=== PATIENT | female | born 1950 | race Caucasian/White ===

== ENCOUNTER → 2016-12-28 | Day surgery (SDC) | payer OTHER, MEDICARE ==
[2016-12-19 15:34] VITALS: Ht 163.8 cm; Wt 77.3 kg
[~2016-12-28] VITALS: Ht 163.8 cm; Wt 77.3 kg
[~2016-12-28] MED LIST: 500ML BSS 0.3ML EPI 1:1000PF IRRIG ONE; ACETAMINOPHEN 325 MG TAB PO PRN; ALBU1.257 NEB; ALBU1AER9 PO; AMVISC PLUS 0.8ML SYRINGE INT OCU ONE; ATEN50TA8 PO; BRIM0.2S OPB; BSS FLUSH ONE; CHOL100010 PO; CLR10 PO; CRFL PO; ENDOCOAT 0.85ML SYRINGE INT OCU ONE; EpINEphrine INJ 1MG/ML AMP 1 MG/ML AMP ONE; FLUT1AER5 INH; IPRASOL4 INH; LACTATED RINGER'S 1000ML 500 ML IV SCH; LIDOCAINE 4% OP SOLN DROP CHARGE ONE; LIDOCAINE 4% OP SOLN DROP CHARGE OPL SCH; LIDOCAINE HCL 1% MPF 2 ML VIAL ONE; LOSA100T65 PO; MIDAZOLAM HCL 1 MG/ML 2ML VIAL ONE; MIX: 4ML BSS 1ML EPI 1:1000 PF TOP ONE; MONT1TAB3 PO; MONT1TAB5 PO; MOXIFLOXACIN OPH SOLN PER DROP CHARGE ONE; POVIDONE-IODINE OP SOLN 30 ML BTL ONE; PRED1SUS3 OPL; PRLSR20 PO; PROPARACAINE 0.5% OP SOLN PER DROP CHARGE OPL SCH; TOBRAMYCIN/DEXAMETHASONE OPH OINT PER APPLN CHARGE ONE
[2016-12-28] MEDS: PHENYLEPHRINE HCL 2.5% OP SOLN PER DROP CHARGE OPL SCH ×3 (12:14→12:24)
[2016-12-28] MEDS: TROPICAMIDE 1% OP SOLN PER DROP CHARGE OPL SCH ×3 (12:15→12:25)
[2016-12-28] MEDS: CYCLOPENTOLATE HCL 1% OP SOLN PER DROP CHARGE OPL SCH ×3 (12:16→12:26)
[2016-12-28] MEDS: MOXIFLOXACIN OPH SOLN PER DROP CHARGE OPL SCH ×3 (12:17→12:27)
--- NOTE | 2016-12-28 12:41 | History & Physical Bridge - [place] ---
H&P Re-Evaluation Bridge Note: I have examined the patient, reviewed the History & Physical and in the interval since the performance of the History & Physical I have noted the following changes of clinical significance: No changes noted. Left eye cataract surgery.
--- NOTE | 2016-12-28 13:54 | [facility] Post Operative Brief Note ---
Immediate Operative Summary Operative Date Dec 28, 2016. Pre-Operative Diagnosis Cataract Left Eye Post-Operative Diagnosis Same Procedure(s) Performed Left Cataract Phacoemulsification With Intraocular Lens Implant Surgeon Dr. Presley Health Program Analyst Surgeon(s) None Estimated Blood Loss 0 mL Findings left cataract Specimens None Complication(s) None Disposition
[2016-12-28 13:55] VITALS: TEMP 36.5
--- NOTE | 2016-12-28 13:56 | [facility] Operative Report ---
Operative Report Date of Service Dec 28, 2016. Operative Report Phaco with toric IOL DATE OF OPERATION: 12/28/16 PREOPERATIVE DIAGNOSIS: Senile nuclear cataract and astigmatism, left eye POSTOPERATIVE DIAGNOSIS: Senile nuclear cataract and astigmatism, left eye PROCEDURE PERFORMED: Phacoemulsification with toric intraocular lens implantation, left eye SURGEON: Dr. Otto Presley ANESTHESIA: Topical with 1% intracameral lidocaine and monitored anesthesia care COMPLICATIONS: None DESCRIPTION OF PROCEDURE: After positively identifying the patient both verbally and by wristband in the preoperative area, the left eye was marked as the operative eye. Using a sterile marker, the 3:00, 6:00, and 9:00 positions on the limbus were marked, and using a Robomarker the 50 degree axis was marked after placing a drop of proparacaine. The patient was then brought back to the operating room by the anesthesia and nursing staff where they were given a drop of tetracaine and betadine into the operative eye. They were then sterilely prepped and draped in the standard fashion typical for ophthalmic surgery. Steri-strips were placed along the upper eyelids to keep the lashes back, and a lid speculum was placed into the operative eye. At this point, a documented time out was performed with members of the ophthalmology, nursing, and anesthesia staffs all agreeing upon the correct patient, correct location for surgery, correct procedure, and correct type and power of intraocular lens to be implanted. The microscope was then swung into position. Then, a paracentesis wound was made using a sideport blade. Then, in sequence, 1% preservative-free lidocaine followed by Endocoat viscoelastic was injected into the anterior chamber. Next , the main incision was made with a keratome blade in triplanar fashion. A sharp cystotome was introduced into the eye and used to create a tear in the anterior capsule, which was directed into a continuous curvilinear capsulorrhexis using Utrata forceps. Hydrodissection was then performed with BSS on a flat-tip cannula. Next, the phacoemulsification handpiece was introduced into the eye and used to remove the nucleus in a [id number] fashion. This was done without complication and then the irrigation-aspiration handpiece was introduced into the eye and used to remove all remaining cortical and epinuclear material. Amvisc was then injected into the anterior chamber as well as into the capsular bag and using the lens injector system, a [id number], serial number [id number], and expiration date 10/2020 was injected into the capsular bag and rotated into the correct position to correctly line up with the toric marking. Next, the irrigation-aspiration handpiece was used to remove all remaining Amvisc. BSS was used to hydrate the main wound, and then BSS was injected into the paracentesis site to reach physiologic pressure and then the main wound was checked and found to be watertight. The patient was given drops of Vigamox and tobradex ointment into the operative eye, and then the surrounding area was cleaned and dried. A clear plastic shield was placed over the eye and the patient was then sat up and taken from the operating room by the anesthesia staff having tolerated the procedure well and suffering no complications. DISPOSITION: The patient was returned to the recovery room in stable condition. I attest to the content of the Intraoperative Record and any orders documented therein. Any exceptions are noted below.
--- NOTE | 2016-12-28 13:57 | Discharge Instructions-SurgCtr ---
Discharge Instructions Date of Service Dec 28, 2016. Visit Reason for Visit: Cataract Left Eye Discharge Discharge Diagnosis / Problem: left cataract Discharge Goals Goal(s): Decrease discomfort, Improve function Activity Recommendations Activity Limitations: as noted below Anesthesia . Post Anesthesia Instructions: If you have had General Anesthesia or IV Sedation: * Do not drive today. * Resume driving when surgeon permits. * Do not make important decisions or sign legal documents today. * Call surgeon for: 1. Temperature elevations greater than 101 degrees F. 2. Uncontrollable pain. 3. Excessive bleeding. 4. Persistent nausea and vomiting. 5. Medication intolerance (nausea, vomiting or rash). * For nausea and vomiting use only clear liquids such as: tea, soda, bouillon until nausea subsides, then gradually increase diet as tolerated. * If you have any concerns or questions, call your surgeon's office. If physician is unavailable and it is an emergency, call 911 or go to the nearest emergency room. . Instructions / Follow-Up Instructions / Follow-Up ACTIVITY RECOMMENDATIONS: * Light activities. * You may walk outside, read, watch television. * You may notice redness on the white part of the eye and some blurry vision - this is normal. MEDICATIONS: Resume previous medications unless instructed otherwise by your surgeon. Start all eye drops at 4pm today: * Eye drops (today): Prednisone - one drop in operative eye every 2 hours while awake Ofloxacin - one drop in operative eye every 2 hours while awake SPECIAL CARE INSTRUCTIONS: * Tape plastic shield over eye to sleep at night. Call your doctor at with any concerns or problems. FOLLOW UP VISIT: Follow-up with Dr Presley at [place] office as scheduled. Diet Recommendations Home Diet: no limitations Procedures Procedures Performed: Left Cataract Phacoemulsification With Intraocular Lens Implant Pending Studies Studies pending at discharge: no Medical Emergencies . Who to Call and When: Medical Emergencies: If at any time you feel your situation is an emergency, please call 911 immediately. . Non-Emergent Contact Non-Emergency issues call your: Surgeon . . "Provider Documentation" section prepared by Otto Presley. .
--- NOTE | 2016-12-28 14:12 | Anesthesia Progress Nt - [facility] ---
Anesthesia Post Op Note Date & Time Dec 28, 2016 at 14:11 Vital Signs Pain Intensity: 0 Vital Signs Past 12 Hours Date Time Temp Pulse Resp B/P Pulse Ox O2 Delivery O2 Flow Rate FiO2 12/28/16 13:55 36.5 66 18 143/65 100 Room Air 12/28/16 11:59 36.4 63 16 153/84 97 Room Air Notes Mental Status: alert / awake / arousable, participated in evaluation Pt Amnestic to Procedure: No (recall as expected) Nausea / Vomiting: adequately controlled Pain: adequately controlled Airway Patency, RR, SpO2: stable & adequate BP & HR: stable & adequate Hydration State: stable & adequate Anesthetic Complications: no major complications apparent Pt doing well.
[2016-12-28 14:16] VITALS: BP 154/79; PULSE 66; O2SAT 100
== END | disposition home or self-care (01) ==
LOC: X.SURG 11:38
PROVIDERS: ATTEND Ophthalmology
DX: H25.12 Age-related nuclear cataract, left eye (principal); I10 Essential (primary) hypertension; E78.00 Pure hypercholesterolemia, unspecified; K21.9 Gastro-esophageal reflux disease without esophagitis; J45.909 Unspecified asthma, uncomplicated; Z79.899 Other long term (current) drug therapy

== ENCOUNTER → 2017-01-11 | Day surgery (SDC) | payer OTHER, MEDICARE ==
[2017-01-03 15:11] VITALS: Ht 163.8 cm; Wt 77.3 kg
[~2017-01-11] VITALS: Ht 163.8 cm; Wt 77.3 kg
[~2017-01-11] MED LIST changes: +ATROPINE SULFATE 0.1 MG/ML 5ML SYR IV PRN; +EpHEDrine SULFATE INJ 50 MG/ML AMP IV PRN; -LIDOCAINE 4% OP SOLN DROP CHARGE OPL SCH; +LIDOCAINE 4% OP SOLN DROP CHARGE OPR SCH; -PROPARACAINE 0.5% OP SOLN PER DROP CHARGE OPL SCH; +PROPARACAINE 0.5% OP SOLN PER DROP CHARGE OPR SCH
--- NOTE | 2017-01-11 08:23 | History & Physical Bridge - [place] ---
H&P Re-Evaluation Bridge Note: I have examined the patient, reviewed the History & Physical and in the interval since the performance of the History & Physical I have noted the following changes of clinical significance: No changes noted. Right eye cataract surgery.
[2017-01-11] MEDS: PHENYLEPHRINE HCL 2.5% OP SOLN PER DROP CHARGE OPR SCH ×3 (08:28→08:38)
[2017-01-11] MEDS: TROPICAMIDE 1% OP SOLN PER DROP CHARGE OPR SCH ×3 (08:29→08:39)
[2017-01-11] MEDS: CYCLOPENTOLATE HCL 1% OP SOLN PER DROP CHARGE OPR SCH ×3 (08:30→08:40)
[2017-01-11] MEDS: MOXIFLOXACIN OPH SOLN PER DROP CHARGE OPR SCH ×3 (08:31→08:41)
--- NOTE | 2017-01-11 09:25 | [facility] Post Operative Brief Note ---
Immediate Operative Summary Operative Date January 11, 2017. Pre-Operative Diagnosis Cataract right eye Post-Operative Diagnosis same Procedure(s) Performed Right Cataract Phacoemulsification With Intraocular Lens Implant Surgeon Dr Presley Rock Singer Surgeon(s) 0 Estimated Blood Loss 0 Findings right cataract Specimens 0 Complication(s) None Disposition
--- NOTE | 2017-01-11 09:26 | [facility] Operative Report ---
Operative Report Date of Service January 11, 2017. Operative Report Phaco with monofocal IOL DATE OF OPERATION: 01/11/17 PREOPERATIVE DIAGNOSIS: Senile nuclear cataract, right eye POSTOPERATIVE DIAGNOSIS: Senile nuclear cataract, right eye PROCEDURE PERFORMED: Phacoemulsification with intraocular lens implantation, right eye SURGEON: Dr. Otto Presley ANESTHESIA: Topical with 1% intracameral lidocaine and monitored anesthesia care COMPLICATIONS: None DESCRIPTION OF PROCEDURE: After positively identifying the patient both verbally and by wristband in the preoperative area, the right eye was marked as the operative eye. The patient was then brought back to the operating room by the anesthesia and nursing staff where they were given a drop of Lidocaine and betadine into the operative eye. They were then sterilely prepped and draped in the standard fashion typical for ophthalmic surgery. Steri-strips were placed along the upper eyelids to keep the lashes back, and a lid speculum was placed into the operative eye. At this point, a documented time out was performed with members of the ophthalmology, nursing, and anesthesia staffs all agreeing upon the correct patient, correct location for surgery, correct procedure, and correct type and power of intraocular lens to be implanted. The microscope was then swung into position. First, a paracentesis wound was made using a sideport blade. Then, in sequence, 1% preservative-free lidocaine followed by Endocoat viscoelastic was injected into the anterior chamber. Next , the main incision was made with a keratome blade in triplanar fashion. A sharp cystotome was introduced into the eye and used to create a tear in the anterior capsule, which was directed into a continuous curvilinear capsulorrhexis using Utrata forceps. Hydrodissection was then performed with BSS on a flat-tip cannula. Next, the phacoemulsification handpiece was introduced into the eye and used to remove the nucleus in a [id number] fashion. This was done without complication and then the irrigation-aspiration handpiece was introduced into the eye and used to remove all remaining cortical and epinuclear material. Amvisc was then injected into the anterior chamber as well as into the capsular bag and using the lens injector system, an MX60 25.0 D lens, serial number [id number], and expiration date 03/2019 was injected into the capsular bag and rotated into the correct position. Next, the irrigation- aspiration handpiece was used to remove all remaining Amvisc. BSS was used to hydrate the main wound, and then BSS was injected into the paracentesis site to reach physiologic pressure and then the main wound was checked and found to be watertight. The patient was given drops of Vigamox and Tobradex ointment into the operative eye, and then the surrounding area was cleaned and dried. A clear plastic shield was placed over the eye and the patient was then sat up and taken from the operating room by the anesthesia staff having tolerated the procedure well and suffering no complications. DISPOSITION: The patient was returned to the recovery room in stable condition. I attest to the content of the Intraoperative Record and any orders documented therein. Any exceptions are noted below.
--- NOTE | 2017-01-11 09:27 | Discharge Instructions-SurgCtr ---
Discharge Instructions Date of Service January 11, 2017. Visit Reason for Visit: Cataract Right Eye Discharge Discharge Diagnosis / Problem: right cataract Discharge Goals Goal(s): Decrease discomfort, Improve function Activity Recommendations Activity Limitations: as noted below Anesthesia . Post Anesthesia Instructions: If you have had General Anesthesia or IV Sedation: * Do not drive today. * Resume driving when surgeon permits. * Do not make important decisions or sign legal documents today. * Call surgeon for: 1. Temperature elevations greater than 101 degrees F. 2. Uncontrollable pain. 3. Excessive bleeding. 4. Persistent nausea and vomiting. 5. Medication intolerance (nausea, vomiting or rash). * For nausea and vomiting use only clear liquids such as: tea, soda, bouillon until nausea subsides, then gradually increase diet as tolerated. * If you have any concerns or questions, call your surgeon's office. If physician is unavailable and it is an emergency, call 911 or go to the nearest emergency room. . Instructions / Follow-Up Instructions / Follow-Up ACTIVITY RECOMMENDATIONS: * Light activities. * You may walk outside, read, watch television. * You may notice redness on the white part of the eye and some blurry vision - this is normal. MEDICATIONS: Resume previous medications unless instructed otherwise by your surgeon. Start all eye drops at 11:30 am today: * Eye drops (today): Prednisone - one drop in operative eye every 2 hours while awake Ofloxacin - one drop in operative eye every 2 hours while awake SPECIAL CARE INSTRUCTIONS: * Tape plastic shield over eye to sleep at night. Call your doctor at with any concerns or problems. FOLLOW UP VISIT: Follow-up with Dr Presley at [place] office as scheduled. Diet Recommendations Home Diet: no limitations Procedures Procedures Performed: Right Cataract Phacoemulsification With Intraocular Lens Implant Pending Studies Studies pending at discharge: no Medical Emergencies . Who to Call and When: Medical Emergencies: If at any time you feel your situation is an emergency, please call 911 immediately. . Non-Emergent Contact Non-Emergency issues call your: Surgeon . . "Provider Documentation" section prepared by Otto Presley. .
[2017-01-11 09:29] VITALS: TEMP 36.5
[2017-01-11 09:49] VITALS: BP 150/78; PULSE 62; O2SAT 99
--- NOTE | 2017-01-11 10:00 | Anesthesia Progress Nt - [facility] ---
Anesthesia Post Op Note Date & Time January 11, 2017 at 10:01 Vital Signs Pain Intensity: 0 Vital Signs Past 12 Hours Date Time Temp Pulse Resp B/P Pulse Ox O2 Delivery O2 Flow Rate FiO2 01/11/17 09:49 62 150/78 99 Room Air 01/11/17 09:29 36.5 60 16 157/78 100 Room Air 01/11/17 08:20 36.8 54 20 153/79 99 Room Air Notes Mental Status: alert / awake / arousable, participated in evaluation Pt Amnestic to Procedure: Yes Nausea / Vomiting: adequately controlled Pain: adequately controlled Airway Patency, RR, SpO2: stable & adequate BP & HR: stable & adequate Hydration State: stable & adequate Anesthetic Complications: no major complications apparent
== END | disposition home or self-care (01) ==
LOC: X.SURG 07:34
PROVIDERS: ATTEND Ophthalmology
DX: H25.11 Age-related nuclear cataract, right eye (principal); I10 Essential (primary) hypertension; E78.00 Pure hypercholesterolemia, unspecified; J45.909 Unspecified asthma, uncomplicated; K21.9 Gastro-esophageal reflux disease without esophagitis

== ENCOUNTER 2017-02-27 16:21 | Emergency (ER) | payer OTHER, MEDICARE ==
[~2017-02-27] VITALS: Ht 162.6 cm; Wt 87.0 kg
[~2017-02-27 16:21] MED LIST changes: -500ML BSS 0.3ML EPI 1:1000PF IRRIG ONE; -ACETAMINOPHEN 325 MG TAB PO PRN; -ALBU1.257 NEB; -AMVISC PLUS 0.8ML SYRINGE INT OCU ONE; -ATROPINE SULFATE 0.1 MG/ML 5ML SYR IV PRN; -BSS FLUSH ONE; -CRFL PO; -ENDOCOAT 0.85ML SYRINGE INT OCU ONE; -EpHEDrine SULFATE INJ 50 MG/ML AMP IV PRN; -EpINEphrine INJ 1MG/ML AMP 1 MG/ML AMP ONE; -LACTATED RINGER'S 1000ML 500 ML IV SCH; -LIDOCAINE 4% OP SOLN DROP CHARGE ONE; -LIDOCAINE 4% OP SOLN DROP CHARGE OPR SCH; -LIDOCAINE HCL 1% MPF 2 ML VIAL ONE; -MIDAZOLAM HCL 1 MG/ML 2ML VIAL ONE; -MIX: 4ML BSS 1ML EPI 1:1000 PF TOP ONE; -MONT1TAB3 PO; -MOXIFLOXACIN OPH SOLN PER DROP CHARGE ONE; -POVIDONE-IODINE OP SOLN 30 ML BTL ONE; -PROPARACAINE 0.5% OP SOLN PER DROP CHARGE OPR SCH; -TOBRAMYCIN/DEXAMETHASONE OPH OINT PER APPLN CHARGE ONE
[2017-02-27 16:38] VITALS: TEMP 36.7; Ht 162.6 cm; Wt 87.0 kg
--- NOTE | 2017-02-27 16:39 | EMERGENCY ROOM VISIT NOTE ---
History Report prepared by Richard: Bebe Montanez Under the Supervision of: Dr. Chiqui Myles D.O. First contact with patient: 16:25 Stated Complaint: HTN, SOB, History of Present Illness The patient is a 66 year old female who presents to the Emergency Room with complaints of increasing fatigue over the past 24 hours. The patient states that over the last day she has noticed bilateral arm and leg heaviness and bilateral arm tingling. She additionally notes discomfort and bloating in her abdomen. The patient states that she has noticed the abdominal discomfort radiating up towards her chest. She states that she has a difficult time differentiating symptoms between asthma and acid reflux. Denies sob/wheezing. The patient reports finger tingling. She states that she feels generally "yucky." The patient states that all at once she was dealing with asthma, acid reflux, allergies, and cataract surgery. She states that she was on Prednisone and antibiotics. The patient states that over the last two weeks she has been cutting back on her Omeprazole, and since then has noticed looser bowel movements and more frequent bowel movements, but denies any melena or hematochezia. States bowel movements have returned to normal in recent days. The patient states that over the last several years she has noticed intermittent diaphoresis at night. She denies any headache, dizziness, chills, fever, chest pain, shortness of breath, heart palpitations, or swelling in her legs. The patient denies any history of abdominal surgeries. Source of History: patient Onset: past 24 hours Position: other (global) Quality: other (fatigue) Timing: other (increasing) Associated Symptoms: + diaphoresis, + abdominal pain (discomfort and bloating), No fevers, No chills, No headache, No chest pain, No SOB, No melena, No hematochezia Note: Associated Symptoms: looser bowel movements and more frequent bowel movements, feeling generally yucky, finger tingling, bilateral arm and leg heaviness, bilateral arm tingling. Review of Systems See HPI for pertinent positives & negatives. A total of 10 systems reviewed and were otherwise negative. Past Medical & Surgical Medical Problems: (1) Asthma (2) Bronchitis (3) GERD (gastroesophageal reflux disease) (4) Hypertension (5) Kidney stone (6) Pneumonia Surgical Problems: (1) S/P hernia repair Family History Cancer Gallbladder disease Hypertension Lung disease Social History Smoking Status: Never Smoker Alcohol Use: occasionally Drug Use: none Marital Status: Housing Status: lives with significant other Occupation Status: retired Current/Historical Medications Scheduled Atenolol (Tenormin), 50 MG PO DAILY Brimonidine Tartrate-Timolol M (Combigan), 1 DROP OPB BID Cholecalciferol (Vitamin D), 1 TAB PO QAM Fluticasone Propionate (Inhala (Flovent Diskus), 1 PUFFS INH BID Losartan Potassium (Cozaar), 100 MG PO QAM Montelukast Sodium (Singulair), 10 MG PO DAILY Sucralfate (Carafate), 10 ML PO ACHS Scheduled PRN Albuterol Sulfate (Albuterol Sulfate), 1 VIAL NEB Q4 PRN for Wheezing Ipratropium-Albuterol (Duoneb), 1 TREATMENT INH Q4H PRN for Shortness of Breath Allergies Coded Allergies: Erythromycin (Unverified Allergy, Intermediate, GI ISSUES, 01/11/17) Atorvastatin (Unverified Allergy, Unknown, EDEMA, 01/11/17) Conjugated Estrogens (Unverified Allergy, Unknown, SWELLING/SKIN FLAKES, ) Latanoprost (Unverified Allergy, Unknown, RASH, 01/11/17) Lisinopril (Unverified Allergy, Unknown, COUGH, 01/11/17) Medroxyprogesterone (Unverified Allergy, Unknown, SWELLING/SKIN FLAKES, 06/20) Rosuvastatin (Unverified Allergy, Unknown, EDEMA, 01/11/17) Sulfamethoxazole w/Trimethoprim (Unverified Allergy, Unknown, SPINNING/ VERTIGO/RASH, 01/11/17) Physical Exam Vital Signs Date Time Temp Pulse Resp B/P (MAP) Pulse Ox O2 Delivery O2 Flow Rate FiO2 02/27/17 21:20 84 20 146/70 98 02/27/17 19:42 64 20 152/65 97 02/27/17 18:52 78 20 182/71 97 Room Air 02/27/17 18:01 76 18 156/79 98 Room Air 02/27/17 16:44 62 02/27/17 16:38 36.7 70 20 137/96 99 Room Air Physical Exam GENERAL: alert, well appearing, well nourished, no distress, non-toxic, frontal alopecia EYE EXAM: normal conjunctiva, PERRL and EOM's grossly intact OROPHARYNX: no exudate, no erythema, lips, buccal mucosa, and tongue normal and mucous membranes are moist NECK: supple, no nuchal rigidity, no adenopathy, non-tender LUNGS: Clear to auscultation. Normal chest wall mechanics HEART: no murmurs, S1 normal and S2 normal ABDOMEN: abdomen soft, non-tender, normo-active bowel sounds, no masses, no rebound or guarding. BACK: Back is symmetrical on inspection and there is no deformity, no midline tenderness, no CVA tenderness. SKIN: no rashes and no bruising UPPER EXTREMITIES: upper extremities are grossly normal. LOWER EXTREMITIES: No pitting edema. NEURO EXAM: Normal sensorium, cranial nerves II-XII grossly intact, normal speech, no gross weakness of arms, no gross weakness of legs. Medical Decision & Procedures ER Provider Diagnostic Interpretation: Radiology results have been interpreted by the radiologist and reviewed by me. CHEST AND ABDOMEN 2 VIEWS HISTORY: Atypical chest pain. Upper abdominal pain. COMPARISON: Chest and abdominal series 01/22/2016. Abdomen and pelvis CT 08/30/2016. FINDINGS: Stable calcified granuloma within the left midlung zone. The lungs are otherwise clear. The heart is normal in size. No pneumoperitoneum. No pneumatosis. The bowel gas pattern is unremarkable. No evidence for bowel obstruction. No renal calculi. Stable oval-shaped 12 mm calcification within the left deep pelvis which is not located within the distal left ureter. IMPRESSION: No acute cardiopulmonary process. No evidence for bowel obstruction. Electronically signed by: Eugene Rodriguez M.D. 02/27/2017 5:48 PM Dictated Date/Time: 02/27/2017 5:45 PMCHEST AND ABDOMEN 2 VIEWS HISTORY: Atypical chest pain. Upper abdominal pain. COMPARISON: Chest and abdominal series 01/22/2016. Abdomen and pelvis CT 08/30/2016. FINDINGS: Stable calcified granuloma within the left midlung zone. The lungs are otherwise clear. The heart is normal in size. No pneumoperitoneum. No pneumatosis. The bowel gas pattern is unremarkable. No evidence for bowel obstruction. No renal calculi. Stable oval-shaped 12 mm calcification within the left deep pelvis which is not located within the distal left ureter. IMPRESSION: No acute cardiopulmonary process. No evidence for bowel obstruction. Electronically signed by: Eugene Rodriguez M.D. 02/27/2017 5:48 PM Dictated Date/Time: 02/27/2017 5:45 PM ABDOMINAL ULTRASOUND, RIGHT UPPER QUADRANT HISTORY: upper abd pain. COMPARISON: Abdomen and pelvis CT 08/30/2016. Abdominal ultrasound 01/22/2016. FINDINGS: Pancreas: The pancreatic tail is obscured by overlying bowel gas. The remaining portions of the pancreas are within normal limits. Liver: The liver is echogenic consistent with fatty change. Gallbladder: No gallbladder wall thickening. No gallstones. CBD: 3 mm. Right kidney: No hydronephrosis. IMPRESSION: 1. Normal gallbladder. No gallstones. 2. Hepatic steatosis. Electronically signed by: Eugene Rodriguez M.D. 02/27/2017 7:41 PM Dictated Date/Time: 02/27/2017 7:40 PM Laboratory Results 02/27/17 16:55 Red Blood Count 4.35, Mean Corpuscular Volume 95.2, Mean Corpuscular Hemoglobin 31.5, Mean Corpuscular Hemoglobin Concent 33.1, Mean Platelet Volume 9.8, Neutrophils (%) (Auto) 57.2, Lymphocytes (%) (Auto) 29.7, Monocytes (%) (Auto) 8.7, Eosinophils (%) (Auto) 3.8, Basophils (%) (Auto) 0.3, Neutrophils # (Auto) 5.35, Lymphocytes # (Auto) 2.78, Monocytes # (Auto) 0.81, Eosinophils # (Auto) 0.36, Basophils # (Auto) 0.03 02/27/17 16:55 Test 02/27/17 16:55 02/27/17 17:09 02/27/17 17:16 White Blood Count 9.36 K/uL (4.8-10.8) Red Blood Count 4.35 M/uL (4.2-5.4) Hemoglobin 13.7 g/dL (12.0-16.0) Hematocrit 41.4 % (37-47) Mean Corpuscular Volume 95.2 fL (80-100) Mean Corpuscular Hemoglobin 31.5 pg (25-34) Mean Corpuscular Hemoglobin Concent 33.1 g/dl (32-36) Platelet Count 271 K/uL (130-400) Mean Platelet Volume 9.8 fL (7.4-10.4) Neutrophils (%) (Auto) 57.2 % Lymphocytes (%) (Auto) 29.7 % Monocytes (%) (Auto) 8.7 % Eosinophils (%) (Auto) 3.8 % Basophils (%) (Auto) 0.3 % Neutrophils # (Auto) 5.35 K/uL (1.4-6.5) Lymphocytes # (Auto) 2.78 K/uL (1.2-3.4) Monocytes # (Auto) 0.81 K/uL (0.11-0.59) Eosinophils # (Auto) 0.36 K/uL (0-0.5) Basophils # (Auto) 0.03 K/uL (0-0.2) RDW Standard Deviation 44.2 fL (36.4-46.3) RDW Coefficient of Variation 12.8 % (11.5-14.5) Immature Granulocyte % (Auto) 0.3 % Immature Granulocyte # (Auto) 0.03 K/uL (0.00-0.02) Anion Gap 8.0 mmol/L (3-11) Est Creatinine Clear Calc Drug Dose 64.6 ml/min Estimated GFR () 77.2 Estimated GFR (Non- 66.6 BUN/Creatinine Ratio 19.4 (10-20) Calcium Level 8.9 mg/dl (8.5-10.1) Total Bilirubin 0.4 mg/dl (0.2-1) Aspartate Amino Transf (AST/SGOT) 25 U/L (15-37) Alanine Aminotransferase (ALT/SGPT) 34 U/L (12-78) Alkaline Phosphatase 86 U/L (45-117) Troponin I < 0.015 ng/ml (0-0.045) Total Protein 7.5 gm/dl (6.4-8.2) Albumin 3.3 gm/dl (3.4-5.0) Globulin 4.2 gm/dl (2.5-4.0) Albumin/Globulin Ratio 0.8 (0.9-2) Lipase 128 U/L (73-393) Thyroid Stimulating Hormone (TSH) 1.260 uIu/ml (0.300-4.500) Lactic Acid Level 1.3 mmol/L (0.4-2.0) Urine Color YELLOW Urine Appearance CLEAR (CLEAR) Urine pH 6.5 (4.5-7.5) Urine Specific [place] 1.010 (1.000-1.030) Urine Protein NEG (NEG) Urine Glucose (UA) NEG (NEG) Urine Ketones NEG (NEG) Urine Occult Blood TRACE (NEG) Urine Nitrite NEG (NEG) Urine Bilirubin NEG (NEG) Urine Urobilinogen NEG (NEG) Urine Leukocyte Esterase NEG (NEG) Urine WBC (Auto) 0 /hpf (0-5) Urine RBC (Auto) 0-4 /hpf (0-4) Urine Hyaline Casts (Auto) 0 /lpf (0-5) Urine Epithelial Cells (Auto) 5-10 /lpf (0-5) Urine Bacteria (Auto) NEG (NEG) Laboratory results per my review. Medications Administered Medications (Trade) Dose Ordered Sig/Sterling Route Start Time Stop Time Status Last Admin Dose Admin Al Hydroxide/Mg Hydroxide (Maalox Susp) 30 ml NOW STAT PO 02/27/17 17:53 02/27/17 17:55 DC 02/27/17 17:59 30 ML Pantoprazole Sodium 40 mg/ Syringe 10 ml @ 5 mls/min NOW ONCE IV 02/27/17 18:00 02/27/17 18:01 DC 02/27/17 18:23 5 MLS/MIN Sucralfate (Carafate Susp) 1 gm NOW STAT PO 02/27/17 20:37 02/27/17 20:38 DC 02/27/17 20:53 1 GM ECG Indication: abdominal pain, other (fatigue) Rate (beats per minute): 66 Rhythm: sinus rhythm Findings: no acute ischemic change, no ectopy, other (normal axis, normal intervals, low voltage throuhgout) ED Course 162: The patient was evaluated in room C3. A complete history and physical exam was performed. 175: Ordered Maalox Susp 30 ml PO 1800: Ordered Pantoprazole Sodium 40 mg/Syringe 10 ml @ 5 mls/min IV. 0: I reevaluated the patient and she is doing well. I updated her on all her results and there has been no change on her condition. 1999: I reevaluated the patient and she is feeling okay. I discussed all the exam findings with her and I discussed the treatment plan. She verbalized complete understanding and agreement. She is going to have an ambulation trial and then will be discharged. 2036: Ordered Carafate Susp 1 gm PO. Medical Decision Differential diagnoses includes but is not limited to gastritis, peptic ulcer disease, GERD, gallbladder disease, pancreatitis, small bowel obstruction, acute coronary syndrome, pericarditis, ischemic bowel, irritable bowel disease, irritable bowel syndrome, appendicitis, diverticulitis, malignancy, hernia, urinary tract infection, torsion, perforation, trauma, infectious. Medication Reconciliation: I attest that I have personally reviewed the patient' s current medication list. Blood pressure screening: Patient was found to have an elevated blood pressure and was referred to their primary doctor for recheck and further treatment. Patient well-appearing here despite complaints. No focal findings here today, patient with vague systemic complaints of fatigue and heaviness. Discussed with patient her upper abdominal discomfort especially given her history of GERD. Patient improved here following GI medications. Labs are reassuring, x- ray reassuring, ultrasound negative. Discussed with patient symptoms could be related to recent increased gastritis or GERD-like symptoms given use of prednisone as well as her attempts to taper off of omeprazole. Doubt cardiac etiology, vascular/aortic etiology, doubt PE. Patient states symptoms and and upper abdomen are consistent with prior episodes of GERD and ulcers. Patient encouraged to continue use of omeprazole and Carafate added as precaution. Discussed with patient close follow-up with family doctor in possible need for repeat GI evaluation given history. Discussed the patient may also need additional evaluation for fatigue including rheumatologic evaluation. No evidence of bacteremia/sepsis. No evidence of acute thyroid dysfunction. Doubt neurologic cause of systemic symptoms. Patient with normal and nonfocal neuro exam bedside, doubt CVA/TIA. Discussed with patient symptoms to watch and return for, she verbalized understanding was agreeable with plan. Impression Primary Impression: Fatigue Additional Impressions: Abdominal pain GERD (gastroesophageal reflux disease) Scribe Attestation The scribe's documentation has been prepared under my direction and personally reviewed by me in its entirety. I confirm that the note above accurately reflects all work, treatment, procedures, and medical decision making performed by me. Departure Information Dispostion Home / Self-Care Prescriptions Sucralfate (CARAFATE) 1 Gm/10 Ml Cordelia 10 ML PO ACHS, #1 BTL Prov: Chiqui Myles, DO 02/27/17 Referrals Eloisa Angel D.O. (PCP) Forms HOME CARE DOCUMENTATION FORM, IMPORTANT VISIT INFORMATION, WORK / SCHOOL INSTRUCTIONS Patient Instructions My [facility] Additional Instructions Please call and follow up with her family doctor and discuss your recent symptoms with them. Please do not try and wean yourself off of the omeprazole unless a GI specialist or your family doctor titrated do so. Please try and avoid items in your diet which could increase your stomach irritation including tomato-based products, citrus fruits, coffee, soda, or alcohol. Please continue your other regular medications as prescribed. If your symptoms persist , your family doctor may recommend additional testing or referral to a specialist. If you notice any increasing pain, develop chest pain, trouble breathing, numbness or tingling, dizziness, fevers, vomiting, noticed black or bloody stools, or you've any other new concerns, please return the emergency room. Problem Qualifiers Primary Impression: Fatigue Fatigue type: unspecified Qualified Codes: R53.83 - Other fatigue Additional Impressions: Abdominal pain Abdominal location: epigastric Qualified Codes: R10.13 - Epigastric pain GERD (gastroesophageal reflux disease) Esophagitis presence: esophagitis presence not specified Qualified Codes: K21.9 - Gastro-esophageal reflux disease without esophagitis
[2017-02-27 17:17] LABS: BASO % 0.3 %; BASO ABS # 0.03 K/uL (0-0.2); COMPLETE YES; EOS % 3.8 %; HEMATOCRIT 41.4 % (37-47); IG% 0.3 %; LYMPH % 29.7 %; LYMPH ABS # 2.78 K/uL (1.2-3.4); MEAN CELL VOLUME 95.2 fL (80-100); MEAN CORPUSCULAR HEMOGLOBIN 31.5 pg (25-34); MEAN CORPUSCULAR HGB CONC 33.1 g/dl (32-36); MEAN PLATELET VOLUME 9.8 fL (7.4-10.4); MONO % 8.7 %; NEUT % 57.2 %; PLATELET COUNT 271 K/uL (130-400); RED BLOOD COUNT 4.35 M/uL (4.2-5.4); WHITE BLOOD COUNT 9.36 K/uL (4.8-10.8)
[2017-02-27 17:34] LABS: ALT/SGPT 34 U/L (12-78); AST/SGOT 25 U/L (15-37); BLOOD UREA NITROGEN 17 mg/dl (7-18); BUN/CREATININE RATIO 19.4 (10-20); CALCIUM 8.9 mg/dl (8.5-10.1); CARBON DIOXIDE 25 mmol/L (21-32); CHLORIDE 106 mmol/L (98-107); CREATININE 0.89 mg/dl (0.60-1.20); GLUCOSE 102 mg/dl (70-99); POTASSIUM 3.9 mmol/L (3.5-5.1); SODIUM 139 mmol/L (136-145)
[2017-02-27 17:38] LABS: ALB/GLOB RATIO 0.8 (0.9-2); ALKALINE PHOSPHATASE 86 U/L (45-117)
[2017-02-27 17:40] LABS: URINE APPEARANCE CLEAR (CLEAR); URINE BILIRUBIN NEG (NEG); URINE COLOR YELLOW; URINE NITRITE NEG (NEG); URINE PH 6.5 (4.5-7.5); UROBILINOGEN NEG (NEG); ZZUR CULT IF INDIC CLEAN CATCH NO
[2017-02-27 17:41] LABS: MANUAL MICROSCOPIC REQUIRED? NO; REVIEW REQ? NO
--- NOTE | 2017-02-27 17:49 | DIAGNOSTIC IMAGING REPORT ---
CHEST AND ABDOMEN 2 VIEWS HISTORY: Atypical chest pain. Upper abdominal pain. COMPARISON: Chest and abdominal series 01/22/2016. Abdomen and pelvis CT 08/30/2016. FINDINGS: Stable calcified granuloma within the left midlung zone. The lungs are otherwise clear. The heart is normal in size. No pneumoperitoneum. No pneumatosis. The bowel gas pattern is unremarkable. No evidence for bowel obstruction. No renal calculi. Stable oval-shaped 12 mm calcification within the left deep pelvis which is not located within the distal left ureter. IMPRESSION: No acute cardiopulmonary process. No evidence for bowel obstruction. Electronically signed by: Eugene Rodriguez M.D. 02/27/2017 5:48 PM Dictated Date/Time: 02/27/2017 5:45 PM
[2017-02-27] MEDS ORDERED: ALUMINUM/MAGNESIUM SUSP 30 ML UDC PO STA (17:53)
[2017-02-27] MEDS ORDERED: PANTOprazole INJ 40 MG in SYRINGE 0 ML IV ONE (18:00)
[2017-02-27] MEDS ORDERED: MONT1TAB3 PO (18:18)
[2017-02-27] MEDS ORDERED: ATEN50TA8 PO (18:18)
[2017-02-27] MEDS ORDERED: ALBU1.257 NEB (18:23)
--- NOTE | 2017-02-27 19:42 | DIAGNOSTIC IMAGING REPORT ---
ABDOMINAL ULTRASOUND, RIGHT UPPER QUADRANT HISTORY: upper abd pain. COMPARISON: Abdomen and pelvis CT 08/30/2016. Abdominal ultrasound 01/22/2016. FINDINGS: Pancreas: The pancreatic tail is obscured by overlying bowel gas. The remaining portions of the pancreas are within normal limits. Liver: The liver is echogenic consistent with fatty change. Gallbladder: No gallbladder wall thickening. No gallstones. CBD: 3 mm. Right kidney: No hydronephrosis. IMPRESSION: 1. Normal gallbladder. No gallstones. 2. Hepatic steatosis. Electronically signed by: Eugene Rodriguez M.D. 02/27/2017 7:41 PM Dictated Date/Time: 02/27/2017 7:40 PM
[2017-02-27] MEDS ORDERED: SUCRALFATE 1 GM/10 ML UDC PO STA (20:37)
[2017-02-27] MEDS ORDERED: CRFL PO (21:04)
[2017-02-27 21:20] VITALS: BP 146/70; PULSE 84; O2SAT 98
== END 2017-02-27 21:21 | disposition home or self-care (01) ==
LOC: EDBD 16:21 → C.EDC 16:22
DX: R53.83 Other fatigue (principal); R10.10 Upper abdominal pain, unspecified; K21.9 Gastro-esophageal reflux disease without esophagitis; J45.909 Unspecified asthma, uncomplicated; I10 Essential (primary) hypertension; Z82.49 Family history of ischemic heart disease and other diseases of the circulatory system; Z87.442 Personal history of urinary calculi

== ENCOUNTER 2017-09-07 15:18 | Observation (INO) | payer OTHER, MEDICARE ==
[~2017-09-07] VITALS: Ht 163.8 cm; Wt 80.3 kg
[~2017-09-07 15:18] MED LIST changes: +ALBU1.257 NEB; -ALBU1AER9 PO; -CLR10 PO; +MONT1TAB3 PO; -MONT1TAB5 PO; -PRED1SUS3 OPL; -PRLSR20 PO
[2017-09-07] MEDS ORDERED: ASPIRIN 81 MG CHEW PO STA (15:35)
[2017-09-07 15:43] LABS: BASO % 0.3 %; BASO ABS # 0.03 K/uL (0-0.2); EOS % 3.7 %; EOS ABS # 0.36 K/uL (0-0.5); HEMATOCRIT 41.6 % (37-47); HEMOGLOBIN 14.2 g/dL (12.0-16.0); IG# 0.02 K/uL (0.00-0.02); LYMPH % 22.8 %; MEAN CELL VOLUME 94.8 fL (80-100); MEAN CORPUSCULAR HEMOGLOBIN 32.3 pg (25-34); MEAN CORPUSCULAR HGB CONC 34.1 g/dl (32-36); MONO % 6.2 %; NEUT % 66.8 %; NEUT ABS # 6.44 K/uL (1.4-6.5); PLATELET COUNT 276 K/uL (130-400); RED CELL DISTRIBUTION WIDTH CV 13.1 % (11.5-14.5); RED CELL DISTRIBUTION WIDTH SD 45.4 fL (36.4-46.3); WHITE BLOOD COUNT 9.65 K/uL (4.8-10.8)
--- NOTE | 2017-09-07 15:43 | DIAGNOSTIC IMAGING REPORT ---
CHEST ONE VIEW PORTABLE CLINICAL HISTORY: 66 years-old Female presenting with Chest pain, shortness of breath. TECHNIQUE: Portable upright AP view of the chest was obtained. COMPARISON: 02/27/2017. FINDINGS: Atherosclerosis of the aortic arch. Cardiac silhouette normal in size. Calcified granuloma may be present in the left lung. Lungs and pleural spaces otherwise clear. Degenerative changes of the thoracic spine. Upper abdomen normal. IMPRESSION: 1. No acute cardiopulmonary disease. Electronically signed by: Dav Carney M.D. 09/07/2017 3:41 PM Dictated Date/Time: 09/07/2017 3:40 PM
--- NOTE | 2017-09-07 15:56 | EMERGENCY ROOM VISIT NOTE ---
History First contact with patient: 15:23 Chief Complaint: CHEST PAIN Stated Complaint: CHEST DISCOMFORT/NAUSEA/TINGLING HANDS&LEGS Nursing Triage Summary: pt c/o chest pain in the epigastric area. states fatigue for 1 week. c/o tingling in her lips and fingers bilaterally. states her legs feel heavy. pt states sob and "not breathing right". History of Present Illness The patient is a 66 year old female who presents to the Emergency Room via private vehicle and would like with complaints of "chest discomfort, nausea, tingling hands and legs". The patient states that for the past week she has felt fatigued, and over the past few days she developed a cough. She now notes today around lunchtime she developed epigastric abdominal pain that she feels in the bottom of her lungs. She feels that she cannot move air as well. There are shortness of breath. The pain is constant. It is worse with exertion. She also is stinging in ears and legs. She tried her nebulizer without relief. She is concerned because she feels as though her symptoms are getting worse. She denies a history of DE or PE. Review of Systems A complete 10-point Review of Systems was discussed with the patient, with pertinent positives and negatives listed in the History of Present Illness. All remaining Review of Systems questions can be considered negative unless otherwise specified. Past Medical/Surgical History Medical Problems: (1) Asthma (2) Bronchitis (3) Chest pain (4) GERD (gastroesophageal reflux disease) (5) Hypertension (6) Kidney stone (7) Pneumonia Surgical Problems: (1) S/P hernia repair Family History Cancer Gallbladder disease Hypertension Lung disease Social History Smoking Status: Never Smoker Alcohol Use: occasionally Drug Use: none Marital Status: Housing Status: lives with significant other Occupation Status: retired Current/Historical Medications Scheduled Ascorbic Acid (Vitamin C), 500 MG PO QAM Atenolol (Tenormin), 50 MG PO DAILY Brimonidine Tartrate-Timolol M (Combigan), 1 DROP OPB BID Cholecalciferol (Vitamin D), 1 TAB PO QAM Fluticasone Propionate (Inhala (Flovent Diskus), 1 PUFFS INH BID Losartan Potassium (Cozaar), 100 MG PO QAM Montelukast Sodium (Singulair), 10 MG PO DAILY Pantoprazole (Protonix), 20 MG PO QAM Scheduled PRN Albuterol Sulfate (Albuterol Sulfate), 1 VIAL NEB Q4 PRN for Wheezing Ipratropium-Albuterol (Duoneb), 1 TREATMENT INH Q4H PRN for Shortness of Breath Physical Exam Vital Signs Date Time Temp Pulse Resp B/P (MAP) Pulse Ox O2 Delivery O2 Flow Rate FiO2 09/07/17 19:14 75 18 182/65 98 Room Air 09/07/17 16:48 36.6 95 18 165/81 96 Room Air 09/07/17 15:45 70 09/07/17 15:31 96 Room Air 09/07/17 15:31 36.6 69 18 150/73 96 Room Air 09/07/17 15:29 Room Air Physical Exam VITAL SIGNS - Vital signs and nursing notes were reviewed.Stable. GENERAL - 66-year-old female appearing her stated age who is in no acute distress. Communicates well with provider and answers questions appropriately. SKIN - Without rashes. HEAD - NC/AT. EYES - PERRL with EOMI bilaterally. Sclera anicteric. EARS - No deformities of external structures noted on gross examination bilaterally. NOSE - Midline and without cyanosis. No epistaxis or purulent drainage noted. Septum midline without deviation or septal hematoma noted. MOUTH/OROPHARYNX - Without perioral cyanosis. NECK - Neck with FROM. Supple to palpation. LUNGS - Chest wall symmetric without accessory muscle use, intercostals retractions, or central cyanosis. Normal vesicular breath sounds CTA B/L. No wheezes, rales, or rhonchi appreciated. CARDIAC - RRR with S1/S2. No murmur, rubs, or gallops appreciated. ABDOMEN - Abdominal contour normal without pulsations or visible masses. BS normoactive all four quadrants. No tenderness, palpable masses, hepatosplenomegaly, or ascites noted. EXTREMITIES - No clubbing or peripheral cyanosis. No pretibial edema present. No pitting edema. +5/5 strength noted in UE/LE bilaterally. NEUROLOGIC - Cranial nerves II through XII grossly intact. Sensory intact to light touch throughout. PSYCH - A&O, and cooperates fully with examiner. Pt is very pleasant and interacts well with examiner. Medical Decision & Procedures ER Provider Diagnostic Interpretation: CHEST ONE VIEW PORTABLE CLINICAL HISTORY: 66 years-old Female presenting with Chest pain, shortness of breath. TECHNIQUE: Portable upright AP view of the chest was obtained. COMPARISON: 02/27/2017. FINDINGS: Atherosclerosis of the aortic arch. Cardiac silhouette normal in size. Calcified granuloma may be present in the left lung. Lungs and pleural spaces otherwise clear. Degenerative changes of the thoracic spine. Upper abdomen normal. IMPRESSION: 1. No acute cardiopulmonary disease. Electronically signed by: Dav Carney M.D. 09/07/2017 3:41 PM Dictated Date/Time: 09/07/2017 3:40 PM Laboratory Results 09/07/17 15:30 Red Blood Count 4.39, Mean Corpuscular Volume 94.8, Mean Corpuscular Hemoglobin 32.3, Mean Corpuscular Hemoglobin Concent 34.1, Mean Platelet Volume 10.0, Neutrophils (%) (Auto) 66.8, Lymphocytes (%) (Auto) 22.8, Monocytes (%) (Auto) 6.2, Eosinophils (%) (Auto) 3.7, Basophils (%) (Auto) 0.3, Neutrophils # (Auto) 6.44, Lymphocytes # (Auto) 2.20, Monocytes # (Auto) 0.60, Eosinophils # (Auto) 0.36, Basophils # (Auto) 0.03 09/07/17 15:30 Test 09/07/17 15:30 09/07/17 16:53 09/07/17 18:05 White Blood Count 9.65 K/uL (4.8-10.8) Red Blood Count 4.39 M/uL (4.2-5.4) Hemoglobin 14.2 g/dL (12.0-16.0) Hematocrit 41.6 % (37-47) Mean Corpuscular Volume 94.8 fL (80-100) Mean Corpuscular Hemoglobin 32.3 pg (25-34) Mean Corpuscular Hemoglobin Concent 34.1 g/dl (32-36) Platelet Count 276 K/uL (130-400) Mean Platelet Volume 10.0 fL (7.4-10.4) Neutrophils (%) (Auto) 66.8 % Lymphocytes (%) (Auto) 22.8 % Monocytes (%) (Auto) 6.2 % Eosinophils (%) (Auto) 3.7 % Basophils (%) (Auto) 0.3 % Neutrophils # (Auto) 6.44 K/uL (1.4-6.5) Lymphocytes # (Auto) 2.20 K/uL (1.2-3.4) Monocytes # (Auto) 0.60 K/uL (0.11-0.59) Eosinophils # (Auto) 0.36 K/uL (0-0.5) Basophils # (Auto) 0.03 K/uL (0-0.2) RDW Standard Deviation 45.4 fL (36.4-46.3) RDW Coefficient of Variation 13.1 % (11.5-14.5) Immature Granulocyte % (Auto) 0.2 % Immature Granulocyte # (Auto) 0.02 K/uL (0.00-0.02) D-Dimer 370 ug/L FEU (0-500) Anion Gap 6.0 mmol/L (3-11) Est Creatinine Clear Calc Drug Dose 44.4 ml/min Estimated GFR () 50.7 Estimated GFR (Non- 43.7 BUN/Creatinine Ratio 19.2 (10-20) Calcium Level 9.3 mg/dl (8.5-10.1) Magnesium Level 1.6 mg/dl (1.8-2.4) Total Bilirubin 0.4 mg/dl (0.2-1) Aspartate Amino Transf (AST/SGOT) 30 U/L (15-37) Alanine Aminotransferase (ALT/SGPT) 34 U/L (12-78) Alkaline Phosphatase 99 U/L (45-117) Total Creatine Kinase 62 U/L (26-192) Creatine Kinase MB 1.8 ng/ml (0.5-3.6) Creatine Kinase MB Ratio 2.9 (0-3.0) Pro-B-Type Natriuretic Peptide 154 pg/ml (0-900) Total Protein 8.6 gm/dl (6.4-8.2) Albumin 3.5 gm/dl (3.4-5.0) Globulin 5.1 gm/dl (2.5-4.0) Albumin/Globulin Ratio 0.7 (0.9-2) Lipase 119 U/L (73-393) Thyroid Stimulating Hormone (TSH) 1.570 uIu/ml (0.300-4.500) Chemistry Specimen Hemolysis Urine Color YELLOW Urine Appearance CLEAR (CLEAR) Urine pH 6.0 (4.5-7.5) Urine Specific [place] 1.019 (1.000-1.030) Urine Protein NEG (NEG) Urine Glucose (UA) NEG (NEG) Urine Ketones NEG (NEG) Urine Occult Blood TRACE (NEG) Urine Nitrite NEG (NEG) Urine Bilirubin NEG (NEG) Urine Urobilinogen NEG (NEG) Urine Leukocyte Esterase NEG (NEG) Urine WBC (Auto) 1-5 /hpf (0-5) Urine RBC (Auto) 0-4 /hpf (0-4) Urine Hyaline Casts (Auto) 0 /lpf (0-5) Urine Epithelial Cells (Auto) 5-10 /lpf (0-5) Urine Bacteria (Auto) NEG (NEG) Troponin I < 0.015 ng/ml (0-0.045) Medications Administered Medications (Trade) Dose Ordered Sig/Sterling Route Start Time Stop Time Status Last Admin Dose Admin Aspirin (Aspirin Chew) 81 mg NOW STAT PO 09/07/17 15:35 09/07/17 15:37 DC 09/07/17 15:46 81 MG Famotidine (Pepcid 20mg Iv Push) 20 mg ONE STAT IV 09/07/17 15:59 09/07/17 16:00 DC 09/07/17 16:09 20 MG Al Hydroxide/Mg Hydroxide (Maalox Susp) 30 ml STK-MED ONCE .ROUTE 09/07/17 16:05 09/07/17 16:06 DC 09/07/17 16:09 30 ML Lidocaine HCl (Viscous Lidocaine 2% Soln) 20 ml STK-MED ONCE .ROUTE 09/07/17 16:05 09/07/17 16:06 DC 09/07/17 16:10 20 ML Pantoprazole Sodium (Protonix Tab) 40 mg NOW STAT PO 09/07/17 18:11 09/07/17 18:23 DC 09/07/17 19:27 40 MG Medical Decision Patient was seen and evaluated as above. She presents to us today with chest discomfort that is around the diaphragm area, nausea and tingling in the hands and legs. She has a history of hypertension, hyperlipidemia. Bedside EKG was obtained and reveals normal sinus rhythm. No ectopy or ischemic change. Troponin negative. She was given Pepcid as well as a GI cocktail without relief. This was in the event that this could be from reflux however this did not provide relief therefore concern was over potential cardiac causes. There was no reproducible abdominal pain. At this time and believe that she should stay in the hospital for further evaluation and management to rule out cardiac causes. CBC reveals no leukocytosis or anemia. Coag revealed negative d- dimer. Patient about panel reveals creatinine 1.26 and BUN high 24. Sodium 135. He needs them a 1.6. Troponin negative 2. TSH normal. Urine negative. Case was discussed with the attending physician, and subsequent leave the hospitalist. Please refer to further documentation regarding her stay. In evaluation treatment this patient following differential diagnoses were entertained: DE, PE, pericarditis, costochondritis, GERD, pancreatitis, among others. Impression Primary Impression: Chest pain Departure Information Referrals Eloisa Angel D.O. (PCP) Patient Instructions My [facility]
[2017-09-07] MEDS ORDERED: ASCA500 PO (15:58)
[2017-09-07] MEDS ORDERED: FAMOTIDINE 20MG/5ML IV PUSH IV STA (15:59)
[2017-09-07] MEDS ORDERED: GI COCKTAIL PO STA (15:59)
[2017-09-07] MEDS ORDERED: PRT/20 PO (16:00)
[2017-09-07] MEDS ORDERED: LIDOCAINE HCL 2% VISC SOLN 20 ML UDC ONE (16:05)
[2017-09-07] MEDS ORDERED: ALUMINUM/MAGNESIUM SUSP 30 ML UDC ONE (16:05)
[2017-09-07 16:07] LABS: ALBUMIN 3.5 gm/dl (3.4-5.0); ALT/SGPT 34 U/L (12-78); BLOOD UREA NITROGEN 24 mg/dl (7-18); CALCIUM 9.3 mg/dl (8.5-10.1); CARBON DIOXIDE 24 mmol/L (21-32); CREATININE 1.26 mg/dl (0.60-1.20); GLUCOSE 162 mg/dl (70-99); LIPASE 119 U/L (73-393); POTASSIUM 4.3 mmol/L (3.5-5.1); SODIUM 135 mmol/L (136-145)
[2017-09-07 16:09] LABS: ALKALINE PHOSPHATASE 99 U/L (45-117); TOTAL PROTEIN 8.6 gm/dl (6.4-8.2)
[2017-09-07 16:19] LABS: AST/SGOT 30 U/L (15-37); CKMB 1.8 ng/ml (0.5-3.6)
--- NOTE | 2017-09-07 17:15 | EMERGENCY ROOM VISIT NOTE ---
ED Visit Note First contact with patient: 15:23 Patient seen and evaluated bedside after discussion with physician computer assistant. Discussed with patient all results, and continued concern given symptoms despite attempts at treatment here. Patient verbalized understanding of all this was agreeable with plan. Patient with several risk factors for ACS, doubt dissection, PE. Feel patient's elevated blood pressure here today more likely situational then related to hypertensive urgency.
[2017-09-07] MEDS ORDERED: PANTOprazole SOD 40 MG TAB PO STA (18:11)
[2017-09-07] MEDS ORDERED: ONDANSETRON INJ 2 MG/ML 2 ML VIAL IV PRN (18:15)
[2017-09-07] MEDS ORDERED: ALBUT/IPRATROP 3MG/0.5MG NEB 3 ML VIAL INH PRN (20:30)
--- NOTE | 2017-09-07 20:34 | History and Physical ---
History & Physical Date & Time of Service: Sep 07, 2017 at 20:26 Chief Complaint: Chest Discomfort/Nausea/Tingling Hands&Legs Primary Care Physician: Eloisa Angel D.O. History of Present Illness Source: patient, clinic records This is a 66 year old female with a PMH of GERD, asthma, HTN, HLD - presents with epigastric band-like pain that began earlier today. She states that the pain started suddenly and she became worried when she became diaphoretic. She states that she was drinking egg nog with alcohol for the past few days which may have worsened her GERD. She states that she was also a little short of breath. She tried using a nebulizer, but this did not work. She also tells me that less than a year ago, her dose of Protonix changed from 40mg to 20mg; her PCP was trying to wean her off of this due to long-term use. She has a hx. of gastric ulcers, though no bleeding for the past two years noted. Currently, chest pain has resolved. No other issues at this time. Past Medical/Surgical History Medical Problems: (1) Asthma Status: Chronic (2) Bronchitis Status: Resolved (3) GERD (gastroesophageal reflux disease) Status: Chronic (4) Hypertension Status: Chronic (5) Kidney stone Status: Resolved (6) Pneumonia Status: Resolved Surgical Problems: (1) S/P hernia repair Status: Resolved Family History Cancer Gallbladder disease Hypertension Lung disease Social History Smoking Status: Never Smoker Drug Use: none Marital Status: Occupational Status: retired Allergies Coded Allergies: Erythromycin (Unverified Allergy, Intermediate, GI ISSUES, 09/07/17) Atorvastatin (Unverified Allergy, Unknown, EDEMA, 09/07/17) Conjugated Estrogens (Unverified Allergy, Unknown, SWELLING/SKIN FLAKES, ) Latanoprost (Unverified Allergy, Unknown, RASH, 09/07/17) Lisinopril (Unverified Allergy, Unknown, COUGH, 09/07/17) Medroxyprogesterone (Unverified Allergy, Unknown, SWELLING/SKIN FLAKES, 09/07/17) Rosuvastatin (Unverified Allergy, Unknown, EDEMA, 09/07/17) Sulfamethoxazole w/Trimethoprim (Unverified Allergy, Unknown, SPINNING/ VERTIGO/RASH, 09/07/17) Home Medications Scheduled Ascorbic Acid (Vitamin C), 500 MG PO QAM Atenolol (Tenormin), 50 MG PO DAILY Brimonidine Tartrate-Timolol M (Combigan), 1 DROP OPB BID Cholecalciferol (Vitamin D), 1 TAB PO QAM Fluticasone Propionate (Inhala (Flovent Diskus), 1 PUFFS INH BID Losartan Potassium (Cozaar), 100 MG PO QAM Montelukast Sodium (Singulair), 10 MG PO DAILY Pantoprazole (Protonix), 20 MG PO QAM Scheduled PRN Albuterol Sulfate (Albuterol Sulfate), 1 VIAL NEB Q4 PRN for Wheezing Ipratropium-Albuterol (Duoneb), 1 TREATMENT INH Q4H PRN for Shortness of Breath Review of Systems Constitutional: No fever, No chills Respiratory: + shortness of breath (resolved), No cough, No sputum, No wheezing , No dyspnea on exertion, No dyspnea at rest, No hemoptysis Cardiovascular: + chest pain (resolved), No orthopnea, No edema, No palpitations Abdomen: No pain, No nausea, No vomiting, No diarrhea, No constipation, No GI bleeding Musculoskeletal: No joint pain, No muscle pain, No swelling, No calf pain Genitourinary - Female: No dysuria, No urinary frequency, No urinary urgency, No urinary incontinence Neurologic: No weakness, No numbness/tingling, No vertigo, No balance problems Psychiatric: No depression symptoms, No anxiety, No insomnia Endocrine: No fatigue Hematologic / Lymphatic: No abnormal bleeding/bruising Integumentary: No rash Allergic / Immunologic: No environmental allergies, No seasonal allergies Physical Exam Vital Signs Date Time Temp Pulse Resp B/P (MAP) Pulse Ox O2 Delivery O2 Flow Rate FiO2 09/07/17 19:14 75 18 182/65 98 Room Air 09/07/17 16:48 36.6 95 18 165/81 96 Room Air 09/07/17 15:45 70 09/07/17 15:31 96 Room Air 09/07/17 15:31 36.6 69 18 150/73 96 Room Air 09/07/17 15:29 Room Air General Appearance: no apparent distress Head: normocephalic, atraumatic Eyes: normal inspection ENT: hearing grossly normal Neck: supple Respiratory/Chest: chest non-tender, lungs clear, normal breath sounds, no respiratory distress, no accessory muscle use Cardiovascular: regular rate, rhythm, no edema, no gallop, no JVD, no murmur, normal peripheral pulses Abdomen/GI: normal bowel sounds, non tender, soft Back: normal inspection, normal range of motion Extremities/Musculoskelatal: normal inspection, no calf tenderness, normal capillary refill, no pedal edema, normal range of motion 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, no motor/sensory deficits, alert, normal mood/affect, oriented x 3 Skin: normal color Lymphatic: no adenopathy Diagnostics Laboratory Results Results Past 24 Hours Test 09/07/17 15:30 09/07/17 16:53 09/07/17 18:05 Range/Units White Blood Count 9.65 4.8-10.8 K/uL Red Blood Count 4.39 4.2-5.4 M/uL Hemoglobin 14.2 12.0-16.0 g/dL Hematocrit 41.6 37-47 % Mean Corpuscular Volume 94.8 80-100 fL Mean Corpuscular Hemoglobin 32.3 25-34 pg Mean Corpuscular Hemoglobin Concent 34.1 32-36 g/dl Platelet Count 276 130-400 K/uL Mean Platelet Volume 10.0 7.4-10.4 fL Neutrophils (%) (Auto) 66.8 % Lymphocytes (%) (Auto) 22.8 % Monocytes (%) (Auto) 6.2 % Eosinophils (%) (Auto) 3.7 % Basophils (%) (Auto) 0.3 % Neutrophils # (Auto) 6.44 1.4-6.5 K/uL Lymphocytes # (Auto) 2.20 1.2-3.4 K/uL Monocytes # (Auto) 0.60 0.11-0.59 K/uL Eosinophils # (Auto) 0.36 0-0.5 K/uL Basophils # (Auto) 0.03 0-0.2 K/uL RDW Standard Deviation 45.4 36.4-46.3 fL RDW Coefficient of Variation 13.1 11.5-14.5 % Immature Granulocyte % (Auto) 0.2 % Immature Granulocyte # (Auto) 0.02 0.00-0.02 K/uL D-Dimer 370 0-500 ug/L FEU Sodium Level 135 136-145 mmol/L Potassium Level 4.3 3.5-5.1 mmol/L Chloride Level 105 98-107 mmol/L Carbon Dioxide Level 24 21-32 mmol/L Anion Gap 6.0 3-11 mmol/L Blood Urea Nitrogen 24 7-18 mg/dl Creatinine 1.26 0.60-1.20 mg/dl Est Creatinine Clear Calc Drug Dose 44.4 ml/min Estimated GFR () 50.7 Estimated GFR (Non- 43.7 BUN/Creatinine Ratio 19.2 10-20 Random Glucose 162 70-99 mg/dl Calcium Level 9.3 8.5-10.1 mg/dl Magnesium Level 1.6 1.8-2.4 mg/dl Total Bilirubin 0.4 0.2-1 mg/dl Aspartate Amino Transf (AST/SGOT) 30 15-37 U/L Alanine Aminotransferase (ALT/SGPT) 34 12-78 U/L Alkaline Phosphatase 99 45-117 U/L Total Creatine Kinase 62 26-192 U/L Creatine Kinase MB 1.8 0.5-3.6 ng/ml Creatine Kinase MB Ratio 2.9 0-3.0 Troponin I < 0.015 < 0.015 0-0.045 ng/ml Pro-B-Type Natriuretic Peptide 154 0-900 pg/ml Total Protein 8.6 6.4-8.2 gm/dl Albumin 3.5 3.4-5.0 gm/dl Globulin 5.1 2.5-4.0 gm/dl Albumin/Globulin Ratio 0.7 0.9-2 Lipase 119 73-393 U/L Thyroid Stimulating Hormone (TSH) 1.570 0.300-4.500 uIu/ml Chemistry Specimen Hemolysis Urine Color YELLOW Urine Appearance CLEAR CLEAR Urine pH 6.0 4.5-7.5 Urine Specific [place] 1.019 1.000-1.030 Urine Protein NEG NEG Urine Glucose (UA) NEG NEG Urine Ketones NEG NEG Urine Occult Blood TRACE NEG Urine Nitrite NEG NEG Urine Bilirubin NEG NEG Urine Urobilinogen NEG NEG Urine Leukocyte Esterase NEG NEG Urine WBC (Auto) 1-5 0-5 /hpf Urine RBC (Auto) 0-4 0-4 /hpf Urine Hyaline Casts (Auto) 0 0-5 /lpf Urine Epithelial Cells (Auto) 5-10 0-5 /lpf Urine Bacteria (Auto) NEG NEG Diagnostic Radiology CHEST ONE VIEW PORTABLE CLINICAL HISTORY: 66 years-old Female presenting with Chest pain, shortness of breath. TECHNIQUE: Portable upright AP view of the chest was obtained. COMPARISON: 02/27/2017. FINDINGS: Atherosclerosis of the aortic arch. Cardiac silhouette normal in size. Calcified granuloma may be present in the left lung. Lungs and pleural spaces otherwise clear. Degenerative changes of the thoracic spine. Upper abdomen normal. IMPRESSION: 1. No acute cardiopulmonary disease. EKG Normal sinus rhythm Low voltage QRS Borderline ECG Impression Assessment and Plan This is a 66 year old female with a PMH of GERD, asthma, HTN, HLD - presents with epigastric band-like pain Chest Pain r/o ACS seems less likely going by history EKG with no ST-T wave changes initial cardiac enzymes negative will nevertheless trend cardiac enzymes, monitor in tele, check an echo repeat EKG in AM check a lipid panel in AM aspirin and atenolol given (statin intolerance) she would like to defer stress testing if possible; will decide in AM if enzymes , EKG, and echo show no abnormalities GERD her pain is most likely reflux-related will add Protonix 40mg daily (she takes 20mg at home) may need an increased dose in the short term prior to tapering back down Asthma continue current medications HTN uncontrolled with last reading >170/80 will give atenolol dose in the PM, she states she may have missed Cozaar dose monitor BPs throughout the night and in the AM and adjust meds accordingly DVT ppx Lovenox FULL CODE VTE Prophylaxis VTE Risk Assessment Done? Y/N: Yes Risk Level: Moderate
[2017-09-07] MEDS ORDERED: ALBUTEROL 0.083% NEBU SOLN 3 ML VIAL INH PRN (21:00)
[2017-09-07] MEDS ORDERED: MONTELUKAST SOD 10 MG TAB PO SCH (21:00)
[2017-09-07 21:50] LABS: INR 0.9 (0.9-1.1); PTT PATIENT 27.1 SECONDS (21.0-31.0)
[2017-09-07] MEDS: SODIUM CHLORIDE 0.9% 1000ML 1,000 ML IV SCH (22:07)
[2017-09-07] MEDS ORDERED: IV FLUIDS COMPLETED PRN (22:15)
[2017-09-07 22:30] VITALS: BP 174/84; PULSE 75; TEMP 36.6; O2SAT 96; Ht 163.8 cm; Wt 80.3 kg
[2017-09-07] MEDS ORDERED: ENOXAPARIN 40 MG/0.4 ML SYR SC SCH (23:00)
[2017-09-07 23:30] VITALS: BP 172/79; PULSE 69; TEMP 36.5; O2SAT 97
[2017-09-07] MEDS: BRIMONIDINE TARTRATE-TIMOLOL M 1 DROP BTL OPB SCH (23:59)
[2017-09-07] MEDS: FLUTICASONE INH SCH (23:59)
[2017-09-08] VITALS: O2SAT 98
[2017-09-08] MEDS ORDERED: COMBIGAN~ORDER AWAITING ACTION SCH
[2017-09-08 01:02] LABS: CKMB 1.5 ng/ml (0.5-3.6)
[2017-09-08 04:13] VITALS: BP 156/78; PULSE 57; TEMP 36.6; O2SAT 98
[2017-09-08] MEDS ORDERED: PANTOprazole SOD 40 MG TAB PO ONE (06:37)
[2017-09-08 06:44] LABS: HEMATOCRIT 42.6 % (37-47); HEMOGLOBIN 14.5 g/dL (12.0-16.0); MEAN CELL VOLUME 94.7 fL (80-100); MEAN CORPUSCULAR HEMOGLOBIN 32.2 pg (25-34); PLATELET COUNT 260 K/uL (130-400); WHITE BLOOD COUNT 8.83 K/uL (4.8-10.8)
[2017-09-08 07:19] LABS: BLOOD UREA NITROGEN 16 mg/dl (7-18); CALCIUM 9.3 mg/dl (8.5-10.1); CARBON DIOXIDE 28 mmol/L (21-32); CHOLESTEROL 208 mg/dl (0-200); CREATININE 0.93 mg/dl (0.60-1.20); GLUCOSE 119 mg/dl (70-99); LIPASE 96 U/L (73-393); POTASSIUM 4.4 mmol/L (3.5-5.1); SODIUM 139 mmol/L (136-145)
[2017-09-08 07:29] LABS: CKMB 1.8 ng/ml (0.5-3.6); LDL CHOLESTEROL CALCULATED 142 mg/dl
[2017-09-08] MEDS ORDERED: PERFLUTREN LIPID MICROSPHERE (DEFINITY) IV ONE (07:46)
[2017-09-08 07:47] VITALS: BP 158/66; PULSE 65; TEMP 36.6; O2SAT 96
[2017-09-08] MEDS: FLUTICASONE INH SCH (08:11)
[2017-09-08] MEDS: BRIMONIDINE TARTRATE-TIMOLOL M 1 DROP BTL OPB SCH (08:12)
[2017-09-08] MEDS: SODIUM CHLORIDE 0.9% 1000ML 1,000 ML IV SCH (08:14)
[2017-09-08] MEDS ORDERED: ASPIRIN 81 MG ECTAB PO SCH (09:00)
[2017-09-08] MEDS ORDERED: PANTOprazole SOD 40 MG TAB PO SCH (09:00)
[2017-09-08] MEDS ORDERED: LOSARTAN POTASSIUM 50 MG TAB PO SCH (09:00)
--- NOTE | 2017-09-08 09:55 | ECHOCARDIOGRAM REPORT ---
*NOTICE TO RECEIVING [facility] This information is strictly Confidential and protected under [place] law. [place] law prohibits you from making any further disclosure of this information unless further disclosure is expressly permitted by the written consent of the person to whom it pertains or is authorized by law. A general authorization for the release of medical or other information is not sufficient for this purpose. Hospital accepts no responsibility if the information is made available to any other person, INCLUDING THE PATIENT. Interpretation Summary * Name: CASTILLO DIAZ Study Date: 09/08/2017 07:13 AM BP: 156/78 mmHg * Patient Location: [facility]\S\N276\S\1 HR: 65 * : 1950 (M/d/yyyy) Gender: Female Height: 64 in * Age: 66 yrs Ethnicity: [place] Weight: 181 lb * Ordering Physician: Juliann Galvez * Referring Physician: Self, Referred * Performed By: Maria C Rizvi RCS * * Reason For Study: CHEST PAIN * BSA: 1.9 m2 * -- Conclusions -- * There is mild concentric left ventricular hypertrophy. * No regional wall motion abnormalities noted. * The LV Ejection Fraction = 60-65%. * There is mild mitral regurgitation. * Grade I diastolic dysfunction, (abnormal relaxation pattern). Procedure Details * A complete two-dimensional transthoracic echocardiogram was performed (2D, M-mode, Doppler and color flow Doppler). * A contrast injection of Definity was performed to improve assessment of LV function. * Contrast was injected into an intravenous site in the right arm. * One vial of Definity ultrasound contrast was diluted in normal saline to a total volume of 10 ml. A total of '2' ml of solution was administered during imaging. * Lot # [id number] of Definity utilized for procedure. * Expiration date OCT 23. * The attending nurse who injected the contrast agent was SHERINE ANNE, RN. Left Ventricle * The left ventricle is normal in size. * There is mild concentric left ventricular hypertrophy. * Left ventricular systolic function is normal. * Ejection Fraction = 60-65%. * The left ventricular wall motion is normal. * No regional wall motion abnormalities noted. Right Ventricle * The right ventricle is normal size. * The right ventricular systolic function is normal as assessed by tricuspid annular plane systolic excursion (TAPSE) (normal >1.5 cm). Atria * The left atrial size is normal. * Right atrial size is normal. * There is no evidence of atrial septal defect, but resolution does not allow assessment for a patent foramen ovale. Mitral Valve * The mitral valve is normal. * There is no mitral valve stenosis. * There is mild mitral regurgitation. Tricuspid Valve * The tricuspid valve is normal. * There is no tricuspid stenosis. * Significant tricuspid regurgitation is absent. * Doppler findings do not suggest pulmonary hypertension. Aortic Valve * The aortic valve is trileaflet. * Aortic stenosis is absent. * There is no significant aortic regurgitation. Pulmonic Valve * The pulmonary valve is not well seen, but the Doppler examination is normal without significant regurgitation or stenosis. Great Vessels * The aortic root and proximal ascending aorta are normal sized. Pericardium/Pleural * There is no pericardial effusion. Great Vessels * Normal inferior vena cava diameter and respiratory variation suggests normal central venous pressure. Left Ventricular Diastolic Function * Grade I diastolic dysfunction, (abnormal relaxation pattern). MMode 2D Measurements and Calculations IVSd 1.5 cm IVSs 1.3 cm LVIDd 3.8 cm LVIDs 3.0 cm LVPWd 1.0 cm LVPWs 0.93 cm IVS/LVPW 1.4 FS 21.7 % EDV(Teich) 62.0 ml ESV(Teich) 34.3 ml EF(Teich) 44.7 % EDV(cubed) 54.9 ml ESV(cubed) 26.3 ml EF(cubed) 52.1 % % IVS thick -11.69 % % LVPW thick -9.86 % LV mass(C)d 162.7 grams LV mass(C)dI 86.8 grams/m\S\2 LV mass(C)s 95.6 grams LV mass(C)sI 51.0 grams/m\S\2 SV(Teich) 27.7 ml SI(Teich) 14.8 ml/m\S\2 SV(cubed) 28.6 ml SI(cubed) 15.2 ml/m\S\2 Ao root diam 2.4 cm Ao root area 4.5 cm\S\2 ACS 1.7 cm LA dimension 3.9 cm LA/Ao 1.6 LVOT diam 1.7 cm LVOT area 2.3 cm\S\2 LVAd ap4 27.8 cm\S\2 LVLd ap4 7.3 cm EDV(MOD-sp4) 84.4 ml EDV(sp4-el) 90.3 ml LVAs ap4 17.4 cm\S\2 LVLs ap4 6.5 cm ESV(MOD-sp4) 38.3 ml ESV(sp4-el) 39.2 ml EF(MOD-sp4) 54.6 % EF(sp4-el) 56.6 % LVAd ap2 22.4 cm\S\2 LVLd ap2 6.8 cm EDV(MOD-sp2) 58.8 ml EDV(sp2-el) 62.6 ml LVAs ap2 15.2 cm\S\2 LVLs ap2 6.6 cm ESV(MOD-sp2) 30.8 ml ESV(sp2-el) 29.8 ml EF(MOD-sp2) 47.6 % EF(sp2-el) 52.3 % LVLd %diff -6.56 % EDV(MOD-bp) 73.8 ml LVLs %diff 0.45 % ESV(MOD-bp) 34.1 ml EF(MOD-bp) 53.8 % SV(MOD-sp4) 46.1 ml SI(MOD-sp4) 24.6 ml/m\S\2 SV(MOD-sp2) 28.0 ml SI(MOD-sp2) 14.9 ml/m\S\2 SV(MOD-bp) 39.7 ml SI(MOD-bp) 21.2 ml/m\S\2 SV(sp4-el) 51.2 ml SI(sp4-el) 27.3 ml/m\S\2 SV(sp2-el) 32.8 ml SI(sp2-el) 17.5 ml/m\S\2 Doppler Measurements and Calculations MV E max jayden 84.1 cm/sec MV A max jayden 90.6 cm/sec MV E/A 0.93 MV P1/2t max jayden 103.5 cm/sec MV P1/2t 80.0 msec MVA(P1/2t) 2.7 cm\S\2 MV dec slope 379.0 cm/sec\S\2 MV dec time 0.27 sec Ao V2 max 125.0 cm/sec Ao max PG 6.2 mmHg Ao max PG (full) 2.4 mmHg JUVE(V,A) 1.8 cm\S\2 JUVE(V,D) 1.8 cm\S\2 LV V1 max PG 3.8 mmHg LV V1 max 98.1 cm/sec MR max jayden 553.9 cm/sec MR max PG 122.7 mmHg PA V2 max 72.5 cm/sec PA max PG 2.1 mmHg PI max jayden 183.8 cm/sec PI max PG 13.5 mmHg PI dec slope 250.3 cm/sec\S\2 PI P1/2t 215.0 msec TR max jayden 298.6 cm/sec
--- NOTE | 2017-09-08 11:10 | Progress Note ---
Subjective Date of Service: Sep 08, 2017. Subjective Pt evaluation today including: conversation w/ patient, physical exam, lab review, review of studies, review of inpatient medication list Saw/examined the patient in room 276 No problems/issues to note today Denies any chest pain, denies palpitations or shortness of breath Has some acid reflux Problem List Medical Problems: (1) Abdominal pain Status: Acute (2) Fatigue Status: Acute (3) Renal colic Status: Acute (4) Upper abdominal pain Status: Acute Review of Systems Respiratory: No cough, No sputum, No shortness of breath Cardiac: No chest pain, No edema, No palpitations Abdomen: + pain (improving), No nausea, No vomiting, No diarrhea, No constipation, No GI bleeding Medications Current Inpatient Medications Medications (Trade) Dose Ordered Sig/Sterling Route Start Time Stop Time Status Last Admin Dose Admin Enoxaparin Sodium (Lovenox Inj) 40 mg HS SC 09/07/17 23:00 10/07/17 22:59 09/07/17 23:23 40 MG Sodium Chloride 1,000 ml @ 80 mls/hr [id number] IV 09/07/17 21:00 10/07/17 20:59 09/08/17 08:14 80 MLS/HR Ondansetron HCl (Zofran Inj) 4 mg Q6H PRN IV 09/07/17 18:15 10/07/17 18:14 Aspirin (Ecotrin Tab) 81 mg QAM PO 09/08/17 09:00 10/08/17 08:59 Losartan Potassium (coZAAR TAB) 100 mg QAM PO 09/08/17 09:00 10/08/17 08:59 09/08/17 08:13 100 MG Montelukast Sodium (Singulair Tab) 10 mg PM PO 09/07/17 21:00 10/07/17 20:59 09/07/17 21:54 10 MG Albuterol/ Ipratropium (Duoneb) 3 ml Q4H PRN INH 09/07/17 20:30 10/07/17 20:29 Albuterol Sulfate (Ventolin 0.083% 2.5MG/3ML Neb) 2.5 mg Q4H PRN INH 09/07/17 21:00 10/07/17 20:59 Miscellaneous (Iv Fluids Completed) 1 ea PRN PRN N/A 09/07/17 22:15 09/07/18 22:14 Brimonidine/ Timolol (Combigan 0.2%/ 0.5%) 1 drop BID OPB 09/08/17 09:00 10/08/17 08:59 09/08/17 08:12 1 DROP Pantoprazole Sodium (Protonix Tab) 40 mg QAM PO 09/09/17 09:00 10/08/17 08:59 Atenolol (Tenormin Tab) 100 mg HS PO 09/08/17 21:00 10/08/17 08:59 UNV Objective Vital Signs Date Time Temp Pulse Resp B/P (MAP) Pulse Ox O2 Delivery O2 Flow Rate FiO2 09/08/17 07:47 36.6 65 16 158/66 (96) 96 09/08/17 04:13 36.6 57 16 156/78 (104) 98 Room Air 09/08/17 04:00 Room Air 09/08/17 00:00 98 Room Air 09/08/17 00:00 Room Air 09/07/17 23:30 36.5 69 18 172/79 (110) 97 Room Air 09/07/17 22:30 36.6 75 18 174/84 96 Room Air 09/07/17 19:14 75 18 182/65 98 Room Air 09/07/17 16:48 36.6 95 18 165/81 96 Room Air 09/07/17 15:45 70 09/07/17 15:31 96 Room Air 09/07/17 15:31 36.6 69 18 150/73 96 Room Air 09/07/17 15:29 Room Air Physical Exam General Appearance: no apparent distress Respiratory/Chest: chest non-tender, lungs clear, normal breath sounds, no respiratory distress, no accessory muscle use Cardiovascular: regular rate, rhythm, no edema, no gallop, no JVD, no murmur Extremities: normal range of motion, non-tender, normal inspection, no pedal edema, no calf tenderness Laboratory Results Last 24 Hours Test 09/07/17 15:30 09/07/17 16:53 09/07/17 18:05 09/08/17 00:07 White Blood Count 9.65 K/uL Red Blood Count 4.39 M/uL Hemoglobin 14.2 g/dL Hematocrit 41.6 % Mean Corpuscular Volume 94.8 fL Mean Corpuscular Hemoglobin 32.3 pg Mean Corpuscular Hemoglobin Concent 34.1 g/dl Platelet Count 276 K/uL Mean Platelet Volume 10.0 fL Neutrophils (%) (Auto) 66.8 % Lymphocytes (%) (Auto) 22.8 % Monocytes (%) (Auto) 6.2 % Eosinophils (%) (Auto) 3.7 % Basophils (%) (Auto) 0.3 % Neutrophils # (Auto) 6.44 K/uL Lymphocytes # (Auto) 2.20 K/uL Monocytes # (Auto) 0.60 K/uL Eosinophils # (Auto) 0.36 K/uL Basophils # (Auto) 0.03 K/uL RDW Standard Deviation 45.4 fL RDW Coefficient of Variation 13.1 % Immature Granulocyte % (Auto) 0.2 % Immature Granulocyte # (Auto) 0.02 K/uL Prothrombin Time 9.6 SECONDS Prothromb Time International Ratio 0.9 Activated Partial Thromboplast Time 27.1 SECONDS Partial Thromboplastin Ratio 1.0 D-Dimer 370 ug/L FEU Sodium Level 135 mmol/L Potassium Level 4.3 mmol/L Chloride Level 105 mmol/L Carbon Dioxide Level 24 mmol/L Anion Gap 6.0 mmol/L Blood Urea Nitrogen 24 mg/dl Creatinine 1.26 mg/dl Est Creatinine Clear Calc Drug Dose 44.4 ml/min Estimated GFR () 50.7 Estimated GFR (Non- 43.7 BUN/Creatinine Ratio 19.2 Random Glucose 162 mg/dl Calcium Level 9.3 mg/dl Magnesium Level 1.6 mg/dl Total Bilirubin 0.4 mg/dl Aspartate Amino Transf (AST/SGOT) 30 U/L Alanine Aminotransferase (ALT/SGPT) 34 U/L Alkaline Phosphatase 99 U/L Total Creatine Kinase 62 U/L 39 U/L Creatine Kinase MB 1.8 ng/ml 1.5 ng/ml Creatine Kinase MB Ratio 2.9 3.8 Troponin I < 0.015 ng/ml < 0.015 ng/ml < 0.015 ng/ml Pro-B-Type Natriuretic Peptide 154 pg/ml Total Protein 8.6 gm/dl Albumin 3.5 gm/dl Globulin 5.1 gm/dl Albumin/Globulin Ratio 0.7 Lipase 119 U/L Thyroid Stimulating Hormone (TSH) 1.570 uIu/ml Chemistry Specimen Hemolysis Urine Color YELLOW Urine Appearance CLEAR Urine pH 6.0 Urine Specific [place] 1.019 Urine Protein NEG Urine Glucose (UA) NEG Urine Ketones NEG Urine Occult Blood TRACE Urine Nitrite NEG Urine Bilirubin NEG Urine Urobilinogen NEG Urine Leukocyte Esterase NEG Urine WBC (Auto) 1-5 /hpf Urine RBC (Auto) 0-4 /hpf Urine Hyaline Casts (Auto) 0 /lpf Urine Epithelial Cells (Auto) 5-10 /lpf Urine Bacteria (Auto) NEG Test 09/08/17 06:03 White Blood Count 8.83 K/uL Red Blood Count 4.50 M/uL Hemoglobin 14.5 g/dL Hematocrit 42.6 % Mean Corpuscular Volume 94.7 fL Mean Corpuscular Hemoglobin 32.2 pg Mean Corpuscular Hemoglobin Concent 34.0 g/dl RDW Standard Deviation 45.0 fL RDW Coefficient of Variation 13.0 % Platelet Count 260 K/uL Mean Platelet Volume 10.0 fL Sodium Level 139 mmol/L Potassium Level 4.4 mmol/L Chloride Level 105 mmol/L Carbon Dioxide Level 28 mmol/L Anion Gap 6.0 mmol/L Blood Urea Nitrogen 16 mg/dl Creatinine 0.93 mg/dl Est Creatinine Clear Calc Drug Dose 60.0 ml/min Estimated GFR () 73.2 Estimated GFR (Non- 63.1 BUN/Creatinine Ratio 16.7 Random Glucose 119 mg/dl Calcium Level 9.3 mg/dl Magnesium Level 1.8 mg/dl Total Creatine Kinase 40 U/L Creatine Kinase MB 1.8 ng/ml Creatine Kinase MB Ratio 4.5 Troponin I < 0.015 ng/ml Triglycerides Level 120 mg/dl Cholesterol Level 208 mg/dl HDL Cholesterol 42 mg/dl LDL Cholesterol, Calculated 142 mg/dl VLDL Cholesterol, Calculated 24 mg/dl Cholesterol/HDL Ratio 5.0 Lipase 96 U/L Assessment and Plan This is a 66 year old female with a PMH of GERD, asthma, HTN, HLD - presents with epigastric band-like pain Chest Pain r/o ACS 09/08 cardiac enzymes negative x3 EKG = NSR, no ST-T wave changes echo - normal LVEF, mild LV hypertrophy 09/07 seems less likely going by history EKG with no ST-T wave changes initial cardiac enzymes negative will nevertheless trend cardiac enzymes, monitor in tele, check an echo repeat EKG in AM check a lipid panel in AM aspirin and atenolol given (statin intolerance) she would like to defer stress testing if possible; will decide in AM if enzymes , EKG, and echo show no abnormalities GERD her pain is most likely reflux-related will add Protonix 40mg daily (she takes 20mg at home) may need an increased dose in the short term prior to tapering back down Asthma continue current medications HTN 09/08 will increase atenolol to 100mg HS continue Cozaar / uncontrolled with last reading >170/80 will give atenolol dose in the PM, she states she may have missed Cozaar dose monitor BPs throughout the night and in the AM and adjust meds accordingly DVT ppx Lovenox FULL CODE
[2017-09-08] MEDS ORDERED: ATEN100T PO (11:13)
[2017-09-08] MEDS ORDERED: EZET10TA47 PO (11:13)
[2017-09-08] MEDS ORDERED: ASPEC81 PO (11:13)
[2017-09-08] MEDS ORDERED: PRT40 PO (11:13)
[2017-09-08 11:17] VITALS: BP 158/66; PULSE 65; TEMP 36.6; O2SAT 96
--- NOTE | 2017-09-08 11:21 | Discharge Instructions ---
Discharge Instructions Date of Service Sep 08, 2017. Admission Reason for Admission: Chest Pain, Gerd Discharge Discharge Diagnosis / Problem: Chest Pain, GERD (acid reflux) Discharge Goals Goal(s): Decrease discomfort, Improve function, Diagnostic testing, Therapeutic intervention Activity Recommendations Activity Limitations: resume your previous activity . Instructions / Follow-Up Instructions / Follow-Up Please follow-up with Dr. Rendon (covering for Dr. Angel) on September 11 at 10:45AM * Your dose of Protonix will increase from 20mg to 40mg * Your dose of Atenolol will be increased from 50mg to 100mg * You will be started on Zetia for cholesterol lowering * Please take an aspirin 81mg daily - follow-up with gastroenterology regarding previous ulcers Current Hospital Diet Patient's current hospital diet: AHA Diet (Heart Healthy) Discharge Diet Recommended Diet: AHA Diet (Heart Healthy) Pending Studies Studies pending at discharge: no Laboratory Results Lipid Panel Test 09/08/17 06:03 Range/Units Triglycerides Level 120 0-150 mg/dl Cholesterol Level 208 H 0-200 mg/dl HDL Cholesterol 42 mg/dl Cholesterol/HDL Ratio 5.0 LDL Cholesterol, Calculated 142 mg/dl Medical Emergencies . Who to Call and When: Medical Emergencies: If at any time you feel your situation is an emergency, please call 911 immediately. . Non-Emergent Contact Non-Emergency issues call your: Primary Care Provider . . "Provider Documentation" section prepared by Juliann Galvez. . VTE Core Measure Inpt VTE Proph given/why not?: Enoxaparin (Lovenox)SQ
--- NOTE | 2017-09-08 11:25 | Discharge Summary ---
Discharge Summary Date of Service Sep 08, 2017. Discharge Summary Admission Date: Sep 07, 2017 at 18:10 Discharge Date: Sep 08, 2017 Discharge Disposition: Home Principal Diagnosis: Chest Pain - likely GERD Asthma HTN Medication Reconciliation New Medications: Ezetimibe (Zetia) 10 Mg Tab 1 TAB PO DAILY for 30 Days, #30 TAB 5 Refills Aspirin (Aspirin EC Low Dose) 81 Mg Ectab 81 MG PO QAM for 30 Days, #30 TABS Pantoprazole (Pantoprazole Sodium) 40 Mg Tab 40 MG PO QAM for 30 Days, #30 TAB Changed Medications: Atenolol (Tenormin) 100 Mg Tab 1 TAB PO DAILY for 30 Days, #30 TAB 5 Refills (Changed from: Atenolol (Tenormin ) 50 Mg Tab 50 Mg PO DAILY) Continued Medications: Albuterol Sulfate (Albuterol Sulfate) 1.25 Mg/3 Ml Neb 1 VIAL NEB Q4 PRN for Wheezing Ascorbic Acid (Vitamin C) 500 Mg Tab 500 MG PO QAM Brimonidine Tartrate-Timolol M (Combigan) 1 Aditi Aditi 1 DROP OPB BID Cholecalciferol (Vitamin D) 1,000 Unit Tab 1 TAB PO QAM Fluticasone Propionate (Inhala (Flovent Diskus) 100 Mcg/Blist Aer 1 PUFFS INH BID Ipratropium-Albuterol (Duoneb) 3 Ml Nebu 1 TREATMENT INH Q4H PRN for Shortness of Breath, INHA Losartan Potassium (Cozaar) 100 Mg Tab 100 MG PO QAM, TAB Montelukast Sodium (Singulair) 10 Mg Tab 10 MG PO DAILY, TAB Discontinued Medications: Pantoprazole (Protonix) 20 Mg Tab 20 MG PO QAM, #30 TAB Admission Information HPI (per Admitting provider): This is a 66 year old female with a PMH of GERD, asthma, HTN, HLD - presents with epigastric band-like pain that began earlier today. She states that the pain started suddenly and she became worried when she became diaphoretic. She states that she was drinking egg nog with alcohol for the past few days which may have worsened her GERD. She states that she was also a little short of breath. She tried using a nebulizer, but this did not work. She also tells me that less than a year ago, her dose of Protonix changed from 40mg to 20mg; her PCP was trying to wean her off of this due to long-term use. She has a hx. of gastric ulcers, though no bleeding for the past two years noted. Currently, chest pain has resolved. No other issues at this time. Physical Exam (per Admitting): General Appearance: no apparent distress Head: normocephalic, atraumatic Eyes: normal inspection ENT: hearing grossly normal Neck: supple Respiratory/Chest: chest non-tender, lungs clear, normal breath sounds, no respiratory distress, no accessory muscle use Cardiovascular: regular rate, rhythm, no edema, no gallop, no JVD, no murmur , normal peripheral pulses Abdomen/GI: normal bowel sounds, non tender, soft Back: normal inspection, normal range of motion Extremities/Musculoskelatal: normal inspection, no calf tenderness, normal capillary refill, no pedal edema, normal range of motion Neurologic/Psych: medical doctor md II-XII nml as tested, no motor/sensory deficits, alert , normal mood/affect, oriented x 3 Skin: normal color Lymphatic: no adenopathy Hospital Course This is a 66 year old female with a PMH of GERD, asthma, HTN, HLD - presents with epigastric band-like pain Chest Pain r/o ACS 09/08 cardiac enzymes negative x3 EKG = NSR, no ST-T wave changes echo - normal LVEF, mild LV hypertrophy / seems less likely going by history EKG with no ST-T wave changes initial cardiac enzymes negative will nevertheless trend cardiac enzymes, monitor in tele, check an echo repeat EKG in AM check a lipid panel in AM aspirin and atenolol given (statin intolerance) she would like to defer stress testing if possible; will decide in AM if enzymes , EKG, and echo show no abnormalities GERD her pain is most likely reflux-related will add Protonix 40mg daily (she takes 20mg at home) may need an increased dose in the short term prior to tapering back down Asthma continue current medications HTN 09/08 will increase atenolol to 100mg HS continue Cozaar 1/ uncontrolled with last reading >170/80 will give atenolol dose in the PM, she states she may have missed Cozaar dose monitor BPs throughout the night and in the AM and adjust meds accordingly DVT ppx Lovenox FULL CODE Total time spent on discharge = 25 minutes This includes examination of the patient, discharge planning, medication reconciliation, and communication with other providers. Discharge Instructions Please follow-up with Dr. Rendon (covering for Dr. Angel) on September 11 at 10:45AM * Your dose of Protonix will increase from 20mg to 40mg * Your dose of Atenolol will be increased from 50mg to 100mg * You will be started on Zetia for cholesterol lowering * Please take an aspirin 81mg daily - follow-up with gastroenterology regarding previous ulcers
[2017-09-09] MEDS ORDERED: PANTOprazole SOD 40 MG TAB PO SCH (09:00)
== END 2017-09-08 11:45 | disposition home or self-care (01) ==
LOC: EDBD 15:18 → C.EDB 15:20 → C.MED 18:10 → ENRESERV 19:19
PROVIDERS: ADMIT Family Medicine; ATTEND Family Medicine
DX: R07.9 Chest pain, unspecified (principal); J45.909 Unspecified asthma, uncomplicated; I10 Essential (primary) hypertension; Z79.82 Long term (current) use of aspirin; Z79.899 Other long term (current) drug therapy; Z98.890 Other specified postprocedural states; Z80.9 Family history of malignant neoplasm, unspecified; Z82.49 Family history of ischemic heart disease and other diseases of the circulatory system

== ENCOUNTER 2018-12-06 09:04 | Observation (INO) ==
[2018-12-06] MEDS ORDERED: GI COCKTAIL ED USE PO ONE (09:44)
[2018-12-06] MEDS ORDERED: FAMOTIDINE 20 MG TAB PO ONE (09:44)
[2018-12-06] MEDS ORDERED: SODIUM CHLORIDE 0.9% 500 ML IV SCH (09:45)
[2018-12-06 09:52] LABS: Basophils # (auto) 0.02 K/uL (0-0.2); Basophils % (auto) 0.2 %; Eosinophils # (auto) 0.49 K/uL (0-0.5); Eosinophils % (auto) 5.7 %; Hematocrit (blood only) 43.4 % (37-47); Immature Granulocytes # (auto) 0.03 K/uL (0.00-0.02); Immature Granulocytes % (auto) 0.3 %; Lymphocytes # (auto) 2.62 K/uL (1.2-3.4); Lymphocytes % (auto) 30.5 %; Mean Corpuscular Hgb Conc 34.6 g/dL (32-36); Mean Corpuscular Volume 93.1 fL (80-100); Mean Platelet Volume 10.2 fL (7.4-10.4); Monocytes # (auto) 0.68 K/uL (0.11-0.59); Monocytes % (auto) 7.9 %; Neutrophils # (auto) 4.76 K/uL (1.4-6.5); Neutrophils % (auto) 55.4 %; Platelet Count 240 K/uL (130-400); RDW Standard Deviation 44.2 fL (36.4-46.3); Red Blood Count 4.66 M/uL (4.2-5.4)
--- NOTE | 2018-12-06 10:06 | XRay Report ---
XR chest 1V portable CLINICAL HISTORY: 67 years-old Female presenting with Chest Pain. TECHNIQUE: Portable upright AP view of the chest was obtained. COMPARISON: 05/08/2018. FINDINGS: Atherosclerosis of the aortic arch. Cardiac silhouette enlarged. Calcified granulomata suggested in t he periphery of the left mid to lower lung. No new focal opacity. No large effusion or pneumothorax. Degenerative changes of the thoracic spine. Upper abdomen normal. IMPRESSION: 1. Cardiomegaly. No other convincing evidence of acute cardiopulmonary disease. Electronically signed by: Dav Carney M.D. 12/06/2018 10:05 AM
[2018-12-06 10:14] LABS: Alanine Aminotransferase 27 U/L (12-78); Albumin Globulin Ratio 0.7 (0.9-2); Albumin Level 3.4 gm/dl (3.4-5.0); Alkaline Phosphatase 93 U/L (45-117); Aspartate Aminotransferase 19 U/L (15-37); BUN Creatinine Ratio 26.1 (10-20); Bilirubin,Total 0.4 mg/dl (0.2-1); Blood Urea Nitrogen 27 mg/dl (7-18); Calcium 9.3 mg/dl (8.5-10.1); Carbon Dioxide 26 mmol/L (21-32); Chloride 107 mmol/L (98-107); Creatinine Clr Calc Pharmacy 52.6 ml/min; Est GFR (African American) 63.5; Est GFR (Non-African American) 54.8; Glucose 126 mg/dl (70-99); Potassium 4.2 mmol/L (3.5-5.1); Sodium 139 mmol/L (136-145); Total Protein 8.4 gm/dl (6.4-8.2); Troponin I < 0.015 ng/ml (0-0.045)
[2018-12-06 10:42] LABS: Partial Thromboplastin Time 26.2 Seconds (21.0-31.0)
[2018-12-06] MEDS ORDERED: ASPIRIN CHEW 324 MG PO STA (11:33)
[2018-12-06] MEDS ORDERED: ASPIRIN 81 MG CHEW ONE (11:38)
[2018-12-06] MEDS: NITROGLYCERIN SL 0.4 MG/TAB TAB SL PRN ×3 (11:41→11:59)
--- NOTE | 2018-12-06 13:44 | History & Physical Report ---
Date of Service December 06, 2018 Assessment & Plan (1) Chest pain: Pt presented with c/o bandlike chest tightness to lower chest with associated jaw tightness, mild shortness of breath, nausea, tingling of bilateral hands, and diaphoresis after doing light dancing for 5 minutes. Sat down and chest tightness and jaw tightness persisted during ER course. In pt afebrile, P: 61, R: 20, BP: 160/73 down to 127/61, 98% on RA. WBC: 8. Initial troponin negative. EKG sinus heriberto without acute changes. CXR: cardiomegaly without acute changes. In ER initially given pepcid and GI cocktail without relief. Was given ASA and 3 sublingual nitro with reported relief of chest tightness, jaw tightness starting to resolve. CHEST PAIN R/O ACS. Risk factors: HTN, hyperlipidemia, DM. DDX: GI etiology -Monitor Vitals -Repeat EKG in am -Will trend troponin -lipid panel in am, reports statins cause edema -continue ASA, beta francois -Nitro prn CP and repeat EKG for CP -Echo -Cardiology consult, appreciate recommendations (2) GERD (gastroesophageal reflux disease): Pt reports has felt her GERD had been under control and has been using protonix only and not needed ranitidine or carafate -continue protonix, will resume H2 francois, continue carafate prn (3) Hypertension: BP initially 160/73 down to 127/61 -monitor BP -continue losartan, atenolol (4) HLD (hyperlipidemia): Lipid panel in am. Reports intolerance statin with edema (5) Diabetes mellitus, type II: Diet controlled. A1c: 5.9 on 08/20/18 (6) Asthma: No acute exacerbation or wheezing. Reported hx bronchitis one month ago treated with prednisone and doxycycline with some lingering dry cough. -continue flovent, singulair -duonebs prn DVT Prophylaxis -Lovenox SQ Follows with Dr Eloisa Angel for routine care Pt was seen with Dr Paul. See addendum History of Present Illness Chief Complaint: CP Primary Care Provider: Eloisa Angel Pt is 67 y/o F with PMH HTN, HLD, GERD, diet-controlled DM II, asthma, glaucoma presented to ER with complaint of chest pain. States this morning she tried doing a exercise video which involved light dancing when she developed bandlike tightness around her lower chest with jaw tightness, mild shortness of breath, nausea, tingling of bilateral hands, and diaphoresis. Patient states that she rested and CP and jaw symptoms persisted and came to ER. Patient reports history of reflux however has felt like it has been pretty well controlled. She is not had to be taking ranitidine or Carafate. She reports intermittent chronic shortness of breath with climbing 1 flight of stairs. Patient states that she exercises in the pool 3 times a week has not been having chest pain or shortness of breath with this. Patient reports history of bronchitis 1 month ago which was treated with prednisone and doxycycline. Initially had wheezing which she reports is resolved and has not needed her albuterol for several weeks. States has lingering dry cough. Denies fever/chills, V/D/C, VALLADARES, dizziness, syncope, vision changes, neck pain, CP, SOB, orthopnea, palpitations, sore throat, choking, otalgia, rhinorrhea, other abdominal pain, weakness, extremity edema, rashes, urinary symptoms. Pt with hx hospitalization 05/08/18- 05/09/18 for CP. Had negative troponins. Echo: EF: 65-70%, no wall motion abnormalities, mild aortic sclerosis, mild tricuspid regurgitation. In ER patient was given GI cocktail and Pepcid without relief. Was given aspirin and 3 nitro with reported resolving chest tightness, still some jaw tightness. States now with some epigastric pressure. Denies current hand parasthesias, diaphoresis or nausea. Allergies Allergy/AdvReac Type Severity Reaction Status Date / Time erythromycin base Allergy Intermediate GI ISSUES Unverified 12/06/18 09:44 atorvastatin Allergy Unknown EDEMA Unverified 12/06/18 09:44 Bactrim Allergy Unknown SPINNING/VE Unverified 09/07/17 15:56 RTIGO/RASH estrogens, conjugated Allergy Unknown SWELLING/SKIN Unverified 12/06/18 09:44 FLAKES latanoprost Allergy Unknown RASH Unverified 12/06/18 09:44 lisinopril Allergy Unknown COUGH Unverified 12/06/18 09:44 medroxyprogesterone Allergy Unknown SWELLING/SKIN Unverified 12/06/18 09:44 FLAKES rosuvastatin Allergy Unknown EDEMA Unverified 12/06/18 09:44 sulfamethoxazole Allergy Unknown SPINNING/VE Unverified 12/06/18 09:44 RTIGO/RASH trimethoprim Allergy Unknown SPINNING/VE Unverified 12/06/18 09:44 RTIGO/RASH Home Medications Home Medications Medication Instructions Recorded Confirmed Type Lactobac comb [id number] 1 cap PO DAILY 12/06/18 12/06/18 History [Probiotic and Acidophilus] albuterol sulfate 2 puff INHALATION Q6H PRN 12/06/18 12/06/18 History albuterol sulfate 3 ml INHALATION Q4 PRN 12/06/18 12/06/18 History aspirin 81 mg PO DAILY 12/06/18 12/06/18 History atenolol 50 mg PO DAILY 12/06/18 12/06/18 History brimonidine-timolol [Combigan] 1 drp OPHTHALMIC (EYE) BID 12/06/18 12/06/18 History cholecalciferol (vitamin D3) 1,000 unit PO DAILY 12/06/18 12/06/18 History [Vitamin D3] fluticasone propionate [Flovent 1 inh INHALATION DAILY 12/06/18 12/06/18 History Diskus] ipratropium-albuterol 3 ml INHALATION Q6 PRN 12/06/18 12/06/18 History losartan 100 mg PO DAILY 12/06/18 12/06/18 History montelukast [Singulair] 10 mg PO DAILY 12/06/18 12/06/18 History pantoprazole [Protonix] 20 mg PO DAILY 12/06/18 12/06/18 History ranitidine HCl 150 mg PO BID PRN 12/06/18 12/06/18 History sucralfate 1 g PO HS PRN 12/06/18 12/06/18 History sucralfate 1 g PO QID PRN 12/06/18 12/06/18 History Past Med/Surg History Medical History Diabetes mellitus, type II (Chronic) Seasonal allergic rhinitis (Chronic) Herpes zoster (Resolved) Glaucoma (Chronic) Obesity (BMI 30.0-34.9) (Chronic) HLD (hyperlipidemia) (Chronic) GERD (gastroesophageal reflux disease) (Chronic) Hypertension (Chronic) Asthma (Chronic) Chest pain Hand paresthesia Numbness Lips/Mouth Surgical History H/O hernia repair (Chronic) Social History Communication Ability: Effective Beliefs That Will Affect Care: None Current Living Situation: Spouse Other Information That Helps Us Care for You: No Feels Safe at Home: Yes Smoking Status: Never smoker Hx Alcohol Use: Yes Hx Substance Use: No Review of Systems All systems reviewed & are unremarkable except as noted in HPI & below Physical Exam Vital Signs (Past 24 Hours): Last Vital Signs Temp 36.7 C 12/06/18 09:09 Pulse 68 12/06/18 12:07 Resp 14 12/06/18 12:07 BP 127/61 12/06/18 12:07 Pulse Ox 98 12/06/18 10:30 Physical Exam: General: no distress, WDWN Head: normocephalic, atraumatic Eyes: conjunctiva non-injected, anicteric ENT: normal inspection external ears, nose, mucous membranes moist Neck: supple, trachea midline Lungs: clear, no respiratory distress, no wheezing/rhonchi/rales CV: RRR, no murmur, chest wall non-tender to palpation, no rashes noted, no pretibial edema Abd: normal BS, soft, non-tender to palpation Ext: no cyanosis, no calf tenderness Neuro: A&O x 3, no focal deficits noted, normal affect Skin: warm, dry Results & Data Laboratory Results Short CBC 12/06/18 Range/Units 09:25 WBC 8.60 (4.8-10.8) K/uL Hgb 15.0 (12.0-16.0) g/dL Hct 43.4 (37-47) % Plt Count 240 (130-400) K/uL BMP 12/06/18 09:25 Sodium 139 Potassium 4.2 Chloride 107 Carbon Dioxide 26 BUN 27 H Creatinine 1.04 Glucose 126 H Calcium 9.3 Cardiac Enzymes 12/06/18 Range/Units 09:25 Troponin I < 0.015 (0-0.045) ng/ml Liver Function 12/06/18 Range/Units 09:25 Total Bilirubin 0.4 (0.2-1) mg/dl AST 19 (15-37) U/L ALT 27 (12-78) U/L Alkaline Phosphatase 93 (45-117) U/L Albumin 3.4 (3.4-5.0) gm/dl Diagnostic Findings CXR: IMPRESSION: 1. Cardiomegaly. No other convincing evidence of acute cardiopulmonary disease. ECG Rate (beats per minute): 59 Rhythm: sinus bradycardia Change: no significant change Supervising Physician Co-Signing Physician Notes Patient is a 67-year-old female with multiple comorbidities presents with history of sudden onset of bandlike chest tightness associated with jaw tightness, shortness of breath, nausea, tingling of hands and diaphoresis which started after a light exercise. Patient received GI cocktail, aspirin and nitroglycerin while in ED which helped with chest tightness. Please review HPI for complete details of presentation. Chest x-ray showed no acute findings. ECG sinus bradycardia with no acute signs of ischemia. On exam patient is moderately built and nourished, no apparent distress, normocephalic atraumatic, lungs are clear to auscultation, S1-S2, no murmur, abdomen is nontender, trace pedal edema, neurologically no gross deficits. Patient has significant history of GERD and abnormal gastric emptying study previously. She states her GERD is currently well controlled on current medications. She feels the symptoms are different from her GERD symptoms. Patient is admitted overnight to rule out ACS. Continue aspirin, beta francois. Check echo, lipid panel, cardiac enzymes, keep her n.p.o. overnight for possible stress test in a.m. Cardiology is consulted for input. I personally reviewed the record. Patient is interviewed and examined at bedside. Patient's care is coordinated with Alicia Haro PA-C. Please refer to the documentation above for details of patient's presentation and for discussion of other issues.
[2018-12-06] MEDS ORDERED: NITROGLYCERIN SL 0.4 MG/TAB TAB SL PRN (14:51)
[2018-12-06] MEDS ORDERED: SUCRALFATE 1 GM TAB PO PRN (14:51)
[2018-12-06] MEDS ORDERED: ALBUTEROL 0.083% NEBU SOLN 3 ML VIAL NEB PRN (14:51)
[2018-12-06] MEDS ORDERED: ACETAMINOPHEN 325 MG TAB PO PRN (14:51)
--- NOTE | 2018-12-06 15:37 | Emergency Department Note ---
Entered by Jil Cano acting as a scribe for Chadwick Quintanilla MD History of Present Illness General Chief complaint: Cardiac Assessment Stated complaint: TINGLING IN FINGERS, SWEATING, CHEST PRESSURE Time Seen by Provider: 12/06/18 09:32 Source: patient Mode of arrival: ambulatory History of Present Illness Provider complaint: chest pain Onset (ago): week(s) 1 Location: chest Radiation: other (upwards) Pain Consistency: + intermittent and + other (worsening) Maximum Pain Intensity: 3 Quality: + other (pressure) Associated symptoms: + other (shortness of breath, nausea, sweatiness. Denies: vomiting, fevers, chills, leg pain, leg swelling, urinary symptoms, bowel m ovement symptoms) Treatments prior to arrival: none The patient is a 67 year old white female w/ PMHx of GERD, diabetes, HTN, asthma, and glaucoma, who presents to the ED w/ CC of intermittent, worsening chest pain beginning 1 week ago. She describes the pain as a pressure that is in the center of her chest, radiating upwards. The patient states she has been enrike rt of breath on exertion, especially when climbing stairs. She reports nausea and sweatiness. The patient denies vomiting, fevers, chills, leg pain, leg swelling, urinary symptoms, or bowel movement symptoms. She denies history of blood clots or recent extended travel. The patient did not take any medication for her symptoms. Home Medications Home Medications Medication Instructions Recorded Confirmed Type Lactobac comb [id number] 1 cap PO DAILY 12/06/18 12/06/18 History [Probiotic and Acidophilus] albuterol sulfate 2 puff INHALATION Q6H PRN 12/06/18 12/06/18 History albuterol sulfate 3 ml INHALATION Q4 PRN 12/06/18 12/06/18 History aspirin 81 mg PO DAILY 12/06/18 12/06/18 History atenolol 50 mg PO DAILY 12/06/18 12/06/18 History brimonidine-timolol [Combigan] 1 drp OPHTHALMIC (EYE) BID 12/06/18 12/06/18 History cholecalciferol (vitamin D3) 1,000 unit PO DAILY 12/06/18 12/06/18 History [Vitamin D3] fluticasone propionate [Flovent 1 inh INHALATION DAILY 12/06/18 12/06/18 History Diskus] ipratropium-albuterol 3 ml INHALATION Q6 PRN 12/06/18 12/06/18 History losartan 100 mg PO DAILY 12/06/18 12/06/18 History montelukast [Singulair] 10 mg PO DAILY 12/06/18 12/06/18 History pantoprazole [Protonix] 20 mg PO DAILY 12/06/18 12/06/18 History ranitidine HCl 150 mg PO BID PRN 12/06/18 12/06/18 History sucralfate 1 g PO HS PRN 12/06/18 12/06/18 History sucralfate 1 g PO QID PRN 12/06/18 12/06/18 History Allergies Allergy/AdvReac Type Severity Reaction Status Date / Time erythromycin base Allergy Intermediate GI ISSUES Unverified 12/06/18 09:44 atorvastatin Allergy Unknown EDEMA Unverified 12/06/18 09:44 Bactrim Allergy Unknown SPINNING/VE Unverified 09/07/17 15:56 RTIGO/RASH estrogens, conjugated Allergy Unknown SWELLING/SKIN Unverified 12/06/18 09:44 FLAKES latanoprost Allergy Unknown RASH Unverified 12/06/18 09:44 lisinopril Allergy Unknown COUGH Unverified 12/06/18 09:44 medroxyprogesterone Allergy Unknown SWELLING/SKIN Unverified 12/06/18 09:44 FLAKES rosuvastatin Allergy Unknown EDEMA Unverified 12/06/18 09:44 sulfamethoxazole Allergy Unknown SPINNING/VE Unverified 12/06/18 09:44 RTIGO/RASH trimethoprim Allergy Unknown SPINNING/VE Unverified 12/06/18 09:44 RTIGO/RASH Past Med/Surg History Medical History Diabetes mellitus, type II (Chronic) Seasonal allergic rhinitis (Chronic) Herpes zoster (Resolved) Glaucoma (Chronic) Obesity (BMI 30.0-34.9) (Chronic) HLD (hyperlipidemia) (Chronic) GERD (gastroesophageal reflux disease) (Chronic) Hypertension (Chronic) Asthma (Chronic) Chest pain Hand paresthesia Numbness Lips/Mouth Surgical History H/O hernia repair (Chronic) Social History Communication Ability: Effective Beliefs That Will Affect Care: None Current Living Situation: Spouse Other Information That Helps Us Care for You: No Feels Safe at Home: Yes Smoking Status: Never smoker Hx Alcohol Use: Yes Hx Substance Use: No Review of Systems See HPI for pertinent positives & negatives. and A total of 10 systems reviewed and were otherwise negative Physical Exam Vital Signs Vital Signs - 24 hr 12/06/18 09:09 12/06/18 09:30 12/06/18 09:45 Temperature 36.7 C Temperature Source Oral Sepsis Recent Fever Within 48 Hours No Sepsis Action Taken by Nursing No Action Required Pulse Rate 61 55 L Pulse Rate [Brachial] Pulse Rate [Finger] Pulse Rate from SpO2 Sensor 54 L Pulse Rhythm Regular Pulse Strength Normal Respiratory Rate 20 18 Respiratory Effort / Characteristics Non-Labored Spontaneous Respiratory Depth Normal Respiratory Pattern Regular Blood Pressure 160/73 H Blood Pressure [Left Arm] Blood Pressure [Right Arm] Blood Pressure Mean 102 Blood Pressure Mean [Left Arm] Blood Pressure Mean [Right Arm] Blood Pressure Position Sitting Blood Pressure Position [Left Arm] Blood Pressure Position [Right Arm] Pulse Oximetry 98 98 98 Oxygen Delivery Method Room Air Room Air 12/06/18 10:00 12/06/18 10:30 12/06/18 11:42 Temperature Temperature Source Sepsis Recent Fever Within 48 Hours Sepsis Action Taken by Nursing Pulse Rate 59 L 60 Pulse Rate [Brachial] Pulse Rate [Finger] Pulse Rate from SpO2 Sensor 59 L 60 Pulse Rhythm Pulse Strength Respiratory Rate 16 18 Respiratory Effort / Characteristics Respiratory Depth Respiratory Pattern Blood Pressure 156/61 H Blood Pressure [Left Arm] Blood Pressure [Right Arm] Blood Pressure Mean 92 Blood Pressure Mean [Left Arm] Blood Pressure Mean [Right Arm] Blood Pressure Position Blood Pressure Position [Left Arm] Blood Pressure Position [Right Arm] Pulse Oximetry 98 98 Oxygen Delivery Method 12/06/18 11:43 12/06/18 11:51 12/06/18 11:59 Temperature Temperature Source Sepsis Recent Fever Within 48 Hours Sepsis Action Taken by Nursing Pulse Rate 69 65 64 Pulse Rate [Brachial] Pulse Rate [Finger] Pulse Rate from SpO2 Sensor Pulse Rhythm Pulse Strength Respiratory Rate 17 15 15 Respiratory Effort / Characteristics Respiratory Depth Respiratory Pattern Blood Pressure 125/65 136/68 Blood Pressure [Left Arm] Blood Pressure [Right Arm] Blood Pressure Mean 85 90 Blood Pressure Mean [Left Arm] Blood Pressure Mean [Right Arm] Blood Pressure Position Blood Pressure Position [Left Arm] Blood Pressure Position [Right Arm] Pulse Oximetry Oxygen Delivery Method 12/06/18 12:00 12/06/18 12:07 12/06/18 13:55 Temperature Temperature Source Sepsis Recent Fever Within 48 Hours Sepsis Action Taken by Nursing Pulse Rate 65 68 Pulse Rate [Brachial] Pulse Rate [Finger] Pulse Rate from SpO2 Sensor Pulse Rhythm Pulse Strength Respiratory Rate 10 L 14 64 H Respiratory Effort / Characteristics Respiratory Depth Respiratory Pattern Blood Pressure 127/61 152/69 H Blood Pressure [Left Arm] Blood Pressure [Right Arm] Blood Pressure Mean 83 Blood Pressure Mean [Left Arm] Blood Pressure Mean [Right Arm] Blood Pressure Position Blood Pressure Position [Left Arm] Blood Pressure Position [Right Arm] Pulse Oximetry 98 Oxygen Delivery Method 12/06/18 15:20 12/06/18 15:24 12/06/18 19:39 Temperature 36.5 C 36.6 C Temperature Source Oral Oral Sepsis Recent Fever Within 48 Hours Sepsis Action Taken by Nursing Pulse Rate 59 L Pulse Rate [Brachial] 65 66 Pulse Rate [Finger] Pulse Rate from SpO2 Sensor Pulse Rhythm Pulse Strength Respiratory Rate 18 19 Respiratory Effort / Characteristics Respiratory Depth Respiratory Pattern Blood Pressure Blood Pressure [Left Arm] 149/80 H 117/75 Blood Pressure [Right Arm] Blood Pressure Mean Blood Pressure Mean [Left Arm] 103 89 Blood Pressure Mean [Right Arm] Blood Pressure Position Blood Pressure Position [Left Arm] Lying Blood Pressure Position [Right Arm] Pulse Oximetry 96 96 Oxygen Delivery Method Room Air 12/06/18 23:00 12/07/18 03:00 12/07/18 07:21 Temperature 36.5 C 36.6 C 36.3 C L Temperature Source Oral Oral Oral Sepsis Recent Fever Within 48 Hours Sepsis Action Taken by Nursing Pulse Rate Pulse Rate [Brachial] 59 L Pulse Rate [Finger] 63 70 Pulse Rate from SpO2 Sensor Pulse Rhythm Pulse Strength Respiratory Rate 18 17 16 Respiratory Effort / Characteristics Respiratory Depth Respiratory Pattern Blood Pressure Blood Pressure [Left Arm] 146/77 H 151/63 H Blood Pressure [Right Arm] 169/82 H Blood Pressure Mean Blood Pressure Mean [Left Arm] 100 92 Blood Pressure Mean [Right Arm] 111 Blood Pressure Position Blood Pressure Position [Left Arm] Blood Pressure Position [Right Arm] Lying Pulse Oximetry 97 94 98 Oxygen Delivery Method Room Air Room Air GENERAL: Well appearing, well nourished, NAD, non-toxic. Wearing glasses. EYE EXAM: Normal conjunctiva. PERRL, no anisocoria and EOM's grossly intact w/o pain. OROPHARYNX: Moist MM. NECK: Supple, no nuchal rigidity, no adenopathy, non-tender. No signs of meningismus. LUNGS: Clear to auscultation. Normal chest wall mechanics. HEART: NSR, no MRG. CHEST WALL: No reproducible chest wall pain ABDOMEN: Abdomen soft, non-tender, normo-active bowel sounds, no masses, no rebound or guarding. BACK: No CVA TTP. SKIN: No rashes and no bruising. UPPER EXTREMITIES: Upper extremities are grossly normal. LOWER EXTREMITIES: No pitting edema. No calf pain. Negative Homans. NEURO EXAM: A and O x3. GCS 15. Moves all 4 extremities on command w/o issue. Course 0939: Past medical records reviewed. The patient was evaluated in room A10, and a complete history and physical examination were performed. 1129: Upon reevaluation, the patient has had no improvement of her pain. I discussed test results. They verbalized agreement with the treatment plan. 1146: I reviewed the patient's case [facility] She will evaluate the patient for further management. Consultations Consultation #1: [facility] Time: 11:46 Administered Medications Brimonidine/Timolol (Combigan) 1 drops OP BID DEVON Stop: 01/05/19 20:59 Last Admin: 12/06/18 21:14 Dose: 1 drops Documented by: [id number] Miscellaneous (Order Awaiting Action) 1 ea N/A QS DEVON Stop: 01/05/19 15:59 Last Admin: 12/07/18 06:49 Dose: Not Given Documented by: [id number] Admin: 12/07/18 00:51 Dose: Not Given Documented by: [id number] Admin: 12/06/18 16:00 Dose: Not Given Documented by: [id number] Montelukast Sodium (Singulair) 10 mg PO HS DEVON Stop: 01/05/19 20:59 Last Admin: 12/06/18 21:14 Dose: 10 mg Documented by: [id number] Ranitidine HCl (Zantac) 150 mg PO BID DEVON Stop: 01/05/19 20:59 Last Admin: 12/06/18 21:13 Dose: 150 mg Documented by: [id number] Discontinued Medications Al Hydrox/Mg Hydrox/Simethicone () 1 dose PO ONE ONE Stop: 04/04/19 09:45 Last Admin: 12/06/18 09:50 Dose: 1 dose Documented by: [id number] Aspirin (Aspirin) 324 mg PO NOW STA Stop: 12/06/18 11:34 Last Admin: 12/06/18 11:49 Dose: Not Given Documented by: [id number] Aspirin (Aspirin Chew) Confirm Administered Dose 324 mg .ROUTE .STK-MED ONE Stop: 12/06/18 11:39 Last Admin: 12/06/18 11:41 Dose: 243 mg Documented by: [id number] Famotidine (Pepcid) 20 mg PO NOW ONE Stop: 12/06/18 09:45 Last Admin: 12/06/18 09:50 Dose: 20 mg Documented by: [id number] Sodium Chloride (Nss) 500 mls @ 999 mls/hr IV .Q31M [facility] Stop: 12/06/18 10:15 Last Infusion: 12/06/18 10:33 Dose: 0 mls/hr Documented by: [id number] Admin: 12/06/18 09:50 Dose: 999 mls/hr Documented by: [id number] Miscellaneous (Order Awaiting Action) 1 ea N/A QS [facility] Stop: 01/05/19 15:59 Last Admin: 12/06/18 16:00 Dose: Not Given Documented by: [id number] Nitroglycerin (Nitrostat) 0.4 mg SL UD PRN PRN Reason: Chest Pain Stop: 01/05/19 11:32 Last Admin: 12/06/18 11:59 Dose: 0.4 mg Documented by: [id number] Admin: 12/06/18 11:51 Dose: 0.4 mg Documented by: [id number] Admin: 12/06/18 11:41 Dose: 0.4 mg Documented by: [id number] Medical Decision Making Medical Records Attestation: I reviewed the patient's medical records. Home Medications Current Medication List: was personally reviewed by me Laboratory Data Attestation: I reviewed the patient's lab results. Result diagrams: 12/07/18 06:46 12/06/18 09:25 Lab Results 12/06/18 12/06/18 12/06/18 Range/Units 09:25 09:25 09:25 WBC 8.60 (4.8-10.8) K/uL RBC 4.66 (4.2-5.4) M/uL Hgb 15.0 (12.0-16.0) g/dL Hct 43.4 (37-47) % MCV 93.1 (80-100) fL MCH 32.2 (25-34) pg MCHC 34.6 (32-36) g/dL RDW Std Deviation 44.2 (36.4-46.3) fL RDW Coeff of Tobin 13.0 (11.5-14.5) % Plt Count 240 (130-400) K/uL MPV 10.2 (7.4-10.4) fL Immature Gran % (Auto) 0.3 % Neut % (Auto) 55.4 % Lymph % (Auto) 30.5 % [place] % (Auto) 7.9 % Eos % (Auto) 5.7 % Baso % (Auto) 0.2 % Immature Gran # (Auto) 0.03 H (0.00-0.02) K/uL Neut # (Auto) 4.76 (1.4-6.5) K/uL Lymph # (Auto) 2.62 (1.2-3.4) K/uL [place] # (Auto) 0.68 H (0.11-0.59) K/uL Eos # (Auto) 0.49 (0-0.5) K/uL Baso # (Auto) 0.02 (0-0.2) K/uL PT Cancelled INR Cancelled APTT Cancelled PTT Ratio Cancelled Sodium 139 (136-145) mmol/L Potassium 4.2 (3.5-5.1) mmol/L Chloride 107 (98-107) mmol/L Carbon Dioxide 26 (21-32) mmol/L Anion Gap 6.0 (3-11) BUN 27 H (7-18) mg/dl Creatinine 1.04 (0.6-1.2) mg/dl Est Cr Clr Drug Dosing 52.6 ml/min Est GFR ( Amer) 63.5 Est GFR (Non-Af Amer) 54.8 BUN/Creatinine Ratio 26.1 H (10-20) Glucose 126 H (70-99) mg/dl Calcium 9.3 (8.5-10.1) mg/dl Magnesium (1.8-2.4) mg/dl Total Bilirubin 0.4 (0.2-1) mg/dl AST 19 (15-37) U/L ALT 27 (12-78) U/L Alkaline Phosphatase 93 (45-117) U/L Troponin I < 0.015 (0-0.045) ng/ml Total Protein 8.4 H (6.4-8.2) gm/dl Albumin 3.4 (3.4-5.0) gm/dl Globulin 5.0 H (2.5-4.0) gm/dl Albumin/Globulin Ratio 0.7 L (0.9-2) Lipase 103 (73-393) U/L 12/06/18 12/06/18 12/06/18 Range/Units 10:14 15:07 21:16 WBC (4.8-10.8) K/uL RBC (4.2-5.4) M/uL Hgb (12.0-16.0) g/dL Hct (37-47) % MCV (80-100) fL MCH (25-34) pg MCHC (32-36) g/dL RDW Std Deviation (36.4-46.3) fL RDW Coeff of Tobin (11.5-14.5) % Plt Count (130-400) K/uL MPV (7.4-10.4) fL Immature Gran % (Auto) % Neut % (Auto) % Lymph % (Auto) % [place] % (Auto) % Eos % (Auto) % Baso % (Auto) % Immature Gran # (Auto) (0.00-0.02) K/uL Neut # (Auto) (1.4-6.5) K/uL Lymph # (Auto) (1.2-3.4) K/uL [place] # (Auto) (0.11-0.59) K/uL Eos # (Auto) (0-0.5) K/uL Baso # (Auto) (0-0.2) K/uL PT 10.0 INR 1.0 APTT 26.2 PTT Ratio 1.0 Sodium (136-145) mmol/L Potassium (3.5-5.1) mmol/L Chloride (98-107) mmol/L Carbon Dioxide (21-32) mmol/L Anion Gap (3-11) BUN (7-18) mg/dl Creatinine (0.6-1.2) mg/dl Est Cr Clr Drug Dosing ml/min Est GFR ( Amer) Est GFR (Non-Af Amer) BUN/Creatinine Ratio (10-20) Glucose (70-99) mg/dl Calcium (8.5-10.1) mg/dl Magnesium 1.9 (1.8-2.4) mg/dl Total Bilirubin (0.2-1) mg/dl AST (15-37) U/L ALT (12-78) U/L Alkaline Phosphatase (45-117) U/L Troponin I < 0.015 < 0.015 (0-0.045) ng/ml Total Protein (6.4-8.2) gm/dl Albumin (3.4-5.0) gm/dl Globulin (2.5-4.0) gm/dl Albumin/Globulin Ratio (0.9-2) Lipase (73-393) U/L 12/07/18 Range/Units 06:46 WBC 7.92 (4.8-10.8) K/uL RBC 4.66 (4.2-5.4) M/uL Hgb 14.7 (12.0-16.0) g/dL Hct 43.4 (37-47) % MCV 93.1 (80-100) fL MCH 31.5 (25-34) pg MCHC 33.9 (32-36) g/dL RDW Std Deviation 43.8 (36.4-46.3) fL RDW Coeff of Tobin 13.1 (11.5-14.5) % Plt Count 202 (130-400) K/uL MPV 10.1 (7.4-10.4) fL Immature Gran % (Auto) % Neut % (Auto) % Lymph % (Auto) % [place] % (Auto) % Eos % (Auto) % Baso % (Auto) % Immature Gran # (Auto) (0.00-0.02) K/uL Neut # (Auto) (1.4-6.5) K/uL Lymph # (Auto) (1.2-3.4) K/uL [place] # (Auto) (0.11-0.59) K/uL Eos # (Auto) (0-0.5) K/uL Baso # (Auto) (0-0.2) K/uL PT INR APTT PTT Ratio Sodium (136-145) mmol/L Potassium (3.5-5.1) mmol/L Chloride (98-107) mmol/L Carbon Dioxide (21-32) mmol/L Anion Gap (3-11) BUN (7-18) mg/dl Creatinine (0.6-1.2) mg/dl Est Cr Clr Drug Dosing ml/min Est GFR ( Amer) Est GFR (Non-Af Amer) BUN/Creatinine Ratio (10-20) Glucose (70-99) mg/dl Calcium (8.5-10.1) mg/dl Magnesium (1.8-2.4) mg/dl Total Bilirubin (0.2-1) mg/dl AST (15-37) U/L ALT (12-78) U/L Alkaline Phosphatase (45-117) U/L Troponin I (0-0.045) ng/ml Total Protein (6.4-8.2) gm/dl Albumin (3.4-5.0) gm/dl Globulin (2.5-4.0) gm/dl Albumin/Globulin Ratio (0.9-2) Lipase (73-393) U/L Imaging Data Radiologist's Impression: Radiology results as stated below per my review and the radiologist's interpretation: XR chest 1V portable CLINICAL HISTORY: 67 years-old Female presenting with Chest Pain. TECHNIQUE: Portable upright AP view of the chest was obtained. COMPARISON: 05/08/2018. FINDINGS: Atherosclerosis of the aortic arch. Cardiac silhouette enlarged. Calcified g ranulomata suggested in the periphery of the left mid to lower lung. No new focal opacity. No large effusion or pneumothorax. Degenerative changes of the thoracic spine. Upper abdomen normal. IMPRESSION: 1. Cardiomegaly. No other convincing evidence of acute cardiopulmonary disease. Electronically signed by: Dav Carney M.D. 12/06/2018 10:05 AM ECG Data Attestation: I personally reviewed and interpreted this ECG as follows: Indication: chest pain Rate (beats per minute): 59 Rhythm: sinus bradycardia Findings: + other (normal intervals. normal axis); no ST depression, no T-wave inversion and no ST elevation Comparison ECG Date: from (05/09/18) Change: no significant change Blood Pressure Blood Pressure Findings: Normal blood pressure Blood Pressure Disposition: did not require urgent referral MDM Narrative The patient is a 67 year old white female w/ PMHx of GERD, diabetes, HTN, asthma, and glaucoma, who presents to the ED w/ CC of intermittent, worsening chest pain beginning 1 week ago. Etiologies such as shingles, musculoskeletal pain, pericarditis, myocarditis, cardiac ischemia, pericardial tamponade, pneumonia, pneumothorax, pleural effusion, hemothorax, pleurisy, aortic pathology, pulmonary embolism, intra- abdominal process, as well as others were considered. Patient was seen and evaluated the bedside. The patient does relate worsening epigastric or centralized chest pains. She feels that the pain moves upward. Patient denies any exertional symptoms although she does complain of some occasional shortness of breath with climbing stairs. Patient denies any infectious symptoms. No prior history of DVT or PE. No lower extremity swelling. Patient did have blood work completed along with EKG troponin chest x-ray and the patient was given medications for symptom improvement. Patient's blood work was fairly unremarkable. EKG does not show any acute acute ischemic change. The patient was treated for possible reflux given her vague description of the discomfort. The patient did not have any symptom medic improvement. The patient was given nitro and aspirin. The patient states that her chest pain vastly improved and was only 1 out of 10. Given the patient's risk factors the fact that she is an older female she could have some atypical chest pain features especially as her symptoms improved with nitro and aspirin. I did speak the on-call hospitalist who agreed to further evaluate treat the patient. Impression & Plan Atypical chest pain Discharge Plan Visit Data *Final* Discharge Date/Time: 12/06/18 13:55 Chief Complaint: Cardiac Assessment Stated Complaint: TINGLING IN FINGERS, SWEATING, CHEST PRESSURE ED Provider: Chadwick Quintanilla Discharge Problem: Atypical chest pain Patient Disposition: Admitted As Inpatient Discharge Instructions Interventions: ED Discharge Assessment Last Done: 12/06/18 13:55 The scribe's documentation has been prepared under my direction and personally reviewed by me in its entirety. I confirm that the note above accurately reflects all work, treatment, procedures, and medical decision making performed by me.
[2018-12-06 15:40] LABS: Magnesium 1.9 mg/dl (1.8-2.4); Troponin I < 0.015 ng/ml (0-0.045)
[2018-12-06] MEDS ORDERED: Nursing to Pharmacy Communication ONE (18:29)
[2018-12-06] MEDS ORDERED: MONTELUKAST SODIUM 10 MG TABLET PO SCH (21:00)
[2018-12-06] MEDS: EYE OP SCH (21:14)
[2018-12-06] MEDS: TIMOLOL OP SCH (21:14)
[2018-12-06] MEDS: BRIMONIDINE TARTRATE OP SCH (21:14)
[2018-12-07] MEDS ORDERED: PANTOprazole 40 MG TAB PO SCH ×3 (07:00→09:00)
[2018-12-07 07:10] LABS: Hematocrit (blood only) 43.4 % (37-47); Hemoglobin 14.7 g/dL (12.0-16.0); Mean Corpuscular Hgb Conc 33.9 g/dL (32-36); Mean Corpuscular Volume 93.1 fL (80-100); Mean Platelet Volume 10.1 fL (7.4-10.4); Platelet Count 202 K/uL (130-400); RDW Coefficient of Variation 13.1 % (11.5-14.5); RDW Standard Deviation 43.8 fL (36.4-46.3); Red Blood Count 4.66 M/uL (4.2-5.4); White Blood Count 7.92 K/uL (4.8-10.8)
[2018-12-07 07:38] LABS: BUN Creatinine Ratio 27.8 (10-20); Calcium 9.2 mg/dl (8.5-10.1); Creatinine Clr Calc Pharmacy 56.6 ml/min; Est GFR (African American) 69.9; Est GFR (Non-African American) 60.3; Potassium 4.1 mmol/L (3.5-5.1)
[2018-12-07] MEDS: BRIMONIDINE TARTRATE OP SCH (08:16)
[2018-12-07] MEDS: EYE OP SCH (08:16)
[2018-12-07] MEDS: TIMOLOL OP SCH (08:16)
[2018-12-07] MEDS ORDERED: ASPIRIN 81 MG ECTAB PO SCH (09:00)
[2018-12-07] MEDS ORDERED: LOSARTAN POTASSIUM 50 MG TAB PO SCH (09:00)
[2018-12-07] MEDS ORDERED: CHOLECALCIFEROL 1,000 UNITS TAB PO SCH (09:00)
[2018-12-07] MEDS ORDERED: ATENOLOL 50 MG TABLET PO SCH ×2 (09:00→15:00)
[2018-12-07] MEDS ORDERED: ATROPINE SULFATE 0.1 MG/ML 10ML SYR IV ONE (13:44)
[2018-12-07] MEDS ORDERED: DOBUTamine HCL 12.5 MG/ML 20 ML VIAL IV ONE (13:44)
[2018-12-07] MEDS ORDERED: METOPROLOL TARTRATE 1 MG/ML VIAL IV ONE (13:44)
--- NOTE | 2018-12-07 13:53 | Cardiology Consultation ---
Date of Consultation December 07, 2018 Assessment & Plan (1) Chest pain: Cardiac enzymes negative. She has history of hypertension, but this is been relatively well controlled. I initially plan to proceed with an exercise stress echocardiogram. The patient however was unable to keep up with the piece of the treadmill due to difficulties with coordination of her gait. She had never attempted to walk on a treadmill before. Efforts are in progress therefore to convert her to a dobutamine stress echocardiogram. Further conditions will be forthcoming after the test is completed. History of Present Illness Attending Physician: Carola Figueroa MD History of Present Illness Jakub Knapp is a 67 year old female seen in cardiology consultation per the request of Alicia Haro PA-C of the [facility] for the evaluation of chest discomfort. The patient's primary care provider is Dr. Eloisa Angel. I had previously seen the patient in inpatient cardiology consultation in May 2018, but she does not follow with cardiology as an outpatient. She has a past history of diet-controlled type 2 diabetes mellitus, dyslipidemia for which she is not on statin therapy due to medication intolerances, hypertension and asthma. The patient stated that on the day of admission she had been doing some dancing on an exercise video and developed a bandlike tightness around the lower chest at the margin of her ribs with associated, with associated jaw tightness and shortness of breath. She presented to the emergency room. Serial EKG tracings and cardiac enzymes have been negative thus far. She had an echocardiogram performed yesterday afternoon that revealed normal resting wall motion. She notes a possible family history of heart disease in her father, who also had advanced cancer. Does not recall the details of this. Allergies Allergy/AdvReac Type Severity Reaction Status Date / Time erythromycin base Allergy Intermediate GI ISSUES Unverified 12/06/18 09:44 atorvastatin Allergy Unknown EDEMA Unverified 12/06/18 09:44 Bactrim Allergy Unknown SPINNING/VE Unverified 09/07/17 15:56 RTIGO/RASH estrogens, conjugated Allergy Unknown SWELLING/SKIN Unverified 12/06/18 09:44 FLAKES latanoprost Allergy Unknown RASH Unverified 12/06/18 09:44 lisinopril Allergy Unknown COUGH Unverified 12/06/18 09:44 medroxyprogesterone Allergy Unknown SWELLING/SKIN Unverified 12/06/18 09:44 FLAKES rosuvastatin Allergy Unknown EDEMA Unverified 12/06/18 09:44 sulfamethoxazole Allergy Unknown SPINNING/VE Unverified 12/06/18 09:44 RTIGO/RASH trimethoprim Allergy Unknown SPINNING/VE Unverified 12/06/18 09:44 RTIGO/RASH Home Medications Home Medications Medication Instructions Recorded Confirmed Type Lactobac comb [id number] 1 cap PO DAILY 12/06/18 12/06/18 History [Probiotic and Acidophilus] albuterol sulfate 2 puff INHALATION Q6H PRN 12/06/18 12/06/18 History albuterol sulfate 3 ml INHALATION Q4 PRN 12/06/18 12/06/18 History aspirin 81 mg PO DAILY 12/06/18 12/06/18 History atenolol 50 mg PO DAILY 12/06/18 12/06/18 History brimonidine-timolol [Combigan] 1 drp OPHTHALMIC (EYE) BID 12/06/18 12/06/18 History cholecalciferol (vitamin D3) 1,000 unit PO DAILY 12/06/18 12/06/18 History [Vitamin D3] fluticasone propionate [Flovent 1 inh INHALATION DAILY 12/06/18 12/06/18 History Diskus] ipratropium-albuterol 3 ml INHALATION Q6 PRN 12/06/18 12/06/18 History losartan 100 mg PO DAILY 12/06/18 12/06/18 History montelukast [Singulair] 10 mg PO DAILY 12/06/18 12/06/18 History pantoprazole [Protonix] 20 mg PO DAILY 12/06/18 12/06/18 History ranitidine HCl 150 mg PO BID PRN 12/06/18 12/06/18 History sucralfate 1 g PO HS PRN 12/06/18 12/06/18 History sucralfate 1 g PO QID PRN 12/06/18 12/06/18 History Patient History Medical History Diabetes mellitus, type II (Chronic) Seasonal allergic rhinitis (Chronic) Herpes zoster (Resolved) Glaucoma (Chronic) Obesity (BMI 30.0-34.9) (Chronic) HLD (hyperlipidemia) (Chronic) GERD (gastroesophageal reflux disease) (Chronic) Hypertension (Chronic) Asthma (Chronic) Chest pain Hand paresthesia Numbness Lips/Mouth Surgical History H/O hernia repair (Chronic) Social History Communication Ability: Effective Beliefs That Will Affect Care: None Current Living Situation: Spouse Other Information That Helps Us Care for You: No Feels Safe at Home: Yes Smoking Status: Never smoker Hx Alcohol Use: Yes Hx Substance Use: No Review of Systems 10 point review of systems was reviewed and is negative with the exception of that above Physical Exam Vital Signs (Past 24 Hours): Last Vital Signs Temp 36.5 C 12/07/18 11:59 Pulse 69 12/07/18 11:59 Resp 15 12/07/18 11:59 BP 130/58 L 12/07/18 11:59 Pulse Ox 91 12/07/18 11:59 Physical Exam: General: no acute distress and stated age Eyes: conjunctiva are pink and non-injected, sclera clear Neck: normal jugular venous pulse, no hepatojugular reflux Chest: normal shape and normal respiratory effort Lungs: clear to auscultation and percussion Cardiac Exam: - regular heart sounds, no murmurs, rubs, or gallops, no jugular venous distention Abdomen: abdomen soft, non-tender, no abnormal masses and no hepatosplenomegaly Musculoskeletal: no gait disturbance, no weakness Extremities: no edema and no cyanosis Neuro:awake, coversant, follows commands, no focal motor deficits Psych: appropriate affect and insight. Results & Data Laboratory Results Cardiac Enzymes 12/06/18 12/06/18 Range/Units 15:07 21:16 Troponin I < 0.015 < 0.015 (0-0.045) ng/ml Lipids 12/07/18 Range/Units 06:46 Triglycerides 87 (0-150) mg/dl Cholesterol 200 (0-200) mg/dl HDL Cholesterol 44 mg/dl Cholesterol/HDL Ratio 5 CBC 12/07/18 Range/Units 06:46 WBC 7.92 (4.8-10.8) K/uL RBC 4.66 (4.2-5.4) M/uL Hgb 14.7 (12.0-16.0) g/dL Hct 43.4 (37-47) % Plt Count 202 (130-400) K/uL Comprehensive Metabolic Panel 12/07/18 Range/Units 06:46 Sodium 139 (136-145) mmol/L Potassium 4.1 (3.5-5.1) mmol/L Chloride 108 H (98-107) mmol/L Carbon Dioxide 26 (21-32) mmol/L BUN 27 H (7-18) mg/dl Creatinine 0.96 (0.6-1.2) mg/dl Glucose 113 H (70-99) mg/dl Calcium 9.2 (8.5-10.1) mg/dl Intake and Output 12/06/18 12/07/18 12/07/18 22:59 06:59 14:59 Intake Total 120 / 620 Balance 120 / 620 Intake: Oral 120 / 120 Other: Weight 79.9 kg Diagnostic Findings EKG performed 12/07/18 at 6:42 AM revealed sinus rhythm with occasional PACs, normal ST segments are noted. EKG performed 12/06/18 at 9:16 AM revealed sinus bradycardia 59 bpm, and age- indeterminate septal infarction pattern cannot be excluded based on poor R wave progression in lead V2. ST segments were normal.
--- NOTE | 2018-12-07 14:27 | Cardiology Progress Note ---
Date of Service December 07, 2018 Normal dobutamine stress test. OK from cardiac perspective to discharge on prior medications. Physical Exam Vital Signs (Past 24 Hours): Last Vital Signs Temp 36.5 C 12/07/18 11:59 Pulse 69 12/07/18 11:59 Resp 15 12/07/18 11:59 BP 130/58 L 12/07/18 11:59 Pulse Ox 91 12/07/18 11:59
--- NOTE | 2018-12-07 16:04 | Discharge Summary ---
Date of Service December 07, 2018 Admission HPI Per Admitting Provider Pt is 67 y/o F with PMH HTN, HLD, GERD, diet-controlled DM II, asthma, glaucoma presented to ER with complaint of chest pain. States this morning she tried doing a exercise video which involved light dancing when she developed bandlike tightness around her lower chest with jaw tightness, mild shortness of breath, nausea, tingling of bilateral hands, and diaphoresis. Patient states that she rested and CP and jaw symptoms persisted and came to ER. Patient reports history of reflux however has felt like it has been pretty well controlled. She is not had to be taking ranitidine or Carafate. She reports intermittent chronic shortness of breath with climbing 1 flight of stairs. Patient states that she exercises in the pool 3 times a week has not been having chest pain or shortness of breath with this. Patient reports history of bronchitis 1 month ago which was treated with prednisone and doxycycline. Initially had wheezing which she reports is resolved and has not needed her albuterol for several weeks. States has lingering dry cough. Denies fever/chills, V/D/C, VALLADARES, dizziness, syncope, vision changes, neck pain, CP, SOB, orthopnea, palpitations, sore throat, choking, otalgia, rhinorrhea, other abdominal pain, weakness, extremity edema, rashes, urinary symptoms. Pt with hx hospitalization 05/08/18- 05/09/18 for CP. Had negative troponins. Echo: EF: 65-70%, no wall motion abnormalities, mild aortic sclerosis, mild tricuspid regurgitation. In ER patient was given GI cocktail and Pepcid without relief. Was given aspirin and 3 nitro with reported resolving chest tightness, still some jaw tightness. States now with some epigastric pressure. Denies current hand parasthesias, diaphoresis or nausea. Principal Diagnosis Chest pain/states chest tightness, noncardiac, negative cardiac stress test Discharge Exam GENERAL: No sign of distress, HEENT: Sclera nonicteric, pink-purple bilateral equal reactive to light extraocular muscle intact Normal oral mucosa, neck: No JVD, no thyromegaly, trachea midline Lungs: Clear to auscultate, no wheeze or rales Cardiovascular: Regular S1 and S2, no murmur or gallop, no JVD, no lower extremity edema Abdomen: Soft, nontender, bowel sounds active, no hepatosplenomegaly Extremities: No rash or deformity, normal joint, Neuro: No focal neurological deficit, no dysarthria, no facial droop Psych: Alert awake oriented x3: Euthymic Skin: No rash LYMPH NODES: No cervical lymphadenopathy Discharge Data Allergies Allergy/AdvReac Type Severity Reaction Status Date / Time erythromycin base Allergy Intermediate GI ISSUES Unverified 12/06/18 09:44 atorvastatin Allergy Unknown EDEMA Unverified 12/06/18 09:44 Bactrim Allergy Unknown SPINNING/VE Unverified 09/07/17 15:56 RTIGO/RASH estrogens, conjugated Allergy Unknown SWELLING/SKIN Unverified 12/06/18 09:44 FLAKES latanoprost Allergy Unknown RASH Unverified 12/06/18 09:44 lisinopril Allergy Unknown COUGH Unverified 12/06/18 09:44 medroxyprogesterone Allergy Unknown SWELLING/SKIN Unverified 12/06/18 09:44 FLAKES rosuvastatin Allergy Unknown EDEMA Unverified 12/06/18 09:44 sulfamethoxazole Allergy Unknown SPINNING/VE Unverified 12/06/18 09:44 RTIGO/RASH trimethoprim Allergy Unknown SPINNING/VE Unverified 12/06/18 09:44 RTIGO/RASH Consultations 12/06/18 13:24 ED Decision to Admit Stat 12/06/18 14:51 Consult Cardiology Routine Hospital Course (1) Chest pain: Pt presented with c/o bandlike chest tightness to lower chest with asso ciated jaw tightness, mild shortness of breath, nausea, tingling of bilateral hands, and diaphoresis after doing light dancing for 5 minutes. Sat down and chest tightness and jaw tightness persisted during ER course. In pt afebrile, P: 61, R: 20, BP: 160/73 down to 127/61, 98% on RA. WBC: 8. Initial troponin negative. EKG sinus heriberto without acute changes. CXR: cardiomegaly without acute changes. In ER initially given pepcid and GI cocktail without relief. Was given ASA and 3 sublingual nitro with reported relief of chest tightness, jaw tightness starting to resolve. No further episode of chest heaviness after admission, Patient input from cardiology, resting echocardiogram shows no wall motion abnormality, normal ejection fraction Cardiac stress test negative for stress-induced ischemia Stable to be discharged home today (2) GERD (gastroesophageal reflux disease): Possible reason for presenting symptoms with chest heaviness Patient is continued with outpatient antireflux medications -continue protonix, H2 francois, continue carafate prn (3) Hypertension: Blood pressure stable -continue losartan, atenolol (4) HLD (hyperlipidemia): Lipid panel in am. Reports intolerance statin with edema (5) Diabetes mellitus, type II: Diet controlled. A1c: 5.9 on 08/20/18 (6) Asthma: No acute exacerbation or wheezing. Reported hx bronchitis one month ago treated with prednisone and doxycycline with some lingering dry cough. -continue flovent, singulair -duonebs prn DVT Prophylaxis -Lovenox SQ Stable to be discharged home today Total Time Total Time Spent Total Time Spent (In Minutes): Proximately 35 minutes Total Time Includes: Examination of the Patient, Discharge Planning, Medication Reconciliation and Communication With Other Providers Discharge Plan Discharge Items Patient Disposition: Home - Self-Care Reason For Visit: CP Discharge Diagnosis: chest tightness /non cardiac /negative stress test /possible acid reflux Discharge Goals: Decrease discomfort and Therapeutic intervention Activity: Resume your previous activity Non-emergency contact: Primary Care Provider Call non-emergency contact if: you have any medication questions Follow-up/Referrals: Eloisa Angel DO [Primary Care Provider] - 12/12/18 10:55 am Diet: Regular Addtl Provider Instructions: FOLLOW UP WITH DR PUGA Prescriptions: Continued ipratropium-albuterol 0.5 mg-3 mg(2.5 mg base)/3 mL Solution For Nebulization 3 ml INHALATION Q6 PRN (Reason: Wheezing) RF: 0 albuterol sulfate 1.25 mg/3 mL Solution For Nebulization 3 ml INHALATION Q4 PRN (Reason: Wheezing) RF: 0 sucralfate 1 gram Tablet 1 g PO QID PRN (Reason: Heartburn) RF: 0 sucralfate 1 gram Tablet 1 g PO HS PRN (Reason: Heartburn) RF: 0 aspirin 81 mg Tablet,Delayed Release (Dr/Ec) 81 mg PO DAILY RF: 0 pantoprazole [Protonix] 20 mg Tablet,Delayed Release (Dr/Ec) 20 mg PO DAILY RF: 0 Flovent Diskus 100 mcg/actuation Blister With Device 1 inh INHALATION DAILY RF: 0 ranitidine HCl 150 mg Tablet 150 mg PO BID PRN (Reason: Heartburn) RF: 0 montelukast [Singulair] 10 mg Tablet 10 mg PO DAILY RF: 0 albuterol sulfate 90 mcg/actuation Hfa Aerosol Inhaler 2 puff INHALATION Q6H PRN (Reason: asthma) RF: 0 losartan 100 mg Tablet 100 mg PO DAILY RF: 0 atenolol 50 mg Tablet 50 mg PO DAILY RF: 0 cholecalciferol (vitamin D3) [Vitamin D3] 1,000 unit Capsule 1,000 unit PO DAILY RF: 0 Combigan 0.2-0.5 % Drops 1 drp OPHTHALMIC (EYE) BID RF: 0 Probiotic and Acidophilus 300-250 million cell-mg Capsule 1 cap PO DAILY RF: 0 Stand-Alone Forms: [facility] Discharge Orders: Discharge Order (Routine); Ordered 12/07/18 Ordered By: Carola Figueroa Admission Data Admit Date/Time: 12/06/18 13:41 Attending Provider: Carola Figueroa Admit Provider: Son Paul Primary Care Provider: Eloisa Angel Other Providers: David Bar ; Son Paul Service: Telemetry Other Interventions: Discharge Summary Assessment (RN) Last Done: 12/07/18 16:41 DC Date/Time DO NOT enter until pt leaves facility: 12/07/18 17:05
== END 2018-12-07 17:05 | disposition home or self-care (01) ==
LOC: ED 09:04 → 2W 09:04

== ENCOUNTER 2021-09-28 06:46 | Observation (INO) ==
--- NOTE | 2021-09-28 07:11 | Emergency Department Note ---
Impression & Plan Brain TIA, Hypertension ED Provider Note NAME: CASTILLO DIAZ AGE: 70 SEX: F : 1950 ARRIVES VIA: Walk-In INFORMANT: Patient ED PROVIDER(S): Taj Nolasco DO CHIEF COMPLAINT: Left-sided paresthesias/numbness HPI: Patient is a 70-year-old female with a past medical history of diabetes, obesity, hyperlipidemia, hypertension, asthma and reflux who presents the ER following not feeling well yesterday. She notes that she was feeling tired and rundown. She did have some mild loose stools. She woke up this morning after going to bed last night normal around 930. She noticed at 530 when she woke up her left arm was completely numb as well as part of her left leg and some of her left face. She denies any headache or change in vision. No chest pain or shortness of breath. No vomiting. Denies any dysuria, urgency, or frequency. No focal weakness but she notes she has trouble handling things due to the numbness. ROS: See above HPI for pertinent positives & negatives. A total of 10 systems reviewed and were otherwise negative. PAST MEDICAL HISTORY:See Below PAST SURGICAL HISTORY:See Below FAMILY HISTORY:See Below SOCIAL HISTORY:See Below HOME MEDICATIONS:See Below ALLERGIES:See Below VITALS:See Below PHYSICAL EXAMINATION: GENERAL: Sitting up in bed, alert, well appearing, well nourished, no distress, non-toxic EYE EXAM: normal conjunctiva. PERRL and EOM's intact. OROPHARYNX: no exudate, no erythema, lips, buccal mucosa, and tongue normal and mucous membranes are moist NECK: supple, no nuchal rigidity, no adenopathy, non-tender LUNGS: Clear to auscultation. Normal chest wall mechanics HEART: no murmurs, S1 normal and S2 normal ABDOMEN: abdomen soft, non-tender, normo-active bowel sounds, no masses, no rebound or guarding. BACK: Back is symmetrical on inspection and there is no deformity, no midline tenderness, no CVA tenderness. SKIN: no rashes and no bruising UPPER EXTREMITIES: upper extremities are grossly normal. LOWER EXTREMITIES: No pitting edema. NEURO EXAM: Normal sensorium, cranial nerves II-XII intact, normal speech, no weakness of arms, no weakness of legs. No drift. Finger to nose intact. Gross sensation intact. Subjective paresthesias circumferentially of the left upper extremity left ear to cheek and left lateral calf to ankle/foot MEDICAL DECISION MAKING: Patient is a 70-year-old female with a past medical history of obesity, hypertension, hyperlipidemia and diabetes that presents the ER for left-sided paresthesias. She is completely neurologically intact otherwise. She was fairly hypertensive initially which trended down to the 150s. IV was established blood work was obtained. Her symptoms were improving throughout her stay in the ER. Labs show no significant leukocytosis or anemia. INR unremarkable. BMP along with LFTs bilirubin was unremarkable. Troponin was negative. Covid was negative. CT as well as angios of the head and neck showed no acute process. She was updated bedside. 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 Did discuss with Dr. Flowers from [facility] and he agrees with admission. Discussed with Jaz mills for further evaluation. Triage Nursing notes reviewed. Limited review of prior medical records performed Vital Signs: reviewed and remarkable for HTN Differential diagnosis: Differential Diagnosis includes but is not limited to ischemic Stroke, hemorrhagic stroke, bells palsy, mass, neoplasm, migraine headache, seizure, subarachnoid hemorrhage, TIA, and transient global amnesia. ER treatment provided: See below Diagnostics interpreted by me: ECG: Sinus rhythm rate of 60 Normal axis QTC 396 T wave inversion in lead III Cardiac Monitoring: An order was placed for continuous cardiac monitoring. The monitor shows a rate of 62 with sinus rhythm. Laboratory studies: As stated above and show below. Imaging studies: CT angios the head and neck were negative Consultation(s): As discussed above with Jaz mills and Dr. Flowers from neurology Procedures: none Critical Care: None Past Med/Surg History Medical History (Updated 09/28/21 @ 10:10 by Taj Nolasco DO) Asthma Chest pain Diabetes mellitus, type II GERD (gastroesophageal reflux disease) Glaucoma Hand paresthesia Herpes zoster HLD (hyperlipidemia) Hypertension Numbness Lips/Mouth Obesity (BMI 30.0-34.9) Seasonal allergic rhinitis Surgical History (System 03/02/20 @ 12:28 by Nohemy Villafuerte) H/O hernia repair Family History (System 03/02/20 @ 12:28 by Nohemy Villafuerte) Other Alzheimer disease Lung cancer Social History (System 03/02/20 @ 12:28 by Nohemy Villafuerte) Smoking Status: Never smoker Second Hand Exposure: No; Hx Alcohol Use: Yes Alcohol type: wine Hx Substance Use: No Preferred Language: Qatari Communication Ability: Effective Insole Taper Required: No Beliefs That Will Affect Care: None Current Living Situation: Spouse Feels Safe at Home: Yes Assistive Devices: None Allergies Allergies Allergy/AdvReac Type Severity Reaction Status Date / Time erythromycin base Allergy Intermediate GI ISSUES Unverified 09/28/21 08:59 atorvastatin Allergy Unknown EDEMA Unverified 09/28/21 08:59 Bactrim Allergy Unknown SPINNING/VE Unverified 03/02/20 12:28 RTIGO/RASH estrogens, conjugated Allergy Unknown SWELLING/SKIN Unverified 09/28/21 08:59 FLAKES latanoprost Allergy Unknown RASH Unverified 09/28/21 08:59 lisinopril Allergy Unknown COUGH Unverified 09/28/21 08:59 medroxyprogesterone Allergy Unknown SWELLING/SKIN Unverified 09/28/21 08:59 FLAKES rosuvastatin Allergy Unknown EDEMA Unverified 09/28/21 08:59 sulfamethoxazole Allergy Unknown SPINNING/VE Unverified 09/28/21 08:59 RTIGO/RASH trimethoprim Allergy Unknown SPINNING/VE Unverified 09/28/21 08:59 RTIGO/RASH Home Meds Home Medications Medication Instructions Recorded Confirmed Lactobacillus comb 1 cap PO HS 12/06/18 09/28/21 [id number] 300 million cell-250 mg capsule (Probiotic and Acidophilus) albuterol sulfate 1.25 mg/3 mL 3 ml INHALATION Q4 PRN 12/06/18 09/28/21 solution for nebulization albuterol sulfate 90 mcg/actuation 2 puff INHALATION Q6H PRN 12/06/18 09/28/21 aerosol inhaler (ProAir HFA) aspirin 81 mg tablet,delayed 81 mg PO QAM 12/06/18 09/28/21 release atenolol 50 mg tablet 50 mg PO HS 12/06/18 09/28/21 cholecalciferol (vitamin D3) 25 1,000 unit PO QAM 12/06/18 09/28/21 mcg (1,000 unit) capsule (Vitamin D3) fluticasone propionate 100 1 inh INHALATION BID 12/06/18 09/28/21 mcg/actuation blister powder for inhalation (Flovent Diskus) ipratropium 0.5 mg-albuterol 3 mg 3 ml INHALATION Q6 PRN 12/06/18 09/28/21 (2.5 mg base)/3 mL nebulization soln losartan 100 mg tablet 100 mg PO QAM 12/06/18 09/28/21 montelukast 10 mg tablet 10 mg PO HS 12/06/18 09/28/21 (Singulair) pantoprazole 20 mg tablet,delayed 20 mg PO BID 12/06/18 09/28/21 release (Protonix) sucralfate 1 gram tablet 1 g PO QID 12/06/18 09/28/21 cyanocobalamin (vitamin B-12) 500 mcg PO QAM 09/28/21 09/28/21 1,000 mcg tablet (Vitamin B-12) Results & Data (ED) Vital Signs Vital Signs - 24 hr 09/28/21 06:51 09/28/21 07:34 09/28/21 08:00 Temperature 36.3 C L Temperature Source Temporal Artery Scan Pulse Rate 62 Pulse Rate [Apical] 59 L 53 L Respiratory Rate 18 16 14 Respiratory Depth Normal Blood Pressure 163/76 H Blood Pressure [Right Arm] 175/77 H 167/59 H Blood Pressure Mean 105 Blood Pressure Mean [Right Arm] 109 95 Blood Pressure Position [Right Arm] Sitting Sitting Pulse Oximetry 98 98 99 Oxygen Delivery Method Room Air Room Air Room Air Sepsis Recent Fever Within 48 Hours No Sepsis New/Unexplained Change in Mental Status N/A Sepsis Action Taken by Nursing No Action Required 09/28/21 09:03 Temperature Temperature Source Pulse Rate Pulse Rate [Apical] 61 Respiratory Rate 14 Respiratory Depth Blood Pressure Blood Pressure [Right Arm] 157/79 H Blood Pressure Mean Blood Pressure Mean [Right Arm] 105 Blood Pressure Position [Right Arm] Sitting Pulse Oximetry 99 Oxygen Delivery Method Room Air Sepsis Recent Fever Within 48 Hours Sepsis New/Unexplained Change in Mental Status Sepsis Action Taken by Nursing Laboratory Data Result diagrams: 09/28/21 07:25 09/28/21 07:25 Lab Results 09/28/21 09/28/21 09/28/21 Range/Units 07:20 07:25 07:25 WBC 8.43 (4.8-10.8) K/uL RBC 4.43 (4.2-5.4) M/uL Hgb 14.5 (12.0-16.0) g/dL Hct 43.4 (37-47) % MCV 98.0 (80-100) fL MCH 32.7 (25-34) pg MCHC 33.4 (32-36) g/dL RDW Std Deviation 46.9 H (36.4-46.3) fL RDW Coeff of Tobin 13.1 (11.5-14.5) % Plt Count 257 (130-400) K/uL MPV 10.0 (7.4-10.4) fL Immature Gran % (Auto) 0.2 % Neut % (Auto) 59.5 % Lymph % (Auto) 27.6 % [place] % (Auto) 8.1 % Eos % (Auto) 4.2 % Baso % (Auto) 0.4 % Neut # (Auto) 5.02 (1.4-6.5) K/uL Lymph # (Auto) 2.33 (1.2-3.4) K/uL [place] # (Auto) 0.68 H (0.11-0.59) K/uL Eos # (Auto) 0.35 (0-0.5) K/uL Baso # (Auto) 0.03 (0-0.2) K/uL Immature Gran # (Auto) 0.02 (0.00-0.02) K/uL PT 9.3 (9.0-12.0) Seconds INR 0.9 (0.9-1.1) APTT 27.3 (21.0-31.0) Seconds PTT Ratio 1.0 Sodium (136-145) mmol/L Potassium (3.5-5.1) mmol/L Chloride (98-107) mmol/L Carbon Dioxide (21-32) mmol/L Anion Gap (3-11) BUN (6-23) mg/dl Creatinine (0.6-1.2) mg/dl Est Cr Clr Drug Dosing ml/min Est GFR ( Amer) ml/min Est GFR (Non-Af Amer) ml/min BUN/Creatinine Ratio (10-20) Glucose (70-99(Fasting)) mg/dl Calcium (8.5-10.1) mg/dl Magnesium (1.7-2.4) mg/dl Total Bilirubin (0.2-1.0) mg/dl AST (13-39) U/L ALT (7-52) U/L Alkaline Phosphatase (34-104) U/L Troponin I (0-0.04) ng/ml Total Protein (6.0-8.3) gm/dl Albumin (3.4-5.0) gm/dl Globulin (2.5-4.0) gm/dl Albumin/Globulin Ratio (0.9-2) SARS-CoV-2, RNA, NAAT NEGATIVE (NEGATIVE) 09/28/21 Range/Units 07:25 WBC (4.8-10.8) K/uL RBC (4.2-5.4) M/uL Hgb (12.0-16.0) g/dL Hct (37-47) % MCV (80-100) fL MCH (25-34) pg MCHC (32-36) g/dL RDW Std Deviation (36.4-46.3) fL RDW Coeff of Tobin (11.5-14.5) % Plt Count (130-400) K/uL MPV (7.4-10.4) fL Immature Gran % (Auto) % Neut % (Auto) % Lymph % (Auto) % [place] % (Auto) % Eos % (Auto) % Baso % (Auto) % Neut # (Auto) (1.4-6.5) K/uL Lymph # (Auto) (1.2-3.4) K/uL [place] # (Auto) (0.11-0.59) K/uL Eos # (Auto) (0-0.5) K/uL Baso # (Auto) (0-0.2) K/uL Immature Gran # (Auto) (0.00-0.02) K/uL PT (9.0-12.0) Seconds INR (0.9-1.1) APTT (21.0-31.0) Seconds PTT Ratio Sodium 136 (136-145) mmol/L Potassium 4.5 (3.5-5.1) mmol/L Chloride 103 (98-107) mmol/L Carbon Dioxide 26 (21-32) mmol/L Anion Gap 7 (3-11) BUN 20 (6-23) mg/dl Creatinine 0.81 (0.6-1.2) mg/dl Est Cr Clr Drug Dosing 62.9 ml/min Est GFR ( Amer) 84.1 ml/min Est GFR (Non-Af Amer) 72.6 ml/min BUN/Creatinine Ratio 24.7 H (10-20) Glucose 140 H (70-99(Fasting)) mg/dl Calcium 9.0 (8.5-10.1) mg/dl Magnesium 1.7 (1.7-2.4) mg/dl Total Bilirubin 0.6 (0.2-1.0) mg/dl AST 16 (13-39) U/L ALT 15 (7-52) U/L Alkaline Phosphatase 84 (34-104) U/L Troponin I < 0.03 (0-0.04) ng/ml Total Protein 7.9 (6.0-8.3) gm/dl Albumin 3.9 (3.4-5.0) gm/dl Globulin 4.0 (2.5-4.0) gm/dl Albumin/Globulin Ratio 1.0 (0.9-2) SARS-CoV-2, RNA, NAAT (NEGATIVE) Administered Medications Discontinued Medications Ioversol (Optiray 320 125ml) 120 ml IV ONCE ONE Stop: 09/28/21 08:27 Last Admin: 09/28/21 08:26 Dose: 120 ml Documented by: [id number] Imaging Data Radiologist's Impression: Chest X-Ray 09/28/21 07:07 XR chest 1V portable CLINICAL HISTORY: Stroke Like Symptoms COMPARISON STUDY: Chest radiograph December 06, 2018. FINDINGS: Lung volumes are normal. Lungs are clear. Calcified left lung nodules are benign. These are unchanged. There is no pneumothorax or pleural effusion. Cardiac size is stable. Mediastinal contours are normal. There is no evidence f or pulmonary edema. IMPRESSION: No acute cardiopulmonary findings. ACT 112: Negative or not required by law. Electronically signed by: Ryland Burleson M.D. 09/28/2021 7:[address] 09/28/21 07:[address] OF THE BRAIN; CT ANGIOGRAM OF THE BRAIN; CT ANGIOGRAM OF THE NECK CLINICAL HISTORY: Strokelike symptoms. COMPARISON STUDY: No priors. TECHNIQUE: Unenhanced axial CT scan of the brain is performed. Subsequently, following the IV administration of 120 of Optiray 320, CT angiogram of the head and neck was performed from the aortic arch to the vertex. Images are reviewed in the axial, sagittal, and coronal planes. 3-D MIPS images are created and assessed. IV contrast was administered without complication. All measurements were calculated based on NASCET criteria. A dose lowering technique was utilized adhering to the principles of ALARA. CT DOSE: 993.59 mGy.cm FINDINGS: Brain parenchyma: There is age-related involutional change noting minimal microangiopathic disease. There is no hemorrhage, mass effect, or evidence of acute territorial ischemia by CT criteria. There is no evidence of enhancing mass lesion on the angiogram phase images. The ventricles, sulci, and cisterns are prominent secondary to involutional change. Palomo-white matter differentiation is preserved. No extra-axial fluid collection is seen. Thoracic aorta: Visualized portions of the thoracic aorta are normal in caliber. The aortic arch demonstrates standard 3-vessel anatomy. Right carotid arterial system: The right common carotid artery is widely patent, as are the right internal and external carotid arteries. Calcified plaque is noted in the carotid bulb. Left carotid arterial system: The left common carotid artery is widely patent, as are the left internal and external carotid arteries. Calcified plaque is noted in the carotid bulb. Vertebral arteries: The vertebral arteries are widely patent bilaterally and codominant. Subclavian arteries: Widely patent bilaterally. Intracranial vasculature: There is atherosclerotic calcification of the cavernous carotid arteries. The [place] is developmentally complete. The internal carotid arteries are patent at the skull base, as are the anterior and middle cerebral arteries bilaterally. The left anterior cerebral artery is dominant. The right anterior cerebral artery is diminutive. The vertebrobasilar system and posterior cerebral arteries are widely patent. The vertebral arteries are codominant. There is no aneurysm, high-grade stenosis, or focal vessel cut off seen throughout the intracranial circulation. Jugular veins: Patent bilaterally. Dural sinuses: Patent. Lung apices: Partially visualized upper lobe lung parenchyma appears clear. Soft tissues: The visualized pharyngeal soft tissues are normal in appearance noting angiographic phase technique. The oropharyngeal airway appears widely patent. Pituitary gland is heterogeneous. The salivary glands are normal in appearance. No cervical lymphadenopathy is seen. Skeletal structures: The skeletal structures are osteopenic. The calvarium appears intact. The cervical spine is maintained noting multilevel spondylosis. No lytic or blastic lesion is seen. Orbits: The bony orbits are intact. Orbital contents are normal as visualized noting bilateral ocular lens implants. Sinuses and mastoids: The paranasal sinuses are clear. There is a right mastoid effusion. The left mastoid air cells are well pneumatized. IMPRESSION: 1. There is no hemorrhage, mass effect, or evidence of acute territorial ischemia by CT criteria. 2. Unremarkable CT angiogram of the brain. 3. Unremarkable CT angiogram of the neck. ACT 112: Negative or not required by law. Electronically signed by: Benigno Hu M.D. 09/28/2021 8:37 AM Head CTA 09/28/21 07:[address] OF THE BRAIN; CT ANGIOGRAM OF THE BRAIN; CT ANGIOGRAM OF THE NECK CLINICAL HISTORY: Strokelike symptoms. COMPARISON STUDY: No priors. TECHNIQUE: Unenhanced axial CT scan of the brain is performed. Subsequently, following the IV administration of 120 of Optiray 320, CT angiogram of the head and neck was performed from the aortic arch to the vertex. Images are reviewed in the axial, sagittal, and coronal planes. 3-D MIPS images are created and assessed. IV contrast was administered without complication. All measurements were calculated based on NASCET criteria. A dose lowering technique was utilized adhering to the principles of ALARA. CT DOSE: 993.59 mGy.cm FINDINGS: Brain parenchyma: There is age-related involutional change noting minimal microangiopathic disease. There is no hemorrhage, mass effect, or evidence of acute territorial ischemia by CT criteria. There is no evidence of enhancing mass lesion on the angiogram phase images. The ventricles, sulci, and cisterns are prominent secondary to involutional change. Palomo-white matter differentiation is preserved. No extra-axial fluid collection is seen. Thoracic aorta: Visualized portions of the thoracic aorta are normal in caliber. The aortic arch demonstrates standard 3-vessel anatomy. Right carotid arterial system: The right common carotid artery is widely patent, as are the right internal and external carotid arteries. Calcified plaque is noted in the carotid bulb. Left carotid arterial system: The left common carotid artery is widely patent, as are the left internal and external carotid arteries. Calcified plaque is noted in the carotid bulb. Vertebral arteries: The vertebral arteries are widely patent bilaterally and codominant. Subclavian arteries: Widely patent bilaterally. Intracranial vasculature: There is atherosclerotic calcification of the cave rnous carotid arteries. The [place] is developmentally complete. The internal carotid arteries are patent at the skull base, as are the anterior and middle cerebral arteries bilaterally. The left anterior cerebral artery is dominant. The right anterior cerebral artery is diminutive. The vertebrobasilar system and posterior cerebral arteries are widely patent. The vertebral arteries are codominant. There is no aneurysm, high-grade stenosis, or focal vessel cut off seen throughout the intracranial circulation. Jugular veins: Patent bilaterally. Dural sinuses: Patent. Lung apices: Partially visualized upper lobe lung parenchyma appears clear. Soft tissues: The visualized pharyngeal soft tissues are normal in appearance noting angiographic phase technique. The oropharyngeal airway appears widely patent. Pituitary gland is heterogeneous. The salivary glands are normal in appearance. No cervical lymphadenopathy is seen. Skeletal structures: The skeletal structures are osteopenic. The calvarium appears intact. The cervical spine is maintained noting multilevel spondylosis. No lytic or blastic lesion is seen. Orbits: The bony orbits are intact. Orbital contents are normal as visualized noting bilateral ocular lens implants. Sinuses and mastoids: The paranasal sinuses are clear. There is a right mastoid effusion. The left mastoid air cells are well pneumatized. IMPRESSION: 1. There is no hemorrhage, mass effect, or evidence of acute territorial ischemia by CT criteria. 2. Unremarkable CT angiogram of the brain. 3. Unremarkable CT angiogram of the neck. ACT 112: Negative or not required by law. Electronically signed by: Benigno Hu M.D. 09/28/2021 8:37 AM Neck CTA 09/28/21 07:[address] OF THE BRAIN; CT ANGIOGRAM OF THE BRAIN; CT ANGIOGRAM OF THE NECK CLINICAL HISTORY: Strokelike symptoms. COMPARISON STUDY: No priors. TECHNIQUE: Unenhanced axial CT scan of the brain is performed. Subsequently, following the IV administration of 120 of Optiray 320, CT angiogram of the head and neck was performed from the aortic arch to the vertex. Images are reviewed in the axial, sagittal, and coronal planes. 3-D MIPS images are created and assessed. IV contrast was administered without complication. All measurements w ere calculated based on NASCET criteria. A dose lowering technique was utilized adhering to the principles of ALARA. CT DOSE: 993.59 mGy.cm FINDINGS: Brain parenchyma: There is age-related involutional change noting minimal microangiopathic disease. There is no hemorrhage, mass effect, or evidence of acute territorial ischemia by CT criteria. There is no evidence of enhancing mass lesion on the angiogram phase images. The ventricles, sulci, and cisterns are prominent secondary to involutional change. Palomo-white matter differentiation is preserved. No extra-axial fluid collection is seen. Thoracic aorta: Visualized portions of the thoracic aorta are normal in caliber. The aortic arch demonstrates standard 3-vessel anatomy. Right carotid arterial system: The right common carotid artery is widely patent, as are the right internal and external carotid arteries. Calcified plaque is noted in the carotid bulb. Left carotid arterial system: The left common carotid artery is widely patent, as are the left internal and external carotid arteries. Calcified plaque is noted in the carotid bulb. Vertebral arteries: The vertebral arteries are widely patent bilaterally and codominant. Subclavian arteries: Widely patent bilaterally. Intracranial vasculature: There is atherosclerotic calcification of the cavernous carotid arteries. The [place] is developmentally complete. The internal carotid arteries are patent at the skull base, as are the anterior and middle cerebral arteries bilaterally. The left anterior cerebral artery is dominant. The right anterior cerebral artery is diminutive. The vertebrobasilar system and posterior cerebral arteries are widely patent. The vertebral arteries are codominant. There is no aneurysm, high-grade stenosis, or focal vessel cut off seen throughout the intracranial circulation. Jugular veins: Patent bilaterally. Dural sinuses: Patent. Lung apices: Partially visualized upper lobe lung parenchyma appears clear. Soft tissues: The visualized pharyngeal soft tissues are normal in appearance noting angiographic phase technique. The oropharyngeal airway appears widely patent. Pituitary gland is heterogeneous. The salivary glands are normal in appearance. No cervical lymphadenopathy is seen. Skeletal structures: The skeletal structures are osteopenic. The calvarium appears intact. The cervical spine is maintained noting multilevel spondylosis. No lytic or blastic lesion is seen. Orbits: The bony orbits are intact. Orbital contents are normal as visualized noting bilateral ocular lens implants. Sinuses and mastoids: The paranasal sinuses are clear. There is a right mastoid effusion. The left mastoid air cells are well pneumatized. IMPRESSION: 1. There is no hemorrhage, mass effect, or evidence of acute territorial ischemia by CT criteria. 2. Unremarkable CT angiogram of the brain. 3. Unremarkable CT angiogram of the neck. ACT 112: Negative or not required by law. Electronically signed by: Benigno Hu M.D. 09/28/2021 8:37 AM Discharge Plan Visit Data Chief Complaint: Neuro Symptoms/Deficit Stated Complaint: NUMB ON WHOLE LEFT SIDE ED Provider: Taj Nolasco Discharge Problem: Brain TIA, Hypertension Forms Stand Alone Forms: My [facility] Prescriptions Prescriptions: No Action ipratropium-albuterol 0.5 mg-3 mg(2.5 mg base)/3 mL Solution For Nebulization 3 ml INHALATION Q6 PRN (Reason: Wheezing) RF: 0 albuterol sulfate 1.25 mg/3 mL Solution For Nebulization 3 ml INHALATION Q4 PRN (Reason: Wheezing) RF: 0 sucralfate 1 gram Tablet 1 g PO QID RF: 0 aspirin 81 mg Tablet,Delayed Release (Dr/Ec) 81 mg PO QAM RF: 0 pantoprazole [Protonix] 20 mg Tablet,Delayed Release (Dr/Ec) 20 mg PO BID RF: 0 Flovent Diskus 100 mcg/actuation Blister With Device 1 inh INHALATION BID RF: 0 montelukast [Singulair] 10 mg Tablet 10 mg PO HS RF: 0 albuterol sulfate [ProAir HFA] 90 mcg/actuation Hfa Aerosol Inhaler 2 puff INHALATION Q6H PRN (Reason: asthma) RF: 0 losartan 100 mg Tablet 100 mg PO QAM RF: 0 atenolol 50 mg Tablet 50 mg PO HS RF: 0 cholecalciferol (vitamin D3) [Vitamin D3] 1,000 unit Capsule 1,000 unit PO QAM RF: 0 Probiotic and Acidophilus 300-250 million cell-mg Capsule 1 cap PO HS RF: 0 cyanocobalamin (vitamin B-12) [Vitamin B-12] 1,000 mcg Tablet 500 mcg PO QAM RF: 0 Referrals Referrals: Eloisa Angel DO [Primary Care Provider] - Discharge Problem: Hypertension Qualifiers: Hypertension type: unspecified Qualified Code(s): I10 - Essential (primary) hypertension
[2021-09-28 07:36] LABS: Hematocrit (blood only) 43.4 % (37-47); Hemoglobin 14.5 g/dL (12.0-16.0); Mean Corpuscular Hemoglobin 32.7 pg (25-34); Mean Corpuscular Hgb Conc 33.4 g/dL (32-36); Platelet Count 257 K/uL (130-400); RDW Coefficient of Variation 13.1 % (11.5-14.5); RDW Standard Deviation 46.9 fL (36.4-46.3); Red Blood Count 4.43 M/uL (4.2-5.4); White Blood Count 8.43 K/uL (4.8-10.8)
[2021-09-28 07:37] LABS: Basophils # (auto) 0.03 K/uL (0-0.2); Basophils % (auto) 0.4 %; Eosinophils # (auto) 0.35 K/uL (0-0.5); Eosinophils % (auto) 4.2 %; Immature Granulocytes # (auto) 0.02 K/uL (0.00-0.02); Immature Granulocytes % (auto) 0.2 %; Lymphocytes # (auto) 2.33 K/uL (1.2-3.4); Lymphocytes % (auto) 27.6 %; Monocytes # (auto) 0.68 K/uL (0.11-0.59); Monocytes % (auto) 8.1 %; Neutrophils # (auto) 5.02 K/uL (1.4-6.5); Neutrophils % (auto) 59.5 %
[2021-09-28 07:47] LABS: INR 0.9 (0.9-1.1); Partial Thromboplastin Time 27.3 Seconds (21.0-31.0); Prothrombin Time 9.3 Seconds (9.0-12.0)
--- NOTE | 2021-09-28 07:48 | XRay Report ---
XR chest 1V portable CLINICAL HISTORY: Stroke Like Symptoms COMPARISON STUDY: Chest radiograph December 06, 2018. FINDINGS: Lung volumes are normal. Lungs are clear. Calcified left lung nodules are benign. These are unchanged. There is no pneumothorax or pleural effusion. Cardiac size is stable. Mediastinal contour s are normal. There is no evidence for pulmonary edema. IMPRESSION: No acute cardiopulmonary findings. ACT 112: Negative or not required by law. Electronically signed by: Ryland Burleson M.D. 09/28/2021 7:46 AM
[2021-09-28 07:57] LABS: Troponin I < 0.03 ng/ml (0-0.04)
[2021-09-28 08:00] LABS: Anion Gap 7 (3-11); BUN Creatinine Ratio 24.7 (10-20); Blood Urea Nitrogen 20 mg/dl (6-23); Carbon Dioxide 26 mmol/L (21-32); Chloride 103 mmol/L (98-107); Creatinine Clr Calc Pharmacy 62.9 ml/min; Est GFR (African American) 84.1 ml/min; Est GFR (Non-African American) 72.6 ml/min; Glucose 140 mg/dl (70-99(Fasting)); Potassium 4.5 mmol/L (3.5-5.1); Sodium 136 mmol/L (136-145)
[2021-09-28 08:19] LABS: Alanine Aminotransferase 15 U/L (7-52); Albumin Level 3.9 gm/dl (3.4-5.0); Aspartate Aminotransferase 16 U/L (13-39); Bilirubin,Total 0.6 mg/dl (0.2-1.0); Magnesium 1.7 mg/dl (1.7-2.4); Total Protein 7.9 gm/dl (6.0-8.3)
[2021-09-28] MEDS ORDERED: OPTIRAY 320 125ml IV ONE (08:26)
--- NOTE | 2021-09-28 08:38 | CT Scan Report ---
UNENHANCED CT OF THE BRAIN; CT ANGIOGRAM OF THE BRAIN; CT ANGIOGRAM OF THE NECK CLINICAL HISTORY: Strokelike symptoms. COMPARISON STUDY: No priors. TECHNIQUE: Unenhanced axial CT scan of the brain is performed. Subsequently, following the IV adminis tration of 120 of [address] 320, CT angiogram of the head and neck was performed from the aortic arch t o the vertex. Images are reviewed in the axial, sagittal, and coronal planes. 3-D MIPS images are cre ated and assessed. IV contrast was administered without complication. All measurements were calculate d based on NASCET criteria. A dose lowering technique was utilized adhering to the principles of ALA RA. CT DOSE: 993.59 mGy.cm FINDINGS: Brain parenchyma: There is age-related involutional change noting minimal microangiopathic disease. T here is no hemorrhage, mass effect, or evidence of acute territorial ischemia by CT criteria. There i s no evidence of enhancing mass lesion on the angiogram phase images. The ventricles, sulci, and cist erns are prominent secondary to involutional change. Palomo-white matter differentiation is preserved. No extra-axial fluid collection is seen. Thoracic aorta: Visualized portions of the thoracic aorta are normal in caliber. The aortic arch demo nstrates standard 3-vessel anatomy. Right carotid arterial system: The right common carotid artery is widely patent, as are the right int ernal and external carotid arteries. Calcified plaque is noted in the carotid bulb. Left carotid arterial system: The left common carotid artery is widely patent, as are the left internet security specialist al and external carotid arteries. Calcified plaque is noted in the carotid bulb. Vertebral arteries: The vertebral arteries are widely patent bilaterally and codominant. Subclavian arteries: Widely patent bilaterally. Intracranial vasculature: There is atherosclerotic calcification of the cavernous carotid arteries. T he [place] is developmentally complete. The internal carotid arteries are patent at the skul l base, as are the anterior and middle cerebral arteries bilaterally. The left anterior cerebral hakan ry is dominant. The right anterior cerebral artery is diminutive. The vertebrobasilar system and post erior cerebral arteries are widely patent. The vertebral arteries are codominant. There is no aneurys m, high-grade stenosis, or focal vessel cut off seen throughout the intracranial circulation. Jugular veins: Patent bilaterally. Dural sinuses: Patent. Lung apices: Partially visualized upper lobe lung parenchyma appears clear. Soft tissues: The visualized pharyngeal soft tissues are normal in appearance noting angiographic pha se technique. The oropharyngeal airway appears widely patent. Pituitary gland is heterogeneous. The s alivary glands are normal in appearance. No cervical lymphadenopathy is seen. Skeletal structures: The skeletal structures are osteopenic. The calvarium appears intact. The cervic al spine is maintained noting multilevel spondylosis. No lytic or blastic lesion is seen. Orbits: The bony orbits are intact. Orbital contents are normal as visualized noting bilateral ocular lens implants. Sinuses and mastoids: The paranasal sinuses are clear. There is a right mastoid effusion. The left ma stoid air cells are well pneumatized. IMPRESSION: 1. There is no hemorrhage, mass effect, or evidence of acute territorial ischemia by CT criteria. 2. Unremarkable CT angiogram of the brain. 3. Unremarkable CT angiogram of the neck. ACT 112: Negative or not required by law. Electronically signed by: Benigno Hu M.D. 09/28/2021 8:37 AM
[2021-09-28 08:52] LABS: Alkaline Phosphatase 84 U/L (34-104)
[2021-09-28] MEDS ORDERED: ASPIRIN CHEW 324 MG PO STA (10:10)
[2021-09-28 10:26] LABS: Appearance Urine Clear (Clear); Bacteria Urine Automated Negative (Negative); Bilirubin Urine Negative (Negative); Blood Urine 2+ (Negative); Color Urine Yellow; Epithelial Cell Urine Auto >30 /lpf (0-5); Glucose Urine UA Negative (Negative); Ketones Urine Negative (Negative); Leukocyte Esterase Urine 1+ (Negative); Nitrite Urine Negative (Negative); Protein Urine Negative (Negative); Specific Gravity Urine 1.019 (1.000-1.030); Urobilinogen Urine Negative (Negative)
--- NOTE | 2021-09-28 10:52 | XRay Report ---
XR thoracic spine 2V CLINICAL HISTORY: left leg numbness TECHNIQUE: 2 views of the thoracic spine were obtained. Comparison: None available at the time of this dictation. FINDINGS: No fractures or subluxations are identified. Vertebral body heights and disc spaces are well maintain ed. Alignment appears unremarkable. Focal eventration of the right hemidiaphragm is seen. IMPRESSION: No acute fracture or subluxation. ACT 112: Negative or not required by law. Electronically signed by: Ed Sullivan M.D. 09/28/2021 10:51 AM
--- NOTE | 2021-09-28 11:06 | History & Physical Report ---
Date of Service September 28, 2021 Assessment & Plan (1) Paresthesia: Plan: -Admit to [facility] with telemetry -Patient presenting from home with reports of left facial, left arm, left leg paresthesias. -In the ED, head CT, head and neck CTAs are all unremarkable -Doubt TIA or CVA however will check brain MRI. If positive for ischemia, will complete work-up with neurology consult and echocardiogram -May have some musculoskeletal component, check cervical, thoracic, lumbar spine x-rays -Check vitamin B12, folate, TSH -Continue home ASA and statin (2) Hypertension: Plan: -BP mildly elevated, likely situational -Continue home doses of atenolol and losartan (3) Asthma: Plan: -Appears stable, no signs of acute exacerbation -Patient educated regarding proper use of inhalers and that she is to be using Flovent routinely not on a as needed basis (4) Diabetes mellitus, type II: Plan: -Diet controlled, Hgb A1c 6.5 08/2021 -Monitor glucose (5) DVT prophylaxis: Plan: -SQ Lovenox History of Present Illness Chief Complaint: Left-sided numbness Primary Care Provider: Eloisa Angel DO 70-year-old female with PMH diet-controlled DM type II, CKD stage III, dyslipidemia, mild intermittent asthma, HTN, GERD, and other problems to below w ho presents the ED for evaluation of left-sided numbness. Patient reports she has been having some numbness along the outside of her left arm and associated left hand weakness for the past few weeks. Over the past few days, she noted left calf cramping and left ankle weakness. Yesterday, the numbness increased and started to involve the left side of her face, her entire left arm, and the left lateral leg. Symptoms were still present this morning so patient presented to the ED for further evaluation. Patient denies associated headache, worsening blurred vision, difficulty speaking or understanding. No lightheadedness, dizziness, diaphoresis, syncopal events. Denies any other recent illnesses, fevers, chills. No abdominal pain, nausea, vomiting, diarrhea. Denies urinary symptoms. In the ED, head CT, head and neck CTAs, labs are unremarkable. Patient is hemodynamically stable. Patient was given a full dose aspirin. Allergies Allergy/AdvReac Type Severity Reaction Status Date / Time erythromycin base Allergy Intermediate GI ISSUES Unverified 09/28/21 08:59 atorvastatin Allergy Unknown EDEMA Unverified 09/28/21 08:59 Bactrim Allergy Unknown SPINNING/VE Unverified 03/02/20 12:28 RTIGO/RASH estrogens, conjugated Allergy Unknown SWELLING/SKIN Unverified 09/28/21 08:59 FLAKES latanoprost Allergy Unknown RASH Unverified 09/28/21 08:59 lisinopril Allergy Unknown COUGH Unverified 09/28/21 08:59 medroxyprogesterone Allergy Unknown SWELLING/SKIN Unverified 09/28/21 08:59 FLAKES rosuvastatin Allergy Unknown EDEMA Unverified 09/28/21 08:59 sulfamethoxazole Allergy Unknown SPINNING/VE Unverified 09/28/21 08:59 RTIGO/RASH trimethoprim Allergy Unknown SPINNING/VE Unverified 09/28/21 08:59 RTIGO/RASH Home Medications Medication Instructions Recorded Confirmed Type Lactobacillus comb 1 cap PO HS 12/06/18 09/28/21 History no.5-RQS-[id number] 300 million cell-250 mg capsule (Probiotic and Acidophilus) albuterol sulfate 1.25 mg/3 mL 3 ml INHALATION Q4 PRN 12/06/18 09/28/21 History solution for nebulization albuterol sulfate 90 mcg/actuation 2 puff INHALATION Q6H PRN 12/06/18 09/28/21 History aerosol inhaler (ProAir HFA) aspirin 81 mg tablet,delayed 81 mg PO QAM 12/06/18 09/28/21 History release atenolol 50 mg tablet 50 mg PO HS 12/06/18 09/28/21 History cholecalciferol (vitamin D3) 25 1,000 unit PO QAM 12/06/18 09/28/21 History mcg (1,000 unit) capsule (Vitamin D3) fluticasone propionate 100 1 inh INHALATION BID PRN 12/06/18 09/28/21 History mcg/actuation blister powder for inhalation (Flovent Diskus) ipratropium 0.5 mg-albuterol 3 mg 3 ml INHALATION Q6 PRN 12/06/18 09/28/21 History (2.5 mg base)/3 mL nebulization soln losartan 100 mg tablet 100 mg PO QAM 12/06/18 09/28/21 History montelukast 10 mg tablet 10 mg PO HS 12/06/18 09/28/21 History (Singulair) pantoprazole 20 mg tablet,delayed 20 mg PO BID 12/06/18 09/28/21 History release (Protonix) sucralfate 1 gram tablet 1 g PO QID 12/06/18 09/28/21 History cyanocobalamin (vitamin B-12) 500 mcg PO QAM 09/28/21 09/28/21 History 1,000 mcg tablet (Vitamin B-12) magnesium 200 mg tablet 100 mg PO DAILY 09/28/21 09/28/21 History melatonin 3 mg tablet 3 mg PO HS PRN 09/28/21 09/28/21 History Past Med/Surg History Medical History (Updated 09/28/21 @ 11:04 by MICHAEL Romero) Asthma Diabetes mellitus, type II GERD (gastroesophageal reflux disease) Glaucoma Herpes zoster HLD (hyperlipidemia) Hypertension Obesity (BMI 30.0-34.9) Seasonal allergic rhinitis Surgical History H/O hernia repair History of eye surgery Family History Other Alzheimer disease Lung cancer Social History Smoking Status: Never smoker Second Hand Exposure: No; Hx Alcohol Use: Yes Alcohol type: wine Hx Substance Use: No Preferred Language: Czech Communication Ability: Effective Bar Staff Required: No Beliefs That Will Affect Care: None Current Living Situation: Spouse Feels Safe at Home: Yes Assistive Devices: None Review of Systems Review of Systems: ROS per HPI, all other systems reviewed and negative Physical Exam Physical Exam: please refer to Dr. Orr's addendum for physical exam Results & Data Results & Data ([place]) Vital Signs (Past 12 Hours) Vital Signs Temp Pulse Pulse Resp BP BP Pulse Ox 09/28/21 09:03 61 14 157/79 H 99 09/28/21 08:00 53 L 14 167/59 H 99 09/28/21 07:34 59 L 16 175/77 H 98 09/28/21 06:51 36.3 C L 62 18 163/76 H 98 Laboratory Results Short CBC 01/25/22 Range/Units 07:25 WBC 8.43 (4.8-10.8) K/uL Hgb 14.5 (12.0-16.0) g/dL Hct 43.4 (37-47) % Plt Count 257 (130-400) K/uL BMP 09/28/21 07:25 Sodium 136 Potassium 4.5 Chloride 103 Carbon Dioxide 26 BUN 20 Creatinine 0.81 Glucose 140 H Calcium 9.0 Cardiac Enzymes 09/28/21 Range/Units 07:25 Troponin I < 0.03 (0-0.04) ng/ml Liver Function 09/28/21 Range/Units 07:25 Total Bilirubin 0.6 (0.2-1.0) mg/dl AST 16 (13-39) U/L ALT 15 (7-52) U/L Alkaline Phosphatase 84 (34-104) U/L Albumin 3.9 (3.4-5.0) gm/dl Urine 09/28/21 Range/Units 07:20 Urine Color Yellow Urine Appearance Clear (Clear) Urine pH 6.0 (4.5-7.5) Ur Specific [place] 1.019 (1.000-1.030) Urine Protein Negative (Negative) Urine Glucose (UA) Negative (Negative) Diagnostic Findings Chest X-Ray 09/28/21 07:07 XR chest 1V portable CLINICAL HISTORY: Stroke Like Symptoms COMPARISON STUDY: Chest radiograph December 06, 2018. FINDINGS: Lung volumes are normal. Lungs are clear. Calcified left lung nodules are benign. These are unchanged. There is no pneumothorax or pleural effusion. Cardiac size is stable. Mediastinal contours are normal. There is no evidence for pulmonary edema. IMPRESSION: No acute cardiopulmonary findings. ACT 112: Negative or not required by law. Electronically signed by: Ryland Burleson M.D. 09/28/2021 7:[address] 09/28/21 07:[address] OF THE BRAIN; CT ANGIOGRAM OF THE BRAIN; CT ANGIOGRAM OF THE NECK CLINICAL HISTORY: Strokelike symptoms. COMPARISON STUDY: No priors. TECHNIQUE: Unenhanced axial CT scan of the brain is performed. Subsequently, following the IV administration of 120 of Optiray 320, CT angiogram of the head and neck was performed from the aortic arch to the vertex. Images are reviewed in the axial, sagittal, and coronal planes. 3-D MIPS images are created and assessed. IV contrast was administered without complication. All measurements were calculated based on NASCET criteria. A dose lowering technique was utilized adhering to the principles of ALARA. CT DOSE: 993.59 mGy.cm FINDINGS: Brain parenchyma: There is age-related involutional change noting minimal microangiopathic disease. There is no hemorrhage, mass effect, or evidence of acute territorial ischemia by CT criteria. There is no evidence of enhancing mass lesion on the angiogram phase images. The ventricles, sulci, and cisterns are prominent secondary to involutional change. Palomo-white matter differentiation is preserved. No extra-axial fluid collection is seen. Thoracic aorta: Visualized portions of the thoracic aorta are normal in caliber. The aortic arch demonstrates standard 3-vessel anatomy. Right carotid arterial system: The right common carotid artery is widely patent, as are the right internal and external carotid arteries. Calcified plaque is noted in the carotid bulb. Left carotid arterial system: The left common carotid artery is widely patent, as are the left internal and external carotid arteries. Calcified plaque is noted in the carotid bulb. Vertebral arteries: The vertebral arteries are widely patent bilaterally and codominant. Subclavian arteries: Widely patent bilaterally. Intracranial vasculature: There is atherosclerotic calcification of the cavernous carotid arteries. The tetlin of Sal[place] is developmentally complete. The internal carotid arteries are patent at the skull base, as are the anterior and middle cerebral arteries bilaterally. The left anterior cerebral artery is dominant. The right anterior cerebral artery is diminutive. The vertebrobasilar system and posterior cerebral arteries are widely patent. The vertebral arteries are codominant. There is no aneurysm, high-grade stenosis, or focal vessel cut off seen throughout the intracranial circulation. Jugular veins: Patent bilaterally. Dural sinuses: Patent. Lung apices: Partially visualized upper lobe lung parenchyma appears clear. Soft tissues: The visualized pharyngeal soft tissues are normal in appearance noting angiographic phase technique. The oropharyngeal airway appears widely patent. Pituitary gland is heterogeneous. The salivary glands are normal in appearance. No cervical lymphadenopathy is seen. Skeletal structures: The skeletal structures are osteopenic. The calvarium appears intact. The cervical spine is maintained noting multilevel spondylosis. No lytic or blastic lesion is seen. Orbits: The bony orbits are intact. Orbital contents are normal as visualized noting bilateral ocular lens implants. Sinuses and mastoids: The paranasal sinuses are clear. There is a right mastoid effusion. The left mastoid air cells are well pneumatized. IMPRESSION: 1. There is no hemorrhage, mass effect, or evidence of acute territorial ischemia by CT criteria. 2. Unremarkable CT angiogram of the brain. 3. Unremarkable CT angiogram of the neck. ACT 112: Negative or not required by law. Electronically signed by: Benigno Hu M.D. 09/28/2021 8:37 AM Head CTA 09/28/21 07:[address] OF THE BRAIN; CT ANGIOGRAM OF THE BRAIN; CT ANGIOGRAM OF THE NECK CLINICAL HISTORY: Strokelike symptoms. COMPARISON STUDY: No priors. TECHNIQUE: Unenhanced axial CT scan of the brain is performed. Subsequently, following the IV administration of 120 of Optiray 320, CT angiogram of the head and neck was performed from the aortic arch to the vertex. Images are reviewed in the axial, sagittal, and coronal planes. 3-D MIPS images are created and assessed. IV contrast was administered without complication. All measurements were calculated based on NASCET criteria. A dose lowering technique was ut ilized adhering to the principles of ALARA. CT DOSE: 993.59 mGy.cm FINDINGS: Brain parenchyma: There is age-related involutional change noting minimal microangiopathic disease. There is no hemorrhage, mass effect, or evidence of acute territorial ischemia by CT criteria. There is no evidence of enhancing mass lesion on the angiogram phase images. The ventricles, sulci, and cisterns are prominent secondary to involutional change. Palomo-white matter differentiation is preserved. No extra-axial fluid collection is seen. Thoracic aorta: Visualized portions of the thoracic aorta are normal in caliber. The aortic arch demonstrates standard 3-vessel anatomy. Right carotid arterial system: The right common carotid artery is widely patent, as are the right internal and external carotid arteries. Calcified plaque is noted in the carotid bulb. Left carotid arterial system: The left common carotid artery is widely patent, as are the left internal and external carotid arteries. Calcified plaque is noted in the carotid bulb. Vertebral arteries: The vertebral arteries are widely patent bilaterally and codominant. Subclavian arteries: Widely patent bilaterally. Intracranial vasculature: There is atherosclerotic calcification of the cavernous carotid arteries. The tetlin of Salas is developmentally complete. The internal carotid arteries are patent at the skull base, as are the anterior and middle cerebral arteries bilaterally. The left anterior cerebral artery is dominant. The right anterior cerebral artery is diminutive. The vertebrobasilar system and posterior cerebral arteries are widely patent. The vertebral arteries are codominant. There is no aneurysm, high-grade stenosis, or focal vessel cut off seen throughout the intracranial circulation. Jugular veins: Patent bilaterally. Dural sinuses: Patent. Lung apices: Partially visualized upper lobe lung parenchyma appears clear. Soft tissues: The visualized pharyngeal soft tissues are normal in appearance noting angiographic phase technique. The oropharyngeal airway appears widely patent. Pituitary gland is heterogeneous. The salivary glands are normal in appearance. No cervical lymphadenopathy is seen. Skeletal structures: The skeletal structures are osteopenic. The calvarium appears intact. The cervical spine is maintained noting multilevel spondylosis. No lytic or blastic lesion is seen. Orbits: The bony orbits are intact. Orbital contents are normal as visualized noting bilateral ocular lens implants. Sinuses and mastoids: The paranasal sinuses are clear. There is a right mastoid effusion. The left mastoid air cells are well pneumatized. IMPRESSION: 1. There is no hemorrhage, mass effect, or evidence of acute territorial ischemia by CT criteria. 2. Unremarkable CT angiogram of the brain. 3. Unremarkable CT angiogram of the neck. ACT 112: Negative or not required by law. Electronically signed by: Benigno Hu M.D. 09/28/2021 8:37 AM Neck CTA 09/28/21 07:[address] OF THE BRAIN; CT ANGIOGRAM OF THE BRAIN; CT ANGIOGRAM OF THE NECK CLINICAL HISTORY: Strokelike symptoms. COMPARISON STUDY: No priors. TECHNIQUE: Unenhanced axial CT scan of the brain is performed. Subsequently, following the IV administration of 120 of Optiray 320, CT angiogram of the head and neck was performed from the aortic arch to the vertex. Images are reviewed in the axial, sagittal, and coronal planes. 3-D MIPS images are created and assessed. IV contrast was administered without complication. All measurements were calculated based on NASCET criteria. A dose lowering technique was utilized adhering to the principles of ALARA. CT DOSE: 993.59 mGy.cm FINDINGS: Brain parenchyma: There is age-related involutional change noting minimal microangiopathic disease. There is no hemorrhage, mass effect, or evidence of acute territorial ischemia by CT criteria. There is no evidence of enhancing mass lesion on the angiogram phase images. The ventricles, sulci, and cisterns are prominent secondary to involutional change. Palomo-white matter differentiation is preserved. No extra-axial fluid collection is seen. Thoracic aorta: Visualized portions of the thoracic aorta are normal in caliber. The aortic arch demonstrates standard 3-vessel anatomy. Right carotid arterial system: The right common carotid artery is widely patent, as are the right internal and external carotid arteries. Calcified plaque is noted in the carotid bulb. Left carotid arterial system: The left common carotid artery is widely patent, as are the left internal and external carotid arteries. Calcified plaque is noted in the carotid bulb. Vertebral arteries: The vertebral arteries are widely patent bilaterally and codominant. Subclavian arteries: Widely patent bilaterally. Intracranial vasculature: There is atherosclerotic calcification of the cavernous carotid arteries. The tetlin of Salas is developmentally complete. The internal carotid arteries are patent at the skull base, as are the anterior and middle cerebral arteries bilaterally. The left anterior cerebral artery is dominant. The right anterior cerebral artery is diminutive. The vertebrobasilar system and posterior cerebral arteries are widely patent. The vertebral arteries are codominant. There is no aneurysm, high-grade stenosis, or focal vessel cut off seen throughout the intracranial circulation. Jugular veins: Patent bilaterally. Dural sinuses: Patent. Lung apices: Partially visualized upper lobe lung parenchyma appears clear. Soft tissues: The visualized pharyngeal soft tissues are normal in appearance noting angiographic phase technique. The oropharyngeal airway appears widely patent. Pituitary gland is heterogeneous. The salivary glands are normal in appearance. No cervical lymphadenopathy is seen. Skeletal structures: The skeletal structures are osteopenic. The calvarium appears intact. The cervical spine is maintained noting multilevel spondylosis. No lytic or blastic lesion is seen. Orbits: The bony orbits are intact. Orbital contents are normal as visualized noting bilateral ocular lens implants. Sinuses and mastoids: The paranasal sinuses are clear. There is a right mastoid effusion. The left mastoid air cells are well pneumatized. IMPRESSION: 1. There is no hemorrhage, mass effect, or evidence of acute territorial ischemia by CT criteria. 2. Unremarkable CT angiogram of the brain. 3. Unremarkable CT angiogram of the neck. ACT 112: Negative or not required by law. Electronically signed by: Benigno Hu M.D. 09/28/2021 8:37 AM Thoracic Spine X-Ray 09/28/21 09:51 XR thoracic spine 2V CLINICAL HISTORY: left leg numbness TECHNIQUE: 2 views of the thoracic spine were obtained. Comparison: None available at the time of this dictation. FINDINGS: No fractures or subluxations are identified. Vertebral body heights and disc spaces are well maintained. Alignment appears unremarkable. Focal eventration of the right hemidiaphragm is seen. IMPRESSION: No acute fracture or subluxation. ACT 112: Negative or not required by law. Electronically signed by: Ed Sullivan M.D. 09/28/2021 10:51 AM Code Status & VTE Plan Code Status Patient is a full code as per Dr. Orr's discussion with her. VTE Prophylaxis Plan VTE Prophylaxis will be ordered: Yes Supervising Physician Co-Signing Physician Notes Pt is a 70 y/o F with hx of DMII (not on medication), HTN, Asthma, GERD, CKD III, HLD, Glaucoma admitted for progressive numbness on the L arm, leg and L sided face for 1 week. -Pt denied any slur speech, facial droop, new supplement, joint pain/swelling or syncope. -pt does swimming class 3x/week for OA. PE: -NAD, well developed -Cardiac: Normal S1/S2, No murmur -Lungs: CTA, no wheezing or crackles -Neuro: CN II-XII intact, EOMI, PERRLA, normal motor strength and sensation -Psych: AAOx3, normal Affect A/P Progressively worsening L sided numbness: -2/2 MSk vs spine etiology vs CVA (very unlikely) -per pt her symptoms are getting better -CTA head, neck: no acute stenosis & CT head no acute finding -Normal neuro exam -will get MRI brain, b12 (on chronic PPI) and folate level -possible discharge tomorrow if MRI brain is normal ---- hold off neuro consult until the MRI brain result Agree with A/P by MICHAEL Romero (1) Hypertension Hypertension type: unspecified Qualified Code(s): I10 - Essential (primary) hypertension
[2021-09-28 11:22] LABS: Folate (Folic Acid) > 22.30 ng/ml (>5.38)
[2021-09-28 11:23] LABS: Vitamin B12 798 pg/ml (211-911)
--- NOTE | 2021-09-28 11:52 | XRay Report ---
XR lumbar spine 2-3V CLINICAL HISTORY: left leg numbness COMPARISON STUDY: CT of the abdomen and pelvis August 30, 2016. FINDINGS: Incidental note is made of contrast within the collecting systems, ureters and bladder from recent contrast-enhanced CT. There is mild dextroscoliosis of the lumbar spine. Vertebral body heigh ts are maintained. No acute lumbar spine fracture is noted. There is marked disc space narrowing at L 5-S1. Otherwise, there is moderate multilevel disc space narrowing. Severe multilevel facet arthrosis is present. IMPRESSION: 1. No acute lumbar spine fracture or subluxation. 2. Moderate to severe multilevel degenerative changes within the lumbar spine. 3. Mild dextroscoliosis of the lumbar spine. ACT 112: Negative or not required by law. Electronically signed by: Ryland Burleson M.D. 09/28/2021 11:51 AM
--- NOTE | 2021-09-28 12:18 | Electrocardiogram Report ---
Test Reason : Blood Pressure : / mmHG Vent. Rate : 060 BPM Atrial Rate : 060 BPM P-R Int : 132 ms QRS Dur : 058 ms QT Int : 396 ms P-R-T Axes : 033 002 017 degrees QTc Int : 396 ms Poor data quality, interpretation may be adversely affected Normal sinus rhythm When compared with ECG of 07-DEC-2018 06:42, Premature atrial complexes are no longer Present Confirmed by Zaki Gomez ([id number]) on 09/28/2021 12:17:28 PM Referred By: REFERRED SELF Confirmed By:Wilberto Gomez
--- NOTE | 2021-09-28 12:59 | XRay Report ---
CERVICAL SPINE 3 VIEWS CLINICAL HISTORY: Left arm numbness. FINDINGS: AP, lateral, and odontoid views of the cervical spine are correlated with CT angiogram of t he neck performed the same day 09/28/2021. The skeletal structures are osteopenic. There is no radiogr aphic evidence of fracture or subluxation. The atlantodental articulation is maintained noting produc tive degenerative change. The odontoid process and lateral masses are grossly intact but not well vis ualized on the open-mouth view. Vertebral body height is maintained throughout the cervical spine. Th ere is minimal anterolisthesis at C4-C5. Alignment is otherwise preserved. There is straightening of the cervical lordosis. Anterior osteophytes are seen throughout. The spinolaminar line is preserved. The spinous processes appear intact. Moderate disc space narrowing is seen at all cervical levels bet ween C4-C5 and C6-C7. Posterior disc osteophyte complexes at these levels may contribute to mild acqu ired compromise of the central canal. Multilevel facet arthropathy is noted on the frontal view. Ther e is atherosclerotic calcification of the carotid bulbs. The prevertebral soft tissues are normal as imaged. Apical lung parenchyma is clear as visualized. IMPRESSION: 1. No acute bony abnormality is seen involving the cervical spine. 2. Osteopenia and spondylotic change as above. Dictated: 09/28/2021 11:53 AM Transcribed: 09/28/2021 12:23 PM Carmelina [id number] [email or web address] Electronically signed by: Benigno Hu M.D. 09/28/2021 12:58 PM
[2021-09-28] MEDS ORDERED: PHARMACIST DISCHARGE MED REC CONSULT PRN (14:14)
[2021-09-28] MEDS ORDERED: ACETAMINOPHEN 325 MG TAB PO PRN (14:14)
--- NOTE | 2021-09-28 15:32 | Magnetic Resonance Report ---
MRI OF THE BRAIN WITHOUT CONTRAST CLINICAL HISTORY: Left-sided numbness. COMPARISON STUDY: Head CT and CTA of the head September 28, 2021. TECHNIQUE: Utilizing a 1.5 Dasha magnet and dedicated coil, multiplanar, multiecho imaging of the bra in was performed without IV contrast. FINDINGS: There are no foci of restricted diffusion to suggest acute infarct. No acute intracranial h emorrhage, midline shift or mass effect is present. Ventricular system is unremarkable. Basal cistern s are patent. There are no extra-axial collections. Flow-voids for the major intracranial vessels are present. Multiple small white matter T2 hyperintense foci suggest mild small vessel disease. Calvari al signal is normal. Right mastoid effusion is present. There is no evidence for sinusitis. No orbita l abnormality is identified on unenhanced exam. IMPRESSION: 1. No acute intracranial findings. 2. Right mastoid effusion. ACT 112: Negative or not required by law. Electronically signed by: Ryland Burleson M.D. 09/28/2021 3:30 PM
[2021-09-28] MEDS: SUCRALFATE 1 GM TAB PO SCH ×3 (15:34→21:07)
[2021-09-28] MEDS: ENOXAPARIN INJ 40 MG/0.4 ML SYR SQ SCH (15:34)
--- NOTE | 2021-09-28 16:12 | Communication Note ---
Date of Service: September 28, 2021 Jakub Knapp is 70 years old right-handed suffers from moderate over nourishment prediabetes hypertension, lumbar disc disease with sciatica dyslipidemia and asthma and for the past several weeks has had intermittent cramping of her left calf perhaps some paresthesias of her left foot. She also describes occasional paresthesias of the left arm and hand at this morning she suddenly developed paresthesias involving the left leg left arm and left lower face with out any motor weakness or clumsiness without any vertigo tinnitus hearing loss visual di sturbance syncope altered consciousness or mentation and without any articulatory disturbances and presented to the emergency room where she was seen and had a series of studies done including CT of the brain CT angiography of the neck and intracranial vessels and subsequently radiographic studies of her thoracic cervical and lumbar spines has been admitted to the hospital with perhaps slight improvement in the sensory complaints in her leg arm and face no progression of the symptomatology but it has not cleared An MRI scan shows some scattered small vessel disease but no acute changes Laboratory studies have been largely unremarkable and radiographic studies of the spine have shown degenerative changes and more importantly CT angiography studies of the neck of been normal She is being monitored in the unit and is an echocardiographic study has been scheduled All medications include albuterol 81 mg of aspirin, atenolol cholecalciferol, Flovent albuterol losartan magnesium melatonin Singulair Protonix probiotics and Carafate She lists allergies to erythromycin atorvastatin Bactrim estrogens lisinopril medroxyprogesterone, rosuvastatin sulfa trimethoprim Family history social history are all as per the admission note Review of systems reveals no recent fever sweats chills weight loss weight gain headaches visual disturbances palpitations shortness of breath abdominal compl aints but does reveal the sciatica and perhaps some paresthesias in the left arm Exam reveals blood pressure 144/76 pulse 70 respiration rate 18 temperature is 36 8 oxygen saturation 90% on room air She is awake alert oriented 3 spheres with no extraocular movements issues no field cuts no facial asymmetry subjective paresthesias of the left lower face no drift or pronation sign tremor tics or choreiform activity symmetrical intact reflexes, downgoing toes no Christian signs, no muscle weakness but some subjective alteration in the appreciation of light touch over the entirety of her left hand medial forearm and the lower face History certainly sounds like a potential perithalamic ischemic event involving the right thalamus but imaging studies have been unremarkable and the symptoms are very limited and the exam is normal with the exception of the subjective alteration in sensory appreciation of the hand forearm and lower face She has enough risk factors that when coupled with the history I would call this at least a transient ischemic attack perhaps a reversible ischemic neurologic deficit in the old terminology and despite the negative MRI I would recommend she be placed on Plavix in addition to the aspirin she has been taken for a total of 21 days Depending on how she does we may end up repeating an MRI in the morning. If this is indeed a small vessel event there can be fluctuations in the severity and distribution of sensory symptoms before the event finally goes on to a completed infarction We will be seeing her tomorrow in follow-up Hermelindo Flowers MD Current note was generated utilizing voice recognition technology and may have punctuation errors in spelling errors pronoun usage errors and syntax errors
[2021-09-28] MEDS: CLOPIDOGREL BISULFATE 75 MG TAB PO SCH (17:52)
[2021-09-28] MEDS: MONTELUKAST SODIUM 10 MG TABLET PO SCH (21:07)
[2021-09-28] MEDS: ATENOLOL 50 MG TABLET PO SCH (21:07)
[2021-09-28] MEDS: PANTOprazole 40 MG TAB PO SCH (21:07)
[2021-09-29 07:17] LABS: Basophils # (auto) 0.02 K/uL (0-0.2); Basophils % (auto) 0.3 %; Eosinophils # (auto) 0.22 K/uL (0-0.5); Eosinophils % (auto) 3.3 %; Hematocrit (blood only) 44.9 % (37-47); Hemoglobin 14.6 g/dL (12.0-16.0); Lymphocytes # (auto) 1.83 K/uL (1.2-3.4); Lymphocytes % (auto) 27.5 %; Mean Corpuscular Hemoglobin 31.9 pg (25-34); Mean Corpuscular Hgb Conc 32.5 g/dL (32-36); Mean Corpuscular Volume 98.2 fL (80-100); Mean Platelet Volume 10.1 fL (7.4-10.4); Monocytes # (auto) 0.58 K/uL (0.11-0.59); Monocytes % (auto) 8.7 %; Neutrophils # (auto) 4.01 K/uL (1.4-6.5); Neutrophils % (auto) 60.2 %; Platelet Count 271 K/uL (130-400); RDW Coefficient of Variation 13.1 % (11.5-14.5); Red Blood Count 4.57 M/uL (4.2-5.4); White Blood Count 6.66 K/uL (4.8-10.8)
[2021-09-29 07:44] LABS: BUN Creatinine Ratio 21.3 (10-20); Chol HDL Ratio 4.5 (0-5); Est GFR (African American) 70.2 ml/min; Est GFR (Non-African American) 60.6 ml/min; Potassium 4.3 mmol/L (3.5-5.1)
[2021-09-29] MEDS: MAGNESIUM OXIDE 400 MG TAB PO SCH (08:31)
[2021-09-29] MEDS: SUCRALFATE 1 GM TAB PO SCH ×4 (08:31→21:29)
[2021-09-29] MEDS: CYANOCOBALAMIN 500 MCG TABLET (VITAMIN B-12) PO SCH (08:31)
[2021-09-29] MEDS: PANTOprazole 40 MG TAB PO SCH ×2 (08:31→21:28)
[2021-09-29] MEDS: CHOLECALCIFEROL 1,000 UNITS 25 MCG TAB PO SCH (08:31)
[2021-09-29] MEDS: LOSARTAN POTASSIUM 50 MG TAB PO SCH (08:31)
[2021-09-29] MEDS: CLOPIDOGREL BISULFATE 75 MG TAB PO SCH (08:32)
[2021-09-29] MEDS ORDERED: ASPIRIN 81 MG ECTAB PO SCH (09:00)
[2021-09-29 09:15] LABS: Estimated Average Glucose 143 mg/dl; Hemoglobin A1C 6.6 % (4.5-5.6)
--- NOTE | 2021-09-29 12:30 | Neurology Progress Note ---
Date of Service September 29, 2021 Assessment & Plan (1) Paresthesia: Plan: 1. as outpatient may need EMG and/or MRI c spine (2) TIA (transient ischemic attack): Plan: 1. MRI - no stroke 2. optimize HTN, HLD, DM LDL <70 3. aspirin 81 mg should be doubled to 162 mg daily x 21 days and then back to 81 mg daily for life 4. PT/OT for discharge needs 5. add plavix to patients allergy list will see in our clnic in 4-6 weeks Taina Mendez PAC Admission and Anticipated Discharge Date Admission Date: September 28, 2021 Supervising Physician Co-Signing Physician Notes I have seen and discussed above patient with Dr Hermelindo Flowers, neurology I have interviewed and examined Jakub today and find her to be completely asymptomatic in terms of the sensory disturbance involving her left arm and leg and face The Plavix unfortunately was associated with a swelling and burning sensation in her tongue and what is probably an allergic response so at this point the easiest thing to do would be to double up on her aspirin to 2 of the 81 mg tablets per day and we will follow her up in about 3 weeks assess her progress and at that point probably return to her old aspirin dose I see no reason to do another MRI at this point unless symptoms would begin to r ecur and fluctuate I continue to feel this was a transient ischemic attack in light of her age and underlying vascular risk factors but the atypical history She will be discharged today and we will arrange follow-up Hermelindo Flowers MD Subjective Jakub is a 70 year old female with PMH- diet-controlled DM type II, CKD stage III, HLD, mild intermittent asthma, HTN, GERD. She presented to [facility] ED 09/28/2020 for evaluation of left-sided numbness. She has been having some numbness along the outside of her left arm and associated left hand weakness for the past few weeks. Over the past few days, she noted left calf cramping and left ankle weakness.The day prior numbness increased and started to involve the left side of her face, her entire left arm, and the left lateral leg. She is back to her baseline today. Plavix was started but she had a reaction to it with lip numbness and tingling and some reflex type symptoms. numbness and tingling in face arm and leg have resolved. denies CP, SOB, abdominal pain, N, V. Review of Systems Review of Systems: All systems reviewed & are unremarkable except as noted in HPI & below Physical Exam Physical Exam: Physical Exam: Constitutional: appearance over nourished, healthy and normal Ears, Nose, Mouth and Throat: mucous membranes moist, no injection and skin normal, eyes normal Cardiovascular: normal S-1 and S-2 and regular rate and rhythm Respiratory: clear to auscultation (CTA) and no rales, ronchi or wheeze Musculoskeletal: no peripheral edema and good distal pulses Skin: no stigmata of neurocutaneous disease noted and normal and intact Eyes: extraocular muscles intact (EOMI) and pupils equal, round and reactive to light (PERRL) NEUROLOGIC EXAMINATION: Mental status: Alert and interactive Oriented to person Speech fluent with no evidence of aphasia Cranial Nerves facial symmetry Sensory: no sensory deficits, cool and light touch Gait/Stance: Posture sitting up in bed repositions without help Motor: Negative for pronator drift of out stretched arms with eyes closed. Strength: appears normal Results & Data ([facility]) Vital Signs (Past 12 Hours) Vital Signs Temp Pulse Pulse Resp BP Pulse Ox 09/29/21 11:12 36.7 C 72 20 155/68 H 98 09/29/21 09:20 61 09/29/21 07:00 36.6 C 74 18 159/69 H 96 09/29/21 04:15 36.7 C 60 18 153/69 H 98 Laboratory Results Abnormal lab results 09/28/21 09/29/21 09/29/21 Range/Units 16:12 06:51 06:51 RDW Std Deviation 47.0 H (36.4-46.3) fL BUN/Creatinine Ratio 21.3 H (10-20) Glucose 117 H (70-99(Fasting)) mg/dl POC Glucose 111 H (70-99) mg/dl Hemoglobin A1c (4.5-5.6) % 09/29/21 Range/Units 06:51 RDW Std Deviation (36.4-46.3) fL BUN/Creatinine Ratio (10-20) Glucose (70-99(Fasting)) mg/dl POC Glucose (70-99) mg/dl Hemoglobin A1c 6.6 H (4.5-5.6) % Diagnostic Findings MRI brain-. No acute intracranial findings. Right mastoid effusion.
[2021-09-29] MEDS ORDERED: ASPIRIN 81 MG ECTAB PO ONE (15:20)
[2021-09-29] MEDS: ENOXAPARIN INJ 40 MG/0.4 ML SYR SQ SCH (16:04)
--- NOTE | 2021-09-29 19:16 | Hospitalist Progress Note ---
Date of Service September 29, 2021 Assessment & Plan (1) Paresthesia: (2) TIA (transient ischemic attack): Plan: (1) Paresthesia: (1) TIA: Plan: -Admitted to [facility] with telemetry -Patient presenting from home with reports of left facial, left arm, left leg paresthesias at admission -In the ED, head CT, head and neck CTAs are all unremarkable -Brain MRI negative. Patient reports improvement in her left-sided paresthesi as. -Patient allergic to Plavix, to be used aspirin 160 mg daily for 21 days [started 09/29] and then back to 81 mg daily afterwards for life. -A1c elevated at 6.6 and LDL elevated at 132, will need strict dietary modification and outpatient follow-up to maintain LDL goal of less than 70. She has been allergic to statin in the past. (2) Hypertension: Plan: -BP fairly under control -Continue home doses of atenolol and losartan (3) Asthma: Plan: -Appears stable, no signs of acute exacerbation -Patient educated regarding proper use of inhalers and that she is to be using Flovent routinely not on a as needed basis (4) Diabetes mellitus, type II: Plan: -Diet controlled, Hgb A1c 6.5 08/2021, repeat A1c 6.6 -Monitor glucose (5) DVT prophylaxis: Plan: -SQ Lovenox Disposition: Patient complained of numbness in her lips and palate and tightening of her chest/diaphragm after getting Plavix, will observe her overnight and likely DC tomorrow. Admission and Anticipated Discharge Date Admission Date: September 28, 2021 Subjective Patient seen and examined for paresthesia and TIA at baseline. Patient lying in bed, on room air, NAD, no new acute events overnight. Patient reports improvement in her left-sided paresthesia. Patient reports new symptoms of numbing sensation in the lips and palate and also reports tightening of her diaphragm/chest tightness. Patient does not have any trouble swallowing. Patient states that she likely might have reaction to Plavix or one of his constituents/preservatives. Patient has had similar symptoms to various other medications in the past. Patient denies any wheezing/swelling of the lips/difficulty breathing/chest pain/palpitations/belly pain/other review of symptoms. Physical Exam Physical Exam: GENERAL: Alert and oriented x3. NAD, on RA. HEENT: No pallor, no icterus. Pupils equal, round and reactive to light. Oral mucosa moist. No swelling of tongue or intraoral swelling noted. NECK: No JVD, no neck masses. HEART: S1 and S2 heard. Regular rate and rhythm. No murmur, no gallop. RESPIRATORY SYSTEM: Normal AP diameter. No accessory muscle use. No wheezing, no crackles. ABDOMEN: Soft, bowel sounds present, nontender, no distention. No belly pain noted. CENTRAL NERVOUS SYSTEM: No facial droop. Speech is clear. Obeys simple commands. Moves extremities. EXTREMITIES: No edema, no erythema seen. Results & Data Results & Data ([facility]) Vital Signs (Past 12 Hours) Vital Signs Temp Pulse Pulse Resp BP Pulse Ox 09/29/21 16:51 36.8 C 76 18 124/76 98 09/29/21 11:12 36.7 C 72 20 155/68 H 98 09/29/21 09:20 61
[2021-09-29] MEDS: MONTELUKAST SODIUM 10 MG TABLET PO SCH (21:28)
[2021-09-29] MEDS: ATENOLOL 50 MG TABLET PO SCH (21:29)
[2021-09-30 07:49] LABS: Basophils # (auto) 0.02 K/uL (0-0.2); Basophils % (auto) 0.3 %; Eosinophils # (auto) 0.26 K/uL (0-0.5); Eosinophils % (auto) 3.3 %; Hematocrit (blood only) 45.5 % (37-47); Hemoglobin 14.9 g/dL (12.0-16.0); Immature Granulocytes # (auto) 0.02 K/uL (0.00-0.02); Immature Granulocytes % (auto) 0.3 %; Lymphocytes # (auto) 2.68 K/uL (1.2-3.4); Lymphocytes % (auto) 33.7 %; Mean Corpuscular Hgb Conc 32.7 g/dL (32-36); Mean Corpuscular Volume 97.8 fL (80-100); Mean Platelet Volume 10.1 fL (7.4-10.4); Monocytes # (auto) 0.64 K/uL (0.11-0.59); Neutrophils # (auto) 4.34 K/uL (1.4-6.5); Neutrophils % (auto) 54.4 %; Platelet Count 268 K/uL (130-400); RDW Coefficient of Variation 13.1 % (11.5-14.5); RDW Standard Deviation 46.8 fL (36.4-46.3); Red Blood Count 4.65 M/uL (4.2-5.4); White Blood Count 7.96 K/uL (4.8-10.8)
[2021-09-30] MEDS: SUCRALFATE 1 GM TAB PO SCH ×3 (08:07→17:09)
[2021-09-30] MEDS: PANTOprazole 40 MG TAB PO SCH (08:07)
[2021-09-30] MEDS: MAGNESIUM OXIDE 400 MG TAB PO SCH (08:08)
[2021-09-30] MEDS: CHOLECALCIFEROL 1,000 UNITS 25 MCG TAB PO SCH (08:08)
[2021-09-30] MEDS: LOSARTAN POTASSIUM 50 MG TAB PO SCH (08:08)
[2021-09-30] MEDS: CYANOCOBALAMIN 500 MCG TABLET (VITAMIN B-12) PO SCH (08:09)
[2021-09-30 08:10] LABS: BUN Creatinine Ratio 23.5 (10-20); Calcium 9.3 mg/dl (8.5-10.1); Creatinine Clr Calc Pharmacy 50.2 ml/min; Est GFR (African American) 63.6 ml/min; Est GFR (Non-African American) 54.9 ml/min; Potassium 4.7 mmol/L (3.5-5.1)
[2021-09-30] MEDS ORDERED: DOCUSATE SODIUM 100 MG CAP PO ONE (08:52)
[2021-09-30] MEDS ORDERED: ASPIRIN 81 MG ECTAB PO SCH (09:00)
[2021-09-30] MEDS ORDERED: POLYETHYLENE (MIRALAX) 17 GM PACK PO PRN (09:13)
--- NOTE | 2021-09-30 12:03 | Neurology Progress Note ---
Date of Service September 30, 2021 Assessment & Plan (1) Paresthesia: Plan: 1. as outpatient may need EMG (2) TIA (transient ischemic attack): Plan: 1. MRI - no stroke 2. optimize HTN, HLD, DM LDL <70 3. aspirin 81 mg should be doubled to 162 mg daily x 21 days and then back to 81 mg daily for life 4. PT/OT for discharge needs 5. add plavix to patients allergy list 6. MRI brain repeated and MRI c spine no acute finding 7. may do a EMG as outpatient if tingling continues will see in our clnic in 4-6 weeks Taina Mendez PAC Admission and Anticipated Discharge Date Admission Date: September 28, 2021 Supervising Physician Co-Signing Physician Notes I have seen and discussed above patient with Dr Hermelindo Flowers, neurology I agree with the above outlined plans for follow up and further diagnostic evlauation with emg to check for an emerging possible diabetes realted polyneuropathy as a cause for the paresthesias that remain unexplained bu imaging studies and are a bit atypical for a tia Hermelindo Flowesr MD Bessie Call is a 70 year old female with PMH- diet-controlled DM type II, CKD stage III, HLD, mild intermittent asthma, HTN, GERD. She presented to [facility] ED 09/28/2020 for evaluation of left-sided numbness. She has been having some numbness along the outside of her left arm and associated left hand weakness for the past few weeks. Over the past few days, she noted left calf cramping and left ankle weakness.The day prior numbness increased and started to involve the left side of her face, her entire left arm, and the left lateral leg. Plavix was started but she had a reaction to it with lip numbness and tingling and some reflex type symptoms. numbness and tingling in face arm and leg have resolved. today she had another episode of numbness and tingling and MRI brain and c spine was repeated. denies CP, SOB, abdominal pain, N, V. Physical Exam Physical Exam: Results & Data ([facility]) Vital Signs (Past 12 Hours) Vital Signs Temp Pulse Pulse Resp BP BP Pulse Ox 09/30/21 10:52 36.4 C L 58 L 19 160/67 H 95 09/30/21 06:57 36.5 C 55 L 19 154/81 H 100 09/30/21 03:00 36.7 C 65 18 121/68 96 09/30/21 01:31 57 L Laboratory Results Abnormal lab results 09/30/21 09/30/21 Range/Units 07:01 07:01 RDW Std Deviation 46.8 H (36.4-46.3) fL [place] # (Auto) 0.64 H (0.11-0.59) K/uL BUN 24 H (6-23) mg/dl BUN/Creatinine Ratio 23.5 H (10-20) Glucose 105 H (70-99(Fasting)) mg/dl Diagnostic Findings MRI brain-Normal cervical cord signal and caliber. No acute process within the cervical spine by MRI. Moderate multilevel degenerative disc disease and facet arthrosis with the cervical spine. No severe central canal stenosis. Multilevel neural foraminal stenosis, as above. Mild levoscoliosis of the cervical spine. MRI c spine-Normal cervical cord signal and caliber. . No acute process within the cervical spine by MRI. . Moderate multilevel degenerative disc disease and facet arthrosis with the cervical spine. No severe central canal stenosis. Multilevel neural foraminal stenosis, as above. Mild levoscoliosis of the cervical spine.
[2021-09-30] MEDS ORDERED: GADOBUTROL 65ML VIAL IV ONE (13:42)
--- NOTE | 2021-09-30 14:06 | Magnetic Resonance Report ---
MRI OF THE BRAIN COMBO CLINICAL HISTORY: Left facial tingling and numbness. COMPARISON STUDY: CT and MRI of the brain dated 09/28/2021. TECHNIQUE: MRI of the brain was performed utilizing various T1 and T2-weighted sequences in the axial , sagittal, and coronal planes. Contrast-enhanced sequences were acquired following the administratio n of 7.5 cc of Gadavist. FINDINGS: Brain parenchyma: There is age-related involutional change noting mild subcortical and periventricula r microangiopathic disease. There is no hemorrhage or mass effect. There is no restricted diffusion t o suggest acute ischemia. No enhancing mass lesion is identified on the postcontrast images. Palomo-whi te matter differentiation is preserved. No extra-axial fluid collection is seen. The cerebellar tonsi ls are normal in configuration. Ventricles, sulci, and cisterns: Prominent secondary to involutional change. Pituitary and sella: Partially empty sella is incidentally noted. Intracranial vasculature: Normal flow voids are maintained at the skull base. Orbits: The bony orbits are grossly intact. Orbital contents are normal in appearance noting bilatera l ocular lens implants. Sinuses and mastoids: There is a large right mastoid effusion. The left mastoid air cells are clear, as are the paranasal sinuses. Calvarium: Unremarkable. Cervical cord: Partially visualized cervical spinal cord is normal in morphology and signal intensity . IMPRESSION: No acute intracranial abnormality. ACT 112: Negative or not required by law. Electronically signed by: Benigno Hu M.D. 09/30/2021 2:05 PM
--- NOTE | 2021-09-30 14:07 | Magnetic Resonance Report ---
MRI OF THE CERVICAL SPINE WITH AND WITHOUT CONTRAST CLINICAL HISTORY: tingling B/l foot, lips, b/l fingers COMPARISON: Cervical spine radiographs and CTA of the neck September 28, 2021. TECHNIQUE: Utilizing a 1.5 Dasha magnet and dedicated coil, multiplanar, multiecho imaging of the ce rvical spine was performed before and after intravenous administration of 7.5 of Gadavist. FINDINGS: There is mild levoscoliosis of the cervical spine. Slight anterolisthesis of C4 on C5 is noted. There is slight retrolisthesis of C5 on C6. Cervical cord signal and caliber are normal. There is no intra canalicular mass, fluid collection or abnormal enhancement. No cervical spine fracture is present. A T1 and T2 hypointense focus along the superior endplate of T1 is degenerative. Paravertebral soft tis sues are unremarkable. C2-C3: The central canal and neural foramina patent C3-C4: There is mild disc space narrowing. Facet arthrosis is noted, greater on the right. Central c anal is patent. Left neural foramen is patent. There is moderate right neural foraminal stenosis due to facet arthrosis and uncovertebral hypertrophy. C4-C5: Moderate disc space narrowing is noted. Ventral thecal sac is slightly effaced. There is no s ignificant central canal stenosis. Moderate right and mild left neural foraminal stenosis is present. C5-C6: Disc space narrowing is noted with posterior disc osteophyte complex, eccentric to the left. This effaces the ventral thecal sac. There is no significant central canal stenosis. Moderate to geeta re left and mild right neural foraminal stenosis due to facet arthrosis and uncovertebral protrusion is present. C6-C7: Disc space narrowing is noted. Central canal is patent. Moderate bilateral neural foraminal s tenosis is present C7-T1: Disc space narrowing is noted. There is facet arthrosis. Central canal is patent. Moderate le ft and mild right neural foraminal stenosis is present. IMPRESSION: 1. Normal cervical cord signal and caliber. 2. No acute process within the cervical spine by MRI. 3. Moderate multilevel degenerative disc disease and facet arthrosis with the cervical spine. No geeta re central canal stenosis. Multilevel neural foraminal stenosis, as above. 4. Mild levoscoliosis of the cervical spine. ACT 112: Negative or not required by law. Electronically signed by: Ryland Burleson M.D. 09/30/2021 2:06 PM
--- NOTE | 2021-09-30 16:09 | Communication Note ---
Date of Service: September 30, 2021 Jakub developed paresthesias of her toes and hands and some of her face earlier today and these have occurred intermittently. She had no other symptoms no motor weakness and we elected to go ahead with another MRI of the brain and this time of the cervical spine with and without contrast and with exception of some mid level cervical degenerative disc disease studies are normal in the sense that the MRI shows only a few very tiny white matter lesions that were present on the prior study, nothing in the basal ganglia or brainstem that might explain the symptoms and the MRI of the cervical cord is quite normal and there is no real significant canal stenosis Exam reveals perhaps a little hyperreflexia at the ankles and some distal subjective sensory loss to vibration and qualitatively to temperature in the feet but is normal in the hands At this point there is no real reason to keep her in the hospital as I do not think we need to do further studies. She is already taking oral B12 replacement is not on Metformin so I do not think we need to do a B12 level and her CBC shows no macrocytosis. She needs an outpatient EMG just to be sure were not developing some early polyneuropathy related to her diabetes or prediabetes Arrangements are being made to have this scheduled and I think she can be discharged today on a 2 aspirin per day with follow-up as previously arranged in our neurology department at [facility] Hermelindo Flowers MD The above note was generated utilizing voice recognition technology and may have spelling errors punctuation errors pronoun usage errors and syntax errors
--- NOTE | 2021-09-30 17:03 | Discharge Summary ---
Date of Service September 30, 2021 Admission HPI Per Admitting Provider 70-year-old female with PMH diet-controlled DM type II, CKD stage III, dyslipidemia, mild intermittent asthma, HTN, GERD, and other problems to below who presents the ED for evaluation of left-sided numbness. Patient reports she has been having some numbness along the outside of her left arm and associated left hand weakness for the past few weeks. Over the past few days, she noted left calf cramping and left ankle weakness. Yesterday, the numbness increased and started to involve the left side of her face, her entire left arm, and the left lateral leg. Symptoms were still present this morning so patient presented to the ED for further evaluation. Patient denies associated headache, worsening blurred vision, difficulty speaking or understanding. No lightheadedness, dizziness, diaphoresis, syncopal events. Denies any other recent illnesses, fevers, chills. No abdominal pain, nausea, vomiting, diarrhea. Denies urinary symptoms. In the ED, head CT, head and neck CTAs, labs are unremarkable. Pat ient is hemodynamically stable. Patient was given a full dose aspirin. Admission Exam Per Admitting Provider -NAD, well developed -Cardiac: Normal S1/S2, No murmur -Lungs: CTA, no wheezing or crackles -Neuro: CN II-XII intact, EOMI, PERRLA, normal motor strength and sensation -Psych: AAOx3, normal Affect Principal Diagnosis TIA Paresthesias Discharge Exam GENERAL: Alert and oriented x3. NAD, on RA. HEENT: No pallor, no icterus. Pupils equal, round and reactive to light. Oral mucosa moist. No swelling of tongue or intraoral swelling noted. NECK: No JVD, no neck masses. HEART: S1 and S2 heard. Regular rate and rhythm. No murmur, no gallop. RESPIRATORY SYSTEM: Normal AP diameter. No accessory muscle use. No wheezing, no crackles. ABDOMEN: Soft, bowel sounds present, nontender, no distention. No belly pain noted. CENTRAL NERVOUS SYSTEM: No facial droop. Speech is clear. Obeys simple commands. Moves extremities. EXTREMITIES: No edema, no erythema seen. Discharge Data Allergies Allergy/AdvReac Type Severity Reaction Status Date / Time erythromycin base Allergy Intermediate GI ISSUES Unverified 09/28/21 08:59 atorvastatin Allergy Unknown EDEMA Unverified 09/28/21 08:59 Bactrim Allergy Unknown SPINNING/VE Unverified 03/02/20 12:28 RTIGO/RASH estrogens, conjugated Allergy Unknown SWELLING/SKIN Unverified 09/28/21 08:59 FLAKES latanoprost Allergy Unknown RASH Unverified 09/28/21 08:59 lisinopril Allergy Unknown COUGH Unverified 09/28/21 08:59 medroxyprogesterone Allergy Unknown SWELLING/SKIN Unverified 09/28/21 08:59 FLAKES rosuvastatin Allergy Unknown EDEMA Unverified 09/28/21 08:59 sulfamethoxazole Allergy Unknown SPINNING/VE Unverified 09/28/21 08:59 RTIGO/RASH trimethoprim Allergy Unknown SPINNING/VE Unverified 09/28/21 08:59 RTIGO/RASH Consultations 09/28/21 09:26 ED Decision to Admit Stat Ordered Studies 09/28/21 07:07 CT angio head w con Stat CT angio neck with con Stat CT head/brain wo con Stat 09/28/21 10:19 MR brain wo con Routine 09/30/21 09:59 MR brain wo/w con Urgent MR cervical spine wo/w con Urgent Hospital Course (1) Paresthesia: (2) TIA (transient ischemic attack): 70-year-old female with PMH of diet-controlled DM type II, CKD stage III, dyslipidemia, mild intermittent asthma, HTN, GERD presented to our hospital 09/28 with complaint of left-sided numbness. She was managed for the following while in hospital: (1) Paresthesia: (1) TIA: Plan: -Admitted to [facility] with telemetry -Patient presenting from home with reports of left facial, left arm, left leg paresthesias at admission -In the ED, head CT, head and neck CTAs are all unremarkable -Brain MRI negative. Patient reports improvement in her left-sided paresthesias. Repeat [done for reappearance of tingling sensation in bilateral fingers and bilateral feet] brain MRI and cervical MRI negative for any acute findings. -Patient allergic to Plavix, to be used aspirin 160 mg daily for 21 days [started 09/29] and then back to 81 mg daily afterwards for life. -A1c elevated at 6.6 and LDL elevated at 132, will need strict dietary modification and outpatient follow-up to maintain LDL goal of less than 70. She has been allergic to statin in the past. Patient wanted to follow-up with her lipids with her PCP and discuss management about it with her PCP. Counseled the importance of lipid control. Patient to follow-up with PCP and neurology as an outpatient. Neurology setting her up for outpatient EMG. (2) Hypertension: Plan: -BP fairly under control -Continue home doses of atenolol and losartan (3) Asthma: Plan: -Appears stable, no signs of acute exacerbation -Patient educated regarding proper use of inhalers and that she is to be using Flovent routinely not on a as needed basis (4) Diabetes mellitus, type II: Plan: -Diet controlled, Hgb A1c 6.5 08/2021, repeat A1c 6.6 -Monitor glucose (5) DVT prophylaxis: Plan: -SQ Lovenox Patient is being discharged to home with following instruction at the point of discharge: Follow-up with your primary care physician within a week time. Follow-up with neurology as an outpatient. You are being set up for outpatient EMG per neurology, follow-up with the test. Take 162 mg aspirin daily for 19 more days [from 10/01/2021] and then 81 mg daily thereafter. Strict heart healthy diet, follow-up with your PCP for robust cholesterol control. Take medications as prescribed. Total Time Total Time Spent Total Time Spent (In Minutes): 35 Discharge Plan Discharge Items Patient Disposition: Home - Self-Care Reason For Visit: LEFT SIDED NUMBNESS Discharge Diagnosis: TIA Paresthesias Activity: Resume your previous activity Non-emergency contact: Primary Care Provider Call non-emergency contact if: you have any medication questions, your symptoms worsen and your temperature is above 101 Follow-up/Referrals: Eloisa Angel DO [Primary Care Provider] - (Date & Time 10/04/2021 11:10 AM Provider Eloisa Angel DO Department [facility] ) Taina Mendez PA-C [Physician Client Experience Manager] - (Date & Time 10/27/2021 11:20 AM Provider Taina Mendez PA-C Department Neurology [facility] ) Diet: Heart Healthy Addtl Attending Provider Instructions: Follow-up with your primary care physician within a week time. Follow-up with neurology as an outpatient. You are being set up for outpatient EMG per neurology, follow-up with the test. Take 162 mg aspirin daily for 19 more days [from 10/01/2021] and then 81 mg daily thereafter. Strict heart healthy diet, follow-up with your PCP for robust cholesterol control. Take medications as prescribed. Pending Studies at Discharge: No Stand-Alone Forms: My [facility], Smoking Cessation Medications and DC Order Prescriptions: Continued ipratropium-albuterol 0.5 mg-3 mg(2.5 mg base)/3 mL Solution For Nebulization 3 ml INHALATION Q6 PRN (Reason: Wheezing) RF: 0 albuterol sulfate 1.25 mg/3 mL Solution For Nebulization 3 ml INHALATION Q4 PRN (Reason: Wheezing) RF: 0 sucralfate 1 gram Tablet 1 g PO QID RF: 0 pantoprazole [Protonix] 20 mg Tablet,Delayed Release (Dr/Ec) 20 mg PO BID RF: 0 Flovent Diskus 100 mcg/actuation Blister With Device 1 inh INHALATION BID PRN (Reason: Shortness Of Breath) RF: 0 montelukast [Singulair] 10 mg Tablet 10 mg PO HS RF: 0 albuterol sulfate [ProAir HFA] 90 mcg/actuation Hfa Aerosol Inhaler 2 puff INHALATION Q6H PRN (Reason: asthma) RF: 0 losartan 100 mg Tablet 100 mg PO QAM RF: 0 atenolol 50 mg Tablet 50 mg PO HS RF: 0 cholecalciferol (vitamin D3) [Vitamin D3] 1,000 unit Capsule 1,000 unit PO QAM RF: 0 Probiotic and Acidophilus 300-250 million cell-mg Capsule 1 cap PO HS RF: 0 cyanocobalamin (vitamin B-12) [Vitamin B-12] 1,000 mcg Tablet 500 mcg PO QAM RF: 0 melatonin 3 mg Tablet 3 mg PO HS PRN (Reason: Insomnia) RF: 0 magnesium 200 mg Tablet 100 mg PO DAILY RF: 0 aspirin 81 mg Tablet,Delayed Release (Dr/Ec) 81 mg PO QAM Qty: 60 RF: 0 Discharge Orders: Discharge Order (Routine); Ordered 09/30/21 Ordered By: Jessy Bang/Other Patient Handouts: Managing Type 2 Diabetes Admission Data Admit Date/Time: 09/28/21 09:43 Attending Provider: Jessy Calabrese Admit Provider: Gideon Orr Primary Care Provider: Eloisa Angel Other Providers: Gideon Orr
[2021-09-30] MEDS: ENOXAPARIN INJ 40 MG/0.4 ML SYR SQ SCH (17:09)
== END 2021-09-30 17:30 | disposition home or self-care (01) ==
LOC: EDINP 06:46 → ED 06:46 → SUATTDRO 09:43 → EDINP 12:27 → 2S 12:54

== ENCOUNTER 2023-06-13 06:42 | Observation (INO) ==
--- NOTE | 2023-06-13 07:12 | Emergency Department Note ---
Impression & Plan Chest pain, Left sided numbness ED Provider Note NAME: CASTILLO DIAZ AGE: 72 SEX: F : 1950 ARRIVES VIA: Ambulance INFORMANT: Patient, EMS. ED PROVIDER(S): Kwabena Sue DO CHIEF COMPLAINT: Chest pain HPI: The patient is a 72-year-old male who presented to the emergency department for an evaluation of chest pain. The patient describes anterior chest pain with radiation to the jaw. She states this began over the last 24 hours. She was doing some exertional activity including gardening as well as water volleyball. Initially she thought she may have just pulled a muscle. She continued to have symptoms throughout the night. She was given aspirin prior to arrival. She called 911 and arrived via ambulance. She states that this time she has no discomfort. She denies having any leg swelling or leg pain. She denies having any difficulty breathing. The patient is a history of similar episodes in the past. She did have a stress test through her family doctor. She did not require a cardiac catheterization after this. ROS: See above HPI for pertinent positives & negatives. A total of 10 systems reviewed and were otherwise negative. PAST MEDICAL HISTORY: See Below PAST SURGICAL HISTORY: See Below FAMILY HISTORY: See Below SOCIAL HISTORY: See Below HOME MEDICATIONS: See Below ALLERGIES: See Below VITALS: See Below PHYSICAL EXAMINATION: GENERAL: Patient is awake alert in no acute distress patient is resting comfortably and showing no signs of anxiety EYES: The conjunctivae are clear. The pupils are round and reactive. EARS, NOSE, MOUTH AND THROAT: The nose is without any evidence of any deformity. . NECK: The neck is nontender and supple. RESPIRATORY: Normal respiratory effort is noted there is no evidence of wheezing rhonchi or rales CARDIOVASCULAR: Regular rate and rhythm noted there no murmurs rubs or gallops normal S1 normal S2. GASTROINTESTINAL: The abdomen is soft. Abdomen is nontender. MUSCULOSKELETAL/EXTREMITIES: There is no evidence of gross deformity full range of motion is noted in the hips and shoulders. SKIN: There is no obvious evidence of any rash. There are no petechiae, pallor or cyanosis noted. NEUROLOGIC: Patient is awake alert and oriented x3 strength is symmetric patellar reflexes are 2+ bilaterally MEDICAL DECISION MAKING: The patient is a 72-year-old female who presented to the emergency department for an evaluation of left-sided chest pain. The patient also complained of some numbness over the left upper extremity and left face. She did not have any neurologic deficits and her NIH score was 0. I discussed the patient's laboratory and radiographic studies with her. I also discussed the limitations of the emergency part work-up chest pain with her. Serial troponin measurements were obtained and were negative but the patient's heart score is putting her into a high risk category. For this reason I [facility] have agreed to evaluate the patient in the emergency department for further management and disposition. Triage Nursing notes reviewed. Prior medical records reviewed Vital Signs: reviewed and remarkable for elevated blood pressure. Differential diagnosis: Cardiac ischemia, aortic dissection, pulmonary embolism, pneumothorax, pneumonia, pericarditis, myocarditis, esophageal rupture, GERD, cholecystitis, pancreatitis, musculoskeletal, as well as other pathologies. ER treatment provided: See below Diagnostics interpreted by me: ECG: EKG was obtained in the emergency department. My interpretation is normal sinus rhythm at 62 bpm. There is no ectopy. There is no acute ST segment abnormalities noted. This was compared to a tracing from December 18, 2022. No changes were noted. A prehospital EKG was obtained in the emergency department. My interpretation is normal sinus rhythm at [address] abnormalities were noted. This compares similar to the EKG obtained in the emergency department. A second EKG was obtained in the emergency department. My interpretation is normal sinus rhythm at 60 bpm. There is no ectopy. There is no acute ST segment abnormalities noted. This compares similar to the earlier tracing. 30 EKG was obtained in the emergency department. The patient's EKG reveals sinus bradycardia 54 bpm. There is no ectopy. There is no acute ST segment abnormalities noted. This compares similar to the previous tracings. Cardiac Monitoring: An order was placed for continuous cardiac monitoring. The monitor shows a rate of 64 bpm with sinus rhythm. Laboratory studies: As stated above and show below. Imaging studies: See below. Radiographic imaging was reviewed by myself Consultation(s): I discussed this case with Gwen who was [facility]. ED COURSE:Heart Score: 4-5 The patient was placed in observation status at 0658. The patient was placed in observation for chest pain work-up. During the time in observation, the patient was frequently reassessed and received serial troponin measurements and serial EKGs. On Final reassessment the patient was found to have no dynamic EKG changes and normal troponin x2 and the patient will be evaluated by the hospitalist for inpatient management at this time. A total observation time of 2 hours. Past Med/Surg History Medical History Asthma Diabetes mellitus, type II GERD (gastroesophageal reflux disease) Glaucoma Herpes zoster HLD (hyperlipidemia) Hypertension Obesity (BMI 30.0-34.9) Seasonal allergic rhinitis Surgical History H/O hernia repair History of eye surgery Family History Other Alzheimer disease Lung cancer Social History Smoking Status: Never smoker Second Hand Exposure: No; Do You Dip or Chew Tobacco: No; Hx Alcohol Use: Yes Alcohol type: wine Hx Substance Use: No Preferred Language: Cook Islander Communication Ability: Effective Sustain Engineer Required: No Beliefs That Will Affect Care: None marital status: Current Living Situation: Spouse How many Children do You have: 2 Feels Safe at Home: Yes Assistive Devices: None Allergies Allergies Allergy/AdvReac Type Severity Reaction Status Date / Time erythromycin base Allergy Intermediate GI ISSUES Unverified 10/01/21 13:59 atorvastatin Allergy Unknown EDEMA Unverified 10/01/21 13:59 Bactrim Allergy Unknown SPINNING/VE Unverified 03/02/20 12:28 RTIGO/RASH estrogens, conjugated Allergy Unknown SWELLING/SKIN Unverified 10/01/21 13:59 FLAKES latanoprost Allergy Unknown RASH Unverified 10/01/21 13:59 lisinopril Allergy Unknown COUGH Unverified 10/01/21 13:59 medroxyprogesterone Allergy Unknown SWELLING/SKIN Unverified 10/01/21 13:59 FLAKES rosuvastatin Allergy Unknown EDEMA Unverified 10/01/21 13:59 sulfamethoxazole Allergy Unknown SPINNING/VE Unverified 10/01/21 13:59 RTIGO/RASH trimethoprim Allergy Unknown SPINNING/VE Unverified 10/01/21 13:59 RTIGO/RASH clopidogrel [From Plavix] Allergy Difficulty Unverified 10/01/21 13:59 Breathing Home Meds Home Medications Medication Instructions Recorded Confirmed Lactobacillus comb 1 cap PO HS 12/06/18 06/13/23 [id number] 300 million cell-250 mg capsule (Probiotic and Acidophilus) albuterol sulfate 1.25 mg/3 mL 3 ml inhalation Q4 PRN Wheezing 12/06/18 06/13/23 solution for nebulization albuterol sulfate 90 mcg/actuation 2 puff inhalation Q6H PRN asthma 12/06/18 06/13/23 aerosol inhaler (ProAir HFA) atenolol 50 mg tablet 50 mg PO HS 12/06/18 06/13/23 cholecalciferol (vitamin D3) 25 1,000 unit PO QAM 12/06/18 06/13/23 mcg (1,000 unit) capsule (Vitamin D3) fluticasone propionate 100 1 inh inhalation BID PRN Shortness 12/06/18 06/13/23 mcg/actuation blister powder for Of Breath inhalation (Flovent Diskus) ipratropium 0.5 mg-albuterol 3 mg 3 ml inhalation Q6 PRN Wheezing 12/06/18 06/13/23 (2.5 mg base)/3 mL nebulization soln losartan 100 mg tablet 100 mg PO QAM 12/06/18 06/13/23 montelukast 10 mg tablet 10 mg PO HS 12/06/18 06/13/23 (Singulair) pantoprazole 20 mg tablet,delayed 20 mg PO BID 12/06/18 06/13/23 release (Protonix) sucralfate 1 gram tablet 1 g PO QID 12/06/18 06/13/23 cyanocobalamin (vitamin B-12) 500 mcg PO QAM 09/28/21 06/13/23 1,000 mcg tablet (Vitamin B-12) magnesium 200 mg tablet 100 mg PO DAILY 09/28/21 06/13/23 melatonin 3 mg tablet 3 mg PO HS PRN Insomnia 09/28/21 06/13/23 aspirin 81 mg tablet,delayed 81 mg PO BID 10/01/21 06/13/23 release Previous Rx's Medication Instructions Recorded ondansetron 4 mg disintegrating 4 mg PO Q8H PRN nausea and 12/18/22 tablet vomiting #10 tabs Results & Data (ED) Vital Signs Vital Signs - 24 hr 06/13/23 07:00 06/13/23 07:12 06/13/23 07:09 Temperature 36.4 C L Temperature Source Oral Pulse Rate 58 L 59 L 61 Pulse Rate from SpO2 Sensor 60 Respiratory Rate 18 9 L Respiratory Effort / Characteristics Non-Labored Spontaneous Respiratory Depth Normal Blood Pressure 150/66 H Blood Pressure Mean 94 Pulse Oximetry 99 99 Oxygen Delivery Method Room Air Sepsis Recent Fever Within 48 Hours No Sepsis New/Unexplained Change in Mental Status No Sepsis Action Taken by Nursing No Action Required 06/13/23 07:30 06/13/23 07:30 06/13/23 08:00 Temperature Temperature Source Pulse Rate 51 L 57 L Pulse Rate from SpO2 Sensor 52 L Respiratory Rate 14 14 Respiratory Effort / Characteristics Respiratory Depth Blood Pressure 160/61 H Blood Pressure Mean 101 Pulse Oximetry 98 Oxygen Delivery Method Sepsis Recent Fever Within 48 Hours Sepsis New/Unexplained Change in Mental Status Sepsis Action Taken by Nursing 06/13/23 08:01 06/13/23 08:01 06/13/23 08:30 Temperature Temperature Source Pulse Rate 53 L 55 L Pulse Rate from SpO2 Sensor 54 L Respiratory Rate 15 12 Respiratory Effort / Characteristics Respiratory Depth Blood Pressure 144/52 H Blood Pressure Mean 76 Pulse Oximetry 97 Oxygen Delivery Method Sepsis Recent Fever Within 48 Hours Sepsis New/Unexplained Change in Mental Status Sepsis Action Taken by Nursing 06/13/23 09:00 06/13/23 09:00 Temperature Temperature Source Pulse Rate 52 L Pulse Rate from SpO2 Sensor 51 L Respiratory Rate 17 Respiratory Effort / Characteristics Respiratory Depth Blood Pressure 140/57 L Blood Pressure Mean 104 Pulse Oximetry 98 Oxygen Delivery Method Sepsis Recent Fever Within 48 Hours Sepsis New/Unexplained Change in Mental Status Sepsis Action Taken by Custodial Medications Current Medication List: was personally reviewed by me Laboratory Data Attestation: I reviewed the patient's lab results. 06/13/23 06:58 06/13/23 06:58 Lab Results 06/13/23 06/13/23 06/13/23 Range/Units 06:58 06:58 06:58 WBC 9.02 (4.8-10.8) K/ul RBC 4.87 (4.20-5.40) M/uL Hgb 15.5 (12.0-16.0) g/dl Hct 45.6 (37.0-47.0) % MCV 93.6 (80.0-100.0) fL MCH 31.8 (25.0-34.0) pg MCHC 34.0 (32.0-36.0) g/dL RDW Std Deviation 43.9 (36.4-46.3) fL RDW Coeff of Tobin 12.8 (11.5-14.5) % Plt Count 237 (130-400) K/uL MPV 10.5 (9.4-12.4) fL Immature Gran % (Auto) 0.3 % Neut % (Auto) 58.7 % Lymph % (Auto) 27.6 % Glenn % (Auto) 8.1 % Eos % (Auto) 4.9 % Baso % (Auto) 0.4 % Neut # (Auto) 5.29 (1.40-6.50) K/uL Lymph # (Auto) 2.49 (1.20-3.40) K/uL Glenn # (Auto) 0.73 H (0.11-0.59) K/uL Eos # (Auto) 0.44 (0.00-0.50) K/uL Baso # (Auto) 0.04 (0.00-0.20) K/uL Immature Gran # (Auto) 0.03 (0.01-0.20) K/uL PT Cancelled INR Cancelled APTT Cancelled PTT Ratio Cancelled Sodium TNP Potassium TNP Chloride 105 (98-107) mmol/L Carbon Dioxide 25 (21-32) mmol/L Anion Gap TNP BUN 19 (6-23) mg/dl Creatinine 0.87 (0.6-1.2) mg/dl Est Cr Clr Drug Dosing 55.5 ml/min Est GFR ( Amer) 76.1 ml/min Est GFR (Non-Af Amer) 65.6 ml/min BUN/Creatinine Ratio 21.8 H (10-20) Glucose 138 H (70-99(Fasting)) mg/dl Calcium 9.0 (8.6-10.3) mg/dl Total Bilirubin 0.8 (0.2-1.0) mg/dl AST TNP ALT 16 (7-52) U/L Alkaline Phosphatase 88 (34-104) U/L Troponin I High Sens 4.3 (0-14) pg/ml Total Protein 7.9 (6.0-8.3) gm/dl Albumin 3.8 (3.4-5.0) gm/dl Globulin 4.1 H (2.5-4.0) gm/dl Albumin/Globulin Ratio 0.9 (0.9-2) Lipase 12 (11-82) U/L Anaplasma Smear Lyme Disease IgG Ab (Negative) Lyme Disease IgM Ab (Negative) 06/13/23 06/13/23 06/13/23 Range/Units 06:58 08:04 08:05 WBC (4.8-10.8) K/ul RBC (4.20-5.40) M/uL Hgb (12.0-16.0) g/dl Hct (37.0-47.0) % MCV (80.0-100.0) fL MCH (25.0-34.0) pg MCHC (32.0-36.0) g/dL RDW Std Deviation (36.4-46.3) fL RDW Coeff of Tobin (11.5-14.5) % Plt Count (130-400) K/uL MPV (9.4-12.4) fL Immature Gran % (Auto) % Neut % (Auto) % Lymph % (Auto) % Glenn % (Auto) % Eos % (Auto) % Baso % (Auto) % Neut # (Auto) (1.40-6.50) K/uL Lymph # (Auto) (1.20-3.40) K/uL Glenn # (Auto) (0.11-0.59) K/uL Eos # (Auto) (0.00-0.50) K/uL Baso # (Auto) (0.00-0.20) K/uL Immature Gran # (Auto) (0.01-0.20) K/uL PT INR APTT PTT Ratio Sodium 138 Potassium 4.6 Chloride (98-107) mmol/L Carbon Dioxide (21-32) mmol/L Anion Gap BUN (6-23) mg/dl Creatinine (0.6-1.2) mg/dl Est Cr Clr Drug Dosing ml/min Est GFR ( Amer) ml/min Est GFR (Non-Af Amer) ml/min BUN/Creatinine Ratio (10-20) Glucose (70-99(Fasting)) mg/dl Calcium (8.6-10.3) mg/dl Total Bilirubin (0.2-1.0) mg/dl AST 17 ALT (7-52) U/L Alkaline Phosphatase (34-104) U/L Troponin I High Sens (0-14) pg/ml Total Protein (6.0-8.3) gm/dl Albumin (3.4-5.0) gm/dl Globulin (2.5-4.0) gm/dl Albumin/Globulin Ratio (0.9-2) Lipase (11-82) U/L Anaplasma Smear See Comment Lyme Disease IgG Ab Negative (Negative) Lyme Disease IgM Ab Negative (Negative) 06/13/23 06/13/23 Range/Units 08:05 09:06 WBC (4.8-10.8) K/ul RBC (4.20-5.40) M/uL Hgb (12.0-16.0) g/dl Hct (37.0-47.0) % MCV (80.0-100.0) fL MCH (25.0-34.0) pg MCHC (32.0-36.0) g/dL RDW Std Deviation (36.4-46.3) fL RDW Coeff of Tobin (11.5-14.5) % Plt Count (130-400) K/uL MPV (9.4-12.4) fL Immature Gran % (Auto) % Neut % (Auto) % Lymph % (Auto) % Glenn % (Auto) % Eos % (Auto) % Baso % (Auto) % Neut # (Auto) (1.40-6.50) K/uL Lymph # (Auto) (1.20-3.40) K/uL Glenn # (Auto) (0.11-0.59) K/uL Eos # (Auto) (0.00-0.50) K/uL Baso # (Auto) (0.00-0.20) K/uL Immature Gran # (Auto) (0.01-0.20) K/uL PT 10.0 INR 0.9 APTT 27.8 PTT Ratio 1.0 Sodium Potassium Chloride (98-107) mmol/L Carbon Dioxide (21-32) mmol/L Anion Gap BUN (6-23) mg/dl Creatinine (0.6-1.2) mg/dl Est Cr Clr Drug Dosing ml/min Est GFR ( Amer) ml/min Est GFR (Non-Af Amer) ml/min BUN/Creatinine Ratio (10-20) Glucose (70-99(Fasting)) mg/dl Calcium (8.6-10.3) mg/dl Total Bilirubin (0.2-1.0) mg/dl AST ALT (7-52) U/L Alkaline Phosphatase (34-104) U/L Troponin I High Sens 7.4 (0-14) pg/ml Total Protein (6.0-8.3) gm/dl Albumin (3.4-5.0) gm/dl Globulin (2.5-4.0) gm/dl Albumin/Globulin Ratio (0.9-2) Lipase (11-82) U/L Anaplasma Smear Lyme Disease IgG Ab (Negative) Lyme Disease IgM Ab (Negative) Imaging Data Attestation: I personally reviewed and interpreted this imaging study as follows: My Impression: 1 view chest x-ray was obtained in the emergency department. My interpretation is no free air or definite infiltrate, final report below. CT the brain was obtained in the emergency department. My interpretation is no intracranial hemorrhage or mass effect, final report below. Radiologist's Impression: Chest X-Ray 06/13/23 06:53 XR chest 1V portable HISTORY: 72 years-old Female Chest pain, nonspecific COMPARISON: 08/02/2022 TECHNIQUE: AP view of the chest FINDINGS: Cardiac silhouette is upper limits of normal in size. Atherosclerosis of the aorta. No pneumothorax, pleural effusion or lobar airspace consolidation. Unchanged mild right hemidiaphragmatic elevation. The bones appear grossly intact. IMPRESSION: No acute process. ACT 112: Negative or not required by law. The above report was generated using voice recognition software. It may contain grammatical, syntax or spelling errors. Electronically signed by: Rodney Kirk M.D. 06/13/2023 7:[address] 06/13/23 08:[address] DOSE: HISTORY: left facial and LUE numbness TECHNIQUE: Multiaxial CT images of the head were performed without the use of intravenous contrast. Automated exposure control was utilized for this study. A dose lowering technique was utilized adhering to the principles of ALARA. Comparison: Head CT 08/02/2022. Findings: The paranasal sinuses and mastoid air cells are clear. The calvarium and skull base are intact. There is no mass, hematoma, midline shift, acute infarct. White matter hypodensity is nonspecific but suggestive of microvascular ischemic change. The ventricles and sulci demonstrate mild age-related involutional changes. Impression: No acute intracranial abnormality. ACT 112: Negative or not required by law. Electronically signed by: Eugene Rodriguez M.D. 06/13/2023 9:56 AM Discharge Plan Visit Data Chief Complaint: Chest Pain Stated Complaint: CHEST PAIN INTO lt ARM AND JAW ED Provider: Kwabena Sue Discharge Problem: Chest pain, Left sided numbness Patient Disposition: Being Evaluated by Hospitalist Discharge Instructions Interventions: ED Discharge Assessment Last Done: 06/13/23 14:12
--- NOTE | 2023-06-13 07:14 | XRay Report ---
XR chest 1V portable HISTORY: 72 years-old Female Chest pain, nonspecific COMPARISON: 08/02/2022 TECHNIQUE: AP view of the chest FINDINGS: Cardiac silhouette is upper limits of normal in size. Atherosclerosis of the aorta. No pneumothorax, pleural effusion or lobar airspace consolidation. Unchanged mild right hemidiaphragmatic elevation. T he bones appear grossly intact. IMPRESSION: No acute process. ACT 112: Negative or not required by law. The above report was generated using voice recognition software. It may contain grammatical, syntax o r spelling errors. Electronically signed by: Rodney Kirk M.D. 06/13/2023 7:13 AM
[2023-06-13 07:19] LABS: Basophils # (auto) 0.04 K/uL (0.00-0.20); Basophils % (auto) 0.4 %; Eosinophils # (auto) 0.44 K/uL (0.00-0.50); Eosinophils % (auto) 4.9 %; Hematocrit (blood only) 45.6 % (37.0-47.0); Hemoglobin 15.5 g/dl (12.0-16.0); Immature Granulocytes # (auto) 0.03 K/uL (0.01-0.20); Immature Granulocytes % (auto) 0.3 %; Lymphocytes # (auto) 2.49 K/uL (1.20-3.40); Lymphocytes % (auto) 27.6 %; Mean Corpuscular Hemoglobin 31.8 pg (25.0-34.0); Mean Corpuscular Volume 93.6 fL (80.0-100.0); Mean Platelet Volume 10.5 fL (9.4-12.4); Monocytes # (auto) 0.73 K/uL (0.11-0.59); Monocytes % (auto) 8.1 %; Neutrophils # (auto) 5.29 K/uL (1.40-6.50); Neutrophils % (auto) 58.7 %; Platelet Count 237 K/uL (130-400); RDW Coefficient of Variation 12.8 % (11.5-14.5); RDW Standard Deviation 43.9 fL (36.4-46.3); Red Blood Count 4.87 M/uL (4.20-5.40); White Blood Count 9.02 K/ul (4.8-10.8)
[2023-06-13 07:43] LABS: Alanine Aminotransferase 16 U/L (7-52); Albumin Globulin Ratio 0.9 (0.9-2); Albumin Level 3.8 gm/dl (3.4-5.0); Alkaline Phosphatase 88 U/L (34-104); BUN Creatinine Ratio 21.8 (10-20); Bilirubin,Total 0.8 mg/dl (0.2-1.0); Blood Urea Nitrogen 19 mg/dl (6-23); Carbon Dioxide 25 mmol/L (21-32); Chloride 105 mmol/L (98-107); Creatinine Clr Calc Pharmacy 55.5 ml/min; Est GFR (African American) 76.1 ml/min; Est GFR (Non-African American) 65.6 ml/min; Globulin 4.1 gm/dl (2.5-4.0); Glucose 138 mg/dl (70-99(Fasting)); Lipase 12 U/L (11-82); Total Protein 7.9 gm/dl (6.0-8.3); Troponin I High Sensitivity 4.3 pg/ml (0-14)
[2023-06-13 08:37] LABS: Potassium 4.6 mmol/L (3.5-5.1)
[2023-06-13 08:52] LABS: INR 0.9 (0.9-1.1); Partial Thromboplastin Time 27.8 Seconds (21.0-31.0)
--- NOTE | 2023-06-13 09:59 | CT Scan Report ---
HEAD CT NONCONTRAST CT DOSE: HISTORY: left facial and LUE numbness TECHNIQUE: Multiaxial CT images of the head were performed without the use of intravenous contrast. A utomated exposure control was utilized for this study. A dose lowering technique was utilized adheri ng to the principles of ALARA. Comparison: Head CT 08/02/2022. Findings: The paranasal sinuses and mastoid air cells are clear. The calvarium and skull base are int act. There is no mass, hematoma, midline shift, acute infarct. White matter hypodensity is nonspecifi c but suggestive of microvascular ischemic change. The ventricles and sulci demonstrate mild age-rela malorie involutional changes. Impression: No acute intracranial abnormality. ACT 112: Negative or not required by law. Electronically signed by: Eugene Rodriguez M.D. 06/13/2023 9:56 AM
[2023-06-13] MEDS ORDERED: POLYETHYLENE (MIRALAX) 17 GM PACK PO PRN (11:39)
[2023-06-13] MEDS ORDERED: ALUMINUM/MAGNESIUM SUSP 30 ML UDC PO PRN (11:39)
[2023-06-13] MEDS ORDERED: ONDANSETRON INJ 2 MG/ML 2 ML VIAL IV PRN (11:39)
[2023-06-13] MEDS ORDERED: MAGNESIUM HYDROXIDE SUSP 30 ML UDC PO PRN (11:39)
[2023-06-13] MEDS ORDERED: ACETAMINOPHEN 325 MG TAB PO PRN (11:39)
--- NOTE | 2023-06-13 11:55 | History & Physical Report ---
Date of Service June 13, 2023 Assessment & Plan (1) Chest pain: (2) Diabetes mellitus, type II: (3) Hypertension: (4) HLD (hyperlipidemia): (5) Asthma: (6) GERD (gastroesophageal reflux disease): Plan 72-year-old presents with intermittent left chest pain radiating into her left jaw. During ER visit reported left facial numbness. NIH 0. No neurologic symptoms noted. ECG nonspecific changes when compared to ECG 2018. Past medical history includes diabetes mellitus type 2, HTN, HLD, CKD, GERD, and asthma. Patient noted to have thyroid nodules and thyroid ultrasound performed 05/24/2023 with FNA recommendation. Dobutamine stress echo performed 12/2018 with LV wall normal; LV normal size with normal thickness and EF 65 to 70% no cardiac catheterization has been performed in her history. Pt indicated that she had been bitten by 'noseeum' bugs on Monday and reported a harsh reaction with severe itching and burning. This has resolved but she does have a few remaining bites. Initial troponin 4.3 then 7.4; will trend. No leukocytosis or other lab abnormalities. Chest x-ray negative for acute cardiopulmonary disease. Head CT negative. Last LDL 06/12/2023 124. Side effects previously with statins but would be willing to trial Crestor weekly or willing to see cardiology for injectable medication for hypercholesterolemia. Patient's heart score is 4 and is a moderate risk for having a cardiac event. Do not suspect ACS at this time. Does report snoring. May benefit from a sleep study as an outpatient. Will continue to trend troponin no need for echo currently and will hold on cardiology consultation at this point. We will check TSH, Lyme and anaplasmosis. Recommend starting Crestor as an outpatient or Zetia. Chest pain: Acute uncontrolled ECG nonspecific Heart score 4 Chest x-ray negative Initial troponin 4.3; 7.4; will trend for one more; do not suspect ACS. Dobutamine stress echo performed 12/2018 with LV wall normal; LV normal size with normal thickness and EF 65 to 70% no cardiac catheterization has been performed in her history. Hold on any further ECHO, if patient worsens consider cardiology consultation. HTN: Chronic stable Takes atenolol and losartan; continue HLD: Acute uncontrolled Last lipid panel 06/12/2023 TG 110, HDL 48, LDL 124 Consider Crestor or injectable as an outpatient Diabetes mellitus type 2: Chronic stable Most recent A1c 06/12/2023; 6.7 Takes Jardiance; continue Thyroid Nodules: thyroid ultrasound performed 05/24/2023 with FNA recommendation will check TSH here Asthma: Chronic stable Takes Singulair; continue Uses albuterol and Flovent as needed; continue GERD: Chronic stable Takes Protonix; continue Has had EGD 2020 Disposition: PCP: Dr. Angel CODE STATUS: Full code VTE prophylaxis: Lovenox subcu I spent a total of 87 minutes coordinating, documenting, and providing care for this patient excluding time spent in the performance of separately billed services. All of the aforementioned completed while collaborating with the assigned attending physician for a full treatment plan. Please see their addendum for further details. History of Present Illness Chief Complaint: chest pain Primary Care Provider: Eloisa Angel, 72-year-old female presents with intermittent left chest pain radiating into her left jaw. During ER visit reported left facial numbness. NIH 0. No neurologic symptoms noted. ECG nonspecific changes when compared to ECG 2018. Past medical history includes diabetes mellitus type 2, HTN, HLD, CKD, GERD, and asthma. Patient noted to have thyroid nodules and thyroid ultrasound performed 05/24/2023 with FNA recommendation. Dobutamine stress echo performed 12/2018 with LV wall normal; LV normal size with normal thickness and EF 65 to 70% no cardiac catheterization has been performed in her history. Pt indicated that she had been bitten by 'noseeum' bugs on Monday and reported a harsh reaction with severe itching and burning. This has resolved but she does have a few remaining bites. Initial troponin 4.3 then 7.4; will trend. No leukocytosis or other lab abnormalities. Chest x-ray negative for acute cardiopulmonary disease. Head CT negative. Last LDL 06/12/2023 124. Side effects previously with statins but would be willing to trial Crestor weekly or willing to see cardiology for injectable medication for hypercholesterolemia. Patient denies headache, dizziness, current chest pain, shortness of breath, abdominal pain or tenderness, visual or auditory changes, changes with urine or bowel, recent falls or trauma. Patient denies tobacco, alcohol, or recreational drug use. Pt sitting upright in her hospital bed in no apparent distress and is able to answer all questions appropriately. NIH 0. Patient's heart score is 4 and is a moderate risk for having a cardiac event. Do not suspect ACS at this time. Does report snoring. May benefit from a sleep study as an outpatient. Will continue to trend troponin no need for echo currently and will hold on cardiology consultation at this point. We will check TSH, Lyme and anaplasmosis. Recommend starting Crestor as an outpatient or Zetia. Patient will be admitted for further evaluation and management. Please see A/P for further details Allergies Allergy/AdvReac Type Severity Reaction Status Date / Time erythromycin base Allergy Intermediate GI ISSUES Unverified 10/01/21 13:59 atorvastatin Allergy Unknown EDEMA Unverified 10/01/21 13:59 Bactrim Allergy Unknown SPINNING/VE Unverified 03/02/20 12:28 RTIGO/RASH estrogens, conjugated Allergy Unknown SWELLING/SKIN Unverified 10/01/21 13:59 FLAKES latanoprost Allergy Unknown RASH Unverified 10/01/21 13:59 lisinopril Allergy Unknown COUGH Unverified 10/01/21 13:59 medroxyprogesterone Allergy Unknown SWELLING/SKIN Unverified 10/01/21 13:59 FLAKES rosuvastatin Allergy Unknown EDEMA Unverified 10/01/21 13:59 sulfamethoxazole Allergy Unknown SPINNING/VE Unverified 10/01/21 13:59 RTIGO/RASH trimethoprim Allergy Unknown SPINNING/VE Unverified 10/01/21 13:59 RTIGO/RASH clopidogrel [From Plavix] Allergy Difficulty Unverified 10/01/21 13:59 Breathing Home Medications Medication Instructions Recorded Confirmed Type Lactobacillus comb 1 cap PO HS 12/06/18 06/13/23 History no.[id number] 300 million cell-250 mg capsule (Probiotic and Acidophilus) albuterol sulfate 1.25 mg/3 mL 3 ml inhalation Q4 PRN Wheezing 12/06/18 06/13/23 History solution for nebulization albuterol sulfate 90 mcg/actuation 2 puff inhalation Q6H PRN asthma 12/06/18 06/13/23 History aerosol inhaler (ProAir HFA) atenolol 50 mg tablet 50 mg PO HS 12/06/18 06/13/23 History cholecalciferol (vitamin D3) 25 1,000 unit PO QAM 12/06/18 06/13/23 History mcg (1,000 unit) capsule (Vitamin D3) fluticasone propionate 100 1 inh inhalation BID PRN Shortness 12/06/18 06/13/23 History mcg/actuation blister powder for Of Breath inhalation (Flovent Diskus) ipratropium 0.5 mg-albuterol 3 mg 3 ml inhalation Q6 PRN Wheezing 12/06/18 06/13/23 History (2.5 mg base)/3 mL nebulization soln losartan 100 mg tablet 100 mg PO QAM 12/06/18 06/13/23 History montelukast 10 mg tablet 10 mg PO HS 12/06/18 06/13/23 History (Singulair) pantoprazole 20 mg tablet,delayed 20 mg PO BID 12/06/18 06/13/23 History release (Protonix) sucralfate 1 gram tablet 1 g PO QID 12/06/18 06/13/23 History cyanocobalamin (vitamin B-12) 500 mcg PO QAM 09/28/21 06/13/23 History 1,000 mcg tablet (Vitamin B-12) magnesium 200 mg tablet 100 mg PO DAILY 09/28/21 06/13/23 History melatonin 3 mg tablet 3 mg PO HS PRN Insomnia 09/28/21 06/13/23 History aspirin 81 mg tablet,delayed 81 mg PO BID 10/01/21 06/13/23 History release ondansetron 4 mg disintegrating 4 mg PO Q8H PRN nausea and 12/18/22 06/13/23 Rx tablet vomiting #10 tabs Past Med/Surg History Medical History Asthma Diabetes mellitus, type II GERD (gastroesophageal reflux disease) Glaucoma Herpes zoster HLD (hyperlipidemia) Hypertension Obesity (BMI 30.0-34.9) Seasonal allergic rhinitis Surgical History H/O hernia repair History of eye surgery Family History Other Alzheimer disease Lung cancer Social History Smoking Status: Never smoker Second Hand Exposure: No; Do You Dip or Chew Tobacco: No; Hx Alcohol Use: Yes Alcohol type: wine Hx Substance Use: No Preferred Language: Cook Islander Communication Ability: Effective [employer] French Teacher Required: No Beliefs That Will Affect Care: None marital status: Current Living Situation: Spouse How many Children do You have: 2 Feels Safe at Home: Yes Assistive Devices: None Review of Systems Review of Systems: Neuro: (-) Falls, trauma, slurred speech HEENT: (-) VALLADARES, dizziness, dysphagia, visual or auditory changes CV: (-) CP, palpitations, swelling Resp: (-) SOB GI: (-) appetite changes, N/V/D, bowel changes : (-) urinary changes Skin: (+) rashes, noseum bites Psych: (-) anxiety, depression Physical Exam Physical Exam: Neuro: AAOx4, PERRLA, no aphagia, memory changes, CNII-XII grossly intact HEENT: head normocephalic, moist mucus membranes CV: S1/S2, (-) M/G/R, (-) edema, cap refill < 3 seconds Resp: Lungs CTA in all trinh. On RA GI: Abdomen S/NT/ND, Ax4 bowel sounds, (-) CVA tenderness Musculoskeletal: 5/5 B/L UE strength, 5/5 B/L LE strength. No gait disturbance Skin: (+) rashes, a few noseum bites interior bilateral arms , (-) erythema. Psych: euthymic mood Results & Data Results & Data Vital Signs (Past 12 Hours) Vital Signs Temp Pulse Resp BP Pulse Ox O2 Del Method 06/13/23 09:00 52 L 17 98 06/13/23 09:00 140/57 L 06/13/23 08:30 55 L 12 97 06/13/23 08:01 53 L 15 06/13/23 08:01 144/52 H 06/13/23 08:00 57 L 14 06/13/23 07:30 51 L 14 98 06/13/23 07:30 160/61 H 06/13/23 07:09 61 9 L 99 06/13/23 07:12 59 L 06/13/23 07:00 36.4 C L 58 L 18 150/66 H 99 Room Air Laboratory Results Short CBC 06/13/23 Range/Units 06:58 WBC 9.02 (4.8-10.8) K/ul Hgb 15.5 (12.0-16.0) g/dl Hct 45.6 (37.0-47.0) % Plt Count 237 (130-400) K/uL BMP 06/13/23 06/13/23 06:58 08:05 Sodium TNP 138 Potassium TNP 4.6 Chloride 105 Carbon Dioxide 25 BUN 19 Creatinine 0.87 Glucose 138 H Calcium 9.0 Liver Function 06/13/23 06/13/23 Range/Units 06:58 08:05 Total Bilirubin 0.8 (0.2-1.0) mg/dl AST TNP 17 ALT 16 (7-52) U/L Alkaline Phosphatase 88 (34-104) U/L Albumin 3.8 (3.4-5.0) gm/dl Diagnostic Findings Chest X-Ray 06/13/23 06:53 XR chest 1V portable HISTORY: 72 years-old Female Chest pain, nonspecific COMPARISON: 08/02/2022 TECHNIQUE: AP view of the chest FINDINGS: Cardiac silhouette is upper limits of normal in size. Atherosclerosis of the aorta. No pneumothorax, pleural effusion or lobar airspace consolidation. Unchanged mild right hemidiaphragmatic elevation. The bones appear grossly intact. IMPRESSION: No acute process. ACT 112: Negative or not required by law. The above report was generated using voice recognition software. It may contain grammatical, syntax or spelling errors. Electronically signed by: Rodney Kirk M.D. 06/13/2023 7:[address] 06/13/23 08:[address] DOSE: HISTORY: left facial and LUE numbness TECHNIQUE: Multiaxial CT images of the head were performed without the use of intravenous contrast. Automated exposure control was utilized for this study. A dose lowering technique was utilized adhering to the principles of ALARA. Comparison: Head CT 08/02/2022. Findings: The paranasal sinuses and mastoid air cells are clear. The calvarium and skull base are intact. There is no mass, hematoma, midline shift, acute infarct. White matter hypodensity is nonspecific but suggestive of microvascular ischemic change. The ventricles and sulci demonstrate mild age-related involutional changes. Impression: No acute intracranial abnormality. ACT 112: Negative or not required by law. Electronically signed by: Eugene Rodriguez M.D. 06/13/2023 9:56 AM Code Status & VTE Plan Code Status Full code in the event of cardiac or respiratory arrest VTE Prophylaxis Plan VTE Prophylaxis will be ordered: Yes Supervising Physician Co-Signing Physician Notes Attending addendum: The patient was seen and examined in emergency room She has been generally weak for the last few weeks and coming in today with chest pressure in the upper chest area and also right jaw pain that lasted for a few minutes Hersey nausea but no other associated symptoms of sweating, palpitation, shortness of breath, dizziness or any blurred vision She did not have any of the symptoms before On examination Lying in bed comfortably Hemodynamically stable with blood pressure on the upper side at 154/72 Chestclear to auscultate bilaterally HeartS1-S2, regular with a 2/6 ESM over precordium Abdomenbenign Extremitiesno edema CNSalert, awake and oriented x3 no focal sensory or motor deficit appreciated Her admission labs, EKG and imaging studies reviewed Atypical chest pain to rule out ACS-we will get serial cardiac enzymes and echo. EKG seems to be unremarkable Doubt any neurological symptoms but she will need to observe in the hospital Insect bites-we will check Lyme titer and Anaplasma Agree with assessment and plan as outlined above by Janine Gifford , (1) Chest pain Chest pain type: unspecified Qualified Code(s): R07.9 - Chest pain, uns pecified (3) Hypertension Hypertension type: unspecified Qualified Code(s): I10 - Essential (primary) hypertension
[2023-06-13 13:06] LABS: Magnesium 1.9 mg/dl (1.7-2.4)
[2023-06-13 13:10] LABS: Lyme Ab IgG w/WB Rflx Negative (Negative); Lyme Ab IgM w/WB Rflx Negative (Negative)
[2023-06-13 13:13] LABS: Troponin I High Sensitivity 5.2 pg/ml (0-14)
[2023-06-13] MEDS ORDERED: FLUTICASONE FUROATE 100MCG 14 PUFFS/INHALER INH PRN (14:17)
--- NOTE | 2023-06-13 15:51 | Electrocardiogram Report ---
Test Reason : Blood Pressure : / mmHG Vent. Rate : 062 BPM Atrial Rate : 062 BPM P-R Int : 130 ms QRS Dur : 060 ms QT Int : 406 ms P-R-T Axes : 033 011 027 degrees QTc Int : 412 ms Normal sinus rhythm Low voltage QRS Poor R wave progression, consider anterior OR vs. lead placement vs. LVH Abnormal ECG When compared with ECG of 18-DEC-2022 11:52, Nonspecific T wave abnormality no longer evident in Lateral leads Confirmed by Kwabena Esteban ([id number]) on 06/13/2023 3:50:57 PM Referred By: REFERRED SELF Confirmed By:Kwabena Esteban
--- NOTE | 2023-06-13 15:52 | Electrocardiogram Report ---
Test Reason : Blood Pressure : / mmHG Vent. Rate : 054 BPM Atrial Rate : 054 BPM P-R Int : 126 ms QRS Dur : 064 ms QT Int : 430 ms P-R-T Axes : 045 -03 011 degrees QTc Int : 407 ms Sinus bradycardia Low voltage QRS Cannot rule out Inferior infarct , age undetermined Poor R wave progression, consider anterior NV vs. lead placement vs. LVH Abnormal ECG When compared with ECG of 13-JUN-2023 06:52, (unconfirmed) Questionable change in initial forces of Anterior leads Confirmed by Kwabena Esteban ([id number]) on 06/13/2023 3:51:55 PM Referred By: REFERRED SELF Confirmed By:Kwabena Esteban
[2023-06-13 17:15] LABS: Appearance Urine Clear (Clear); Bacteria Urine Automated Negative (Negative); Bilirubin Urine Negative (Negative); Blood Urine Trace (Negative); Color Urine Yellow; Epithelial Cell Urine Auto 20-30 /lpf (0-5); Glucose Urine UA 3+ (Negative); Ketones Urine Negative (Negative); Leukocyte Esterase Urine Negative (Negative); Nitrite Urine Negative (Negative); Protein Urine Negative (Negative); RBC Urine Automated 0-4 /hpf (0-4); Specific Gravity Urine 1.022 (1.000-1.030); Urobilinogen Urine Negative (Negative); pH Urine 5.5 (4.5-7.5)
[2023-06-13] MEDS: SUCRALFATE 1 GM TAB PO SCH ×2 (18:29→21:03)
[2023-06-13] MEDS ORDERED: MONTELUKAST SODIUM 10 MG TABLET PO SCH (21:00)
[2023-06-13] MEDS ORDERED: ATENOLOL 50 MG TABLET PO SCH (21:00)
[2023-06-13] MEDS: PANTOprazole 40 MG TAB PO SCH (21:03)
[2023-06-13] MEDS: ASPIRIN 81 MG ECTAB PO SCH (21:04)
[2023-06-14 06:40] LABS: Hematocrit (blood only) 44.9 % (37.0-47.0); Hemoglobin 15.3 g/dl (12.0-16.0); Mean Corpuscular Hemoglobin 31.4 pg (25.0-34.0); Mean Corpuscular Hgb Conc 34.1 g/dL (32.0-36.0); Platelet Count 228 K/uL (130-400); RDW Coefficient of Variation 12.7 % (11.5-14.5); RDW Standard Deviation 43.2 fL (36.4-46.3); Red Blood Count 4.88 M/uL (4.20-5.40); White Blood Count 8.01 K/ul (4.8-10.8)
[2023-06-14 06:59] LABS: Albumin Level 3.6 gm/dl (3.4-5.0); BUN Creatinine Ratio 24.4 (10-20); Bilirubin,Total 0.6 mg/dl (0.2-1.0); Calcium 8.9 mg/dl (8.6-10.3); Creatinine Clr Calc Pharmacy 58.4 ml/min; Est GFR (African American) 81.7 ml/min; Est GFR (Non-African American) 70.5 ml/min; Globulin 3.7 gm/dl (2.5-4.0); Potassium 4.1 mmol/L (3.5-5.1); Total Protein 7.3 gm/dl (6.0-8.3)
[2023-06-14] MEDS: SUCRALFATE 1 GM TAB PO SCH ×2 (08:41→12:27)
[2023-06-14] MEDS: ASPIRIN 81 MG ECTAB PO SCH (08:42)
[2023-06-14] MEDS: PANTOprazole 40 MG TAB PO SCH (08:43)
[2023-06-14] MEDS ORDERED: NON-FORMULARY MEDICATION (Magnesium 200 mg Tablet) PO SCH (09:00)
[2023-06-14] MEDS ORDERED: LOSARTAN POTASSIUM 50 MG TAB PO SCH (09:00)
[2023-06-14] MEDS ORDERED: ENOXAPARIN INJ 40 MG/0.4 ML SYR SQ SCH (09:00)
[2023-06-14] MEDS ORDERED: CHOLECALCIFEROL 1,000 UNITS 25 MCG TAB PO SCH (09:00)
[2023-06-14] MEDS ORDERED: CYANOCOBALAMIN (B-12) 500 MCG TABLET PO SCH (09:00)
--- NOTE | 2023-06-14 10:59 | Cardiology Consultation ---
Date of Consultation June 14, 2023 Assessment & Plan (1) Chest pain: (2) Left sided numbness: (3) HLD (hyperlipidemia): Plan 72-year-old female with cardiovascular risk factors of age, hypertension, hyperlipidemia, diabetes mellitus who developed symptoms of exertional left sh oulder and left jaw discomfort on 2 separate occasions in the last 2 days. No rest symptoms. No syncope or near syncope no tachyarrhythmias. EKG and echocardiogram essentially normal, no elevation in troponin Given multiple risk factors and concerning description of symptoms will refer for dobutamine stress echocardiogram further delineate cardiovascular risk. Patient agreeable History of Present Illness Reason for Consultation: Exertional left shoulder and arm tightness Requesting Physician: Dr. Olivares Attending Physician: Dereje Olivares MD History of Present Illness Patient is a 72-year-old female without prior history of cardiac disease but with underlying medical history issues which include 1. Hypertension 2. Hyperlipidemia with poor statin tolerance 3. Type 2 diabetes mellitus Patient presents now noting 2 days ago developing symptoms while playing water aerobics volleyball of left arm and left shoulder tightness. Symptoms resolved with rest Symptoms return date of admission with symptoms of tightness in the left neck and jaw. Patient sought ER evaluation initial EKG enzymes and echocardiogram without evidence of acute injury. Currently asymptomatic. No fevers chills or unexplained infections. No bleeding difficulties Appetite and weight are stable. Notes prior attempts on exercise treadmill testing poorly tolerated, negative dobutamine stress test 2018 Allergies Allergy/AdvReac Type Severity Reaction Status Date / Time erythromycin base Allergy Intermediate GI ISSUES Unverified 10/01/21 13:59 atorvastatin Allergy Unknown EDEMA Unverified 10/01/21 13:59 Bactrim Allergy Unknown SPINNING/VE Unverified 03/02/20 12:28 RTIGO/RASH estrogens, conjugated Allergy Unknown SWELLING/SKIN Unverified 10/01/21 13:59 FLAKES latanoprost Allergy Unknown RASH Unverified 10/01/21 13:59 lisinopril Allergy Unknown COUGH Unverified 10/01/21 13:59 medroxyprogesterone Allergy Unknown SWELLING/SKIN Unverified 10/01/21 13:59 FLAKES rosuvastatin Allergy Unknown EDEMA Unverified 10/01/21 13:59 sulfamethoxazole Allergy Unknown SPINNING/VE Unverified 10/01/21 13:59 RTIGO/RASH trimethoprim Allergy Unknown SPINNING/VE Unverified 10/01/21 13:59 RTIGO/RASH clopidogrel [From Plavix] Allergy Difficulty Unverified 10/01/21 13:59 Breathing Home Medications Medication Instructions Recorded Confirmed Type Lactobacillus comb 1 cap PO HS 12/06/18 06/13/23 History no.1-[id number] 300 million cell-250 mg capsule (Probiotic and Acidophilus) albuterol sulfate 1.25 mg/3 mL 3 ml inhalation Q4 PRN Wheezing 12/06/18 06/13/23 History solution for nebulization albuterol sulfate 90 mcg/actuation 2 puff inhalation Q6H PRN asthma 12/06/18 06/13/23 History aerosol inhaler (ProAir HFA) atenolol 50 mg tablet 50 mg PO HS 12/06/18 06/13/23 History cholecalciferol (vitamin D3) 25 1,000 unit PO QAM 12/06/18 06/13/23 History mcg (1,000 unit) capsule (Vitamin D3) fluticasone propionate 100 1 inh inhalation BID PRN Shortness 12/06/18 06/13/23 History mcg/actuation blister powder for Of Breath inhalation (Flovent Diskus) ipratropium 0.5 mg-albuterol 3 mg 3 ml inhalation Q6 PRN Wheezing 12/06/18 06/13/23 History (2.5 mg base)/3 mL nebulization soln losartan 100 mg tablet 100 mg PO QAM 12/06/18 06/13/23 History montelukast 10 mg tablet 10 mg PO HS 12/06/18 06/13/23 History (Singulair) pantoprazole 20 mg tablet,delayed 20 mg PO BID 12/06/18 06/13/23 History release (Protonix) sucralfate 1 gram tablet 1 g PO QID 12/06/18 06/13/23 History cyanocobalamin (vitamin B-12) 500 mcg PO QAM 09/28/21 06/13/23 History 1,000 mcg tablet (Vitamin B-12) magnesium 200 mg tablet 100 mg PO DAILY 09/28/21 06/13/23 History melatonin 3 mg tablet 3 mg PO HS PRN Insomnia 09/28/21 06/13/23 History aspirin 81 mg tablet,delayed 81 mg PO BID 10/01/21 06/13/23 History release ondansetron 4 mg disintegrating 4 mg PO Q8H PRN nausea and 12/18/22 06/13/23 Rx tablet vomiting #10 tabs Patient History Medical History Asthma Diabetes mellitus, type II GERD (gastroesophageal reflux disease) Glaucoma Herpes zoster HLD (hyperlipidemia) Hypertension Obesity (BMI 30.0-34.9) Seasonal allergic rhinitis Surgical History H/O hernia repair History of eye surgery Family History Other Alzheimer disease Lung cancer Social History Smoking Status: Never smoker Second Hand Exposure: No; Do You Dip or Chew Tobacco: No; Hx Alcohol Use: Yes Alcohol type: wine Hx Substance Use: No Preferred Language: Bulgarian Communication Ability: Effective Master [employer] Required: No Beliefs That Will Affect Care: None marital status: Current Living Situation: Spouse How many Children do You have: 2 Feels Safe at Home: Yes Safety Concerns: Feels Safe At This Time Assistive Devices: Glasses Results & Data Vital Signs (Past 12 Hours) Vital Signs Temp Pulse Pulse Resp BP Pulse Ox O2 Del Method 06/14/23 05:58 58 L 06/14/23 06:28 36.5 C 56 L 18 149/69 H 100 Room Air 06/14/23 03:59 36.6 C 58 L 18 153/70 H 95 Room Air 06/14/23 00:00 60 Laboratory Results Laboratory Results - last 24 hr 06/13/23 06/13/23 06/13/23 06:58 08:04 10:10 WBC RBC Hgb Hct MCV MCH MCHC RDW Std Deviation RDW Coeff of Tobin Plt Count MPV Sodium Potassium Chloride Carbon Dioxide Anion Gap BUN Creatinine Est Cr Clr Drug Dosing Est GFR ( Amer) Est GFR (Non-Af Amer) BUN/Creatinine Ratio Glucose Calcium Magnesium Total Bilirubin AST ALT Alkaline Phosphatase Troponin I High Sens Total Protein Albumin Globulin Albumin/Globulin Ratio Urine Color Yellow Urine Appearance Clear Urine pH 5.5 Ur Specific [place] 1.022 Urine Protein Negative Urine Glucose (UA) 3+ H Urine Ketones Negative Urine Blood Trace H Urine Nitrite Negative Urine Bilirubin Negative Urine Urobilinogen Negative Ur Leukocyte Esterase Negative Urine WBC (Auto) 1-5 Urine RBC (Auto) 0-4 U Hyaline Cast (Auto) 1-5 U Epithel Cells (Auto) 20-30 H Urine Bacteria (Auto) Negative Anaplasma Smear See Comment Lyme Disease IgG Ab Negative Lyme Disease IgM Ab Negative 06/13/23 06/14/23 06/14/23 12:32 05:55 05:55 WBC 8.01 RBC 4.88 Hgb 15.3 Hct 44.9 MCV 92.0 MCH 31.4 MCHC 34.1 RDW Std Deviation 43.2 RDW Coeff of Tobin 12.7 Plt Count 228 MPV 10.0 Sodium 136 Potassium 4.1 Chloride 105 Carbon Dioxide 24 Anion Gap 7 BUN 20 Creatinine 0.82 Est Cr Clr Drug Dosing 58.4 Est GFR ( Amer) 81.7 Est GFR (Non-Af Amer) 70.5 BUN/Creatinine Ratio 24.4 H Glucose 110 H Calcium 8.9 Magnesium 1.9 Total Bilirubin 0.6 AST 15 ALT 11 Alkaline Phosphatase 83 Troponin I High Sens 5.2 Total Protein 7.3 Albumin 3.6 Globulin 3.7 Albumin/Globulin Ratio 1.0 Urine Color Urine Appearance Urine pH Ur Specific [place] Urine Protein Urine Glucose (UA) Urine Ketones Urine Blood Urine Nitrite Urine Bilirubin Urine Urobilinogen Ur Leukocyte Esterase Urine WBC (Auto) Urine RBC (Auto) U Hyaline Cast (Auto) U Epithel Cells (Auto) Urine Bacteria (Auto) Anaplasma Smear Lyme Disease IgG Ab Lyme Disease IgM Ab (1) Chest pain Chest pain type: unspecified Qualified Code(s): R07.9 - Chest pain, unspecified
[2023-06-14] MEDS ORDERED: ATROPINE SULFATE 0.1 MG/ML 10ML SYR IV ONE (11:19)
[2023-06-14] MEDS ORDERED: NITROGLYCERIN SL 0.4 MG/TAB TAB ONE (11:19)
[2023-06-14] MEDS ORDERED: DOBUTamine HCL 12.5 MG/ML 20 ML VIAL IV ONE (11:19)
[2023-06-14] MEDS ORDERED: METOPROLOL TARTRATE 1 MG/ML VIAL IV ONE (11:19)
--- NOTE | 2023-06-14 11:59 | Communication Note ---
Date of Service: June 14, 2023 Patient was referred and underwent dobutamine stress echocardiogram Patient tolerated procedure well achieving greater than 90% age-predicted maximal heart rate. There is no evidence of ischemia by EKG or echocardiogram with hyperdynamic LV function and stress and no wall motion abnormalities. Recommendations: Continue current medical regimen. Outpatient follow-up with cardiology 4 to 6 weeks to assess additional treatment of lipids
--- NOTE | 2023-06-14 14:06 | Discharge Summary ---
Date of Service June 14, 2023 Admission HPI Per Admitting Provider 72-year-old female presents with intermittent left chest pain radiating into her left jaw. During ER visit reported left facial numbness. NIH 0. No neurologic symptoms noted. ECG nonspecific changes when compared to ECG 2018. Past medical history includes diabetes mellitus type 2, HTN, HLD, CKD, GERD, and asthma. Patient noted to have thyroid nodules and thyroid ultrasound performed 05/24/2023 with FNA recommendation. Dobutamine stress echo performed 12/2018 with LV wall normal; LV normal size with normal thickness and EF 65 to 70% no cardiac catheterization has been performed in her history. Pt indicated that she had been bitten by 'noseeum' bugs on Monday and reported a harsh reaction with severe itching and burning. This has resolved but she does have a few remaining bites. Initial troponin 4.3 then 7.4; will trend. No leukocytosis or other lab abnormalities. Chest x-ray negative for acute cardiopulmonary disease. Head CT negative. Last LDL 06/12/2023 124. Side effects previously with statins but would be willing to trial Crestor weekly or willing to see cardiology for injectable medication for hypercholesterolemia. Patient denies headache, dizziness, current chest pain, shortness of breath, abdominal pain or tenderness, visual or auditory changes, changes with urine or bowel, recent falls or trauma. Patient denies tobacco, alcohol, or recreational drug use. Pt sitting upright in her hospital bed in no apparent distress and is able to answer all questions appropriately. NIH 0. Patient's heart score is 4 and is a moderate risk for having a cardiac event. Do not suspect ACS at this time. Does report snoring. May benefit from a sleep study as an outpatient. Will continue to trend troponin no need for echo currently and will hold on cardiology consultation at this point. We will check TSH, Lyme and anaplasmosis. Recommend starting Crestor as an outpatient or Zetia. Patient will be admitted for further evaluation and management. Please see A/P for further details Admission Exam Per Admitting Provider Neuro: AAOx4, PERRLA, no aphagia, memory changes, CNII-XII grossly intact HEENT: head normocephalic, moist mucus membranes CV: S1/S2, (-) M/G/R, (-) edema, cap refill < 3 seconds Resp: Lungs CTA in all trinh. On RA GI: Abdomen S/NT/ND, Ax4 bowel sounds, (-) CVA tenderness Musculoskeletal: 5/5 B/L UE strength, 5/5 B/L LE strength. No gait disturbance Skin: (+) rashes, a few noseum bites interior bilateral arms , (-) erythema. Psych: euthymic mood Principal Diagnosis Atypical chest pain, ACS rule out. Discharge Exam Constitutional: WD/WN, vitals as above, NAD, sitting up in bed, pleasant, conversing easily Respiratory: normal respiratory effort, lungs clear to auscultation, no wheeze, rales, rhonchi. Normal insp/exp effort, no accessory muscle use Cardiovascular: RRR, no murmur, no edema Vessels: no JVD or carotid bruit Chest: normal inspection of chest Abdomen: normal bowel sounds, soft, nontender, no hepatosplenomegaly Musculoskeletal: no cyanosis or clubbing, extremities motor strength 5/5 Skin: no rashes, warm and dry normal turgor Neurologic: PERRL, EOMI, accommodation nl, no face palsy, no dysarthria CN's II- XI intact bilaterally and moves all extremities Psychiatric: A+Ox3, euthymic affect Discharge Data Allergies Allergy/AdvReac Type Severity Reaction Status Date / Time erythromycin base Allergy Intermediate GI ISSUES Unverified 10/01/21 13:59 atorvastatin Allergy Unknown EDEMA Unverified 10/01/21 13:59 Bactrim Allergy Unknown SPINNING/VE Unverified 03/02/20 12:28 RTIGO/RASH estrogens, conjugated Allergy Unknown SWELLING/SKIN Unverified 10/01/21 13:59 FLAKES latanoprost Allergy Unknown RASH Unverified 10/01/21 13:59 lisinopril Allergy Unknown COUGH Unverified 10/01/21 13:59 medroxyprogesterone Allergy Unknown SWELLING/SKIN Unverified 10/01/21 13:59 FLAKES rosuvastatin Allergy Unknown EDEMA Unverified 10/01/21 13:59 sulfamethoxazole Allergy Unknown SPINNING/VE Unverified 10/01/21 13:59 RTIGO/RASH trimethoprim Allergy Unknown SPINNING/VE Unverified 10/01/21 13:59 RTIGO/RASH clopidogrel [From Plavix] Allergy Difficulty Unverified 10/01/21 13:59 Breathing Consultations 06/13/23 11:07 ED Decision to Admit Stat 06/14/23 09:15 Consult Cardiology Routine Ordered Studies 06/13/23 08:14 CT head/brain wo con Stat Hospital Course (1) Chest pain: (2) Diabetes mellitus, type II: (3) Hypertension: (4) HLD (hyperlipidemia): (5) Asthma: (6) GERD (gastroesophageal reflux disease): Plan 72-year-old presents with intermittent left chest pain radiating into her left jaw. During ER visit reported left facial numbness. NIH 0. No neurologic symptoms noted. ECG nonspecific changes when compared to ECG 2019. Past medical history includes diabetes mellitus type 2, HTN, HLD, CKD, GERD, and asthma. Chest x-ray was done which did not show any acute finding. High sensitive troponin was negative X2. Cardiology was consulted for dobutamine stress echo. No cardiac symptoms initiated. The stress EKG response was normal. Patient chest pain had resolved and did not occur during the hospitalization. Amlodipine 2.5 mg at this was added for better blood pressure control. Patient was discharged home with instruction to follow-up with PCP and cardiology. Discussion was done with the patient regarding addition of statin in the future. Please note the above document was generated using voice recognition software. It may contain grammatical, syntax or spelling errors. Any formal questions or concerns about the content, text or information contained within the body of this dictation should be directly addressed to the provider for clarification Total Time Total Time Spent Total Time Spent (In Minutes): 45 Total Time Includes: Examination of the Patient, Discharge Planning, Medication Reconciliation, Communication With Other Providers and Other Discharge Plan Discharge Items Patient Disposition: Home - Self-Care Reason For Visit: CHEST PAIN Discharge Diagnosis: Atypical chest pain, ACS ruled out Activity: Resume your previous activity Non-emergency contact: Primary Care Provider Call non-emergency contact if: you have any medication questions and your symptoms worsen Follow-up/Referrals: Abdullahi Sinha MD [Physician] - (The Cardiology office will contact you with a follow up appointment.) Eloisa Angel DO [Primary Care Provider] - (Date & Time 06/16/2023 9:00 AM Provider Scotty Stevens MD [facility] ) Diet: Regular Addtl Attending Provider Instructions: You were admitted to the hospital due to chest pain. You are evaluated by cardiology and underwent stress test. The stress test was normal. Cardiology recommended addition of amlodipine 2.5 mg to be taken at night for blood pressure control. Please take your other medication as before. An appointment will be set up with your primary care doctor for sometime next week. Pending Studies at Discharge: No Stand-Alone Forms: My [facility], Smoking Cessation Medications and DC Order Prescriptions: New amlodipine [Norvasc] 5 mg Tablet 2.5 mg PO HS Qty: 30 0RF Continued ipratropium-albuterol 0.5 mg-3 mg(2.5 mg base)/3 mL Solution For Nebulization 3 ml INHALATION Q6 PRN (Reason: Wheezing) albuterol sulfate 1.25 mg/3 mL Solution For Nebulization 3 ml INHALATION Q4 PRN (Reason: Wheezing) sucralfate 1 gram Tablet 1 g PO QID Rx Instructions: before meals pantoprazole [Protonix] 20 mg Tablet,Delayed Release (Dr/Ec) 20 mg PO BID Flovent Diskus 100 mcg/actuation Blister With Device 1 inh INHALATION BID PRN (Reason: Shortness Of Breath) montelukast [Singulair] 10 mg Tablet 10 mg PO HS albuterol sulfate [ProAir HFA] 90 mcg/actuation Hfa Aerosol Inhaler 2 puff INHALATION Q6H PRN (Reason: asthma) losartan 100 mg Tablet 100 mg PO QAM atenolol 50 mg Tablet 50 mg PO HS cholecalciferol (vitamin D3) [Vitamin D3] 1,000 unit Capsule 1,000 unit PO QAM Probiotic and Acidophilus 300-250 million cell-mg Capsule 1 cap PO HS cyanocobalamin (vitamin B-12) [Vitamin B-12] 1,000 mcg Tablet 500 mcg PO QAM melatonin 3 mg Tablet 3 mg PO HS PRN (Reason: Insomnia) magnesium 200 mg Tablet 100 mg PO DAILY aspirin 81 mg tablet,delayed release (DR/EC) 81 mg PO BID Rx Instructions: Take 162 mg aspirin daily for 19 more days [from 10/01/2021] and then 81 mg aspirin daily. ondansetron 4 mg tablet,disintegrating 4 mg PO Q8H PRN (Reason: nausea and vomiting) Qty: 10 0RF Discharge Orders: Discharge Order (Routine); Ordered 06/14/23 Ordered By: Dereje Devkota Admission Data Admit Date/Time: 06/13/23 11:39 Attending Provider: Dereje Olivares Admit Provider: Haider Gifford Primary Care Provider: Eloisa Angel Other Providers: Haider Gifford ; Sue Shah ; David Bar ; Abdullahi Sinha ; Christopher Angel ; Marquise Peraza ; Jean Paul Chavez ; Liv Nielson ; Taina Parikh ; Sue Ewing ; Lázaro Bradshaw ; Jett Cristina ; Lor Delong ; Marissa Hill ; Aaron Crandall Other Interventions: Discharge Summary Assessment (RN) Last Done: 06/14/23 13:26
--- NOTE | 2023-06-14 14:13 | Communication Note ---
Date of Service: June 14, 2023 By CMS guidelines, a determination that the admission or continued stay is not medically necessary has been made by a member of the UR committee and michael clements for this hospital stay, therefore a Code 44 will be completed and the Inpatient admission will be changed to outpatient.
--- NOTE | 2023-06-14 16:14 | Electrocardiogram Report ---
Test Reason : Blood Pressure : / mmHG Vent. Rate : 067 BPM Atrial Rate : 067 BPM P-R Int : 138 ms QRS Dur : 066 ms QT Int : 390 ms P-R-T Axes : 041 -03 026 degrees QTc Int : 412 ms Normal sinus rhythm Septal infarct (cited on or before 13-JUN-2023) Abnormal ECG When compared with ECG of 13-JUN-2023 07:37, Questionable change in initial forces of Anteroseptal leads Confirmed by Kwabena Esteban ([id number]) on 06/14/2023 4:14:24 PM Referred By: REFERRED SELF Confirmed By:Kwabena Esteban
--- NOTE | 2023-06-14 16:24 | Electrocardiogram Report ---
Test Reason : Blood Pressure : / mmHG Vent. Rate : 061 BPM Atrial Rate : 061 BPM P-R Int : 134 ms QRS Dur : 076 ms QT Int : 430 ms P-R-T Axes : 053 016 015 degrees QTc Int : 432 ms Normal sinus rhythm Low voltage QRS Borderline ECG When compared with ECG of 14-JUN-2023 05:01, (unconfirmed) No significant change was found Confirmed by Kwabena Esteban ([id number]) on 06/14/2023 4:24:18 PM Referred By: REFERRED SELF Confirmed By:Kwabena Esteban
[2023-06-14] MEDS ORDERED: amLODIPine BESYLATE 5 MG TAB PO SCH (21:00)
== END 2023-06-14 14:13 | disposition home or self-care (01) ==
LOC: ED 06:42 → SUATTDRO 11:39 → INTOOBSV 11:39 → EDINP 11:39 → 2E 14:12

== ENCOUNTER 2024-09-25 15:49 | Inpatient (IN) ==
[2024-09-25 15:54] VITALS: TEMP 98.2
[2024-09-25 16:17] LABS: Basophils # (auto) 0.05 K/uL (0.00-0.20); Basophils % (auto) 0.5 %; Eosinophils # (auto) 0.38 K/uL (0.00-0.50); Eosinophils % (auto) 4.1 %; Hematocrit (blood only) 48.3 % (37.0-47.0); Hemoglobin 16.2 g/dl (12.0-16.0); Immature Granulocytes # (auto) 0.03 K/uL (0.01-0.20); Immature Granulocytes % (auto) 0.3 %; Lymphocytes # (auto) 3.39 K/uL (1.20-3.40); Lymphocytes % (auto) 36.3 %; Mean Corpuscular Hemoglobin 32.2 pg (25.0-34.0); Mean Corpuscular Hgb Conc 33.5 g/dL (32.0-36.0); Mean Platelet Volume 9.9 fL (9.4-12.4); Monocytes # (auto) 0.77 K/uL (0.11-0.59); Monocytes % (auto) 8.3 %; Neutrophils # (auto) 4.71 K/uL (1.40-6.50); Neutrophils % (auto) 50.5 %; Platelet Count 242 K/uL (130-400); RDW Coefficient of Variation 12.4 % (11.5-14.5); RDW Standard Deviation 43.8 fL (36.4-46.3); Red Blood Count 5.03 M/uL (4.20-5.40); White Blood Count 9.33 K/ul (4.8-10.8)
--- NOTE | 2024-09-25 16:25 | XRay Report ---
Clinical History: Chest pain Technique: A frontal view of the chest was obtained Comparison is made to the prior examinations dated 12/09/2023 and 10/01/2021 Findings: There are no confluent pulmonary infiltrates. The heart size is within normal limits. No pleural effusion or pneumothorax is seen. There is an unchanged left lower lobe nodule No fracture is noted. There is thoracic and lumbar scoliosis and degenerative disc disease Impression: 1. Unchanged left lower lobe nodule, benign given the stability for 3 years 2. No definite acute process Electronically signed by Isaiah Martin 09-25-2024 4:25 PM
[2024-09-25 16:27] LABS: Albumin Globulin Ratio 1.2 (0.9-2); Albumin Level 4.3 gm/dl (3.4-5.0); BUN Creatinine Ratio 25.7 (10-20); Bilirubin,Total 0.5 mg/dl (0.2-1.0); Calcium 9.6 mg/dl (8.6-10.3); Creatinine Clr Calc Pharmacy 45.5 ml/min; Globulin 3.7 gm/dl (2.5-4.0); Potassium 3.8 mmol/L (3.5-5.1)
[2024-09-25 16:32] LABS: Troponin I High Sensitivity 5.6 pg/ml (0-14)
[2024-09-25 16:37] LABS: INR 0.9 (0.9-1.1); Partial Thromboplastin Time 27 Seconds (21-31)
--- NOTE | 2024-09-25 18:46 | Emergency Department Note ---
Impression & Plan Chest pain, Hyperglycemia ED Provider Note NAME: CASTILLO DIAZ AGE: 73 SEX: F : 1950 ARRIVES VIA: Walk-In INFORMANT: Patient ED PROVIDER(S): Taj Nolasco DO CHIEF COMPLAINT: Chest pain HPI: Patient is a 73-year-old female with a past medical history of a TIA, diabetes, hypertension, hyperlipidemia and asthma who presents to the ER for left-sided chest pain which she describes as a pressure. She notes she gets bilateral arm pain with it and shortness of breath. It has been coming going for a week and a half. Has been getting worse. She denies any belly pain, nausea, vomiting, or diarrhea. No dysuria, urgency, or frequency. No other exacerbating or remitting factors. She notes it started today around 2 and did go away and now started back up again. She does not think it is related to exertion but she notes it so variable. ADDITIONAL HISTORY OBTAINED: Per HPI Chronic Medical/Social Conditions Affecting Care: Per HPI PAST MEDICAL HISTORY:See Below PAST SURGICAL HISTORY:See Below FAMILY HISTORY:See Below SOCIAL HISTORY:See Below HOME MEDICATIONS:See Below ALLERGIES:See Below VITALS:See Below PHYSICAL EXAMINATION: GENERAL: Sitting up in bed, alert, well appearing, well nourished, no distress, non-toxic EYE EXAM: normal conjunctiva. OROPHARYNX: mucous membranes are moist NECK: supple, no nuchal rigidity, no adenopathy, non-tender LUNGS: Clear to auscultation. Normal chest wall mechanics HEART: no murmurs, S1 normal and S2 normal ABDOMEN: abdomen soft, non-tender, normo-active bowel sounds, no masses, no rebound or guarding. UPPER EXTREMITIES: upper extremities are grossly normal. LOWER EXTREMITIES: No pitting edema. Calves are equal bilateral NEURO EXAM: Normal sensorium, cranial nerves II-XII grossly intact, normal speech, no gross weakness of arms, no gross weakness of legs. MEDICAL DECISION MAKING: Patient is a 73-year-old female with past medical history as described above who presents to the ER for chest pain. IV was established blood work was obtained. Labs showed no significant leukocytosis or anemia. INR unremarkable. BMP with slightly elevated glucose. LFTs and bilirubin were unremarkable. Troponin was negative. Chest x-ray clean. EKG nondiagnostic. She was given aspirin nitro. Updated bedside discussed case with the hospitalist as she was moderate risk from heart score. Consults/Care Managements Discussions: Per MDM Triage Nursing notes reviewed. Limited review of prior medical records performed Vital Signs: reviewed and remarkable for HTN Differential diagnosis: Cardiac ischemia, aortic dissection, pulmonary embolism, pneumothorax, pneumonia, pericarditis, myocarditis, esophageal rupture, GERD, cholecystitis, pancreatitis, musculoskeletal, as well as other pathologies. ER treatment provided: See below Diagnostics interpreted by me include EKG and cardiac monitoring as listed below: -Cardiac Monitoring: An order was placed for continuous cardiac monitoring. The monitor shows a rate of 70 with sinus rhythm. -ECG: Sinus rhythm rate of 61 Normal axis No PVCs QTc 418 -Laboratory studies:Interpreted by me as stated above in MDM and shown below. Imaging studies: Xrays: As interpreted by me: Portable AP upright 1 view of the chest shows no focal Lutrate CTs show: none Procedures:none Critical Care: None Past Med/Surg History Problem List (Updated 09/25/24 @ 23:35 by Taj Nolasco DO) Hyperglycemia (Acute) Chest pain (Acute) Chest discomfort Left sided numbness (Acute) TIA (transient ischemic attack) DVT prophylaxis Paresthesia Diabetes mellitus, type II (Chronic) H/O hernia repair (Chronic) Seasonal allergic rhinitis (Chronic) Glaucoma (Chronic) Obesity (BMI 30.0-34.9) (Chronic) HLD (hyperlipidemia) (Chronic) GERD (gastroesophageal reflux disease) (Chronic) Hypertension (Chronic) Asthma (Chronic) Medical History Chest pain Diabetes mellitus, type II Seasonal allergic rhinitis Herpes zoster Glaucoma Obesity (BMI 30.0-34.9) HLD (hyperlipidemia) Asthma Hypertension GERD (gastroesophageal reflux disease) Surgical History H/O hernia repair History of eye surgery Family History Other Alzheimer disease Lung cancer Social History Smoking Status: Never smoker Second Hand Exposure: No; Do You Dip or Chew Tobacco: No; Hx Alcohol Use: Yes Alcohol type: wine Hx Substance Use: No Preferred Language: Turkmen Communication Ability: Effective Electronic Equipment Repairer Required: No Beliefs That Will Affect Care: None marital status: Current Living Situation: Spouse How many Children do You have: 2 Feels Safe at Home: Yes Assistive Devices: Glasses Allergies Allergies Allergy/AdvReac Type Severity Reaction Status Date / Time atorvastatin Allergy Severe EDEMA Verified 12/09/23 15:51 FACE/LIPS/TONGUE brimonidine [From Combigan] Allergy Severe EDEMA Verified 12/09/23 15:51 FACE/LIPS/TONGUE clopidogrel [From Plavix] Allergy Severe Difficulty Verified 12/09/23 15:51 Breathing estrogens, conjugated Allergy Severe EDEMA Verified 12/09/23 15:51 FACE/LIPS/TONGUE medroxyprogesterone Allergy Severe EDEMA Verified 12/09/23 15:51 FACE/LIPS/TONGUE rosuvastatin Allergy Severe EDEMA Verified 12/09/23 15:51 FACE/LIPS/TONGUE timolol [From Combigan] Allergy Severe EDEMA Verified 12/09/23 15:51 FACE/LIPS/TONGUE erythromycin base Allergy Intermediate GI ISSUES Unverified 10/01/21 13:59 house dust Allergy Intermediate SNEEZING, Verified 12/09/23 15:51 CONGESTION latanoprost Allergy Intermediate RASH Verified 12/09/23 15:51 dorzolamide Allergy Unknown ON GMG MED Verified 12/09/23 15:51 LIST travoprost [From Travatan Z] Allergy Unknown ON [facility]G MED Verified 12/09/23 15:51 LIST amlodipine AdvReac Severe EDEMA OF Verified 12/09/23 16:29 BILATERAL LEGS/FEET & GUMS lisinopril AdvReac Intermediate COUGH Verified 12/09/23 15:51 metformin AdvReac Intermediate DECREASED Verified 12/09/23 15:51 B12 LEVELS sulfamethoxazole AdvReac Unknown SPINNING/VE Verified 12/09/23 15:51 RTIGO/RASH/ FLUSHING trimethoprim AdvReac Unknown SPINNING/VE Verified 12/09/23 15:51 RTIGO/RASH/ FLUSHING Home Meds Home Medications Medication Instructions Recorded Confirmed Lactobacillus comb 1 cap PO HS 12/06/18 09/25/24 no.[id number] 300 million cell-250 mg capsule (Probiotic and Acidophilus) albuterol sulfate 1.25 mg/3 mL 3 ml inhalation Q4H PRN Wheezing 12/06/18 09/25/24 solution for nebulization albuterol sulfate 90 mcg/actuation 2 puff inhalation Q6H PRN asthma 12/06/18 09/25/24 aerosol inhaler (ProAir HFA) atenolol 50 mg tablet 50 mg PO QAM 12/06/18 09/25/24 cholecalciferol (vitamin D3) 25 1,000 unit PO QAM 12/06/18 09/25/24 mcg (1,000 unit) capsule (Vitamin D3) losartan 100 mg tablet 100 mg PO QAM 12/06/18 09/25/24 montelukast 10 mg tablet 10 mg PO QAM 12/06/18 09/25/24 (Singulair) pantoprazole 20 mg tablet,delayed 20 mg PO BID 12/06/18 09/25/24 release (Protonix) sucralfate 1 gram tablet 1 g PO ACHS 12/06/18 09/25/24 aspirin 81 mg tablet,delayed 81 mg PO QAM 10/01/21 09/25/24 release ascorbic acid (vitamin C) 250 mg 250 mg DAILY 12/09/23 09/25/24 tablet (Vitamin C) cyanocobalamin (vitamin B-12) 250 500 mcg PO DAILY 12/09/23 09/25/24 mcg tablet (Vitamin B-12) empagliflozin 25 mg tablet 25 mg PO QAM 12/09/23 09/25/24 (Jardiance) magnesium citrate 100 mg tablet 100 mg PO HS 12/09/23 09/25/24 multivitamin 1 tab PO DAILY 12/09/23 09/25/24 spironolactone 25 mg tablet 25 mg PO DAILY 09/25/24 09/25/24 Results & Data (ED) Vital Signs Vital Signs - 24 hr 09/25/24 15:51 09/25/24 18:48 09/25/24 18:50 Temperature 36.8 C Temperature Source Temporal Artery Scan Pulse Rate 73 71 Pulse Rate [Left Apical] 54 L Pulse Rhythm Regular Pulse Strength Normal Respiratory Rate 18 16 Respiratory Effort / Characteristics Non-Labored Spontaneous Non-Labored Spontaneous Respiratory Depth Normal Normal Respiratory Pattern Regular Blood Pressure 174/72 H Blood Pressure [Left Arm] 161/55 H Blood Pressure Mean 106 Blood Pressure Mean [Left Arm] 90 Blood Pressure Position Sitting Pulse Oximetry 96 100 Oxygen Delivery Method Room Air Room Air Sepsis Recent Fever Within 48 Hours No Sepsis New/Unexplained Change in Mental Status N/A Sepsis Action Taken by Nursing No Action Required 09/25/24 19:00 09/25/24 19:09 09/25/24 19:12 Temperature Temperature Source Pulse Rate 56 L 57 L Pulse Rate [Left Apical] Pulse Rhythm Pulse Strength Respiratory Rate 13 14 Respiratory Effort / Characteristics Respiratory Depth Respiratory Pattern Blood Pressure 148/69 H Blood Pressure [Left Arm] Blood Pressure Mean 76 Blood Pressure Mean [Left Arm] Blood Pressure Position Pulse Oximetry Oxygen Delivery Method Sepsis Recent Fever Within 48 Hours Sepsis New/Unexplained Change in Mental Status Sepsis Action Taken by Nursing 09/25/24 19:21 09/25/24 19:39 Temperature Temperature Source Pulse Rate 57 L 65 Pulse Rate [Left Apical] Pulse Rhythm Pulse Strength Respiratory Rate 17 20 Respiratory Effort / Characteristics Respiratory Depth Respiratory Pattern Blood Pressure Blood Pressure [Left Arm] Blood Pressure Mean Blood Pressure Mean [Left Arm] Blood Pressure Position Pulse Oximetry Oxygen Delivery Method Sepsis Recent Fever Within 48 Hours Sepsis New/Unexplained Change in Mental Status Sepsis Action Taken by Nursing Laboratory Data 09/25/24 15:55 09/25/24 15:55 Lab Results 09/25/24 Range/Units 15:55 WBC 9.33 (4.8-10.8) K/ul RBC 5.03 (4.20-5.40) M/uL Hgb 16.2 H (12.0-16.0) g/dl Hct 48.3 H (37.0-47.0) % MCV 96.0 (80.0-100.0) fL MCH 32.2 (25.0-34.0) pg MCHC 33.5 (32.0-36.0) g/dL RDW Std Deviation 43.8 (36.4-46.3) fL RDW Coeff of Tobin 12.4 (11.5-14.5) % Plt Count 242 (130-400) K/uL MPV 9.9 (9.4-12.4) fL Immature Gran % (Auto) 0.3 % Neut % (Auto) 50.5 % Lymph % (Auto) 36.3 % [place] % (Auto) 8.3 % Eos % (Auto) 4.1 % Baso % (Auto) 0.5 % Neut # (Auto) 4.71 (1.40-6.50) K/uL Lymph # (Auto) 3.39 (1.20-3.40) K/uL [place] # (Auto) 0.77 H (0.11-0.59) K/uL Eos # (Auto) 0.38 (0.00-0.50) K/uL Baso # (Auto) 0.05 (0.00-0.20) K/uL Immature Gran # (Auto) 0.03 (0.01-0.20) K/uL PT 10.0 (9.0-12.0) Seconds INR 0.9 (0.9-1.1) APTT 27 (21-31) Seconds PTT Ratio 1.0 Sodium 137 (136-145) mmol/L Potassium 3.8 (3.5-5.1) mmol/L Chloride 101 (98-107) mmol/L Carbon Dioxide 28 (21-32) mmol/L Anion Gap 8 (3-11) BUN 26 H (6-23) mg/dl Creatinine 1.01 (0.6-1.2) mg/dl Est Cr Clr Drug Dosing 45.5 ml/min eGFR 58.05 BUN/Creatinine Ratio 25.7 H (10-20) Glucose 166 H (70-99(Fasting)) mg/dl Calcium 9.6 (8.6-10.3) mg/dl Total Bilirubin 0.5 (0.2-1.0) mg/dl AST 21 (13-39) U/L ALT 17 (7-52) U/L Alkaline Phosphatase 90 (34-104) U/L Troponin I High Sens 5.6 (0-14) pg/ml Total Protein 8.0 (6.0-8.3) gm/dl Albumin 4.3 (3.4-5.0) gm/dl Globulin 3.7 (2.5-4.0) gm/dl Albumin/Globulin Ratio 1.2 (0.9-2) Administered Medications Heparin Sodium (Porcine) (Heparin Sod 5,000 Unit/0.5 Ml Vial) 5,000 units SQ Q8 DEVON Stop: 10/25/24 21:59 Last Admin: 09/25/24 23:20 Dose: 5,000 units Documented By: FRANK Insulin Aspart (Insulin Aspart Per Unit Charge) 0 units SC ACHS DEVON Stop: 10/25/24 20:59 Last Admin: 09/25/24 22:09 Dose: 3 units Documented By: CHERRY Co-signed By: [facility] Lactobacillus Acidophilus (Advanced Probiotic 625 Mg Capsule) 1,250 mg PO DAILY DEVON Stop: 10/25/24 19:59 Last Admin: 09/25/24 21:16 Dose: 1,250 mg Documented By: SONIYA Magnesium Chloride (Magnesium Chloride W/Calcium 64mg Delayed Rel Tab) 64 mg PO HS DEVON Stop: 10/25/24 23:14 Last Admin: 09/25/24 23:20 Dose: 64 mg Documented By: SONIYA Sucralfate (Sucralfate 1 Gm Tab) 1 gm PO ACHS DEVON Stop: 10/25/24 21:38 Last Admin: 09/25/24 23:19 Dose: Not Given Documented By: FRANK Discontinued Medications Aspirin (Aspirin Chew 324 Mg) 324 mg PO NOW STA Stop: 09/25/24 18:44 Last Admin: 09/25/24 18:54 Dose: 324 mg Documented By: FRANK Magnesium Oxide (Magnesium Oxide 400 Mg Tab) 400 mg PO QAM DEVON Stop: 10/25/24 19:59 Last Admin: 09/25/24 21:17 Dose: 400 mg Documented By: SONIYA Nitroglycerin (Nitroglycerin Sl 0.4 Mg/Tab Tab) 0.4 mg SL NOW STA Stop: 09/25/24 18:44 Last Admin: 09/25/24 18:55 Dose: 0.4 mg Documented By: FRANK Pantoprazole Sodium (Pantoprazole 40 Mg Tab) 40 mg PO NOW STA Stop: 09/25/24 19:56 Last Admin: 09/25/24 21:16 Dose: 40 mg Documented By: FRANK Imaging Data Radiologist's Impression: Chest X-Ray 09/25/24 15:54 Clinical History: Chest pain Technique: A frontal view of the chest was obtained Comparison is made to the prior examinations dated 12/09/2023 and 10/01/2021 Findings: There are no confluent pulmonary infiltrates. The heart size is within normal limits. No pleural effusion or pneumothorax is seen. There is an unchanged left lower lobe nodule No fracture is noted. There is thoracic and lumbar scoliosis and degenerative disc disease Impression: 1. Unchanged left lower lobe nodule, benign given the stability for 3 years 2. No definite acute process Electronically signed by Isaiah Martin 09-25-2024 4:25 PM Discharge Plan Visit Data Chief Complaint: Chest Pain Stated Complaint: CHEST PAIN ED Provider: Taj Nolasco Discharge Problem: Chest pain, Hyperglycemia Discharge Instructions Interventions: ED Discharge Assessment Last Done: 09/25/24 21:40 Discharge Problem: Chest pain Qualifiers: Chest pain type: unspecified Qualified Code(s): R07.9 - Chest pain, unspecified
[2024-09-25] MEDS: ASPIRIN CHEW 324 MG PO STA (18:54)
[2024-09-25] MEDS: NITROGLYCERIN SL 0.4 MG/TAB TAB SL STA (18:55)
[2024-09-25] MEDS ORDERED: GLUCOSE 10 TAB/TUBE PO PRN (19:50)
[2024-09-25] MEDS ORDERED: CARBOHYDRATES FOR HYPOGLYCEMIA PO PRN (19:50)
[2024-09-25] MEDS ORDERED: GLUCOSE 40% GEL 15 GM TUBE PO PRN (19:50)
[2024-09-25] MEDS ORDERED: MAGNESIUM HYDROXIDE SUSP 30 ML UDC PO PRN (19:50)
[2024-09-25] MEDS ORDERED: ACETAMINOPHEN 325 MG TAB PO PRN (19:50)
[2024-09-25] MEDS ORDERED: POLYETHYLENE (MIRALAX) 17 GM PACK PO PRN (19:50)
[2024-09-25] MEDS ORDERED: GLUCAGON FOR INJ 1 MG VIAL SQ PRN (19:50)
[2024-09-25] MEDS ORDERED: NITROGLYCERIN SL 0.4 MG/TAB TAB SL PRN (19:50)
[2024-09-25] MEDS ORDERED: DEXTROSE 50% 50 ML SYRINGE IV PRN (19:50)
--- NOTE | 2024-09-25 20:04 | History & Physical Report ---
Date of Service September 25, 2024 Assessment & Plan (1) Chest discomfort: Plan: Past medical history of type 2 diabetes mellitus, dyslipidemia, mild intermittent asthma, hypertension, GERD, CKD stage IIIa, glaucoma presents to the hospital with chest discomfort. Atypical Chest pain Patient presents with epigastric/lower chest discomfort with associated discomfort on her left jaw and arm. Nonexertional Last dobutamine stress echo was in June 2023; achieving greater than 90% age-predicted maximal heart rate with no evidence of ischemia by EKG or echocardiogram with hyperdynamic LV function and stress and no wall motion abnormalities. EKG on admission shows normal sinus rhythm; no significant ST changes. High since troponin negative on admission Patient present with atypical chest discomfort; has multiple risk factor inc luding untreated Dyslipidemia intolerant to statin, zetia), type 2 diabetes mellitus, hypertension; will obtain cardiology consult for work-up. Hold atenolol for anticipation of possible stress test in a.m. N.p.o. from midnight. Increase dose of Protonix to 40 mg twice daily from 20mg twice daily as discomfort could be GERD related, continue on aspirin, atenolol and losartan Continue telemonitoring EKG in a.m. repeat high sen troponin Lipid panel in am Chronic conditions; Hypertensioncontinue on losartan, spironolactone. Hold atenolol for now Type 2 diabetes mellitusrecent A1c of 6.8%; insulin while inpatient GERD-increase Protonix to 40 mg twice daily, continue sucralfate. Asthmanot on exacerbation; albuterol as needed. Continue montelukast Full code DVT prophylaxis heparin Time spent evaluating patient, direct bedside care, chart review, placing orders, interpretation of diagnostic studies, discussion with consultants, patient, and family members, as well as other required patient management activities is 75 minutes Please note the above document was generated using voice recognition software. It may contain grammatical, syntax or spelling errors. Any formal questions or concerns about the content, text or information contained within the body of this dictation should be directly addressed to the provider for clarification History of Present Illness Chief Complaint: Chest discomfort Primary Care Provider: Eloisa Angel DO History obtained from interview with the patient and chart review. Past medical history of type 2 diabetes mellitus, dyslipidemia, mild intermittent asthma, hypertension, GERD, CKD stage IIIa, glaucoma presents to the hospital with chest discomfort. Patient reports that she is having lower chest discomfort/epigastric discomfort since last 2 weeks intermittently. She also reports some discomfort on her left jaw and her left arm along with the chest discomfort. The chest discomfort does not happen on exertion; is intermittent in nature. It is not associated with shortness of breath, diaphoresis, dizziness or palpitation. Patient recently seen by her primary care doctor on 09/23/2023 for high blood pressure. Patient was previously on losartan, atenolol; started on spironolactone 25 mg once a day. History of poor tolerance of chlorthalidone, lisinopril, amlodipine. Last A1c 6.8 in 09/2024 Patient also has history of dyslipidemia; tried Lipitor, Crestor, Zetia in the past without good tolerance. Not on any treatment for hyperlipidemia at this time. Last admission in June 2023 with chest pain. Patient had undergone dobutamine stress echo achieving greater than 90% age-predicted maximal heart rate with no evidence of ischemia by EKG or echocardiogram with hyperdynamic LV function and stress and no wall motion abnormalities. Allergies Allergy/AdvReac Type Severity Reaction Status Date / Time atorvastatin Allergy Severe EDEMA Verified 12/09/23 15:51 FACE/LIPS/TONGUE brimonidine [From Combigan] Allergy Severe EDEMA Verified 12/09/23 15:51 FACE/LIPS/TONGUE clopidogrel [From Plavix] Allergy Severe Difficulty Verified 12/09/23 15:51 Breathing estrogens, conjugated Allergy Severe EDEMA Verified 12/09/23 15:51 FACE/LIPS/TONGUE medroxyprogesterone Allergy Severe EDEMA Verified 12/09/23 15:51 FACE/LIPS/TONGUE rosuvastatin Allergy Severe EDEMA Verified 12/09/23 15:51 FACE/LIPS/TONGUE timolol [From Combigan] Allergy Severe EDEMA Verified 12/09/23 15:51 FACE/LIPS/TONGUE erythromycin base Allergy Intermediate GI ISSUES Unverified 10/01/21 13:59 house dust Allergy Intermediate SNEEZING, Verified 12/09/23 15:51 CONGESTION latanoprost Allergy Intermediate RASH Verified 12/09/23 15:51 dorzolamide Allergy Unknown ON GMG MED Verified 12/09/23 15:51 LIST travoprost [From Travatan Z] Allergy Unknown ON [facility]G MED Verified 12/09/23 15:51 LIST amlodipine AdvReac Severe EDEMA OF Verified 12/09/23 16:29 BILATERAL LEGS/FEET & GUMS lisinopril AdvReac Intermediate COUGH Verified 12/09/23 15:51 metformin AdvReac Intermediate DECREASED Verified 12/09/23 15:51 B12 LEVELS sulfamethoxazole AdvReac Unknown SPINNING/VE Verified 12/09/23 15:51 RTIGO/RASH/ FLUSHING trimethoprim AdvReac Unknown SPINNING/VE Verified 12/09/23 15:51 RTIGO/RASH/ FLUSHING Home Medications Medication Instructions Recorded Confirmed Type Lactobacillus comb 1 cap PO HS 12/06/18 09/25/24 History no.[id number] 300 million cell-250 mg capsule (Probiotic and Acidophilus) albuterol sulfate 1.25 mg/3 mL 3 ml inhalation Q4H PRN Wheezing 12/06/18 09/25/24 History solution for nebulization albuterol sulfate 90 mcg/actuation 2 puff inhalation Q6H PRN asthma 12/06/18 09/25/24 History aerosol inhaler (ProAir HFA) atenolol 50 mg tablet 50 mg PO QAM 12/06/18 09/25/24 History cholecalciferol (vitamin D3) 25 1,000 unit PO QAM 12/06/18 09/25/24 History mcg (1,000 unit) capsule (Vitamin D3) losartan 100 mg tablet 100 mg PO QAM 12/06/18 09/25/24 History montelukast 10 mg tablet 10 mg PO QAM 12/06/18 09/25/24 History (Singulair) pantoprazole 20 mg tablet,delayed 20 mg PO BID 12/06/18 09/25/24 History release (Protonix) sucralfate 1 gram tablet 1 g PO ACHS 12/06/18 09/25/24 History aspirin 81 mg tablet,delayed 81 mg PO QAM 10/01/21 09/25/24 History release ascorbic acid (vitamin C) 250 mg 250 mg DAILY 12/09/23 09/25/24 History tablet (Vitamin C) cyanocobalamin (vitamin B-12) 250 500 mcg PO DAILY 12/09/23 09/25/24 History mcg tablet (Vitamin B-12) empagliflozin 25 mg tablet 25 mg PO QAM 12/09/23 09/25/24 History (Jardiance) magnesium citrate 100 mg tablet 100 mg PO HS 12/09/23 09/25/24 History multivitamin 1 tab PO DAILY 12/09/23 09/25/24 History spironolactone 25 mg tablet 25 mg PO DAILY 09/25/24 09/25/24 History Past Med/Surg History Problem List (Updated 09/25/24 @ 20:38 by Dereje Olivares MD) Chest discomfort Left sided numbness (Acute) TIA (transient ischemic attack) DVT prophylaxis Paresthesia Diabetes mellitus, type II (Chronic) H/O hernia repair (Chronic) Seasonal allergic rhinitis (Chronic) Glaucoma (Chronic) Obesity (BMI 30.0-34.9) (Chronic) HLD (hyperlipidemia) (Chronic) GERD (gastroesophageal reflux disease) (Chronic) Hypertension (Chronic) Asthma (Chronic) Medical History Chest pain Diabetes mellitus, type II Seasonal allergic rhinitis Herpes zoster Glaucoma Obesity (BMI 30.0-34.9) HLD (hyperlipidemia) Asthma Hypertension GERD (gastroesophageal reflux disease) Surgical History H/O hernia repair History of eye surgery Family History Other Alzheimer disease Lung cancer Social History Smoking Status: Never smoker Second Hand Exposure: No; Do You Dip or Chew Tobacco: No; Hx Alcohol Use: Yes Alcohol type: wine Hx Substance Use: No Preferred Language: Mongolian Communication Ability: Effective Mate Fourth Required: No Beliefs That Will Affect Care: None marital status: Current Living Situation: Spouse How many Children do You have: 2 Feels Safe at Home: Yes Assistive Devices: Glasses Review of Systems Review of Systems: All systems reviewed & are unremarkable except as noted in Subjective Physical Exam Physical Exam: Constitutional: WD/WN, vitals as above, NAD, sitting up in bed, pleasant, conversing easily Respiratory: normal respiratory effort, lungs clear to auscultation, no wheeze, rales, rhonchi. Normal insp/exp effort, no accessory muscle use Cardiovascular: RRR, no murmur, no edema Vessels: no JVD or carotid bruit Chest: normal inspection of chest Abdomen: normal bowel sounds, soft, nontender, no hepatosplenomegaly Musculoskeletal: no cyanosis or clubbing, extremities motor strength 5/5 Skin: no rashes, warm and dry normal turgor Neurologic: PERRL, EOMI, accommodation nl, no face palsy, no dysarthria CN's II- XI intact bilaterally and moves all extremities Psychiatric: A+Ox3, euthymic affect Results & Data Results & Data Vital Signs (Past 12 Hours) Vital Signs Temp Pulse Pulse Resp BP BP Pulse Ox 09/25/24 19:57 57 L 23 09/25/24 19:39 65 20 09/25/24 19:21 57 L 17 09/25/24 19:12 57 L 14 09/25/24 19:09 56 L 13 09/25/24 19:00 148/69 H 09/25/24 18:50 54 L 16 161/55 H 100 09/25/24 18:48 71 09/25/24 15:51 36.8 C 73 18 174/72 H 96 O2 Del Method 09/25/24 19:57 09/25/24 19:39 09/25/24 19:21 09/25/24 19:12 09/25/24 19:09 09/25/24 19:00 09/25/24 18:50 Room Air 09/25/24 18:48 09/25/24 15:51 Room Air
[2024-09-25] MEDS: ADVANCED PROBIOTIC 625 MG CAPSULE PO SCH (21:16)
[2024-09-25] MEDS: PANTOprazole 40 MG TAB PO STA (21:16)
[2024-09-25] MEDS: MAGNESIUM OXIDE 400 MG TAB PO SCH (21:17)
[2024-09-25] MEDS: INSULIN ASPART PER UNIT CHARGE SC SCH (22:09)
[2024-09-25] MEDS ORDERED: PANTOprazole 40 MG TAB PO SCH (22:30)
[2024-09-25] MEDS ORDERED: ALBUTEROL 0.083% NEBU SOLN 3 ML VIAL INH PRN (22:31)
--- OUTSIDE RECORDS SUMMARY | 2024-09-25 23:13 | External Medical Summary | Summary of Care ---
Author Name Unknown Organization [facility] Address [address] [facility] [place] [address] Phone [phone] Care Team Providers Care Registered Nurse Name Role Phone Eloisa Angel DO Primary Care Provider [phone] Encounter Details Date Type Department Care Team (Late st Contact Info) Description 06/12/2024 Telephone Radiology, [facility] [address] [facility] [place] [address] Eloisa Angel DO [address] [place] [phone] Allergies Active Allergy Reactions Criticality Noted Date Comments Amlodipine Edema Other High 2023 Sulfamethoxazole-Trimet hoprim [place] High 11/23/2015 Brimonidine Tartrate-Timolol Edema face/lips/tongue High 11/20/2019 Rosuvastatin Edema face/lips/tongue High 11/23/2015 Dorzolamide High 03/23/2020 Dust 11/13/2023 Erythromycin Nausea/vomiting High 11/23/2015 Atorvastatin Edema face/lips/tongue High 11/23/2015 Lisinopril Cough High 11/23/2015 Metformin Other (Please comment) High 10/19/2018 Pt states it decreased her B12 level. Clopidogrel 10/04/2021 Conj Estrog-Medroxyprogest Jose Edema face/lips/tongue,Venkatesh h High 11/23/2015 Sulfa Antibiotics 03/23/2020 Timolol Edema airway High 09/28/2020 Travoprost High 03/23/2020 Latanoprost Rash High 11/23/2015 Ezetimibe Edema face/lips/tongue High 12/14/2023 documented as of this encounter (statuses as of 09/11/2024) Medications Vitamin D, Cholecalciferol, 1000 UNITS CAPS 1 Capsule in the morning. Active Nebulizers (NEBULIZER COMPRESSOR) MISCIndications: Reactive airway disease, mild intermittent, uncomplicated Use as directed. Height 64 inches, Weight 173 lbs, Prognosis good, Length of need 99 years - lifetime. 1 Each 1 10/20/19 17 Active Respiratory Therapy Supplies (NEBULIZER/TUBIN G/MOUTHPIECE) KITIndications:R eactive airway disease, mild intermittent, uncomplicated Use with nebulizer 1 Kit 2 10/20/19 17 Active Probiotic Product (PROBIOTIC & ACIDOPHILUS EX ST) CapsuleIndicatio ns:takes in the evening Take 1 Cap by mouth daily. Indications: takes in the evening Active ONETOUCH DELICA LANCETS 33G MISCIndications: Type 2 diabetes mellitus with hemoglobin A1c goal of less than 7.0% ([facility]) Use daily, once to check Blood sugars. DX:E11.9 100 Each 3 06/05/20 18 Active vitamin b-12 (CYANOCOBALAMIN) 250 MCG TABS Take 2 Tablets by mouth in the morning. 08/22/20 19 Active Multi Vitamin Daily Oral Tablet Take by mouth. 02/24/20 21 Active Ipratropium-Albu terol 0.5-2.5 (3) MG/3ML Inhalation Solution (Duoneb) Inhale 3 mL by mouth every 6 hours as needed for Wheezing. 360 mL 1 07/09/20 21 Active Magnesium 100 MG Oral Capsule 1 Capsule. 09/28/19 22 Active Aspirin 81 MG Oral Tablet Delayed Release Take 1 Tablet by mouth in the morning. 1 Tablet 09/29/19 23 Active Metamucil Fiber Oral Tablet Chewable Take by mouth. Active Flovent Diskus 100 MCG/ACT Inhalation Aerosol Powder Breath Activated (Fluticasone Propionate (Inhal)) Inhale 1 Puff by mouth 2 times a day as needed for Wheezing. Active Sucralfate 1 GM Oral Tablet (Carafate)Indica tions:Epigastric pain,GERD without esophagitis Take 1 Tablet by mouth 4 times a day before meals and at bedtime. 360 Tablet 3 06/16/20 23 Active ProAir RespiClick 108 (90 Base) MCG/ACT Inhalation Aerosol Powder Breath Activated (Albuterol Sulfate)Indicati ons:Mild intermittent asthma without complication Two puffs q.6 hours as needed for asthma 3 Each 2 10/06/19 24 Active Albuterol Sulfate 1.25 MG/3ML Inhalation Nebulization SolutionIndicati ons:Mild intermittent asthma without complication Inhale 1.25 mg via nebulizer every 4 hours as needed for Wheezing. 120 mL 5 10/06/19 24 Active Losartan Potassium 100 MG Oral Tablet (Cozaar)Indicati ons:Essential hypertension TAKE 1 TABLET BY MOUTH IN THE MORNING 90 Tablet 3 10/06/19 24 Active Ventolin HFA 108 (90 Base) MCG/ACT Inhalation Aerosol Solution Inhale 2 Puffs by mouth in the morning and 2 Puffs at noon and 2 Puffs in the evening and 2 Puffs before bedtime. 6.7 g 5 10/12/19 24 Active Vitamin C 250 MG Vaginal Tablet Administer into the vagina. Active Montelukast Sodium 10 MG Oral Tablet (Singulair)Indic ations:Reactive airway disease, mild intermittent, uncomplicated TAKE 1 TABLET BY MOUTH IN THE MORNING 90 Tablet 1 03/21/20 24 Active Jardiance 25 MG Oral Tablet (Empagliflozin) TAKE 1 TABLET BY MOUTH IN THE MORNING 90 Tablet 1 05/02/20 24 Active Pantoprazole Sodium 20 MG Oral Tablet Delayed Release (Protonix)Indica tions:GERD without esophagitis Take 1 Tablet by mouth in the morning and 1 Tablet in the evening. 30 minutes before meals. Do not crush, split or chew the tablet. - Oral 180 Tablet 1 05/16/20 24 Active OneTouch Verio In Vitro Strip (Glucose Blood)Indication s:Type 2 diabetes mellitus with hemoglobin A1c goal of less than 7.0% ([facility]) Use to check blood sugar once a day 100 Strip 1 05/15/20 24 Active Atenolol 50 MG Oral Tablet (Tenormin)Indica tions:HTN, goal below 140/90 Take 1 Tablet by mouth in the morning. 90 Tablet 3 10/06/19 24 024 Discontinued Hospital, Clinic, or Other Facility Administered Medication Ordered Dose Route Frequency Start Date End Date Status albuterol sulfate (PROVENTIL) (2.5 MG/3ML) 0.083% inhalation solution 2.5 mgIndications:Mild intermittent reactive airway disease without complication 2.5 mg NEBULIZER Q4H PRN 03/12/2018 Active documented as of this encounter (statuses as of 09/11/2024) Active Problems Problem Noted Date Diagnosed Date Chronic kidney disease, stage 3a 02/16/2021 Overview: Per CKD protocol Type 2 diabetes mellitus wit h stage 3a chronic kidney disease 01/12/2021 Overview: Per CKD protocol Type 2 diabetes mellitus wit h hemoglobin A1c goal of less than 7.0% 05/02/2019 Dyslipidemia, goal LDL below 100 05/16/2018 History of renal stone 05/17/2017 HTN, goal below 130/80 02/15/2016 Overview: losartan and atenolol. GERD without esophagitis Mild intermittent asthma without complication Overview (11/23/2015): hospitalized 10 d for ? legionarres disease. Glaucoma documented as of this encounter (statuses as of 09/11/2024) Resolved Problems Problem Noted Date Diagnosed Date Resolved Date Type 2 diabetes mellitus wit h stage 3a chronic kidney disease, without long-term current use of insulin 09/29/2022 10/19/2022 Diabetes mellitus with stage 3 chronic kidney disease 09/16/2019 01/14/2021 Overview: Per CKD protocol Diabetes mellitus without complication 06/28/2018 01/16/2019 Prediabetes 04/17/2018 05/16/2018 Overview: Per Prediabetes protocol #1 - Advance directive on file 05/17/2017 Gastric ulcer without hemorr stephie or perforation 03/23/2017 08/22/2019 Hypertension 02/18/2016 Overview (11/23/2015): losartan and atenolol. Allergic rhinitis 03/09/2017 documented as of this encounter (statuses as of 09/11/2024) Immunizations Name Administration Dates Next Due COVID-19 mRNA, LNP-s, No Pre serve, 2-Dose Series (Moderna) 11/01/2020,09/27/2020 COVID-19, mRNA, LNP-s, PF, B ooster, 100mcg/0.5mg (Moderna) 08/19/2021 Pneumococcal Conjugate Vacc, 13 Valent (Prevnar) 06/30/2016 Pneumococcal Polysaccharide PPV23 (Pneumovax) 03/31/2015,03/14/2014,06/02/2009 Seasonal Influenza, High Dos e, Trivalent, PF, IM (Fluzone HD) 06/10/2024 Seasonal Influenza, PF, 6 M & above, IM , (FluLaval or Fluzone) 05/22/2020,06/25/2019,06/28/2018,06/20 Seasonal Influenza, Quadriva lent Hd (Fluzone Hd) 05/22/2023,06/14/2022,06/11/2021 Seasonal Influenza, Quadriva lent, No Preserve, IM 06/30/2016,07/15/2015,06/29/2015,06/26,05/20/2013,06/02/2009,07/09/2008 TD - Tetanus/Diptheria (ADULT) 02/24/2015,2006 Varicella Zoster Vaccine (Adult) 06/02/2009 documented as of this encounter Social History Tobacco Use Types Packs/Day Years Used Date Smoking Tobacco: Never Passive Smoke Exposure: Past Smokeless Tobacco: Never Passive Exposure Comments:As a child Alcohol Use Standard Drinks/Week Comments Yes 0 (1 standard drink = 0.6 oz pur e alcohol) very rare PHQ-2 Answer Date Recorded PHQ Adult Total Score 0 10/06/2023 Hunger Vital Sign Answer Date Recorded Within the past 12 months, y ou worried that your food would run out before you got the money to buy more. Never true 06/15/20 23 Within the past 12 months, t he food you bought just didn't last and you didn't have money to get more. Never true 06/15/2023 Comments No Sex and Gender Information Value Date Recorded Sex Assigned at Female 12/12/2018 11:07 AM EDT Legal Sex Female 9:51 AM EST Gender Identity Female 12/12/2018 11:07 AM EDT Sexual Orientation Straight 12/12/2018 11 :07 AM EDT documented as of this encounter Miscellaneous Notes * Telephone Encounter - Samantha William OSA - 06/14/2024 12:24 PM EDT PT HAS DECIDED TO JUST LEAVE HER APPOINTMENT ON 07/09/24. * Telephone Encounter - Samantha William OSA - 06/13/2024 4:42 PM EDT Angel, do you want us to just cancel her appt on the for now because we can not schedule for a location that currently doesn't have a template or appt slots. Please advise. * Telephone Encounter - Charla Albright RT - 06/12/2024 3:47 PM EDT Jakub Ortiz has a Dexa scan scheduled for 07/09/24 but would like to reschedule to a later date when we are moved to [facility]. I told her that we are tentatively scheduled to move at the end of the year and that she would need to be rescheduled to sometime at the beginning of next year. Could someone reach out to her and get her on the schedule for a later date?? Thank you!! Charla Albright documented in this encounter Plan of Treatment Upcoming Encounters Date Type Department Care Team (Late st Contact Info) Description 10/10/2024 9:30 AM EST Office Visit [facility] [address]oud[address] [place] [phone] Eloisa Angel DO [address] [place] [address] Health Maintenance Due Date Last Done Comments Hepatitis C Screening 1968 Zoster Vaccines (2 of 3) 07/28/2009 06/02/2009 Adult Wellness Visit 02/25/2023 02/25/2022 GFR 04/05/2024 10/06/2023, 05/2023, 01/27/2023, Additional history exists COVID-19 Vaccine ( season) 2024 08/19/2021, 11/01/2020, 09/27/2020 HbA1c 09/21/2024 03/21/2024, 10/2023, 06/12/2023, Additional history exists Albumin/Creatinine Ratio 10/06/2024 024, 09/29/2022, 10/04/2021 Depression Screening 10/06/2024 10/06/2023 Diabetic Eye Exam 12/04/2024 12/05/2023, , 05/13/2022, Additional history exists CKD HGB USE SMARTSET 01013 03/14/202503/14, 01/27/2023, 12/03/2021, Additional history exists CKD PHOS USE SMARTSET 20680 03/14/2025 0709/2023, 01/27/2023, 12/03/2021, Additional history exists Diabetic Foot Exam 03/21/2025 03/21/2024, 0 09/29/2022, 08/05/2021, Additional history exists DTap/Tdap Vaccines (2 - Td or Tdap) 03/02/2028 03/02/2018 (Declined), 02/24/2015, 01/12/2007 DXA Scan 07/09/2031 07/09/2024, 01/2024, 02/01/2017 Pneumococcal Vaccine: 50+ Years Completed 06/30/2016, 03/31/2015, 03/14/2014, Additional history exists Colonoscopy Discontinued 07/12/2019, 07/12/2019 Colorectal Cancer Screening Discontinued Influenza Vaccine (FLU shot) Completed 06/10/2024, 05/22/2023, 06/14/2022, Additional history exists Cologuard Discontinued Fecal Occult Blood Test Discontinued HPV (Gardasil) Vaccine Aged Out No lo nger eligible based on patient's age to complete this topic Hepatitis B Vaccine Aged Out No longe r eligible based on patient's age to complete this topic MENINGOCOCCAL (MENACTRA/MENVEO) Aged Out No longer eligible based on patient's age to complete this topic Sigmoidoscopy Discontinued documented as of this encounter Medical Devices Implanted Type Area Retail Training Manager Device Identifier Shelf Expiration Date Model / Serial / Lot Stent Glaucoma Treatment s - [id number] - [id number] Implanted:Qty: 1 on 06/08/2020 by Ning Roman MD at [facility] Right: Eye ALLERGAN [id number] 10/04/2022 5513-001 / [id number] / [id number] Xen Gel Stent Implanted:Qty: 1 on 08/17/2020 by Ning Roman MD at [facility] Left: Eye 05/04/2023 5513-001 / [id number] / [id number] Stent Glaucoma Treatment s - [id number] - [id number] Implanted:Qty: 1 on 11/17/2020 by Ning Roman MD at [facility] Left: Eye ALLERGAN [id number] 05/04/2023 5513-001 / [id number] / [id number] documented as of this encounter Advance Directives * Full Code (Latest Code Status on File) Date Activated Date Inactivated Comments 11/17/2020 5:08 PM 11/17/2020 9:30 PM This order r eflects the patients wishes and were consensually agreed upon. Care Teams Registered Nurse Relationship Specialty Start Date End Date Eloisa Angel DO PCP - General Family Medicine 10/19/18 documented as of this encounter
--- OUTSIDE RECORDS SUMMARY | 2024-09-25 23:13 | External Medical Summary | Summary of Care ---
Author Name Unknown Organization [facility] Address [address] [place] [facility] [place] [place] [address] Phone [phone] Care Team Providers Care Heat Treat Worker Name Role Phone Doug Bates DO Primary Care Provider Reason for Visit * Reason Onset Date Comments Medication Refill 05/14/2024 Encounter Details Date Type Department Care Team (Late st Contact Info) Description 05/14/2024 Refill [facility] [address] [place] [facility] [place] [address] Doug Bates DO [address] [place] [address] Routine medical exam*; GERD without esophagitis; Encounter for long-term (current) use of medications; Type 2 diabetes mellitus with stage 3a chronic kidney disease, unspecified whether termite treater helper insulin use (HCC) Allergies Active Allergy Reactions Criticality Noted Date [...] as of this encounter (statuses as of 05/16/2024) Medications Medication Sig Dispensed Refills Start Date End Date Status Vitamin D, Cholecalciferol, 1000 UNITS CAPS 1 Capsule in the morning. Active Nebulizers (NEBULIZER COMPRESSOR) MISCIndications:Trudy ctive airway disease, mild intermittent, uncomplicated Use as directed. Height 64 inches, Weight 173 lbs, Prognosis good, Length of need 99 years - lifetime. 1 Each 1 10/20/2016 Active Respiratory Therapy Supplies (NEBULIZER/TUBING/M OUTHPIECE) KITIndications:Reac tive airway disease, mild intermittent, uncomplicated Use with nebulizer 1 Kit 2 10/20/2016 Active Probiotic Product (PROBIOTIC & ACIDOPHILUS EX ST) CapsuleIndications: takes in the evening Take 1 Cap by mouth daily. Indications: takes in the evening Active ELA CRUMP 33G MISCIndications:Typ e 2 diabetes mellitus with hemoglobin A1c goal of less than 7.0% ([facility]) Use daily, once to check Blood sugars. DX:E11.9 100 Each 3 06/05/2018 Active vitamin b-12 (CYANOCOBALAMIN) 250 MCG TABS Take 2 Tablets by mouth in the morning. 08/22/2019 Active Multi Vitamin Daily Oral Tablet Take by mouth. 02/23/2021 Active Ipratropium-Albuter ol 0.5-2.5 (3) MG/3ML Inhalation Solution (Duoneb) Inhale 3 mL by mouth every 6 hours as needed for Wheezing. 360 mL 1 07/09/2021 Active Magnesium 100 MG Oral Capsule 1 Capsule. 09/28/2021 Active Aspirin 81 MG Oral Tablet Delayed Release Take 1 Tablet by mouth in the morning. 1 Tablet 09/29/2022 Active Metamucil Fiber Oral Tablet Chewable Take by mouth. Active Flovent Diskus 100 MCG/ACT Inhalation Aerosol Powder Breath Activated (Fluticasone Propionate (Inhal)) Inhale 1 Puff by mouth 2 times a day as needed for Wheezing. Active Sucralfate 1 GM Oral Tablet (Carafate)Indicatio ns:Epigastric pain,GERD without esophagitis Take 1 Tablet by mouth 4 times a day before meals and at bedtime. 360 Tablet 3 06/16/2023 Active ProAir RespiClick 108 (90 Base) MCG/ACT Inhalation Aerosol Powder Breath Activated (Albuterol Sulfate)Indications :Mild intermittent asthma without complication Two puffs q.6 hours as needed for asthma 3 Each 2 10/06/2023 Active Albuterol Sulfate 1.25 MG/3ML Inhalation Nebulization SolutionIndications :Mild intermittent asthma without complication Inhale 1.25 mg via nebulizer every 4 hours as needed for Wheezing. 120 mL 5 10/06/2023 Active Losartan Potassium 100 MG Oral Tablet (Cozaar)Indications :Essential hypertension TAKE 1 TABLET BY MOUTH IN THE MORNING 90 Tablet 3 10/06/2023 Active Atenolol 50 MG Oral Tablet (Tenormin)Indicatio ns:HTN, goal below 140/90 Take 1 Tablet by mouth in the morning. 90 Tablet 3 10/06/2023 Active Ventolin HFA 108 (90 Base) MCG/ACT Inhalation Aerosol Solution Inhale 2 Puffs by mouth in the morning and 2 Puffs at noon and 2 Puffs in the evening and 2 Puffs before bedtime. 6.7 g 5 10/12/2023 Active Vitamin C 250 MG Vaginal Tablet Administer into the vagina. Active Montelukast Sodium 10 MG Oral Tablet (Singulair)Indicati ons:Reactive airway disease, mild intermittent, uncomplicated TAKE 1 TABLET BY MOUTH IN THE MORNING 90 Tablet 1 03/21/2024 Active Jardiance 25 MG Oral Tablet (Empagliflozin) TAKE 1 TABLET BY MOUTH IN THE MORNING 90 Tablet 1 05/02/2024 Active Pantoprazole Sodium 20 MG Oral Tablet Delayed Release (Protonix)Indicatio ns:GERD without esophagitis Take 1 Tablet by mouth in the morning and 1 Tablet in the evening. 30 minutes before meals. Do not crush, split or chew the tablet. - Oral 180 Tablet 1 05/16/2024 Active OneTouch Verio In Vitro Strip (Glucose Blood)Indications:T ype 2 diabetes mellitus with hemoglobin A1c goal of less than 7.0% ([facility]) Use to check blood sugar once a day 100 Strip 1 05/15/2024 Active Pantoprazole Sodium 20 MG Oral Tablet Delayed Release (Protonix)Indicatio ns:GERD without esophagitis Take 1 Tablet by mouth in the morning and 1 Tablet in the evening. 30 minutes before meals. Do not crush, split or chew the tablet. - Oral 180 Tablet 5 01/09/2023 4 Discontinue d(Refill) Hospital, Clinic, or Other Facility Administered Medication Ordered Dose Route Frequency Start Date End Date Status albuterol sulfate (PROVENTIL) (2.5 MG/3ML) 0.083% inhalation solution 2.5 mgIndications:Mild intermittent reactive airway disease without complication 2.5 mg NEBULIZER Q4H PRN 03/12/2018 Active documented as of this encounter (statuses as of 05/16/2024) Active Problems Problem Noted Date Diagnosed Date [...] without esophagitis Mild intermittent asthma without complication Overview: hospitalized 10 d for ? legionarres disease. Glaucoma documented as of this encounter (statuses as of 05/16/2024) Resolved Problems Problem Noted Date Diagnosed Date [...] stephie or perforation 03/23/2017 08/22/2019 Hypertension 02/18/2016 Overview: losartan and atenolol. Allergic rhinitis 03/09/2017 documented as of this encounter (statuses as of 05/16/2024) Immunizations Name Administration Dates Next Due COVID-19 mRNA, LNP-s, No Pre serve, 2-Dose Series (Moderna) 11/01/2020,09/27/2020 COVID-19, mRNA, LNP-s, PF, B ooster, 100mcg/0.5mg (Moderna) 08/19/2021 Pneumococcal Conjugate Vacc, 13 Valent (Prevnar) 06/30/2016 Pneumococcal Polysaccharide PPV23 (Pneumovax) 03/31/2015,03/14/2014,06/02/2009 Seasonal Influenza, PF, 6 M & above, [...] the money to buy more. Never true 10/12/20 23 Within the past 12 months, t he food you bought just didn't last and you didn't have money to get more. Never true 06/15/2023 Sex and Gender Information Value Date Recorded Sex Assigned at Female 12/12/2018 11:07 AM EDT Gender Identity Female 12/12/2018 11:07 AM EDT Sexual Orientation Straight 12/12/2018 11 :07 AM EDT Job Start Date Occupation Industry Not on file Not on file Not on file documented as of this encounter Miscellaneous Notes * Telephone Encounter - Eva Garcia [facility] - 05/16/2024 11:24 AM EDT Signed Prescriptions: Disp Refills Pantoprazole Sodium 20 MG Oral Tablet Patricia*180 Ta*1 Sig: Take 1 Tablet by mouth in the morning and 1 Tablet in the evening. 30 minutes before meals. Do not crush, split or chew the tablet. - OralAuthorizing Provider: DOUG BATES User: EVA GARCIA documented in this encounter Plan of Treatment Upcoming Encounters Date Type Department Care Team (Late st Contact Info) Description 07/09/2024 10:00 AM EST [address] [address] 10/10/2024 9:30 AM EST [facility] [address] [facility] [phone] Doug Bates DO [address] [place] [facility] [place] [address] Scheduled Orders Name Type Priority Associated Diagnoses Orde r Schedule BASIC METABOLIC PANEL Lab Routine Routine medical exam Encounter for long-term (current) use of medications Type 2 diabetes mellitus with stage 3a chronic kidney disease, unspecified whether termite treater helper insulin use (HCC) Expected: 05/30/2024 (Approximate), Expires: 05/17/2025 VITAMIN B12 Lab Routine Routine medical exam Encounter for long-term (current) use of medications Expected: 05/30/2024 (Approximate), Expires: 05/16/2025 MAGNESIUM Lab Routine Routine medical exam Encounter for long-term (current) use of medications Expected: 05/30/2024 (Approximate), Expires: 05/16/2025 Health Maintenance Due Date Last Done Comments Hepatitis C Screening 1968 Zoster Vaccines (2 of 3) 07/28/2009 06/02/2009 Adult Wellness Visit 02/25/2023 02/25/2022 DXA Scan 02/02/2024 02/01/2017 GFR 04/05/2024 10/06/2023, 100 05/2023, 01/27/2023, Additional history exists COVID-19 Vaccine ( season) 2024 08/19/2021, 11/01/2020, 09/27/2020 Influenza Vaccine (FLU shot) (#1) 2024 05/22/2023, 06/14/2022, 06/11/2021, Additional history exists HbA1c 09/21/2024 03/21/2024, 02/0 10/2023, 06/12/2023, Additional history exists Albumin/Creatinine Ratio 10/06/20242 024, 09/29/2022, 10/04/2021 Depression Screening 10/06/2024 10/06/2023 Diabetic Eye Exam 12/04/2024 12/05/2023, , 05/13/2022, Additional history exists CKD HGB USE SMARTSET 33177 03/14/202503/14, 01/27/2023, 12/03/2021, Additional history exists CKD PHOS USE SMARTSET 21257 03/14/2025 07/09/2023, 01/27/2023, 12/03/2021, Additional history exists Diabetic Foot Exam 03/21/2025 03/21/2024, 0 09/29/2022, 08/05/2021, Additional history exists DTap/Tdap Vaccines (2 - Td or Tdap) 03/02/2028 03/02/2018 (Declined), 02/24/2015, 01/12/2007 Pneumococcal Vaccine: 65+ Years Completed 06/30/2016, 03/31/2015, 03/14/2014, Additional history exists Colonoscopy Discontinued 07/12/2019, 07/12/2019 Colorectal Cancer Screening Discontinued Cologuard Discontinued Fecal Occult Blood Test Discontinued [...] this encounter Medical Devices Implanted Type Area Manager Professional Development Device Identifier Shelf Expiration Date Model / Serial / Lot Stent Glaucoma Treatment [facility] - [id number] - [id number] Implanted:Qty: 1 on 06/08/2020 by Ning Roman MD at [facility] Right: Eye ALLERGAN [id number] 10/04/2022 5513-001 / [id number] / [id number] Xen Gel Stent Implanted:Qty: 1 on 08/17/2020 by Ning Roman MD at [facility] Left: Eye 05/04/2023 5513-001 / [id number] / [id number] Stent Glaucoma Treatment Sys - [id number] - [id number] Implanted:Qty: 1 on 11/17/2020 by Ning Roman MD at [facility] Left: Eye ALLERGAN [id number] 05/04/2023 5513-001 / [id number] / [id number] documented as of this encounter Visit Diagnoses Diagnosis Routine medical exam- Primary Routine general medical examination at a health care facility GERD without esophagitis Esophageal reflux Encounter for long-term (current) use of medications Encounter for long-term (current) use of other medications Type 2 diabetes mellitus with stage 3a chronic kidney disease, unspecified whether termite treater helper insulin use (HCC) documented in this encounter Advance Directives * Full Code (Latest Code Status on File) Date Activated Date Inactivated Comments 11/17/2020 5:08 PM 11/17/2020 9:30 PM This order r eflects the patients wishes and were consensually agreed upon. Care Teams Heat Treat Worker Relationship Specialty Start Date End Date Doug Bates DO [address] [facility] [address] [id number] PCP - General Family Medicine 10/19/18 documented as of this encounter
--- OUTSIDE RECORDS SUMMARY | 2024-09-25 23:13 | External Medical Summary | Summary of Care ---
Author Name Unknown Organization [facility] Address [address] [facility] [address] Phone [phone] Care Team Providers Care Manager Animation Name Role Phone Doug Bates DO Primary Care Provider [phone] Reason for Visit * Reason Comments eRx-Medication Refill Encounter Details Date Type Department Care Team (Late st Contact Info) Description 05/01/2024 Refill [facility] [address] [place] [facility] [place] [address] Doug Bates DO [address] [place] [address] Allergies Active Allergy Reactions Criticality Noted Date [...] as of this encounter (statuses as of 05/02/2024) Medications Medication Sig Dispensed Refills Start Date End Date Status Vitamin D, Cholecalciferol, 1000 UNITS CAPS 1 Capsule in the morning. Active Nebulizers (NEBULIZER COMPRESSOR) MISCIndications:Re active airway disease, mild intermittent, uncomplicated Use as directed. Height 64 inches, Weight 173 lbs, Prognosis good, Length of need 99 years - lifetime. 1 Each 1 10/20/2016 Active Respiratory Therapy Supplies (NEBULIZER/TUBING/ MOUTHPIECE) KITIndications:[place] ctive airway disease, mild intermittent, uncomplicated Use with nebulizer 1 Kit 2 10/20/2016 Active Probiotic Product (PROBIOTIC & ACIDOPHILUS EX ST) CapsuleIndications :takes in the evening Take 1 Cap by mouth daily. Indications: takes in the evening Active ONETOUCH KATHLEEN CRUMP 33G MISCIndications:Ty pe 2 diabetes mellitus with hemoglobin A1c goal of less than 7.0% ([facility]) Use daily, once to check Blood sugars. DX:E11.9 100 Each 3 06/05/2018 Active vitamin b-12 (CYANOCOBALAMIN) 250 MCG TABS Take 2 Tablets by mouth in the morning. 08/22/2019 Active Multi Vitamin Daily Oral Tablet Take by mouth. 02/23/2021 Active Ipratropium-Albute rol 0.5-2.5 (3) MG/3ML Inhalation Solution (Duoneb) Inhale 3 mL by mouth every 6 hours as needed for Wheezing. 360 mL 1 07/09/2021 Active Magnesium 100 MG Oral Capsule 1 Capsule. 09/28/2021 Active Aspirin 81 MG Oral Tablet Delayed Release Take 1 Tablet by mouth in the morning. 1 Tablet 09/29/2022 Active Metamucil Fiber Oral Tablet Chewable Take by mouth. Active Pantoprazole Sodium 20 MG Oral Tablet Delayed Release (Protonix)Indicati ons:GERD without esophagitis Take 1 Tablet by mouth in the morning and 1 Tablet in the evening. 30 minutes before meals. Do not crush, split or chew the tablet. - Oral 180 Tablet 5 01/09/2023 Active Flovent Diskus 100 MCG/ACT Inhalation Aerosol Powder Breath Activated (Fluticasone Propionate (Inhal)) Inhale 1 Puff by mouth 2 times a day as needed for Wheezing. Active Sucralfate 1 GM Oral Tablet (Carafate)Indicati ons:Epigastric pain,GERD without esophagitis Take 1 Tablet by mouth 4 times a day before meals and at bedtime. 360 Tablet 3 06/16/2023 Active ProAir RespiClick 108 (90 Base) MCG/ACT Inhalation Aerosol Powder Breath Activated (Albuterol Sulfate)Indication s:Mild intermittent asthma without complication Two puffs q.6 hours as needed for asthma 3 Each 2 10/06/2023 Active Albuterol Sulfate 1.25 MG/3ML Inhalation Nebulization SolutionIndication s:Mild intermittent asthma without complication Inhale 1.25 mg via nebulizer every 4 hours as needed for Wheezing. 120 mL 5 10/06/2023 Active Losartan Potassium 100 MG Oral Tablet (Cozaar)Indication s:Essential hypertension TAKE 1 TABLET BY MOUTH IN THE MORNING 90 Tablet 3 10/06/2023 Active Atenolol 50 MG Oral Tablet (Tenormin)Indicati ons:HTN, goal below 140/90 Take 1 Tablet by mouth in the morning. 90 Tablet 3 10/06/2023 Active Ventolin HFA 108 (90 Base) MCG/ACT Inhalation Aerosol Solution Inhale 2 Puffs by mouth in the morning and 2 Puffs at noon and 2 Puffs in the evening and 2 Puffs before bedtime. 6.7 g 5 10/12/2023 Active OneTouch Verio In Vitro Strip (Glucose Blood)Indications: Type 2 diabetes mellitus with hemoglobin A1c goal of less than 7.0% ([facility]) Use to check blood sugar once a day DX:E11.9 100 Strip 1 10/25/2023 Active Vitamin C 250 MG Vaginal Tablet Administer into the vagina. Active Montelukast Sodium 10 MG Oral Tablet (Singulair)Indicat ions:Reactive airway disease, mild intermittent, uncomplicated TAKE 1 TABLET BY MOUTH IN THE MORNING 90 Tablet 1 03/21/2024 Active Jardiance 25 MG Oral Tablet (Empagliflozin) TAKE 1 TABLET BY MOUTH IN THE MORNING 90 Tablet 1 05/02/2024 Active Empagliflozin 25 MG Oral Tablet (Jardiance) Take 1 Tablet by mouth in the morning. In the morning.. 90 Tablet 1 10/06/2023 05/02/20 24 Discontinued Hospital, Clinic, or Other Facility Administered Medication Ordered Dose Route Frequency Start Date End Date Status albuterol sulfate (PROVENTIL) (2.5 MG/3ML) 0.083% inhalation solution 2.5 mgIndications:Mild intermittent reactive airway disease without complication 2.5 mg NEBULIZER Q4H PRN 03/12/2018 Active documented as of this encounter (statuses as of 05/02/2024) Active Problems Problem Noted Date Diagnosed Date [...] as of this encounter (statuses as of 05/02/2024) Resolved Problems Problem Noted Date Diagnosed Date [...] as of this encounter (statuses as of 05/02/2024) Immunizations Name Administration Dates Next Due COVID-19 [...] encounter Miscellaneous Notes * Telephone Encounter - Homa Talley RPh - 05/02/2024 1:41 PM EDTSigned Prescriptions: Disp Refills Jardiance 25 MG Oral Tablet (Empagliflozin)90 Tab*1 Sig: TAKE 1 TABLET BY MOUTH IN THE MORNINGAuthorizing Provider: DOUG BATES User: HOMA TALLEY- documented in this encounter Plan of Treatment Upcoming Encounters Date Type Department Care Team (Late st Contact Info) Description 07/09/2024 10:00 AM EST Imaging Radiology, [address] [address] 10/10/2024 9:30 AM EST Office Visit [facility] [address] [place] [address] Doug Bates DO [address], [place] [id number] Health Maintenance Due Date Last Done Comments Hepatitis C Screening 1968 Zoster Vaccines (2 of 3) 07/28/2009 06/02/2009 Adult Wellness Visit 02/25/2023 02/25/2022 COVID-19 Vaccine ( season) 2023 08/19/2021, 11/01/2020, 09/27/2020 DXA Scan 02/02/2024 02/01/2017 GFR 04/05/2024 10/06/2023, 1005/2023, 01/27/2023, Additional history exists Influenza Vaccine (FLU shot) (#1) 2024 05/22/2023, 06/14/2022, 06/11/2021, Additional history exists HbA1c 09/21/2024 03/21/2024, 02/0 10/2023, 06/12/2023, Additional history exists Albumin/Creatinine Ratio 10/06/2024 024, 09/29/2022, 10/04/2021 Depression Screening 10/06/2024 10/06/2023 Diabetic Eye Exam 12/04/2024 12/05/2023, , 05/13/2022, Additional history exists CKD HGB USE SMARTSET 10017 03/14/202503/14, 01/27/2023, 12/03/2021, Additional history exists CKD PHOS USE SMARTSET 49939 03/14/2025 0709/2023, 01/27/2023, 12/03/2021, Additional history exists [...] this encounter Medical Devices Implanted Type Area News Clipping Cutter Device Identifier Shelf Expiration Date Model / Serial / Lot Stent Glaucoma Treatment Sys - [id number] - [id number] Implanted:Qty: 1 on 06/08/2020 by Ning Roman MD at [facility] Right: Eye ALLERGAN [id number] 10/04/2022 5513-001 / [id number] / [id number] Xen Gel Stent Implanted:Qty: 1 on 08/17/2020 by Ning Roman MD at [facility] Left: Eye 05/04/2023 5513-001 / [id number] / [id number] Stent Glaucoma Treatment s - [id number] - [id number] Implanted:Qty: 1 on 11/17/2020 by Ning Roman MD at [facility] Left: Eye ALLERGAN [id number] 05/04/2023 5513-001 / [id number] / [id number] documented as of this encounter Advance Directives * Full Code (Latest Code Status on File) Date Activated Date Inactivated Comments 11/17/2020 5:08 PM 11/17/2020 9:30 PM This order r eflects the patients wishes and were consensually agreed upon. Care Teams Manager Animation Relationship Specialty Start Date End Date Doug Bates DO [address] [place] [address] PCP - General Family Medicine 10/19/18 documented as of this encounter
--- OUTSIDE RECORDS SUMMARY | 2024-09-25 23:13 | External Medical Summary ---
Author Name Unknown Address Unknown Organization K01:[facility] [place] [address] [place] [address] Laboratory Report Ordering Provider Test Date Status WILIAM WINCHESTERPA 09/19/2024 15:02:22 Final Exclude Heart Failure: <300 pg/mL
Diagnose Heart Failure:
Age <50 yr: >450 pg/mL
50-75 yr: >900 pg/mL
>75 yr: >1800 pg/mL
GFR is 30-59 mL/min: >1200 pg/mL or Age- adjusted values
GFR <30 mL/min: do not use, not reliable

Prognostic threshold: 1000 pg/mL Observation Date Value Abnormality Reference (Units ) Status BNP, Pro-hormone 09/19/2024 15:02:22 363 Above high no rmal <300 (pg/mL) Final Performing Location [facility] [place] [facility] [address] [place] [address]
--- OUTSIDE RECORDS SUMMARY | 2024-09-25 23:13 | External Medical Summary | Summary of Care ---
Author Name Unknown Organization [facility] Address [address] [place] [facility] [place] [address] Phone [phone] Care Team Providers Care Foot Orthopedist Name Role Phone Doug Bates DO Primary Care Provider [phone] Reason for Visit * Reason Comments eRx-Medication Refill Encounter Details Date Type Department Care Team (Late st Contact Info) Description 05/14/2024 Refill Located Within [facility] [address] [place] [address] Doug Bates DO [address] [place] [address] Type 2 diabetes mellitus with hemoglobin A1c goal of less than 7.0% ([facility]) Allergies Active Allergy Reactions Criticality Noted Date [...] as of this encounter (statuses as of 05/15/2024) Medications Medication Sig Dispensed Refills Start Date End Date Status Vitamin D, Cholecalciferol, 1000 UNITS CAPS 1 Capsule in the morning. Active Nebulizers (NEBULIZER COMPRESSOR) MISCIndications:Re active airway disease, mild intermittent, uncomplicated Use as directed. Height 64 inches, Weight 173 lbs, Prognosis good, Length of need 99 years - lifetime. 1 Each 1 10/20/2016 Active Respiratory Therapy Supplies (NEBULIZER/TUBING/ MOUTHPIECE) KITIndications:[place] ctive airway disease, mild intermittent, uncomplicated Use with nebulizer 1 Kit 2 10/20/2016 Active Probiotic Product (PROBIOTIC & ACIDOPHILUS EX ST) CapsuleIndications :takes in the evening Take 1 Cap by mouth daily. Indications: takes in the evening Active ONETOUCH DELICA LANCETS 33G MISCIndications:Ty pe 2 diabetes mellitus with hemoglobin A1c goal of less than 7.0% ([facility]) Use daily, once to check Blood sugars. [...] THE MORNING 90 Tablet 1 05/02/2024 Active OneTouch Verio In Vitro Strip (Glucose Blood)Indications: Type 2 diabetes mellitus with hemoglobin A1c goal of less than 7.0% (HCC) Use to check blood sugar once a day 100 Strip 1 05/15/2024 Active OneTouch Verio In Vitro Strip (Glucose Blood)Indications: Type 2 diabetes mellitus with hemoglobin A1c goal of less than 7.0% ([facility]) Use to check blood sugar once a day DX:E11.9 100 Strip 1 10/25/2023 05/15/20 24 Discontinued Hospital, Clinic, or Other Facility Administered Medication Ordered Dose Route Frequency Start Date End Date Status albuterol sulfate (PROVENTIL) (2.5 MG/3ML) 0.083% inhalation solution 2.5 mgIndications:Mild intermittent reactive airway disease without complication 2.5 mg NEBULIZER Q4H PRN 03/12/2018 Active documented as of this encounter (statuses as of 05/15/2024) Active Problems Problem Noted Date Diagnosed Date [...] as of this encounter (statuses as of 05/15/2024) Resolved Problems Problem Noted Date Diagnosed Date [...] as of this encounter (statuses as of 05/15/2024) Immunizations Name Administration Dates Next Due COVID-19 [...] encounter Miscellaneous Notes * Telephone Encounter - Claudia Monte [facility] - 05/15/2024 3:14 PM EDTSigned Prescriptions: Disp Refills OneTouch Verio In Vitro Strip (Glucose Blo*100 St*1 Sig: Use to check blood sugar once a dayAuthorizing Provider: DOUG BATES User: CLAUDIA MONTE E documented in this encounter Plan of Treatment Upcoming Encounters Date Type Department Care Team (Late st Contact Info) Description 07/09/2024 10:00 AM EST Imaging Radiology, [address] [address] 10/10/2024 9:30 AM EST Office Visit Located Within [facility] [address] [place] [id number] Doug Bates DO [address] [place] [address] Health Maintenance Due Date Last Done Comments Hepatitis C Screening 1968 Zoster Vaccines (2 of 3) 07/28/2009 06/02/2009 Adult Wellness Visit 02/25/2023 02/25/2022 DXA Scan 02/02/2024 02/01/2017 GFR 04/05/2024 10/06/2023, 10/0 05/2023, 01/27/2023, Additional history exists COVID-19 Vaccine ( season) 2024 08/19/2021, 11/01/2020, 09/27/2020 Influenza Vaccine (FLU shot) (#1) 2024 05/22/2023, 06/14/2022, 06/11/2021, Additional history exists HbA1c 09/21/2024 03/21/2024, 02/0 10/2023, 06/12/2023, Additional history exists Albumin/Creatinine Ratio 10/06/2024 024, 09/29/2022, 10/04/2021 Depression Screening 10/06/2024 10/06/2023 Diabetic Eye Exam 12/04/2024 12/05/2023, , 05/13/2022, Additional history exists CKD HGB USE SMARTSET 11556 03/14/202503/14, 01/27/2023, 12/03/2021, Additional history exists CKD PHOS USE SMARTSET 31852 03/14/2025 07/1 09/2023, 01/27/2023, 12/03/2021, Additional history exists Diabetic Foot [...] this encounter Medical Devices Implanted Type Area Traffic Officer Device Identifier Shelf Expiration Date Model / Serial / Lot Stent Glaucoma Treatment Sys - [id number] - [id number] Implanted:Qty: 1 on 06/08/2020 by Ning Roman MD at [facility] Right: Eye ALLERGAN [id number] 10/04/2022 5513-001 / [id number] / [id number] Xen Gel Stent Implanted:Qty: 1 on 08/17/2020 by Ning Roman MD at [facility] Left: Eye 05/04/2023 5513-001 / [id number] / [id number] Stent Glaucoma Treatment s - [id number] - [id number] Implanted:Qty: 1 on 11/17/2020 by Ning Roman MD at [facility] Left: Eye ALLERGAN [id number] 05/04/2023 5513-001 / [id number] / [id number] documented as of this encounter Visit Diagnoses Diagnosis Type 2 diabetes mellitus with hemoglobin A1c goal of less than 7.0% (HCC) documented in this encounter Advance Directives * Full Code (Latest Code Status on File) Date Activated Date Inactivated Comments 11/17/2020 5:08 PM 11/17/2020 9:30 PM This order r eflects the patients wishes and were consensually agreed upon. Care Teams Foot Orthopedist Relationship Specialty Start Date End Date Doug Bates DO [address] [facility] [place] [id number] PCP - General Family Medicine 10/19/18 documented as of this encounter
--- OUTSIDE RECORDS SUMMARY | 2024-09-25 23:13 | External Medical Summary | Summary of Care ---
Author Name Unknown Organization [facility] Address [address] [facility] [place] [address] Phone [phone] Care Team Providers Care Senior Sharepoint Developer Name Role Phone Doug Bates DO Primary Care Provider Reason for Visit * Reason Comments eRx-Medication Refill Encounter Details Date Type Department Care Team (Late st Contact Info) Description 07/14/2024 Refill [facility] [address] [place] [facility] [place] [address] Doug Bates DO [address] [place] [address] HTN, goal below 140/90 Allergies Active Allergy Reactions Criticality Noted Date [...] as of this encounter (statuses as of 07/16/2024) Medications Vitamin D, Cholecalciferol, 1000 UNITS CAPS [...] A1c goal of less than 7.0% ([facility]) Use daily, once to check Blood [...] A1c goal of less than 7.0% ([facility]) Use to check blood sugar once a day 100 Strip 1 05/15/20 24 Active Atenolol 50 MG Oral Tablet (Tenormin)Indica tions:HTN, goal below 140/90 TAKE 1 TABLET BY MOUTH IN THE MORNING 90 Tablet 3 07/16/20 24 Active Atenolol 50 MG Oral Tablet [...] as of this encounter (statuses as of 07/16/2024) Active Problems Problem Noted Date Diagnosed Date [...] as of this encounter (statuses as of 07/16/2024) Resolved Problems Problem Noted Date Diagnosed Date [...] as of this encounter (statuses as of 07/16/2024) Immunizations Name Administration Dates Next Due COVID-19 [...] encounter Miscellaneous Notes * Telephone Encounter - Marquise Fermin [facility] - 07/16/2024 3:31 AM ESTSigned Prescriptions: Disp Refills Atenolol 50 MG Oral Tablet (Tenormin) 90 Tab*3 Sig: TAKE 1 TABLET BY MOUTH IN THE MORNINGAuthorizing Provider: DOUG BATES User: MARQUISE FERMIN----- documented in this encounter Plan of Treatment Upcoming Encounters Date Type Department Care Team (Late st Contact Info) Description 10/10/2024 9:30 AM EST Office [facility] [address] [place] [address] Doug Bates, [address] [place] [address] Health Maintenance Due Date Last Done Comments Hepatitis C Screening 1968 Zoster Vaccines (2 of 3) 07/28/2009 06/02/2009 Adult Wellness Visit 02/25/2023 02/25/2022 GFR 04/05/2024 10/06/2023, 05/2023, 01/27/2023, Additional history exists COVID-19 Vaccine ( season) 2024 08/19/2021, 11/01/2020, 09/27/2020 HbA1c 09/21/2024 03/21/2024, 4, 06/12/2023, Additional history exists Albumin/Creatinine Ratio 10/06/2024 024, 09/29/2022, 10/04/2021 Depression Screening 10/06/2024 10/06/2023 Diabetic Eye Exam 12/04/2024 12/05/2023, , 05/13/2022, Additional history exists CKD HGB USE SMARTSET 70469 03/14/202503/14, 01/27/2023, 12/03/2021, Additional history exists CKD PHOS USE SMARTSET 59070 03/14/2025 07/09/2023, 01/27/2023, 12/03/2021, Additional history exists Diabetic Foot Exam 03/21/2025 03/21/2024, 0 09/29/2022, 08/05/2021, Additional history exists DTap/Tdap Vaccines (2 - Td or Tdap) 03/02/2028 03/02/2018 (Declined), 02/24/2015, 01/12/2007 DXA Scan 07/09/2031 07/09/2024, 02/01/2017 Pneumococcal Vaccine: 65+ Years Completed 06/30/2016, 03/31/2015, [...] this encounter Medical Devices Implanted Type Area Breaster Device Identifier Shelf Expiration Date Model / Serial / Lot Stent Glaucoma Treatment Sys - [id number] - [id number] Implanted:Qty: 1 on 06/08/2020 by Ning Roman MD at [facility] Right: Eye ALLERGAN [id number] 10/04/2022 5513-001 / [id number] / [id number] Xen Gel Stent Implanted:Qty: 1 on 08/17/2020 by Ning Roman MD at [facility] Left: Eye 05/04/2023 5513-001 / [id number] / [id number] Stent Glaucoma Treatment s - [id number] - [id number] Implanted:Qty: 1 on 11/17/2020 by Ning Roman MD at [facility] Left: Eye ALLERGAN [id number] 05/04/2023 5513-001 / [id number] / [id number] documented as of this encounter Visit Diagnoses Diagnosis HTN, goal below 140/90 Unspecified essential hypertension documented in this encounter Advance Directives * Full Code (Latest Code Status on File) Date Activated Date Inactivated Comments 11/17/2020 5:08 PM 11/17/2020 9:30 PM This order r eflects the patients wishes and were consensually agreed upon. Care Teams Senior Sharepoint Developer Relationship Specialty Start Date End Date Doug Bates DO [address] [facility] [place] [address] PCP - General Family Medicine 10/19/18 documented as of this encounter
--- OUTSIDE RECORDS SUMMARY | 2024-09-25 23:13 | External Medical Summary | Summary of Care ---
Author Name Unknown Organization [facility] Address [address] [facility] [address] Phone [phone] Care Team Providers Care Rivet Heater Name Role Phone Eloisa Angel DO Primary Care Provider [phone] Reason for Visit * Reason Onset Date Comments Medication Administration 06/10/2024 Flu an d/or Pneumo Inj Encounter Details Date Type Department Care Team (Late st Contact Info) Description 06/10/2024 2:00 PM EDT Immunization Ancillary Department, [place] [address] [place] [address] [facility] [address] [place] [address] Need for prophylactic vaccination and inoculation against influenza* Allergies Active Allergy Reactions Criticality Noted Date [...] as of this encounter (statuses as of 06/10/2024) Medications Medication Sig Dispensed Refills Start Date End Date Status Vitamin D, Cholecalciferol, 1000 UNITS CAPS 1 Capsule in the morning. Active Nebulizers (NEBULIZER COMPRESSOR) MISCIndications:Reac tive airway disease, mild intermittent, uncomplicated Use as directed. Height 64 inches, Weight 173 lbs, Prognosis good, Length of need 99 years - lifetime. 1 Each 1 10/20/2016 Active Respiratory Therapy Supplies (NEBULIZER/TUBING/MO UTHPIECE) KITIndications:React noé airway disease, mild intermittent, uncomplicated Use with nebulizer 1 Kit 2 10/20/2016 Active Probiotic Product (PROBIOTIC & ACIDOPHILUS EX ST) CapsuleIndications:t akes in the evening Take 1 Cap by mouth daily. Indications: takes in the evening Active ONETOUCH DELICA LANCETS 33G MISCIndications:Type 2 diabetes mellitus with hemoglobin A1c goal of less than 7.0% ([facility]) Use daily, once to check Blood sugars. DX:E11.9 100 Each 3 06/05/2018 Active vitamin b-12 (CYANOCOBALAMIN) 250 MCG TABS Take 2 Tablets by mouth in the morning. 08/22/2019 Active Multi Vitamin Daily Oral Tablet Take by mouth. 02/23/2021 Active Ipratropium-Albutero l 0.5-2.5 (3) MG/3ML Inhalation Solution (Duoneb) Inhale 3 mL by mouth every 6 hours as needed for Wheezing. 360 mL 1 07/09/2021 Active Magnesium 100 MG Oral Capsule 1 Capsule. 09/28/2021 Active Aspirin 81 MG Oral Tablet Delayed Release Take 1 Tablet by mouth in the morning. 1 Tablet 09/29/2022 Active Metamucil Fiber Oral Tablet Chewable Take by mouth. Activ e Flovent Diskus 100 MCG/ACT Inhalation Aerosol Powder Breath Activated (Fluticasone Propionate (Inhal)) Inhale 1 Puff by mouth 2 times a day as needed for Wheezing. Active Sucralfate 1 GM Oral Tablet (Carafate)Indication s:Epigastric pain,GERD without esophagitis Take 1 Tablet by mouth 4 times a day before meals and at bedtime. 360 Tablet 3 06/16/2023 Active ProAir RespiClick 108 (90 Base) MCG/ACT Inhalation Aerosol Powder Breath Activated (Albuterol Sulfate)Indications: Mild intermittent asthma without complication Two puffs q.6 hours as needed for asthma 3 Each 2 10/06/2023 Active Albuterol Sulfate 1.25 MG/3ML Inhalation Nebulization SolutionIndications: Mild intermittent asthma without complication Inhale 1.25 mg via nebulizer every 4 hours as needed for Wheezing. 120 mL 5 10/06/2023 Active Losartan Potassium 100 MG Oral Tablet (Cozaar)Indications: Essential hypertension TAKE 1 TABLET BY MOUTH IN THE MORNING 90 Tablet 3 10/06/2023 Active Atenolol 50 MG Oral Tablet (Tenormin)Indication s:HTN, goal below 140/90 Take 1 Tablet by [...] Active Montelukast Sodium 10 MG Oral Tablet (Singulair)Indicatio ns:Reactive airway disease, mild intermittent, uncomplicated TAKE 1 TABLET BY MOUTH IN THE MORNING 90 Tablet 1 03/21/2024 Active Jardiance 25 MG Oral Tablet (Empagliflozin) TAKE 1 TABLET BY MOUTH IN THE MORNING 90 Tablet 1 05/02/2024 Active Pantoprazole Sodium 20 MG Oral Tablet Delayed Release (Protonix)Indication s:GERD without esophagitis Take 1 Tablet by mouth in the morning and 1 Tablet in the evening. 30 minutes before meals. Do not crush, split or chew the tablet. - Oral 180 Tablet 1 05/16/2024 Active OneTouch Verio In Vitro Strip (Glucose Blood)Indications:Ty pe 2 diabetes mellitus with hemoglobin A1c goal of less than 7.0% ([facility]) Use to check blood sugar once a day 100 Strip 1 05/15/2024 Active Hospital, Clinic, or Other Facility Administered Medication Ordered Dose Route Frequency Start Date End Date Status albuterol sulfate (PROVENTIL) (2.5 MG/3ML) 0.083% inhalation solution 2.5 mgIndications:Mild intermittent reactive airway disease without complication 2.5 mg NEBULIZER Q4H PRN 03/12/2018 Active documented as of this encounter (statuses as of 06/10/2024) Active Problems Problem Noted Date Diagnosed Date [...] as of this encounter (statuses as of 06/10/2024) Resolved Problems Problem Noted Date Diagnosed Date [...] as of this encounter (statuses as of 06/10/2024) Immunizations Name Administration Dates Next Due COVID-19 [...] on file documented as of this encounter Progress Notes * Alayna Muhammad LPN - 06/10/2024 1:47 PM EDT PRE - ADMINISTRATION DOCUMENTATION Are you experiencing any cold symptoms or fever? No Have you had Guillain-[place] Syndrome (an illness that causes paralysis) within the last 6 weeks? No Have you had the flu shot in the past? YES Have you ever had a reaction to the flu shot? No Alayna Muhammad LPN, 06/10/2024 1:47 PM Immunization Administration Documentation Time Out Procedure Performed: Yes Patient Identified (Ask Name/Date of ): Yes Does the patient have a fever greater than 101 degrees today? No Patient allergic to latex? No VFC Stock: No Immunization(s) verified: Yes, Immunization Name: Flu, VIS Sheet(s) given: Yes Verified Side and Site: Yes Verified Shot(s) with Parent(s)/Patient: Yes documented in this encounter Plan of Treatment Upcoming Encounters Date Type Department Care Team (Late st Contact Info) Description 07/09/2024 10:00 AM EST Imaging Radiology, [address] [place] [address] 10/10/2024 9:30 AM EST Office Visit [facility] [address] [place] [address] Eloisa Angel DO [address] [place] [address] Health Maintenance Due Date Last Done Comments Hepatitis C Screening 1968 Zoster Vaccines (2 of 3) 07/28/2009 06/02/2009 Adult Wellness Visit 02/25/2023 02/25/2022 DXA Scan 02/02/2024 02/01/2017 GFR 04/05/2024 10/06/2023, 10/0 05/2023, 01/27/2023, Additional history exists COVID-19 Vaccine ( season) 2024 08/19/2021, 11/01/2020, 09/27/2020 HbA1c 09/21/2024 03/21/2024, 02/10/2023, 06/12/2023, Additional history exists Albumin/Creatinine Ratio 10/06/2024 024, 09/29/2022, 10/04/2021 Depression Screening 10/06/2024 10/06/2023 Diabetic Eye Exam 12/04/2024 12/05/2023, , 05/13/2022, Additional history exists CKD HGB USE SMARTSET 47758 03/14/202503/14, 01/27/2023, 12/03/2021, Additional history exists CKD PHOS USE SMARTSET 34107 03/14/2025 07/09/2023, 01/27/2023, 12/03/2021, Additional history exists [...] this encounter Medical Devices Implanted Type Area Environmental Engineering Technician Device Identifier Shelf Expiration Date Model / Serial / Lot Stent Glaucoma Treatment s - [id number] - [id number] Implanted:Qty: 1 on 06/08/2020 by Ning Roman MD at [facility] Right: Eye ALLERGAN [id number] 10/04/2022 5513-001 / [id number] / [id number] Xen Gel Stent Implanted:Qty: 1 on 08/17/2020 by Ning Roman MD at [facility] Left: Eye 05/04/2023 5513-001 / [id number] / [id number] Stent Glaucoma Treatment [facility] - [id number] - [id number] Implanted:Qty: 1 on 11/17/2020 by Ning Roman MD at [facility] Left: Eye ALLERGAN [id number] 05/04/2023 5513-001 / [id number] / [id number] documented as of this encounter Visit Diagnoses Diagnosis Need for prophylactic vaccination and inoculation against influenza- Primary documented in this encounter Advance Directives * Full Code (Latest Code Status on File) Date Activated Date Inactivated Comments 11/17/2020 5:08 PM 11/17/2020 9:30 PM This order r eflects the patients wishes and were consensually agreed upon. Care Teams Rivet Heater Relationship Specialty Start Date End Date Eloisa Angel DO [address], [place] [id number] PCP - General Family Medicine 10/19/18 documented as of this encounter
--- OUTSIDE RECORDS SUMMARY | 2024-09-25 23:13 | External Medical Summary | Summary of Care ---
Author Name Unknown Organization [facility] Address [address] [facility] [place] [address] Phone [phone] Care Team Providers Care Client Support Analyst Name Role Phone Eloisa Angel DO Primary Care Provider [phone] Encounter Details Date Type Department Care Team (Late st Contact Info) Description 05/18/2024 Orders Only PATIENT PORTAL DO NOT DELETE THIS DEPT USED BY [place] [id number] Allergies Active Allergy Reactions Criticality Noted Date [...] as of this encounter (statuses as of 05/18/2024) Medications Medication Sig Dispensed Refills Start Date [...] hemoglobin A1c goal of less than 7.0% ([facility]) Use daily, once to check Blood sugars. [...] hemoglobin A1c goal of less than 7.0% ([facility]) Use to check blood sugar once a day 100 Strip 1 05/15/2024 Active Hospital, Clinic, or Other Facility Administered Medication Ordered Dose Route Frequency Start Date End Date Status albuterol sulfate (PROVENTIL) (2.5 MG/3ML) 0.083% inhalation solution 2.5 mgIndications:Mild intermittent reactive airway disease without complication 2.5 mg NEBULIZER Q4H PRN 03/12/2018 Active documented as of this encounter (statuses as of 05/18/2024) Active Problems Problem Noted Date Diagnosed Date [...] as of this encounter (statuses as of 05/18/2024) Resolved Problems Problem Noted Date Diagnosed Date [...] as of this encounter (statuses as of 05/18/2024) Immunizations Name Administration Dates Next Due COVID-19 [...] on file documented as of this encounter Plan of Treatment Upcoming Encounters Date Type Department Care Team (Late st Contact Info) Description 07/09/2024 10:00 AM EST Imaging Radiology, [address] [place] [address] 10/10/2024 9:30 AM EST Office Visit [facility] [address] [address] Eloisa Angel, DO [address] [place] [address] Health Maintenance Due Date Last Done Comments [...] Additional history exists CKD HGB USE SMARTSET 15974 03/14/202503/14, 01/27/2023, 12/03/2021, Additional history exists CKD PHOS USE SMARTSET 50533 03/14/2025 07/09/2023, 01/27/2023, 12/03/2021, Additional history exists [...] this encounter Medical Devices Implanted Type Area Support Architect Device Identifier Shelf Expiration Date Model / Serial / Lot Stent Glaucoma Treatment Sys - [id number] - [id number] Implanted:Qty: 1 on 06/08/2020 by Ning Roman MD at [facility] Right: Eye ALLERGAN [id number] 10/04/2022 5513-001 / [id number] / [id number] Xen Gel Stent Implanted:Qty: 1 on 08/17/2020 by Ning Roman MD at [facility] Left: Eye 05/04/2023 5513-001 / [id number] / [id number] Stent Glaucoma Treatment Sys - [id number] - [id number] Implanted:Qty: 1 on 11/17/2020 by Ning Roman MD at [facility] Left: Eye ALLERGAN [id number] 05/04/2023 5513-001 / [id number] / [id number] documented as of this encounter Advance Directives * Full Code (Latest Code Status on File) Date Activated Date Inactivated Comments 11/17/2020 5:08 PM 11/17/2020 9:30 PM This order r eflects the patients wishes and were consensually agreed upon. Care Teams Client Support Analyst Relationship Specialty Start Date End Date Eloisa Angel DO [address] [facility] [facility] [place] [id number] PCP - General Family Medicine 10/19/18 documented as of this encounter
--- OUTSIDE RECORDS SUMMARY | 2024-09-25 23:13 | External Medical Summary | Summary of Care ---
Author Name Unknown Organization [facility] Address [address] [facility] [place] [address] Phone [phone] Care Team Providers Care Comber Fixer Name Role Phone Eloisa Angel DO Primary Care Provider [phone] Encounter Details Date Type Department Care Team (Late st Contact Info) Description 03/26/2024 Telephone Cardiology, [facility] [address] [place] [address] Sue Ewing CRNP [address] [place] [address] Allergies Active Allergy Reactions Criticality Noted Date [...] as of this encounter (statuses as of 04/09/2024) Medications Medication Sig Dispensed Refills Start Date [...] in the evening Active ELA CRUMP 33G MISCIndications:Type 2 diabetes mellitus with hemoglobin A1c goal of less than 7.0% ([facility]) Use daily, once to check Blood [...] Tablet Chewable Take by mouth. Activ e Pantoprazole Sodium 20 MG Oral Tablet Delayed [...] for Wheezing. 120 mL 5 10/06/2023 Active Empagliflozin 25 MG Oral Tablet (Jardiance) Take 1 Tablet by mouth in the morning. In the morning.. 90 Tablet 1 10/06/2023 Active Losartan Potassium 100 MG Oral [...] hemoglobin A1c goal of less than 7.0% ([facility]) Use to check blood sugar once a day DX:E11.9 100 Strip 1 10/25/2023 Active Vitamin C 250 MG Vaginal Tablet Administer into the vagina. Active Montelukast Sodium 10 MG Oral Tablet (Singulair)Indicatio ns:Reactive airway disease, mild intermittent, uncomplicated TAKE 1 TABLET BY MOUTH IN THE MORNING 90 Tablet 1 03/21/2024 Active Hospital, Clinic, or Other Facility Administered Medication Ordered Dose Route Frequency Start Date End Date Status albuterol sulfate (PROVENTIL) (2.5 MG/3ML) 0.083% inhalation solution 2.5 mgIndications:Mild intermittent reactive airway disease without complication 2.5 mg NEBULIZER Q4H PRN 03/12/2018 Active documented as of this encounter (statuses as of 04/09/2024) Active Problems Problem Noted Date Diagnosed Date [...] as of this encounter (statuses as of 04/09/2024) Resolved Problems Problem Noted Date Diagnosed Date [...] as of this encounter (statuses as of 04/09/2024) Immunizations Name Administration Dates Next Due COVID-19 [...] encounter Miscellaneous Notes * Telephone Encounter - Dary Ortez CMA - 03/27/2024 4:31 PM EDT Called and spoke to patient. She is aware of test results and verbalized understanding. Patient does not want to proceed with cardio MTM referral. She stated she is not willing to try other medications at this time. * Telephone Encounter - Libertad Darby CMA - 03/26/2024 1:33 PM EDT LMTRC documented in this encounter Plan of Treatment Upcoming Encounters Date Type Department Care Team (Late st Contact Info) Description 07/09/2024 10:00 AM EST [address], [address] [address] 10/10/2024 9:30 AM EST Office Visit [facility] [address] [place] [facility] [place] [id number] Eloisa Angel DO [address] [place] [address] Health Maintenance Due Date Last Done Comments Hepatitis C Screening 1968 Zoster Vaccines (2 of 3) 07/28/2009 06/02/2009 Adult Wellness Visit 02/25/2023 02/25/2022 COVID-19 Vaccine ( season) 2023 08/19/2021, 11/01/2020, 09/27/2020 DXA Scan 02/02/2024 02/01/2017 GFR 04/05/2024 10/06/2023, 05/2023, 01/27/2023, Additional history exists Influenza Vaccine (FLU shot) (#1) 2024 05/22/2023, 06/14/2022, 06/11/2021, Additional history exists HbA1c 09/21/2024 03/21/2024, 10/2023, 06/12/2023, Additional history exists Albumin/Creatinine Ratio 10/06/2024 024, 09/29/2022, 10/04/2021 Depression Screening 10/06/2024 10/06/2023 Diabetic Eye Exam 12/04/2024 12/05/2023, , 05/13/2022, Additional history exists CKD HGB USE SMARTSET 25683 03/14/202503/14, 01/27/2023, 12/03/2021, Additional history exists CKD PHOS USE SMARTSET 28627 03/14/2025 0709/2023, 01/27/2023, 12/03/2021, Additional history exists Diabetic Foot Exam 03/21/2025 03/21/2024, 0 09/29/2022, 08/05/2021, Additional history exists DTaP,Tdap,and Td Vaccines (2 - Td or Tdap) 03/02/2028 [...] this encounter Medical Devices Implanted Type Area Management And Budget Analyst Device Identifier Shelf Expiration Date Model / Serial / Lot Stent Glaucoma Treatment s - [id number] - [id number] Implanted:Qty: 1 on 06/08/2020 by Ning Roman MD at [facility] Right: Eye ALLERGAN [id number] 10/04/2022 5513-001 / [id number] / [id number] Xen Gel Stent Implanted:Qty: 1 on 08/17/2020 by Ning Roman MD at [facility] Left: Eye 05/04/2023 5513-001 / [id number] / [id number] Stent Glaucoma Treatment Sys - [id number] - [id number] Implanted:Qty: 1 on 11/17/2020 by Ning Roman MD at [facility] Left: Eye ALLERGAN [id number] 05/04/2023 5513-001 / [id number] / [id number] documented as of this encounter Advance Directives * Full Code (Latest Code Status on File) Date Activated Date Inactivated Comments 11/17/2020 5:08 PM 11/17/2020 9:30 PM This order r eflects the patients wishes and were consensually agreed upon. Care Teams Comber Fixer Relationship Specialty Start Date End Date Eloisa Angel DO [address] [place] [address] PCP - General Family Medicine 10/19/18 documented as of this encounter
--- OUTSIDE RECORDS SUMMARY | 2024-09-25 23:13 | External Medical Summary ---
Author Name Unknown Address Unknown Organization K01:[facility] [place] [address] [place] [address] Laboratory Report Ordering Provider Test Date Status SUZANRADHA 09/19/2024 15:02:22 Final Observation Date Value Abnormality Reference (Units ) Status Vitamin B12 09/19/2024 15:02:22 [phone] (pg/mL) Final Performing Location [facility] - [address] [place] [address]
--- OUTSIDE RECORDS SUMMARY | 2024-09-25 23:13 | External Medical Summary | Summary of Care ---
Author Name Unknown Organization [facility] Address [address] [facility] [place] [address] Phone [phone] Care Team Providers Care Front End Manager Name Role Phone Eloisa Angel DO Primary Care Provider [phone] Reason for Visit * Reason Comments Acute Pt being seen for hi gh BP reading and also has some tingling in face and has concern it is related. She is taking her BP medication as directed.Has some stomach issues and has GERD. Encounter Details Date Type Department Care Team (Late st Contact Info) Description 09/19/2024 2:40 PM EST Office Visit Family Practice [facility] [address] [place] [address] Marquise Sanchez MD [address] [place] [address] [place] [address] HTN, goal below 130/80*; Type 2 diabetes mellitus with stage 3a chronic kidney disease, without long-term current use of insulin ([facility]); Type 2 diabetes mellitus with hemoglobin A1c goal of less than 7.0% ([facility]) Allergies Active Allergy Reactions Criticality Noted [...] as of this encounter (statuses as of 09/19/2024) Medications Vitamin D, Cholecalciferol, 1000 UNITS CAPS 1 Capsule in the morning. Active Nebulizers (NEBULIZER COMPRESSOR) MISCIndications:R eactive airway disease, mild intermittent, uncomplicated Use as directed. Height 64 inches, Weight 173 lbs, Prognosis good, Length of need 99 years - lifetime. 1 Each 1 7 Active Respiratory Therapy Supplies (NEBULIZER/TUBING /MOUTHPIECE) KITIndications:Re active airway disease, mild intermittent, uncomplicated Use with nebulizer 1 Kit 2 7 Active Probiotic Product (PROBIOTIC & ACIDOPHILUS EX ST) CapsuleIndication s:takes in the evening Take 1 Cap by mouth daily. Indications: takes in the evening Active ONETOUCH DELICA LANCETS 33G MISCIndications:T ype 2 diabetes mellitus with hemoglobin A1c goal of less than 7.0% ([facility]) Use daily, once to check Blood sugars. DX:E11.9 100 Each 3 8 Active vitamin b-12 (CYANOCOBALAMIN) 250 MCG TABS Take 2 Tablets by mouth in the morning. 9 Active Multi Vitamin Daily Oral Tablet Take by mouth. 1 Active Ipratropium-Albut justyna 0.5-2.5 (3) MG/3ML Inhalation Solution (Duoneb) Inhale 3 mL by mouth every 6 hours as needed for Wheezing. 360 mL 1 1 Active Magnesium 100 MG Oral Capsule 1 Capsule. 2 Active Aspirin 81 MG Oral Tablet Delayed Release Take 1 Tablet by mouth in the morning. 1 Tablet 3 Active Metamucil Fiber Oral Tablet Chewable Take by mouth. Activ e Flovent Diskus 100 MCG/ACT Inhalation Aerosol Powder Breath Activated (Fluticasone Propionate (Inhal)) Inhale 1 Puff by mouth 2 times a day as needed for Wheezing. Active Sucralfate 1 GM Oral Tablet (Carafate)Indicat ions:Epigastric pain,GERD without esophagitis Take 1 Tablet by mouth 4 times a day before meals and at bedtime. 360 Tablet 3 3 Active ProAir RespiClick 108 (90 Base) MCG/ACT Inhalation Aerosol Powder Breath Activated (Albuterol Sulfate)Indicatio ns:Mild intermittent asthma without complication Two puffs q.6 hours as needed for asthma 3 Each 2 4 Active Albuterol Sulfate 1.25 MG/3ML Inhalation Nebulization SolutionIndicatio ns:Mild intermittent asthma without complication Inhale 1.25 mg via nebulizer every 4 hours as needed for Wheezing. 120 mL 5 4 Active Losartan Potassium 100 MG Oral Tablet (Cozaar)Indicatio ns:Essential hypertension TAKE 1 TABLET BY MOUTH IN THE MORNING 90 Tablet 3 4 Active Ventolin HFA 108 (90 Base) MCG/ACT Inhalation Aerosol Solution Inhale 2 Puffs by mouth in the morning and 2 Puffs at noon and 2 Puffs in the evening and 2 Puffs before bedtime. 6.7 g 5 4 Active Vitamin C 250 MG Vaginal Tablet Administer into the vagina. Active Montelukast Sodium 10 MG Oral Tablet (Singulair)Indica tions:Reactive airway disease, mild intermittent, uncomplicated TAKE 1 TABLET BY MOUTH IN THE MORNING 90 Tablet 1 4 Active Jardiance 25 MG Oral Tablet (Empagliflozin) TAKE 1 TABLET BY MOUTH IN THE MORNING 90 Tablet 1 4 Active Pantoprazole Sodium 20 MG Oral Tablet Delayed Release (Protonix)Indicat ions:GERD without esophagitis Take 1 Tablet by mouth in the morning and 1 Tablet in the evening. 30 minutes before meals. Do not crush, split or chew the tablet. - Oral 180 Tablet 1 4 Active OneTouch Verio In Vitro Strip (Glucose Blood)Indications :Type 2 diabetes mellitus with hemoglobin A1c goal of less than 7.0% ([facility]) Use to check blood sugar once a day 100 Strip 1 4 Active Atenolol 50 MG Oral Tablet (Tenormin)Indicat ions:HTN, goal below 140/90 TAKE 1 TABLET BY MOUTH IN THE MORNING 90 Tablet 3 4 Active Chlorthalidone 25 MG Oral Tablet (Hygroton)Indicat ions:HTN, goal below 130/80 Take 1 Tablet by mouth in the morning. In the morning.. 30 Tablet 5 5 Active Hospital, Clinic, or Other Facility Administered Medication Ordered Dose Route Frequency Start Date End Date Status albuterol sulfate (PROVENTIL) (2.5 MG/3ML) 0.083% inhalation solution 2.5 mgIndications:Mild intermittent reactive airway disease without complication 2.5 mg NEBULIZER Q4H PRN 03/12/2018 Active documented as of this encounter (statuses as of 09/19/2024) Active Problems Problem Noted Date Diagnosed Date [...] as of this encounter (statuses as of 09/19/2024) Resolved Problems Problem Noted Date Diagnosed Date [...] as of this encounter (statuses as of 09/19/2024) Immunizations Name Administration Dates Next Due COVID-19 [...] Passive Smoke Exposure: Past Smokeless Tobacco: Never Tobacco Cessation:Counseling Given: Not Answered Passive Exposure Comments:As a child Alcohol Use [...] AM EDT documented as of this encounter Last Filed Vital Signs Vital Sign Reading Time Taken Comments Blood Pressure 170/80 09/19/2024 2:31 PM EST Pulse 72 09/19/2024 2:31 PM EST Temperature 36.4 C (97.6 F) 09/19/2024 2:31 PM ES T Respiratory Rate 16 09/19/2024 2:31 PM EST Oxygen Saturation 97% 09/19/2024 2:31 PM EST Inhaled Oxygen Concentration - - Weight 71.7 kg (158 lb) 09/19/2024 2:31 PM EST Height - - Body Mass Index 27.99 03/21/2024 8:25 AM EDT documented in this encounter Progress Notes * Marquise Sanchez MD - 09/19/2024 2:25 PM EST Jakub is not feeling well, She has tingles in her left cheek, somewhat in left arm and less in right arm, and legs are getting swollen. Denies nausea, vomiting, or diarrhea. Denies fevers, chills or sweats. No dysnpea She is getting more heartburn as weill, does take the pantoprazole BID Health Maintenance addressed. Did get flu shot Patient Active Problem List Diagnosis GERD without esophagitis Mild intermittent asthma without complication Glaucoma HTN, goal below 130/80 History of renal stone Dyslipidemia, goal LDL below 100 Type 2 diabetes mellitus with hemoglobin A1c goal of less than 7.0% (HCC) Type 2 diabetes mellitus with stage 3a chronic kidney disease (HCC) Chronic kidney disease, stage 3a (HCC) Past Medical History: Diagnosis Date Allergic rhinitis Alopecia GERD without esophagitis Glaucoma Hypertension losartan and atenolol. Reactive airway disease hospitalized 10 d for ? legionarres disease. Past Surgical History: Procedure Laterality Date (EKG) TRACING ONLY 2010 nml CATARACT SURGERY,COMPLEX bilaterally COLONOSCOPY 2009 diverticula. COLONOSCOPY, DIAGNOSTIC (RECTUM) 07/12/2019 normal/COLONOSCOPY FLEXIBLE PROXIMAL DIAGNOSTIC performed by Bertrand Ibrahim MD at ENDOSCOPY [facility] EGD, FLEXIBLE, DIAGNOSTIC 02/02/2016 inflammatory changes on bx/ESOPHAGOGASTRODUODENOSCOPY (EGD), FLEXIBLE, TRANSORAL, DIAGNOSTIC performed by Lazarus Frost DO at ENDOSCOPY [facility] EGD, FLEXIBLE, DIAGNOSTIC 09/28/2017 duodenitis, normal bx/ESOPHAGOGASTRODUODENOSCOPY (EGD), FLEXIBLE, TRANSORAL, DIAGNOSTIC performed by Sameera Franco MD at ENDOSCOPY [facility] EGD, FLEXIBLE, DIAGNOSTIC 12/19/2018 normal/ESOPHAGOGASTRODUODENOSCOPY (EGD), FLEXIBLE, TRANSORAL, DIAGNOSTIC performed by Bertrand Ibrahim MD at ENDOSCOPY [facility] EGD, FLEXIBLE, DIAGNOSTIC 03/02/2021 Normal scope / biopsies biopsies from your stomach did not show any worrisome features or signs of infection / ESOPHAGOGASTRODUODENOSCOPY (EGD), FLEXIBLE, TRANSORAL, DIAGNOSTIC performed by Bertrand Ibrahim MD at ENDOSCOPY [facility] INCISION OF COLON left inguinal hernia repair--30 years ago. INSERT AQUEOUS DRAIN DEVICE INITIAL Right 06/08/2020 AQUEOUS SHUNT TO SUBCONJUNCTIVAL SPACE WITHOUT EXTRAOCULAR RESERVOIR, INTERNAL APPROACH performed by Ning Roman MD at [facility] INSERT AQUEOUS DRAIN DEVICE INITIAL Left 08/17/2020 AQUEOUS SHUNT TO SUBCONJUNCTIVAL SPACE WITHOUT EXTRAOCULAR RESERVOIR, INTERNAL APPROACH performed by Ning Roman MD at [facility] INSERT AQUEOUS DRAIN DEVICE INITIAL Left 11/17/2020 AQUEOUS SHUNT TO SUBCONJUNCTIVAL SPACE WITHOUT EXTRAOCULAR RESERVOIR, INTERNAL APPROACH performed by Ning Roman MD at [facility] INSERT AQUEOUS SHUNT, EXTERNAL APPROACH Left 11/09/2020 INSERTION AQUEOUS ANTERIOR DRAINAGE DEVICE W/O EXTRAOCULAR RESERVOIR performed by Ning Roman MD at [facility] MISCELLANEOUS ORDER ([facility] ONLY) lazer eye surgery for glaucoma bilaterally. REPAIR/GRAFT SCLERAL LESION Left 11/09/2020 REPAIR SCLERAL STAPHYLOMA WITH GRAFT performed by Ning Roman MD at [facility] Review of patient's allergies indicates: Allergen Reactions Amlodipine Edema Other Bactrim [Sulfamethoxazole-Trimethoprim] Flushing Combigan [Brimonidine Tartrate-Timolol] Edema face/lips/tongue Crestor [Rosuvastatin] Edema face/lips/tongue Dorzolamide Erythromycin Nausea/vomiting Lipitor [Atorvastatin] Edema face/lips/tongue Lisinopril Cough Metformin Other (Please comment) Pt states it decreased her B12 level. Prempro [Conj Estrog-Medroxyprogest Jose] Edema face/lips/tongue and Rash Timolol Edema airway Travatan [Travoprost] Xalatan [Latanoprost] Rash Zetia [Ezetimibe] Edema face/lips/tongue Dust Plavix [Clopidogrel] Sulfa Antibiotics Social History Socioeconomic History Marital status: Spouse name: Not on file Number of children: Not on file Years of education: Not on file Highest education level: Not on file Occupational History Not on file Tobacco Use Smoking status: Never Passive exposure: Past (As a child) Smokeless tobacco: Never Vaping Use Vaping status: Never Used Substance and Sexual Activity Alcohol use: Yes Comment: very rare Drug use: No Sexual activity: Not on file Other Topics Concern Not on file Social History Narrative Lives with . Recently retired. Son in . 1 daughter. Social Needs Financial Resource Strain: Not on file Food Insecurity: No Food Insecurity (06/15/2023) Hunger Vital Sign Worried About Running Out of Food in the Last Year: Never true Ran Out of Food in the Last Year: Never true Transportation Needs: Not on file Social Connections: Not on file Housing Stability: Not on file Current Outpatient Medications Medication Sig Dispense Refill Vitamin D, Cholecalciferol, 1000 UNITS CAPS 1 Capsule in the morning. Nebulizers (NEBULIZER COMPRESSOR) MISC Use as directed. Height 64 inches, Weight 173 lbs, Prognosisgood, Length of need 99 years - lifetime. 1 Each 1 Respiratory Therapy Supplies (NEBULIZER/TUBING/MOUTHPIECE) KIT Use with nebulizer 1 Kit 2 Probiotic Product (PROBIOTIC & ACIDOPHILUS EX ST) Capsule Take 1 Cap by mouth daily. Indications: takes in the evening ONETOUCH DELICA LANCETS 33G MISC Use daily, once to check Blood sugars. DX:E11.9 100 Each 3 vitamin b-12 (CYANOCOBALAMIN) 250 MCG TABS Take 2 Tablets by mouth in the morning. Multi Vitamin Daily Oral Tablet Take by mouth. Ipratropium-Albuterol 0.5-2.5 (3) MG/3ML Inhalation Solution (Duoneb) Inhale 3 mL by mouth every 6 hours as needed for Wheezing. 360 mL 1 Magnesium 100 MG Oral Capsule 1 Capsule. Aspirin 81 MG Oral Tablet Delayed Release Take 1 Tablet by mouth in the morning. 1 Tablet 0 Metamucil Fiber Oral Tablet Chewable Take by mouth. Flovent Diskus 100 MCG/ACT Inhalation Aerosol Powder Breath Activated (Fluticasone Propionate (Inhal)) Inhale 1 Puff by mouth 2 times a day as needed for Wheezing. Sucralfate 1 GM Oral Tablet (Carafate) Take 1 Tablet by mouth 4 times a day before meals and at bedtime. 360 Tablet 3 ProAir RespiClick 108 (90 Base) MCG/ACT Inhalation Aerosol Powder Breath Activated (Albuterol Sulfate) Two puffs q.6 hours as needed for asthma 3 Each 2 Albuterol Sulfate 1.25 MG/3ML Inhalation Nebulization Solution Inhale 1.25 mg via nebulizer every 4hours as needed for Wheezing. 120 mL 5 Losartan Potassium 100 MG Oral Tablet (Cozaar) TAKE 1 TABLET BY MOUTH IN THE MORNING 90 Tablet 3 Ventolin HFA 108 (90 Base) MCG/ACT Inhalation Aerosol Solution Inhale 2 Puffs by mouth in the morning and 2 Puffs at noon and 2 Puffs in the evening and 2 Puffs before bedtime. 6.7 g 5 Vitamin C 250 MG Vaginal Tablet Administer into the vagina. Montelukast Sodium 10 MG Oral Tablet (Singulair) TAKE 1 TABLET BY MOUTH IN THE MORNING 90 Tablet 1 Jardiance 25 MG Oral Tablet (Empagliflozin) TAKE 1 TABLET BY MOUTH IN THE MORNING 90 Tablet 1 Pantoprazole Sodium 20 MG Oral Tablet Delayed Release (Protonix) Take 1 Tablet by mouth in the morning and 1 Tablet in the evening. 30 minutes before meals. Do not crush, split or chew the tablet. - Oral 180 Tablet 1 OneTouch VideoCareio In Vitro Strip (Glucose Blood) Use to check blood sugar once a day 100 Strip 1 Atenolol 50 MG Oral Tablet (Tenormin) TAKE 1 TABLET BY MOUTH IN THE MORNING 90 Tablet 3 Current Facility-Administered Medications Medication Dose Route Frequency Provider Last Rate Last Admin albuterol sulfate (PROVENTIL) (2.5 MG/3ML) 0.083% inhalation solution 2.5 mg 2.5 mg Nebulizer Q4H PRN Kaylie Rendon DO 2.5 mg at 03/16/18 1028 /. Lab Results Component Value Date/Time HEMOGLOBIN A1C - [facility] 6.7 (H) 03/21/2024 09:40 AM HEMOGLOBIN A1C - [facility] 6.4 (H) 10/06/2023 09:39 AM HEMOGLOBIN A1C - [facility] 6.7 (H) 06/12/2023 08:26 AM HEMOGLOBIN A1C - [facility] 6.5 (H) 03/23/2020 01:02 PM HEMOGLOBIN A1C - [facility] 6.1 (H) 08/22/2019 11:07 AM HEMOGLOBIN A1C - [facility] 6.6 (H) 04/26/2019 08:18 AM O: Blood pressure 170/80, pulse 72, temperature 97.6 F (36.4 C), temperature source Tympanic, resp. rate 16, weight 158 lb (71.7 kg), SpO2 97%, not currently . Neck is supple withoutadenopathy or thyromegaly. Chest is symmetrical and moves normally. The lungs are clear without wheezes, rales, rhonchi or rubs, and the heart is regular without murmurs or gallops, or ectopy. PMI not displaced. A: HTN, goal below 130/80 (Primary) - Chlorthalidone 25 MG Oral Tablet (Hygroton); Take 1 Tablet by mouth in the morning. In the morning.. - BNP, NT-PRO; Future; Expected date: 09/19/2024 Type 2 diabetes mellitus with stage 3a chronic kidney disease, without long-term current use of insulin (HCC) Type 2 diabetes mellitus with hemoglobin A1c goal of less than 7.0% (HCC) Continue other meds as before. Follow Up: Return in about 2 weeks (around 10/03/2024) for BP Check in 2 Weeks. | For: BP Check in 2Weeks documented in this encounter Plan of Treatment Upcoming Encounters Date Type Department Care Team (Late st Contact Info) Description 10/03/2024 9:30 AM EST Nurse Only Ancillary Department, Sonya Mor[facility] [address] [place] [phone] Sonya Nurse [address] [place] [address] 10/10/2024 9:30 AM EST Office Visit Family Practice, [place] Eli [address] [place] [phone] Eloisa Angel DO [address] [place] [address] Pending Results Name Type Priority Associated Diagnoses Date /Time BNP, NT-PRO Lab Routine HTN, goal below 130/80 09/19/2024 3:02 PM EST Scheduled Orders Name Type Priority Associated Diagnoses Orde r Schedule BNP, NT-PRO Lab Routine HTN, goal below 130/80 Expected: 09/19/2024 (Approximate), Expires: 09/19/2025 Health Maintenance Due Date Last Done Comments [...] Additional history exists CKD HGB USE SMARTSET 88346 03/14/202503/14, 01/27/2023, 12/03/2021, Additional history exists CKD PHOS USE SMARTSET 72643 03/14/2025 07/09/2023, 01/27/2023, 12/03/2021, Additional history exists [...] this encounter Medical Devices Implanted Type Area Learning Facilitator Device Identifier Shelf Expiration Date Model / Serial / Lot Stent Glaucoma Treatment [facility] - [id number] - [id number] Implanted:Qty: 1 on 06/08/2020 by Ning Roman MD at [facility] Right: Eye ALLERGAN [id number] 10/04/2022 5513-001 / [id number] / [id number] Xen Gel Stent Implanted:Qty: 1 on 08/17/2020 by Ning Roman MD at [facility] Left: Eye 05/04/2023 5513-001 / [id number] / [id number] Stent Glaucoma Treatment s - [id number] - [id number] Implanted:Qty: 1 on 11/17/2020 by Ning Roman MD at [facility] Left: Eye ALLERGAN [id number] 05/04/2023 5513-001 / [id number] / [id number] documented as of this encounter Visit Diagnoses Diagnosis HTN, goal below 130/80- Primary Unspecified essential hypertension Type 2 diabetes mellitus with stage 3a chronic kidney disease, without long-term current use of insulin (HCC) Type 2 diabetes mellitus with hemoglobin A1c goal of less than 7.0% (HCC) documented in this encounter Advance Directives * Full Code (Latest Code Status on File) Date Activated Date Inactivated Comments 11/17/2020 5:08 PM 11/17/2020 9:30 PM This order r eflects the patients wishes and were consensually agreed upon. Care Teams Front End Manager Relationship Specialty Start Date End Date Eloisa Angel DO PCP - General Family Medicine 10/19/18 documented as of this encounter"
--- OUTSIDE RECORDS SUMMARY | 2024-09-25 23:13 | External Medical Summary | Summary of Care ---
Author Name Unknown Organization [facility] Address [address] [facility] [address] Phone [phone] Care Team Providers Care Police Records Clerk Name Role Phone Eloisa Angel DO Primary Care Provider [phone] Reason for Visit * Reason Comments Outpatient Testing Encounter Details Date Type Department Care Team (Late st Contact Info) Description 09/19/2024 3:00 PM EST Laboratory Laboratory, [facility] [address] [facility] [phone] [facility] [address] [place] [address] Type 2 diabetes mellitus with stage 3a chronic kidney disease (HCC); Routine medical exam; Encounter for long-term (current) use of medications; Type 2 diabetes mellitus with stage 3a chronic kidney disease, unspecified whether marine oil terminal superintendent insulin use (HCC); HTN, goal below 130/80 Allergies Active Allergy Reactions Criticality Noted Date [...] hemoglobin A1c goal of less than 7.0% ([facility]) Use daily, once to check Blood sugars. [...] hemoglobin A1c goal of less than 7.0% ([facility]) Use to check blood sugar once a [...] AM EDT documented as of this encounter Plan of Treatment Upcoming Encounters Date Type Department Care Team (Late st Contact Info) Description 10/03/2024 9:30 AM EST Nurse Only Ancillary Department, Sonya Morales [address] [place] [phone] Nurse Sonya [address] [place] [address] 10/10/2024 9:30 AM EST Office Visit Family Practice, Sonya Eli [address] [place] [phone] Eloisa Angel DO [address] [place] [address] Pending Results Name Type Priority Associated Diagnoses Date /Time HEMOGLOBIN A1C Lab Routine Type 2 diabetes mellitus with stage 3a chronic kidney disease ([facility]) 09/19/2024 3:02 PM EST ALBUMIN / CREATININE RATIO, URINE Lab Routine Type 2 diabetes mellitus with stage 3a chronic kidney disease ([facility]) 09/19/2024 3:08 PM EST BASIC METABOLIC PANEL Lab Routine Routine medical exam Encounter for long-term (current) use of medications Type 2 diabetes mellitus with stage 3a chronic kidney disease, unspecified whether marine oil terminal superintendent insulin use (HCC) 09/19/2024 3:02 PM EST VITAMIN B12 Lab Routine Routine medical exam Encounter for long-term (current) use of medications 09/19/2024 3:02 PM EST MAGNESIUM Lab Routine Routine medical exam Encounter for long-term (current) use of medications 09/19/2024 3:02 PM EST BNP, NT-PRO Lab Routine HTN, goal below 130/80 09/19/2024 3:02 PM EST Scheduled Orders Name Type Priority Associated Diagnoses Orde r Schedule HEMOGLOBIN A1C Lab Routine Type 2 diabetes mellitus with stage 3a chronic kidney disease (HCC) Expected: 09/19/2024 (Approximate), Expires: 10/20/2025 ALBUMIN / CREATININE RATIO, URINE Lab Routine Type 2 diabetes mellitus with stage 3a chronic kidney disease (HCC) Expected: 09/19/2024, Expires: 09/19/2025 Health Maintenance Due Date Last [...] Additional history exists CKD HGB USE SMARTSET 87913 03/14/202503/14, 01/27/2023, 12/03/2021, Additional history exists CKD PHOS USE SMARTSET 87124 03/14/2025 07/1 09/2023, 01/27/2023, 12/03/2021, Additional history exists Diabetic Foot Exam 03/21/2025 03/21/2024, 0 09/29/2022, 08/05/2021, Additional history exists DTap/Tdap Vaccines (2 - Td or Tdap) 03/02/2028 03/02/2018 (Declined), 02/24/2015, 01/12/2007 DXA Scan 07/09/2031 07/09/2024, 110 01/2024, 02/01/2017 Pneumococcal Vaccine: 50+ Years Completed [...] this encounter Medical Devices Implanted Type Area Event Decorator Device Identifier Shelf Expiration Date Model / Serial / Lot Stent Glaucoma Treatment [facility] - [id number] - [id number] Implanted:Qty: 1 on 06/08/2020 by Ning Roman MD at [facility] Right: Eye ALLERGAN [id number] 10/04/2022 5513-001 / [id number] / [id number] Xen Gel Stent Implanted:Qty: 1 on 08/17/2020 by Ning Roman MD at [facility] Left: Eye 05/04/2023 5513-001 / [id number] / [id number] Stent Glaucoma Treatment Sys - [id number] - [id number] Implanted:Qty: 1 on 11/17/2020 by Ning Roman MD at [facility] Left: Eye ALLERGAN [id number] 05/04/2023 5513-001 / [id number] / [id number] documented as of this encounter Visit Diagnoses Diagnosis Type 2 diabetes mellitus with stage 3a chronic kidney disease (HCC) Routine medical exam Routine general medical examination at a health care facility Encounter for long-term (current) use of medications Encounter for long-term (current) use of other medications Type 2 diabetes mellitus with stage 3a chronic kidney disease, unspecified whether marine oil terminal superintendent insulin use (HCC) HTN, goal below 130/80 Unspecified essential hypertension documented in this encounter Advance Directives * Full Code (Latest Code Status on File) Date Activated Date Inactivated Comments 11/17/2020 5:08 PM 11/17/2020 9:30 PM This order r eflects the patients wishes and were consensually agreed upon. Care Teams Police Records Clerk Relationship Specialty Start Date End Date Eloisa Angel DO PCP - General Family Medicine 10/19/18 documented as of this encounter
--- OUTSIDE RECORDS SUMMARY | 2024-09-25 23:13 | External Medical Summary ---
Author Name Unknown Address Unknown Organization [id number]:[facility] [place] [address] [facility] [address] Laboratory Report Ordering Provider Test Date Status REYMUNDO CAMACHOYASMANY 09/19/2024 15:02:22 Final Observation Date Value Abnormality Reference (Units ) Status HbA1C 09/19/2024 15:02:22 6.8 Above high normal 4. 0-5.6 (%) Final The use of HbA1c to monitor glycemic status is based on normal hemoglobin and HbA composition. This test should not be used in patients with abnormal hemoglobin that affects the half life of the red blood cell or the in vivo glycation rates. Glucose, estimated average 09/19/2024 15:02:22 148 Above high normal <126 (mg/dL) Vernon lopez Performing Location [facility] [place] [address] [facility] [address]
--- OUTSIDE RECORDS SUMMARY | 2024-09-25 23:13 | External Medical Summary ---
Author Name Unknown Address Unknown Organization K01:[facility] - [address] [place] [address] Laboratory Report Ordering Provider Test Date Status TEODORO MARESASTER 09/19/2024 15:02:22 Final Observation Date Value Abnormality Reference (Units ) Status Magnesium 09/19/2024 15:02:22 2.2 1.5-2.6 (m g/dL) Final Performing Location [facility] - [address] [place] [address]
--- OUTSIDE RECORDS SUMMARY | 2024-09-25 23:13 | External Medical Summary | Summary of Care ---
Author Name Unknown Organization [facility] Address [address] [address] Phone [phone] Care Team Providers Care Trucking Contractor Name Role Phone Eloisa Angel DO Primary Care Provider [phone] Reason for Visit * Reason Comments Outpatient Testing Encounter Details Date Type Department Care Team (Late st Contact Info) Description 09/19/2024 3:00 PM EST Laboratory Laboratory, [facility] [address] [facility] [phone] [facility] [address] [place] [address] Type 2 diabetes mellitus with stage 3a chronic kidney disease (HCC); Routine medical exam; Encounter for long-term (current) use of medications; Type 2 diabetes mellitus with stage 3a chronic kidney disease, unspecified whether distance education coordinator insulin use (HCC); HTN, goal below 130/80 [...] hemoglobin A1c goal of less than 7.0% ([facility]) Use daily, once to check [...] hemoglobin A1c goal of less than 7.0% ([facility]) Use to check blood sugar [...] Ancillary Department, Sonya Morales [address] [phone] Nurse Sonya [address] [phone] 10/10/2024 9:30 AM EST Office Visit Family Practice, Sonya Eli [address] [phone] Eloisa Angel DO [address] [phone] Pending Results Name Type Priority Associated Diagnoses Date /Time HEMOGLOBIN A1C Lab Routine Type 2 diabetes mellitus with stage 3a chronic kidney disease ([facility]) 09/19/2024 3:02 PM EST ALBUMIN / CREATININE RATIO, URINE Lab Routine Type 2 diabetes mellitus with stage 3a chronic kidney disease ([facility]) 09/19/2024 3:08 PM EST BASIC METABOLIC PANEL Lab Routine Routine medical exam Encounter for long-term (current) use of medications Type 2 diabetes mellitus with stage 3a chronic kidney disease, unspecified whether distance education coordinator insulin use (HCC) 09/19/2024 3:02 PM EST [...] Additional history exists CKD HGB USE SMARTSET 85662 03/14/202503/14, 01/27/2023, 12/03/2021, Additional history exists CKD PHOS USE SMARTSET 07204 03/14/2025 07/1 09/2023, 01/27/2023, 12/03/2021, Additional history [...] this encounter Medical Devices Implanted Type Area Banking Teacher Device Identifier Shelf Expiration Date Model / Serial / Lot Stent Glaucoma Treatment [facility] - [id number] - [id number] Implanted:Qty: 1 on 06/08/2020 by Ning Roman MD at [facility] Right: Eye [employer] [id number] 10/04/2022 5513-001 / [id number] / [id number] Xen Gel Stent Implanted:Qty: 1 on 08/17/2020 by Ning Roman MD at [facility] Left: Eye 05/04/2023 5513-001 / [id number] / [id number] Stent Glaucoma Treatment Sys - [id number] - [id number] Implanted:Qty: 1 on 11/17/2020 by Ning Roman MD at [facility] Left: Eye [employer] [id number] 05/04/2023 5513-001 / [id number] / [id number] documented as of this encounter Visit Diagnoses Diagnosis Type 2 diabetes mellitus with stage 3a chronic kidney disease (HCC) Routine medical exam Routine general medical examination at a health care facility Encounter for long-term (current) use of medications Encounter for long-term (current) use of other medications Type 2 diabetes mellitus with stage 3a chronic kidney disease, unspecified whether distance education coordinator insulin use (HCC) HTN, goal below 130/80 Unspecified essential hypertension documented in this encounter Advance Directives * Full Code (Latest Code Status on File) Date Activated Date Inactivated Comments 11/17/2020 5:08 PM 11/17/2020 9:30 PM This order r eflects the patients wishes and were consensually agreed upon. Care Teams Trucking Contractor Relationship Specialty Start Date End Date Eloisa Angel DO PCP - General Family Medicine 10/19/18 documented as of this encounter
--- OUTSIDE RECORDS SUMMARY | 2024-09-25 23:13 | External Medical Summary ---
Author Name Unknown Address Unknown Organization [facility] [address] [place] [id number] Laboratory Report Ordering Provider Test Date Status RADHA MARES 09/19/2024 15:02:22 Final Observation Date Value Abnormality Reference (Units ) Status BUN 09/19/2024 15:02:22 19 6-20 (mg/dL) Final Creatinine 09/19/2024 15:02:22 0.9 0.5-1.0 (mg/dL) Final Glomerular filtration rate/1.73 sq M.predicted [Volume Rate/Area] in Serum, Plasma or Blood by Creatinine-based formula (CKD-EPI) 09/19/2024 15:02:22 65 >=60 (mL/min) Final eGFR is calculated based on the CKD-EPI 2020 equation. Sodium 09/19/2024 15:02:22 139 135-146 (m mol/L) Final Potassium 09/19/2024 15:02:22 4.9 3.5-5.1 (m mol/L) Final Cl 09/19/2024 15:02:22 100 98-107 (mm ol/L) Final CO2 09/19/2024 15:02:22 24 22-32 (mmo l/L) Final Anion gap 09/19/2024 15:02:22 15 7-15 (mmol /L) Final Glucose 09/19/2024 15:02:22 119 70-120 (mg /dL) Final Calcium 09/19/2024 15:02:22 10.0 8.4-10.2 ( mg/dL) Final [facility] Location [facility] [address] [place] [id number]
[2024-09-25] MEDS: SUCRALFATE 1 GM TAB PO SCH (23:19)
[2024-09-25] MEDS: MAGNESIUM CHLORIDE W/CALCIUM 64MG DELAYED REL TAB PO SCH (23:20)
[2024-09-25] MEDS: HEPARIN SOD 5,000 UNIT/0.5 ML VIAL SQ SCH (23:20)
--- OUTSIDE RECORDS SUMMARY | 2024-09-26 02:26 | External Medical Summary | Summary of Care ---
Author Name Unknown Organization [facility] Address [address] [facility] [place] [place] [address] Phone [phone] Care Team Providers Care Feed Management Advisor Name Role Phone Eloisa Angel DO Primary Care Provider [phone] Reason for Visit * Reason Comments Acute Pt here today due to having evaluated blood pressure and saw doctor [place] on . The blood pressure med he put her on stated you should not take it due to having an Sulfa allergy. Pt states she is very tired and her legs are no longer swollen sinus the weekend. Encounter Details Date Type Department Care Team (Late st Contact Info) Description 09/23/2024 3:00 PM EST Office Visit [facility] [place] [address] [phone] JanuaryChadwick MD [address] [phone] Risk and functional assessment*; HTN, goal below 130/80; Chronic kidney disease, stage 3a (HCC); GERD without esophagitis Allergies Active Allergy Reactions Criticality Noted Date Comments Amlodipine Edema Other High 2023 Sulfamethoxazole-Trimeth oprim [place] High 11/23/2015 Chlorthalidone Edema face/lips/tongue High 09/23/2024 Brimonidine Tartrate-Timolol Edema face/lips/tongue High 11/20/2019 Rosuvastatin Edema face/lips/tongue High 11/23/2015 Dorzolamide High 03/23/2020 Dust 11/13/2023 Erythromycin Nausea/vomiting High 11/23/2015 Atorvastatin Edema face/lips/tongue High 11/23/2015 Lisinopril Cough High 11/23/2015 Metformin Other (Please comment) High 10/19/2018 Pt states it decreased her B12 level. Clopidogrel 10/04/2021 Conj Estrog-Medroxyprogest Jose Edema face/lips/tongue,Ra sh High 11/23/2015 Sulfa Antibiotics 03/23/2020 Timolol Edema airway High 09/28/2020 Travoprost High 03/23/2020 Latanoprost Rash High 11/23/2015 Ezetimibe Edema face/lips/tongue High 12/14/2023 documented as of this encounter (statuses as of 09/23/2024) Medications Vitamin D, Cholecalciferol, 1000 UNITS CAPS 1 Capsule in the morning. Active Nebulizers (NEBULIZER COMPRESSOR) MISCIndications:R eactive airway disease, mild intermittent, uncomplicated Use as directed. Height 64 inches, Weight 173 lbs, Prognosis good, Length of need 99 years - lifetime. 1 Each 1 10/20/19 17 Active Respiratory Therapy Supplies (NEBULIZER/TUBING /MOUTHPIECE) KITIndications:Re active airway disease, mild intermittent, uncomplicated Use with nebulizer 1 Kit 2 10/20/19 17 Active Probiotic Product (PROBIOTIC & ACIDOPHILUS EX ST) CapsuleIndication s:takes in the evening Take 1 Cap by mouth daily. Indications: takes in the evening Active ONETOUCH KATHLEEN CRUMP 33G MISCIndications:T ype 2 diabetes mellitus with hemoglobin A1c goal of less than 7.0% ([facility]) Use daily, once to check Blood sugars. DX:E11.9 100 Each 3 06/05/20 18 Active vitamin b-12 (CYANOCOBALAMIN) 250 MCG TABS Take 2 Tablets by mouth in the morning. 08/22/20 19 Active Multi Vitamin Daily Oral Tablet Take by mouth. 02/24/20 21 Active Ipratropium-Albut justyna 0.5-2.5 (3) MG/3ML Inhalation [...] bedtime. 6.7 g 5 10/12/19 24 Active Montelukast Sodium 10 MG Oral Tablet [...] 24 Active Atenolol 50 MG Oral Tablet (Tenormin)Indicat ions:HTN, goal below 140/90 TAKE 1 TABLET BY MOUTH IN THE MORNING 90 Tablet 3 07/16/20 24 Active Vitamin C 250 MG Oral Tablet (Ascorbic Acid) Take 1 Tablet by mouth in the morning. Active Spironolactone 25 MG Oral Tablet (Aldactone)Indica tions:HTN, goal below 130/80 Take 1 Tablet by mouth in the morning. 30 Tablet 11 09/23/19 25 Active Vitamin C 250 MG Vaginal Tablet Administer into the vagina. 025 Discontin ued(Patie nt preferenc e/discont inuation) Hospital, Clinic, or Other Facility Administered Medication Ordered Dose Route Frequency Start Date End Date Status albuterol sulfate (PROVENTIL) (2.5 MG/3ML) 0.083% inhalation solution 2.5 mgIndications:Mild intermittent reactive airway disease without complication 2.5 mg NEBULIZER Q4H PRN 03/12/2018 Active documented as of this encounter (statuses as of 09/23/2024) Active Problems Problem Noted Date Diagnosed Date [...] as of this encounter (statuses as of 09/23/2024) Resolved Problems Problem Noted Date Diagnosed Date [...] as of this encounter (statuses as of 09/23/2024) Immunizations Name Administration Dates Next Due COVID-19 [...] Sign Reading Time Taken Comments Blood Pressure 152/80 09/23/2024 3:01 PM EST Pulse 62 09/23/2024 3:01 PM EST Temperature 35.6 C (96 F) 09/23/2024 3:01 PM EST Respiratory Rate 18 09/23/2024 3:01 PM EST Oxygen Saturation 97% 09/23/2024 3:01 PM EST Inhaled Oxygen Concentration - - Weight 72.2 kg (159 lb 1.6 oz) 09/23/2024 3:01 P M EST Height - - Body Mass Index 28.18 03/21/2024 8:25 AM EDT documented in this encounter Patient Instructions * Patient Instructions* Jeni Rachel LPN - 09/23/2024 3:04 PM EST Patient Instructions - Fall Prevention (This education is for all patients over 65 regardless of symptoms) Remember to take your current medications as prescribed. In order to prevent falls, you are encouraged to: Exercise Utilize assistive/adaptive devices Avoid multifocal lenses when walking Avoid hazards in home Maintain a regular toileting schedule Any questions please contact our office. Preventing Falls in the Home (This education is for all patients over 65 regardless of symptoms) As you get older, falls are more likely. Thats because your reaction time slows. Your muscles and joints may also get stiffer, making them less flexible. Illness, medications, and vision changes can also affect your balance. A fall could leave you unable to live on your own. To make your home safer, follow these tips: Floors Put nonskid pads under area rugs Remove throw rugs Replace worn floor coverings Tack carpets firmly to each step on carpeted stairs. Put nonskid strips on the edges of uncarpeted stairs Keep floors and stairs free of clutter and cords Arrange furniture so there are clear pathways Clean up any spills right away Bathrooms Install grab bars in the tub or shower Apply nonskid strips or put a nonskid rubber mat in the tub or shower Sit on a bath chair to bathe Use bathmats with nonskid backing Lighting Keep a flashlight in each room Put a nightlight along the pathway between the bedroom and the bathroom [employer] Patient Education Copyright 2008 - 2010 [employer] except where otherwise noted Preventing Falls: Exercises to Improve Balance, Flexibility, Strength, and Staying Power (This education is for all patients over 65 regardless of symptoms) Certain types of exercises may help make you less likely to fall. Try the ones below. Or do other exercises that your healthcare provider suggests. Depending on your health, you may need to start slowly. Dont let that stop you. Even small amounts of exercise can help you. Be sure to talk to yourhealthcare provider before starting any exercise program. Improve Balance Many types of exercise can help improve balance. Ari chi and yoga are good examples. Heres another one to try. You can do it anytime and almost anywhere. Stand next to a counter or solid support. Push yourself up onto your tiptoes. Hold for 5 seconds. If you start to lose your balance, hold on to the counter. Rest and repeat 5 times. Work up to holding for 20 to 30 seconds, if you can. Increase Flexibility Being more flexible makes it easier for you to move around safely. Try exercises like the seated hamstring stretch. Sit in a chair and put one foot on a stool. Straighten your leg and reach with both hands down either side of your leg. Reach as far down your leg as you can. Hold for about 20 seconds. Go back to the starting position. Then repeat 5 times. Switch legs. Build Strength Resistance exercises help build strength. You can do them without equipment. Or you can use weights, elastic bands, or special machines. One such exercise is called the biceps curl. You can hold a 1 pound weight or even a can of soup. Do this exercise at least 3 times a week. Strive for everyday. Sit up straight in a chair. Keep your elbow close to your body and your wrist straight. Bend your arm, moving your hand up to your shoulder. Then slowly lower your arm. Repeat 5 times. Switch to the other arm. Build Your Staying Power Aerobic exercises make your heart and lungs stronger so you can keep moving longer. Walking and swimming are two of the best types of exercises you can do. Using a stationary bike is great, too. Find an aerobic exercise that you enjoy. Start slowly and build up. Even 5 minutes is helpful. Aimfor a goal of 30 minutes, at least 3 times a week. You dont have to do 30 minutes in one session. Break it up and walk a little throughout the day. More Helpful Tips Start easy. Slowly work up to doing more. Talk with your healthcare provider about the best exercises for you. Call senior centers or health clubs about exercise programs. If needed, have a family member watch you walk every so often to check your stability. Exercise with a friend. Choose an activity you both enjoy. Try exercises that you can do anytime, anywhere. Here are two examples. Have someone with you when you first try these: Practice walking by placing one foot right in front of the other. Stand up and sit down 10 times. Repeat this throughout the day. [employer] Patient Education Copyright 2008 - 2010 [employer] except where otherwise noted. Preventing Falls: Moving Safely Using a Cane or Walker (This education is for all patients over 65 regardless of symptoms) Keep the cane away from your feet so you dont trip. A walking aid, such as a cane or walker, can help you stay more independent and avoid falls. Remember to keep your walking aid within easy reach when youre in a chair or in bed. And learn how to use it safely so you dont injure yourself. Using a Cane If you have a stronger side, hold the cane on that side. Get your balance. Move the cane and your weaker leg forward. Support your weight on both the cane and your weaker side. Step with your stronger leg. Start again from step 1. If youre using a folding walker, be sure you know how to lock it open. Check that its locked open before each use. Using a Walker Roll the walker (or lift it, if youre using one without wheels) forward about 12 inches. Step forward with your weaker leg first. Use the walker to help keep your balance. Bring your other foot forward to the center of the walker. Start again from step 1. Helpful Tips Check with your healthcare provider about the right walking aid to use. Ask about a walker with a seat attached. Check the tips of your cane or walker to make sure they have nonskid covers. Move slowly from room to room. Dont parr. Sit down to get dressed. Use a medina pack or backpack to keep your hands free. Get help for jobs that mean climbing, even on a stepstool. [employer] Patient Education Copyright 2008 - 2010 [employer] except where otherwise noted. Urinary Incontinence Plan of Care Documentation: (This education is for all patients over 65 regardless of symptoms) Current medications reconciled. Patient encouraged to: Practice kegal exercises Provide education materials Use the restroom every 2 hours throughout the day Limit caffeine, alcohol, spicy foods and acidic foods Keep a bladder diary Limit fluid intake 3-4 hours before bed Lose weight Prevent constipation Take fluid pills at a time when you can get to the bathroom quickly Control sugar better if diabetic Limit fluid intake to 60 oz. per day Wear support stockings (TEDs)if you have edema Jeni Rachel LPN 09/23/2024 Kegel Exercises Kegel exercises dont require special clothing or equipment. Theyre easy to learn and simple to do. And if you do them right, no one can tell youre doing them, so they can be done almost anywhere. Your doctor, nurse, or physical therapist can answer any questions you have and help you get started. A Weak Pelvic Floor The pelvic floor muscles may weaken due to aging, and vaginal childbirth, injury, surgery, chronic cough, or lack of exercise. If the pelvic floor is weak, your bladder and other pelvic organs may sag out of place. The urethra may also open too easily and allow urine to leak out. Kegel exercises can help you strengthen your pelvic floor muscles so they can better support the pelvic organs and control urine flow. How Kegel Exercises Are Done Try each of the Kegel exercises described below. When youre doing them, try not to move your leg, buttock, or stomach muscles. While youre urinating, try to stop the flow of urine. Start and stop it as often as you can. Contract as if you were stopping your urine stream, but do it when youre not urinating. Tighten your rectum as if trying not to pass gas. Contract your anus, but dont move your buttocks. Helpful Hints Do your Kegels as often as you can. The more you do them, the faster youll feel the results. Pick an activity you do often as a reminder. For instance, do your Kegels every time you sit down. Tighten your pelvic floor before you sneeze, get up from a chair, cough, laugh, or lift. This protects your pelvic floor from injury and can help prevent urine leakage. Try to hold each Kegel for a slow count to five. You probably wont be able to hold them for thatlong at first, but keep practicing. It will get easier as your pelvic floor gets stronger. Eventually, special weights that you place in your vagina may be recommended to help make your Kegels even more effective. [employer] Patient Education Copyright 2008 - 2010 [employer] except where otherwise noted. Here are some helpful tips for your urinary incontinence: (This education is for all patients over 65 regardless of symptoms) Practice Kegel exercises Use the restroom every 2 hours throughout the day Limit caffeine, alcohol, spicy foods, and acidic foods Keep a bladder diary Limit fluid intake 3-4 hours before bed Lose weight Prevent constipation Take fluid pills at a time when can get to the bathroom quickly Control sugar better if diabetic Limit fluid intake to 60 oz. per day Any questions, please feel free to contact our office. documented in this encounter Progress Notes * Chadwick Huntley MD - 09/23/2024 3:17 PM EST Images from the original note were not included. Subjective Jakub Knapp is a 73 year old female that presents for Acute (Pt here today due to having evaluated blood pressure and saw doctor [place]ch[place] on . The blood pressure med he put her on statedyou should not take it due to having an Sulfa allergy. Pt states she is very tired and her legs areno longer swollen sinus the weekend.) History of Present Illness The patient, a 73-year-old female with a history of type two diabetes, dyslipidemia, moderate intermittent asthma, hypertension, GERD, and CKD stage three A, presents for a follow-up visit concerningher high blood pressure. The patient's blood pressure was measured at 152/80 in the office today, which is an improvement from previous readings of 170/80 and 190/80 at prior office visits. The patient was previously prescribed chlorthalidone by another doctor, but she stopped taking it due to a potential allergic reaction. She reported experiencing lip swelling after taking one dose ofthe medication. The patient has a known allergy to Bactrim, and she was concerned about potential cross- reactivity with chlorthalidone. The patient is currently on losartan and atenolol for her hypertension. She has previously tried lisinopril, but she did not tolerate it well. The patient also has a history of acid reflux, which shewonders might be contributing to her blood pressure issues. The patient has a history of not tolerating many medications well, including timolol and amlodipine. Objective Vitals: 09/23/24 1501 Temp: 96 F (35.6 C) Pulse: 62 Resp: 18 SpO2: 97% BP: 152/80 Physical Exam VITALS: BP- 152/80 I have reviewed the following results: Results LABS K: 4.9 mEq/L (2022) Assessment and Plan Assessment & Plan Hypertension Presents for follow-up on hypertension. Current BP is 152/80 mmHg, improved from 170/80 mmHg and 190/unknown. Poor tolerance to multiple antihypertensives, including lisinopril, amlodipine, and chlorthalidone. Currently on losartan and atenolol. Spironolactone considered due to intolerance to first-line antihypertensives. Discussed risks of hypertension (heart attack, stroke, kidney issues) and explained spironolactone as a weak diuretic with fewer side effects, primarily monitoring for hyperkalemia. - Start spironolactone 25 mg once daily. - Order BMP to check potassium and kidney function. - Schedule follow-up BP check and lab work on October 03, 2024. - Follow up with Dr. Angel on October 10, 2024. Chronic Kidney Disease Stage 3A CKD stage 3A. Monitoring kidney function is essential, especially with the introduction of spironolactone. - Order BMP to check kidney function. Type 2 Diabetes Mellitus Type 2 diabetes mellitus. No specific issues or changes in management discussed. Dyslipidemia Dyslipidemia. No specific issues or changes in management discussed. Moderate Intermittent Asthma Moderate intermittent asthma. No specific issues or changes in management discussed. Gastroesophageal Reflux Disease (GERD) GERD, which may contribute to intermittent BP changes due to discomfort. No specific issues or changes in management discussed. General Health Maintenance Scheduled for routine follow-up visits and lab work to monitor chronic conditions. - Follow up with Dr. Angel on October 10, 2024. - Schedule follow-up BP check and lab work on October 03, 2024. Risk and functional assessment (Primary) HTN, goal below 130/80 - Spironolactone 25 MG Oral Tablet (Aldactone); Take 1 Tablet by mouth in the morning. - BASIC METABOLIC PANEL; Future; Expected date: 09/23/2024 Chronic kidney disease, stage 3a (HCC) GERD without esophagitis Wrap-Up Follow Up: Return if symptoms worsen or fail to improve. Text in this note was generated using an [employer] service. I discussed the use of a device to record and summarize our discussion today. All persons present during the encounter consented to its use. documented in this encounter Nursing Notes * Jeni Rachel LPN - 09/23/2024 2:54 PM EST Chief Complaint Patient presents with Acute Pt here today due to having evaluated blood pressure and saw doctor [place] on . The blood pressure med he put her on stated you should not take it due to having an Sulfa allergy. Pt states she is very tired and her legs are no longer swollen sinus the weekend. documented in this encounter Plan of Treatment Upcoming Encounters Date Type Department Care Team (Late st Contact Info) Description 10/03/2024 9:30 AM EST Nurse Only Ancillary Department, Sonya Morales [address] [phone] [place] [id number] 10/10/2024 9:30 AM EST Office Visit [facility], Sonya Eli [address] [place] [phone] Eloisa Angel DO [address] [id number] Scheduled Orders Name Type Priority Associated Diagnoses Orde r Schedule BASIC METABOLIC PANEL Lab Routine HTN, goal below 130/80 Expected: 09/23/2024 (Approximate), Expires: 09/23/2025 Health Maintenance Due Date Last Done Comments Hepatitis C Screening 1968 Zoster Vaccines (2 of 3) 07/28/2009 06/02/2009 Adult Wellness Visit 02/25/2023 02/25/2022 COVID-19 Vaccine ( season) 2024 08/19/2021, 11/01/2020, 09/27/2020 Depression Screening 10/06/2024 10/06/2023 Diabetic Eye Exam 12/04/2024 12/05/2023, , 05/13/2022, Additional history exists CKD HGB USE SMARTSET 65206 03/14/202503/14, 01/27/2023, 12/03/2021, Additional history exists CKD PHOS USE SMARTSET 37183 03/14/202503/04, 01/27/2023, 12/03/2021, Additional history exists GFR 03/19/2025 09/19/2024, 0210/2023, 06/12/2023, Additional history exists HbA1c 03/19/2025 09/19/2024, 03/04, 10/06/2023, Additional history exists Diabetic Foot Exam 03/21/2025 03/21/2024, 0 09/29/2022, 08/05/2021, Additional history exists Albumin/Creatinine Ratio 09/19/20252 025, 10/06/2023, 09/29/2022, Additional history exists DTap/Tdap Vaccines (2 - [...] this encounter Medical Devices Implanted Type Area Nuclear Radiation Engineer Device Identifier Shelf Expiration Date Model / Serial / Lot Stent Glaucoma Treatment s - [id number] - [id number] Implanted:Qty: 1 on 06/08/2020 by Ning Roman MD at [facility] Right: Eye [employer] [id number] 10/04/2022 5513-001 / [id number] / [id number] Xen Gel Stent Implanted:Qty: 1 on 08/17/2020 by Ning Roman MD at [facility] Left: Eye 05/04/2023 5513-001 / [id number] / [id number] Stent Glaucoma Treatment Sys - [id number] - [id number] Implanted:Qty: 1 on 11/17/2020 by Ning Roman MD at [facility] Left: Eye [employer] [id number] 05/04/2023 5513-001 / [id number] / [id number] documented as of this encounter Visit Diagnoses Diagnosis Risk and functional assessment- Primary Screening for unspecified condition HTN, goal below 130/80 Unspecified essential hypertension Chronic kidney disease, stage 3a (HCC) GERD without esophagitis Esophageal reflux documented in this encounter Advance Directives * Full Code (Latest Code Status on File) Date Activated Date Inactivated Comments 11/17/2020 5:08 PM 11/17/2020 9:30 PM This order r eflects the patients wishes and were consensually agreed upon. Care Teams Feed Management Advisor Relationship Specialty Start Date End Date Eloisa Angel DO [address] [id number] PCP - General Family Medicine 10/19/18 documented as of this encounter
[2024-09-26 03:57] LABS: Basophils # (auto) 0.05 K/uL (0.00-0.20); Basophils % (auto) 0.6 %; Eosinophils % (auto) 4.8 %; Hematocrit (blood only) 43.6 % (37.0-47.0); Hemoglobin 14.7 g/dl (12.0-16.0); Immature Granulocytes # (auto) 0.01 K/uL (0.01-0.20); Immature Granulocytes % (auto) 0.1 %; Lymphocytes # (auto) 2.77 K/uL (1.20-3.40); Lymphocytes % (auto) 33.5 %; Mean Corpuscular Hemoglobin 31.5 pg (25.0-34.0); Mean Corpuscular Hgb Conc 33.7 g/dL (32.0-36.0); Mean Corpuscular Volume 93.4 fL (80.0-100.0); Monocytes # (auto) 0.92 K/uL (0.11-0.59); Monocytes % (auto) 11.1 %; Neutrophils # (auto) 4.11 K/uL (1.40-6.50); Neutrophils % (auto) 49.9 %; Platelet Count 192 K/uL (130-400); RDW Coefficient of Variation 12.4 % (11.5-14.5); RDW Standard Deviation 42.8 fL (36.4-46.3); Red Blood Count 4.67 M/uL (4.20-5.40); White Blood Count 8.26 K/ul (4.8-10.8)
[2024-09-26 04:13] LABS: BUN Creatinine Ratio 29.3 (10-20); Chol HDL Ratio 4.6 (0-5); Creatinine Clr Calc Pharmacy 49.9 ml/min; Potassium 3.9 mmol/L (3.5-5.1)
[2024-09-26 04:20] LABS: Troponin I High Sensitivity 6.7 pg/ml (0-14)
[2024-09-26] MEDS: LOSARTAN POTASSIUM 50 MG TAB PO SCH (08:24)
[2024-09-26] MEDS: CYANOCOBALAMIN (B-12) 500 MCG TABLET PO SCH (08:25)
[2024-09-26] MEDS: ASPIRIN 81 MG CHEW ONE (08:25)
[2024-09-26] MEDS: ASPIRIN 81 MG ECTAB PO SCH (08:25)
[2024-09-26] MEDS: MONTELUKAST SODIUM 10 MG TABLET PO SCH (08:26)
[2024-09-26] MEDS: MULTIVITAMIN TAB PO SCH (08:26)
[2024-09-26] MEDS: CHOLECALCIFEROL 25 MCG (1000 UNITS) TAB PO SCH (08:26)
[2024-09-26] MEDS: PANTOprazole 40 MG TAB PO SCH (08:27)
[2024-09-26] MEDS: SPIRONOLACTONE 25 MG TAB PO SCH (08:27)
--- NOTE | 2024-09-26 08:37 | Cardiology Consultation ---
Date of Consultation September 26, 2024 Assessment & Plan (1) Chest discomfort: (2) Hypertension: Plan 73 year old female admitted for intermittent chest pain/epigastric pain with intermittent jaw and b/l arm pain. HS troponin negative x3 since admission. 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 However, she does have risk factors for CAD including HTN, dyslipidemia (not treated due to statin intolerances), DM. Recommend ischemic evaluation with dobutamine stress echo. She tolerated DSE in 06/2023 without issue. Patient unable to ambulate on a treadmill. Her BP is currently well controlled. continue losartan, spironolactone. Continue ASA. Further recommendations pending results of DSE. Case discussed with Dr. sinha I spent a total of 60 minutes on the date of service in preparation, delivery, and documentation of the care provided to this patient, excluding any time spent in the performance of separately billed services. Liv Nielson PA-C Department of Cardiology, [facility] This chart was completed in part utilizing Speech Voice Recognition Software. Grammatical errors, random word insertions, pronoun errors, and incomplete sentences are an occasional consequence of this system due to software limitations, ambient noise, and hardware issues. Any formal questions or concerns about the content, text, or information contained within the body of this dictation should be directly addressed to the provider for clarification. Supervising Physician Co-Signing Physician Notes Patient was seen and personally examined. Care and management as outlined by advanced provider above. Care discussed and personally endorsed 73-year-old female admitted with intermittent chest and epigastric pain intermittent Hermelindo bilateral plane but without evidence of ischemia by EKG or cardiac enzyme. Symptoms resolved with Carafate in the ER Dobutamine stress echocardiography today without ischemia with excellent quality study. Normal LV systolic function at rest and stress and no symptoms or ischemia at 90% age-predicted maximal heart rate Impression: No evidence of acute coronary syndrome or anginal complaints to account for symptoms. Negative stress testing. Continue follow-up with primary care could consider addition of oral nitrate to regimen for esophageal complaints and further blood pressure control I spent a total of 30 minutes on the date of service in preparation, delivery, and documentation of the care provided to this patient, excluding any time spent in the performance of separately billed services. History of Present Illness Reason for Consultation: CP Requesting Physician: Barbara Gutierrezist Attending Physician: Dr. Sinha History of Present Illness Patient is a 73 year old female of chest pain. History includes: Dyslipidemia with statin intolerance DM HTN Multiple drug intolerances No prior history of ischemic heart disease. She underwent DSE in Jun 2023 due to chest pain which was negative for inducible ischemia. Patient recently seen by her primary care doctor on 09/23/2023 for high blood pressure. Patient was previously on losartan, atenolol; started on spironolactone 25 mg once a day. History of poor tolerance of chlorthalidone, lisinopril, amlodipine. Patient also has history of dyslipidemia; tried Lipitor, Crestor, Zetia in the past without good tolerance. Not on any treatment for hyperlipidemia at this time. Patient reports intermittent left sided epigastric pain over the last 2 weeks. Comes and goes without relation to activity or exertion. Lasts several minutes at a time. She also has had b/l arm heaviness and left jaw pain that comes and goes, but also no relation to exertion. She has been walking her dog without issues over the last few weeks. However earlier this week she went to walk up a large ramp into a basketball game and had to stop twice. She also reports it was very cold and this contributed to her SOB. In the ER, her symptoms resolved with carafate. EKG demonstrated NSR with T wave inversion in lead III only. HS troponin negative x3. At time of consult, patient feeling well. Denies acute complaints. No recurrent chest pain since admission. Allergies Allergy/AdvReac Type Severity Reaction Status Date / Time atorvastatin Allergy Severe EDEMA Verified 12/09/23 15:51 FACE/LIPS/TONGUE brimonidine [From Combigan] Allergy Severe EDEMA Verified 12/09/23 15:51 FACE/LIPS/TONGUE clopidogrel [From Plavix] Allergy Severe Difficulty Verified 12/09/23 15:51 Breathing estrogens, conjugated Allergy Severe EDEMA Verified 12/09/23 15:51 FACE/LIPS/TONGUE medroxyprogesterone Allergy Severe EDEMA Verified 12/09/23 15:51 FACE/LIPS/TONGUE rosuvastatin Allergy Severe EDEMA Verified 12/09/23 15:51 FACE/LIPS/TONGUE timolol [From Combigan] Allergy Severe EDEMA Verified 12/09/23 15:51 FACE/LIPS/TONGUE erythromycin base Allergy Intermediate GI ISSUES Unverified 10/01/21 13:59 house dust Allergy Intermediate SNEEZING, Verified 12/09/23 15:51 CONGESTION latanoprost Allergy Intermediate RASH Verified 12/09/23 15:51 dorzolamide Allergy Unknown ON [facility] Verified 12/09/23 15:51 LIST travoprost [From Travatan Z] Allergy Unknown ON [facility] Verified 12/09/23 15:51 LIST amlodipine AdvReac Severe EDEMA OF Verified 12/09/23 16:29 BILATERAL LEGS/FEET & GUMS lisinopril AdvReac Intermediate COUGH Verified 12/09/23 15:51 metformin AdvReac Intermediate DECREASED Verified 12/09/23 15:51 B12 LEVELS sulfamethoxazole AdvReac Unknown SPINNING/VE Verified 12/09/23 15:51 RTIGO/RASH/ FLUSHING trimethoprim AdvReac Unknown SPINNING/VE Verified 12/09/23 15:51 RTIGO/RASH/ FLUSHING Home Medications Medication Instructions Recorded Confirmed Type Lactobacillus comb 1 cap PO HS 12/06/18 09/25/24 History [id number] 300 million cell-250 mg capsule (Probiotic and Acidophilus) albuterol sulfate 1.25 mg/3 mL 3 ml inhalation Q4H PRN Wheezing 12/06/18 09/25/24 History solution for nebulization albuterol sulfate 90 mcg/actuation 2 puff inhalation Q6H PRN asthma 12/06/18 09/25/24 History aerosol inhaler (ProAir HFA) atenolol 50 mg tablet 50 mg PO QAM 12/06/18 09/25/24 History cholecalciferol (vitamin D3) 25 1,000 unit PO QAM 12/06/18 09/25/24 History mcg (1,000 unit) capsule (Vitamin D3) losartan 100 mg tablet 100 mg PO QAM 12/06/18 09/25/24 History montelukast 10 mg tablet 10 mg PO QAM 12/06/18 09/25/24 History (Singulair) pantoprazole 20 mg tablet,delayed 20 mg PO BID 12/06/18 09/25/24 History release (Protonix) sucralfate 1 gram tablet 1 g PO ACHS 12/06/18 09/25/24 History aspirin 81 mg tablet,delayed 81 mg PO QAM 10/01/21 09/25/24 History release ascorbic acid (vitamin C) 250 mg 250 mg DAILY 12/09/23 09/25/24 History tablet (Vitamin C) cyanocobalamin (vitamin B-12) 250 500 mcg PO DAILY 12/09/23 09/25/24 History mcg tablet (Vitamin B-12) empagliflozin 25 mg tablet 25 mg PO QAM 12/09/23 09/25/24 History (Jardiance) magnesium citrate 100 mg tablet 100 mg PO HS 12/09/23 09/25/24 History multivitamin 1 tab PO DAILY 12/09/23 09/25/24 History spironolactone 25 mg tablet 25 mg PO DAILY 09/25/24 09/25/24 History Patient History Medical History Chest pain Diabetes mellitus, type II Seasonal allergic rhinitis Herpes zoster Glaucoma Obesity (BMI 30.0-34.9) HLD (hyperlipidemia) Asthma Hypertension GERD (gastroesophageal reflux disease) Surgical History H/O hernia repair History of eye surgery Family History Other Alzheimer disease Lung cancer Social History Smoking Status: Never smoker Second Hand Exposure: No; Do You Dip or Chew Tobacco: No; Hx Alcohol Use: Yes Alcohol type: wine Hx Substance Use: No Preferred Language: Ukrainian Communication Ability: Effective Steamtable Worker Required: No Beliefs That Will Affect Care: None marital status: Current Living Situation: Spouse How many Children do You have: 2 Other Information That Helps Us Care for You: No Feels Safe at Home: Yes Safety Concerns: Feels Safe At This Time Assistive Devices: None Review of Systems Review of Systems: All systems reviewed & are unremarkable except as noted in HPI & below Physical Exam Constitutional: WD/WN, vitals as above Neck: trachea midline, no thyromegaly Respiratory: normal respiratory effort, lungs clear to auscultation Cardiovascular: Rate/Rhythm: regular rate and regular rhythm Heart Sounds: normal S1 and normal S2; no murmur Vessels: no JVD Extremities: no edema Gastrointestinal (Abdomen): normal bowel sounds, soft, nontender, no hepatosplenomegaly Musculoskeletal: no cyanosis or clubbing, extremities motor strength 5/5 Neurologic: PERRL, EOMI, accommodation nl, no face palsy, no dysarthria Results & Data Vital Signs (Past 12 Hours) Vital Signs Pulse Pulse Resp BP BP Pulse Ox Pulse Ox 09/26/24 07:24 68 09/26/24 06:21 54 L 16 97 09/26/24 06:15 78 14 98 09/26/24 06:09 52 L 14 94 09/26/24 05:54 50 L 16 96 09/26/24 05:45 52 L 16 95 09/26/24 05:36 51 L 14 94 09/26/24 05:27 49 L 14 95 09/26/24 05:15 54 L 17 96 09/26/24 05:00 60 14 100 09/26/24 04:33 51 L 17 95 09/26/24 04:24 53 L 16 97 09/26/24 04:15 52 L 16 97 09/26/24 04:00 55 L 13 136/59 L 95 09/26/24 03:51 54 L 14 94 09/26/24 03:42 64 19 95 09/26/24 03:33 54 L 18 92 09/26/24 03:06 59 L 18 96 09/26/24 02:51 59 L 17 99 09/26/24 02:48 59 L 13 96 09/26/24 02:39 16 97 09/26/24 02:24 16 95 09/26/24 02:15 67 16 95 09/26/24 02:06 57 L 12 97 09/26/24 01:54 55 L 13 95 09/26/24 01:45 58 L 14 97 09/26/24 01:33 24 95 09/26/24 01:32 09/26/24 01:32 09/26/24 01:31 98 09/26/24 01:12 57 L 14 09/26/24 01:00 56 L 15 09/26/24 00:57 56 L 17 09/26/24 00:42 57 L 15 09/26/24 00:39 56 L 15 09/26/24 00:21 56 L 17 09/26/24 00:15 55 L 12 09/26/24 00:00 59 L 15 09/25/24 23:48 76 15 09/25/24 23:21 75 21 09/25/24 23:15 72 18 122/72 100 09/25/24 23:14 122/72 09/25/24 23:14 122/72 09/25/24 23:14 122/72 09/25/24 23:14 122/72 09/25/24 23:12 71 21 09/25/24 23:07 72 09/25/24 23:03 70 22 09/25/24 22:51 69 17 09/25/24 22:48 73 21 09/25/24 22:39 74 20 09/25/24 22:27 73 18 09/25/24 22:15 78 19 09/25/24 22:06 72 19 09/25/24 21:48 69 19 09/25/24 21:30 73 18 97 09/25/24 21:21 65 21 09/25/24 21:15 57 L 19 100 09/25/24 21:03 58 L 17 98 09/25/24 21:01 137/59 L 09/25/24 20:57 55 L 12 100 09/25/24 20:45 60 17 97 09/25/24 20:43 59 L 16 168/49 H 100 O2 Del Method O2 Del Method 09/26/24 07:24 09/26/24 06:21 09/26/24 06:15 09/26/24 06:09 09/26/24 05:54 09/26/24 05:45 09/26/24 05:36 09/26/24 05:27 09/26/24 05:15 09/26/24 05:00 09/26/24 04:33 09/26/24 04:24 09/26/24 04:15 09/26/24 04:00 09/26/24 03:51 09/26/24 03:42 09/26/24 03:33 09/26/24 03:06 09/26/24 02:51 09/26/24 02:48 09/26/24 02:39 09/26/24 02:24 Room Air 09/26/24 02:15 09/26/24 02:06 09/26/24 01:54 09/26/24 01:45 09/26/24 01:33 09/26/24 01:32 Room Air 09/26/24 01:32 Room Air 09/26/24 01:31 Room Air 09/26/24 01:12 09/26/24 01:00 09/26/24 00:57 09/26/24 00:42 09/26/24 00:39 09/26/24 00:21 09/26/24 00:15 09/26/24 00:00 09/25/24 23:48 09/25/24 23:21 09/25/24 23:15 Room Air 09/25/24 23:14 09/25/24 23:14 09/25/24 23:14 09/25/24 23:14 09/25/24 23:12 09/25/24 23:07 09/25/24 23:03 09/25/24 22:51 09/25/24 22:48 09/25/24 22:39 09/25/24 22:27 09/25/24 22:15 09/25/24 22:06 09/25/24 21:48 09/25/24 21:30 09/25/24 21:21 09/25/24 21:15 Room Air 09/25/24 21:03 Room Air 09/25/24 21:01 09/25/24 20:57 Room Air 09/25/24 20:45 Room Air 09/25/24 20:43 Room Air Laboratory Results Cardiac Enzymes 09/25/24 09/25/24 09/26/24 Range/Units 15:55 20:41 03:44 AST 21 (13-39) U/L Troponin I High Sens 5.6 6.2 6.7 (0-14) pg/ml Coagulation 09/25/24 Range/Units 15:55 PT 10.0 (9.0-12.0) Seconds APTT 27 (21-31) Seconds Lipids 09/26/24 Range/Units 03:44 Triglycerides 170 H (0-150) mg/dl Cholesterol 175 (0-200) mg/dl HDL Cholesterol 38 mg/dl Cholesterol/HDL Ratio 4.6 (0-5) CBC 09/25/24 09/26/24 Range/Units 15:55 03:44 WBC 9.33 8.26 (4.8-10.8) K/ul RBC 5.03 4.67 (4.20-5.40) M/uL Hgb 16.2 H 14.7 (12.0-16.0) g/dl Hct 48.3 H 43.6 (37.0-47.0) % Plt Count 242 192 (130-400) K/uL Neut # (Auto) 4.71 4.11 (1.40-6.50) K/uL Lymph # (Auto) 3.39 2.77 (1.20-3.40) K/uL Sheridan # (Auto) 0.77 H 0.92 H (0.11-0.59) K/uL Eos # (Auto) 0.38 0.40 (0.00-0.50) K/uL Baso # (Auto) 0.05 0.05 (0.00-0.20) K/uL Comprehensive Metabolic Panel 09/25/24 09/26/24 Range/Units 15:55 03:44 Sodium 137 136 (136-145) mmol/L Potassium 3.8 3.9 (3.5-5.1) mmol/L Chloride 101 104 (98-107) mmol/L Carbon Dioxide 28 26 (21-32) mmol/L BUN 26 H 27 H (6-23) mg/dl Creatinine 1.01 0.92 (0.6-1.2) mg/dl Glucose 166 H 103 H (70-99(Fasting)) mg/dl Calcium 9.6 9.0 (8.6-10.3) mg/dl AST 21 (13-39) U/L ALT 17 (7-52) U/L Alkaline Phosphatase 90 (34-104) U/L Total Protein 8.0 (6.0-8.3) gm/dl Albumin 4.3 (3.4-5.0) gm/dl Intake and Output 09/25/24 09/26/24 09/26/24 22:59 06:59 14:59 Intake Total 70 / 70 Balance 70 / 70 Intake: Oral 70 / 70 Other: Weight 71.1 kg Weight Measurement Method Chair Scale Diagnostic Findings Telemetry reviewed: NSR. Rare PVC. No arrhythmias EKG reviewed from admission 09/25/24: NSR possible old anteroseptal infarct T wave inversion in III Repeat EKG reviewed from 09/26/24: NSR possible old anteroseptal infarct No change from previous Chest X-Ray 09/25/24 15:54 Impression: 1. Unchanged left lower lobe nodule, benign given the stability for 3 years 2. No definite acute process DSE report reviewed from Jun 2023: Normal DSE. no inducible ischemia Resting echo - Normal LVEF, no wall motion abnormalities Medications Administered Current Inpatient Medications Acetaminophen (Acetaminophen 325 Mg Tab) 650 mg PO Q4H PRN PRN Reason: Pain or Fever Stop: 10/25/24 19:49 Albuterol (Albuterol 0.083% Nebu Soln 3 Ml Vial) 1.25 mg INH Q4H PRN PRN Reason: Wheezing Stop: 10/25/24 22:30 Aspirin (Aspirin 81 Mg Ectab) 81 mg PO QAM DEVON Stop: 10/26/24 08:59 Last Admin: 09/26/24 08:25 Dose: 81 mg Cyanocobalamin (Cyanocobalamin (B-12) 500 Mcg Tablet) 500 mcg PO DAILY DEVON Stop: 10/26/24 08:59 Last Admin: 09/26/24 08:25 Dose: 500 mcg Dextrose (Dextrose 50% 50 Ml Syringe) 25 - 50 ml IV UD PRN; Protocol PRN Reason: Hypoglycemia Protocol Stop: 10/25/24 19:49 Glucagon (Glucagon For Inj 1 Mg Vial) 1 mg SQ UD PRN; Protocol PRN Reason: Hypoglycemia Protocol Stop: 10/25/24 19:49 Glucose (Glucose 40% Gel 15 Gm Tube) 15 - 30 gm PO UD PRN; Protocol PRN Reason: Hypoglycemia Protocol Stop: 10/25/24 19:49 Glucose (Glucose 10 Tab/Tube) 4 - 8 tab PO UD PRN; Protocol PRN Reason: Hypoglycemia Protocol Stop: 10/25/24 19:49 Heparin Sodium (Porcine) (Heparin Sod 5,000 Unit/0.5 Ml Vial) 5,000 units SQ Q8 DEVON Stop: 10/25/24 21:59 Last Admin: 09/26/24 06:15 Dose: 5,000 units Insulin Aspart (Insulin Aspart Per Unit Charge) 0 units SC ACHS DEVON Stop: 10/25/24 20:59 Last Admin: 09/26/24 08:29 Dose: Not Given Lactobacillus Acidophilus (Advanced Probiotic 625 Mg Capsule) 1,250 mg PO DAILY DEVON Stop: 10/25/24 19:59 Last Admin: 09/26/24 08:28 Dose: 1,250 mg Losartan Potassium (Losartan Potassium 50 Mg Tab) 100 mg PO QAM PENDING SALE TO [facility] Stop: 10/26/24 08:59 Last Admin: 09/26/24 08:24 Dose: 100 mg Magnesium Chloride (Magnesium Chloride W/Calcium 64mg Delayed Rel Tab) 64 mg PO HS PENDING SALE TO [facility] Stop: 10/25/24 23:14 Last Admin: 09/25/24 23:20 Dose: 64 mg Magnesium Hydroxide (Magnesium Hydroxide Susp 30 Ml Udc) 30 ml PO Q12H PRN PRN Reason: Constipation Stop: 10/25/24 19:49 Miscellaneous (Carbohydrates For Hypoglycemia ) 15 - 30 gm PO UD PRN PRN Reason: Hypoglycemia Protocol Stop: 10/25/24 19:49 Montelukast Sodium (Montelukast Sodium 10 Mg Tablet) 10 mg PO QAM PENDING SALE TO [facility] Stop: 10/26/24 08:59 Last Admin: 09/26/24 08:26 Dose: 10 mg Multivitamins (Multivitamin Tab) 1 tab PO QAM DEVON Stop: 10/26/24 08:59 Last Admin: 09/26/24 08:26 Dose: 1 tab Nitroglycerin (Nitroglycerin Sl 0.4 Mg/Tab Tab) 0.4 mg SL Q5M PRN PRN Reason: Chest Pain Stop: 10/25/24 19:49 Pantoprazole Sodium (Pantoprazole 40 Mg Tab) 40 mg PO BID PENDING SALE TO [facility] Stop: 10/26/24 08:59 Last Admin: 09/26/24 08:27 Dose: 40 mg Polyethylene Glycol (Polyethylene (Miralax) 17 Gm Pack) 17 gm PO DAILY PRN PRN Reason: Constipation Stop: 10/25/24 19:49 Spironolactone (Spironolactone 25 Mg Tab) 25 mg PO DAILY DEVON Stop: 10/26/24 08:59 Last Admin: 09/26/24 08:27 Dose: 25 mg Sucralfate (Sucralfate 1 Gm Tab) 1 gm PO ACHS PENDING SALE TO [facility] Stop: 10/25/24 21:38 Last Admin: 09/26/24 07:51 Dose: 1 gm Vitamin D (Cholecalciferol 25 Mcg (1000 Units) Tab) 25 mcg PO QAM PENDING SALE TO [facility] Stop: 10/26/24 08:59 Last Admin: 09/26/24 08:26 Dose: 25 mcg (2) Hypertension Hypertension type: unspecified Qualified Code(s): I10 - Essential (primary) hypertension
[2024-09-26] MEDS: DOBUTamine HCL 12.5 MG/ML 20 ML VIAL IV ONE (11:52)
[2024-09-26] MEDS: ATROPINE SULFATE 0.1 MG/ML 10ML SYR IV ONE (11:52)
[2024-09-26] MEDS: METOPROLOL TARTRATE 1 MG/ML VIAL IV ONE (11:53)
[2024-09-26 12:12] VITALS: RESP 16
--- NOTE | 2024-09-26 13:44 | Electrocardiogram Report ---
Test Reason : Blood Pressure : */* mmHG Vent. Rate : 61 BPM Atrial Rate : 61 BPM P-R Int : 124 ms QRS Dur : 72 ms QT Int : 416 ms P-R-T Axes : 57 -3 12 degrees QTcB Int : 418 ms Normal sinus rhythm Poor R wave progression, consider anterior MS vs. lead placement vs. LVH Abnormal ECG When compared with ECG of 09-Dec-2023 14:00, T wave inversion now evident in Inferior leads Confirmed by Zaki Gomez ([id number]) on 09/26/2024 1:43:58 PM Referred By: Confirmed By: Zaki Gomez
--- NOTE | 2024-09-26 13:48 | Electrocardiogram Report ---
Test Reason : Blood Pressure : */* mmHG Vent. Rate : 69 BPM Atrial Rate : 69 BPM P-R Int : 140 ms QRS Dur : 74 ms QT Int : 398 ms P-R-T Axes : 46 -1 37 degrees QTcB Int : 426 ms Normal sinus rhythm Low voltage QRS Poor R wave progression, consider anterior KS vs. lead placement vs. LVH Abnormal ECG When compared with ECG of 25-Sep-2024 16:00, (unconfirmed) No significant change was found Confirmed by Zaki Gomez ([id number]) on 09/26/2024 1:48:24 PM Referred By: Eloisa Angel Confirmed By: Zaki Gomez
--- NOTE | 2024-09-26 16:14 | Communication Note ---
Date of Service: September 26, 2024 By CMS guidelines, a determination that the admission or continued stay is not medically necessary has been made by a member of the Utilization Review committee and a physician for this hospital stay. Therefore, a Code 44 will be completed and the inpatient admission will be changed to outpatient.
--- NOTE | 2024-09-26 16:18 | Discharge Summary ---
Date of Service September 26, 2024 Admission HPI Per Admitting Provider History obtained from interview with the patient and chart review. Past medical history of type 2 diabetes mellitus, dyslipidemia, mild intermittent asthma, hypertension, GERD, CKD stage IIIa, glaucoma presents to [facility] with chest discomfort. Patient reports that she is having lower chest discomfort/epigastric discomfort since last 2 weeks intermittently. She also reports some discomfort on her left jaw and her left arm along with the chest discomfort. The chest discomfort does not happen on exertion; is intermittent in nature. It is not associated with shortness of breath, diaphoresis, dizziness or palpitation. Patient recently seen by her primary care doctor on 09/23/2023 for high blood pressure. Patient was previously on losartan, atenolol; started on spironolactone 25 mg once a day. History of poor tolerance of chlorthalidone, lisinopril, amlodipine. Last A1c 6.8 in 09/2024 Patient also has history of dyslipidemia; tried Lipitor, Crestor, Zetia in the past without good tolerance. Not on any treatment for hyperlipidemia at this time. Last admission in June 2023 with chest pain. Patient had undergone dobutamine stress echo achieving greater than 90% age-predicted maximal heart rate with no evidence of ischemia by EKG or echocardiogram with hyperdynamic LV function and stress and no wall motion abnormalities. Admission Exam Per Admitting Provider Constitutional: WD/WN, vitals as above, NAD, sitting up in bed, pleasant, conversing easily Respiratory: normal respiratory effort, lungs clear to auscultation, no wheeze, rales, rhonchi. Normal insp/exp effort, no accessory muscle use Cardiovascular: RRR, no murmur, no edema Vessels: no JVD or carotid bruit Chest: normal inspection of chest Abdomen: normal bowel sounds, soft, nontender, no hepatosplenomegaly Musculoskeletal: no cyanosis or clubbing, extremities motor strength 5/5 Skin: no rashes, warm and dry normal turgor Neurologic: PERRL, EOMI, accommodation nl, no face palsy, no dysarthria CN's II- XI intact bilaterally and moves all extremities Psychiatric: A+Ox3, euthymic affect Principal Diagnosis chest pain rule out ACS Discharge Exam Constitutional: WD/WN, NAD, pleasant, conversing easily Respiratory: normal respiratory effort, lungs clear to auscultation, no wheeze, rales, rhonchi. Normal insp/exp effort, no accessory muscle use Cardiovascular: RRR, no murmur, no edema Vessels: no JVD or carotid bruit Chest: normal inspection of chest Abdomen: normal bowel sounds, soft, nontender, no hepatosplenomegaly Musculoskeletal: no cyanosis or clubbing, extremities motor strength 5/5 Skin: no rashes, warm and dry normal turgor Neurologic: PERRL, EOMI, accommodation nl, no face palsy, no dysarthria CN's II- XI intact bilaterally and moves all extremities Psychiatric: A+Ox3, euthymic affect Discharge Data Allergies Allergy/AdvReac Type Severity Reaction Status Date / Time atorvastatin Allergy Severe EDEMA Verified 12/09/23 15:51 FACE/LIPS/TONGUE brimonidine [From Combigan] Allergy Severe EDEMA Verified 12/09/23 15:51 FACE/LIPS/TONGUE clopidogrel [From Plavix] Allergy Severe Difficulty Verified 12/09/23 15:51 Breathing estrogens, conjugated Allergy Severe EDEMA Verified 12/09/23 15:51 FACE/LIPS/TONGUE medroxyprogesterone Allergy Severe EDEMA Verified 12/09/23 15:51 FACE/LIPS/TONGUE rosuvastatin Allergy Severe EDEMA Verified 12/09/23 15:51 FACE/LIPS/TONGUE timolol [From Combigan] Allergy Severe EDEMA Verified 12/09/23 15:51 FACE/LIPS/TONGUE erythromycin base Allergy Intermediate GI ISSUES Unverified 10/01/21 13:59 house dust Allergy Intermediate SNEEZING, Verified 12/09/23 15:51 CONGESTION latanoprost Allergy Intermediate RASH Verified 12/09/23 15:51 dorzolamide Allergy Unknown ON [facility] MED Verified 12/09/23 15:51 LIST travoprost [From Travatan Z] Allergy Unknown ON [facility] MED Verified 12/09/23 15:51 LIST amlodipine AdvReac Severe EDEMA OF Verified 12/09/23 16:29 BILATERAL LEGS/FEET & GUMS lisinopril AdvReac Intermediate COUGH Verified 12/09/23 15:51 metformin AdvReac Intermediate DECREASED Verified 12/09/23 15:51 B12 LEVELS sulfamethoxazole AdvReac Unknown SPINNING/VE Verified 12/09/23 15:51 RTIGO/RASH/ FLUSHING trimethoprim AdvReac Unknown SPINNING/VE Verified 12/09/23 15:51 RTIGO/RASH/ FLUSHING Consultations 09/25/24 19:24 ED Decision to Admit Stat 09/26/24 08:00 Consult Cardiology Routine Hospital Course (1) Chest discomfort: Past medical history of type 2 diabetes mellitus, dyslipidemia, mild intermittent asthma, hypertension, GERD, CKD stage IIIa, glaucoma presents to the hospital with chest discomfort. She was managed for the following: Atypical Chest pain Patient presents with epigastric/lower chest discomfort with associated discomfort on her left jaw and arm. Nonexertional, Intermittent. Last dobutamine stress echo was in June 2023; achieving greater than 90% age-predicted maximal heart rate with no evidence of ischemia by EKG or echocardiogram with hyperdynamic LV function and stress and no wall motion abnormalities. EKG on admission shows normal sinus rhythm; no significant ST changes. Troponin x 3 negative. Patient reported improvement in her chest discomfort with Carafate in the ED. Underwent stress test, negative for inducible ischemia. Patient is hemodynamically stable and would like to go home. Patient advised to follow-up with PCP for ongoing monitoring/management. Protonix dose has been increased to 40 Mg twice daily, patient advised to take her Carafate. Patient advised to follow-up with GI if no improvement in her symptoms. Chronic conditions; Hypertensioncontinue on losartan, spironolactone. Hold atenolol for now Type 2 diabetes mellitusrecent A1c of 6.8%; insulin while inpatient GERD-increase Protonix to 40 mg twice daily, continue sucralfate. Asthmanot on exacerbation; albuterol as needed. Continue montelukast Full code DVT prophylaxis heparin Patient is being discharged home with following instructions at the point of discharge: Follow-up with your primary care physician within a week time and likely you will need labs CBC/CMP/magnesium/phosphorus. You were evaluated for chest pain, you underwent stress test which was negative for any inducible ischemia/angina symptoms. You will be discharged on increased dose of pantoprazole for concern of gastritis related symptoms, if your symptoms are not improving, you will likely benefit from outpatient GI evaluation, coordinate with your PCP office to set up the referral. Take your medications as prescribed. Please make sure that you are able to get your medications today by calling your pharmacy before you leave the hospital so that your treatment continuity is not broken. By CMS guidelines, a determination that the admission or continued stay is not medically necessary has been made by a member of the Utilization Review committee and a physician for this hospital stay. Therefore, a Code 44 will be completed and the inpatient admission will be changed to outpatient. Home Health Attestation I certify that this patient is under my care and that I, or a physicians sales and marketing assistant working with me, had a face to-face encounter that meets the home health [id number] encounter requirements with this patient. The encounter with the patient was in whole, or in part, for the following medical condition, which is the primary reason for home health care (list medical condition): I certify that, based on my findings, the following services are medically necessary home health services: My clinical findings support the need for the above services because: Further, I certify that my clinical findings support that this patient is homebound (i.e. absences from home require considerable and taxing effort and are for medical reasons or gnosticism services or infrequently or of short duration when for other reasons) because: Certification for Home Health Services: Based on the above findings, I certify that this patient is confined to the home and needs intermittent nursing home care, physical therapy and/or speech therapy or continues to need occupational therapy. The patient is under my care, and I have initiated the establishment of the plan of care. This patient will be followed by a physician who will periodically review the plan of care. Total Time Total Time Spent Total Time Spent (In Minutes): 35 Discharge Plan Discharge Items Patient Disposition: Home - Self-Care Reason For Visit: EPIGASTRIC PAIN Discharge Diagnosis: chest pain rule out ACS Activity: Resume your previous activity Non-emergency contact: Primary Care Provider Call non-emergency contact if: you have any medication questions and your symptoms worsen Follow-up/Referrals: Eloisa Angel, [Primary Care Provider] - Diet: Carb Consistent or DM2 and Heart Healthy Addtl Attending Provider Instructions: Follow-up with your primary care physician within a week time and likely you will need labs CBC/CMP/magnesium/phosphorus. You were evaluated for chest pain, you underwent stress test which was negative for any inducible ischemia/angina symptoms. You will be discharged on increased dose of pantoprazole for concern of gastritis related symptoms, if your symptoms are not improving, you will likely benefit from outpatient GI evaluation, coordinate with your PCP office to set up the referral. Take your medications as prescribed. Please make sure that you are able to get your medications today by calling your pharmacy before you leave the hospital so that your treatment continuity is not broken. Pending Studies at Discharge: No Stand-Alone Forms: My [facility], Smoking Cessation Medications and DC Order Prescriptions: New pantoprazole 40 mg Tablet,Delayed Release (Dr/Ec) 40 mg PO BID Qty: 60 0RF Continued albuterol sulfate 1.25 mg/3 mL Solution For Nebulization 3 ml INHALATION Q4H PRN (Reason: Wheezing) sucralfate 1 gram Tablet 1 g PO ACHS Rx Instructions: before meals montelukast [Singulair] 10 mg Tablet 10 mg PO QAM albuterol sulfate [ProAir HFA] 90 mcg/actuation Hfa Aerosol Inhaler 2 puff INHALATION Q6H PRN (Reason: asthma) losartan 100 mg Tablet 100 mg PO QAM atenolol 50 mg Tablet 50 mg PO QAM cholecalciferol (vitamin D3) [Vitamin D3] 1,000 unit Capsule 1,000 unit PO QAM Probiotic and Acidophilus 300-250 million cell-mg Capsule 1 cap PO HS aspirin 81 mg tablet,delayed release (DR/EC) 81 mg PO QAM spironolactone 25 mg tablet 25 mg PO DAILY multivitamin Tablet 1 tab PO DAILY cyanocobalamin (vitamin B-12) [Vitamin B-12] 250 mcg Tablet 500 mcg PO DAILY ascorbic acid (vitamin C) [Vitamin C] 250 mg Tablet 250 mg DAILY magnesium citrate 100 mg Tablet 100 mg PO HS Jardiance 25 mg tablet 25 mg PO QAM Discontinued pantoprazole [Protonix] 20 mg Tablet,Delayed Release (Dr/Ec) 20 mg PO BID Discharge Orders: Discharge Order (Routine); Ordered 09/26/24 Ordered By: Jessy Calabrese Admission Data Admit Date/Time: 09/25/24 19:50 Attending Provider: Jessy Calabrese Admit Provider: Dereje Olivares Primary Care Provider: Eloisa Angel Other Providers: Dereje Olivares; Sue Shah; David Bar; Abdullahi Sinha; Christopehr Angel; Marquise Peraza; Jean Paul Chavez; Liv Nielson; Taina Parikh; Lashon Savage; Sue Ewing; Lázaro Bradshaw; Jett Cristina; Radha Kirk; Sheila Kamara; Lor Delong; Marissa Hill; Aaron Crandall; Bobbi Yates; Lary Harrison
[2024-09-26 16:48] VITALS: BP 124/64; PULSE 74; O2SAT 97
--- OUTSIDE RECORDS SUMMARY | 2024-10-01 10:24 | External Medical Summary | Summary of Care ---
Author Name Unknown Organization [facility] Address [address] [facility] [facility] [place] [address] Phone [phone] Care Team Providers Care Tire Repairer Name Role Phone Eloisa Angel DO Primary Care Provider Encounter Details Date Type Department Care Team (Late st Contact Info) Description 09/26/2024 Population Health External Data Unspecified Department Allergies Active Allergy Reactions Criticality Noted Date [...] as of this encounter (statuses as of 09/26/2024) Medications Vitamin D, Cholecalciferol, 1000 UNITS CAPS 1 Capsule in the morning. Active Nebulizers (NEBULIZER COMPRESSOR) MISCIndications:Re active airway disease, mild intermittent, uncomplicated Use as directed. Height 64 inches, Weight 173 lbs, Prognosis good, Length of need 99 years - lifetime. 1 Each 1 7 Active Respiratory Therapy Supplies (NEBULIZER/TUBING/ MOUTHPIECE) KITIndications:[place] ctive airway disease, mild intermittent, uncomplicated Use with nebulizer 1 Kit 2 7 Active Probiotic Product (PROBIOTIC & ACIDOPHILUS EX ST) CapsuleIndications :takes in the evening Take 1 Cap by mouth daily. Indications: takes in the evening Active ONETOUCH DELICA LANCETS 33G MISCIndications:Ty pe 2 diabetes mellitus with hemoglobin A1c goal of less than 7.0% ([facility]) Use daily, once to check Blood sugars. DX:E11.9 100 Each 3 8 Active vitamin b-12 (CYANOCOBALAMIN) 250 MCG TABS Take 2 Tablets by mouth in the morning. 9 Active Multi Vitamin Daily Oral Tablet Take by mouth. 1 Active Ipratropium-Albute rol 0.5-2.5 (3) MG/3ML Inhalation [...] before bedtime. 6.7 g 5 4 Active Montelukast Sodium 10 MG Oral Tablet [...] hemoglobin A1c goal of less than 7.0% ([facility]) Use to check blood sugar once a day 100 Strip 1 4 Active Atenolol 50 MG Oral Tablet (Tenormin)Indicati ons:HTN, goal below 140/90 TAKE 1 TABLET BY MOUTH IN THE MORNING 90 Tablet 3 4 Active Vitamin C 250 MG Oral Tablet (Ascorbic Acid) Take 1 Tablet by mouth in the morning. Active Spironolactone 25 MG Oral Tablet (Aldactone)Indicat ions:HTN, goal below 130/80 Take 1 Tablet by mouth in the morning. 30 Tablet 11 5 Active Hospital, Clinic, or Other Facility Administered Medication Ordered Dose Route Frequency Start Date End Date Status albuterol sulfate (PROVENTIL) (2.5 MG/3ML) 0.083% inhalation solution 2.5 mgIndications:Mild intermittent reactive airway disease without complication 2.5 mg NEBULIZER Q4H PRN 03/12/2018 Active documented as of this encounter (statuses as of 09/26/2024) Active Problems Problem Noted Date Diagnosed Date [...] as of this encounter (statuses as of 09/26/2024) Resolved Problems Problem Noted Date Diagnosed Date [...] as of this encounter (statuses as of 09/26/2024) Immunizations Name Administration Dates Next Due COVID-19 [...] 9:30 AM EST Nurse Only Ancillary Department, [place] [place] [address] [place] [phone] Sonya, Nurse [address] [place] [address] 10/10/2024 9:30 AM EST Office Visit Family Practice, Sonya Eli [address] [place] [phone] Eloisa Angel DO [address] [place] [address] Health Maintenance Due Date Last Done Comments Hepatitis C Screening 1968 Zoster Vaccines (2 of 3) 07/28/2009 06/02/2009 Adult Wellness Visit 02/25/2023 02/25/2022 COVID-19 Vaccine ( season) 2024 08/19/2021, 11/01/2020, 09/27/2020 Depression Screening 10/06/2024 10/06/2023 Diabetic Eye Exam 12/04/2024 12/05/2023, , 05/13/2022, Additional history exists CKD HGB USE SMARTSET 51937 03/14/202503/14, 01/27/2023, 12/03/2021, Additional history exists CKD PHOS USE SMARTSET 22367 03/14/202503/04, 01/27/2023, 12/03/2021, Additional history exists GFR 03/19/2025 09/19/2024, 0210/2023, 06/12/2023, Additional history exists HbA1c 03/19/2025 09/19/2024, 03/04, 10/06/2023, Additional history exists Diabetic Foot Exam 03/21/2025 03/21/2024, 0 09/29/2022, 08/05/2021, Additional history exists Albumin/Creatinine Ratio 09/19/2025 025, 10/06/2023, 09/29/2022, Additional history exists DTap/Tdap Vaccines (2 - Td or Tdap) 03/02/2028 03/02/2018 (Declined), 02/24/2015, 01/12/2007 DXA Scan 07/09/2031 07/09/2024, 1101/2024, 02/01/2017 Pneumococcal Vaccine: 50+ Years Completed 06/30/2016, [...] this encounter Medical Devices Implanted Type Area Mold Cutting Machine Operator Device Identifier Shelf Expiration Date Model / Serial / Lot Stent Glaucoma Treatment [facility] - [id number] - [id number] Implanted:Qty: 1 on 06/08/2020 by Ning Roman MD at [facility] Right: Eye ALLERGAN [id number] 10/04/2022 5513-001 / [id number] / [id number] Xen Gel Stent Implanted:Qty: 1 on 08/17/2020 by Ning Roman MD at [facility] Left: Eye 05/04/2023 5513-001 / [id number] / [id number] Stent Glaucoma Treatment s - [id number] - [id number] Implanted:Qty: 1 on 11/17/2020 by Ning Roman MD at [facility] Left: Eye ALLERGAN [id number] 05/04/2023 5513-001 / [id number] / [id number] documented as of this encounter Advance Directives * Full Code (Latest Code Status on File) Date Activated Date Inactivated Comments 11/17/2020 5:08 PM 11/17/2020 9:30 PM This order r eflects the patients wishes and were consensually agreed upon. Care Teams Tire Repairer Relationship Specialty Start Date End Date Eloisa Angel DO [address] [place] [id number] PCP - General Family Medicine 10/19/18 documented as of this encounter
--- NOTE | 2024-10-02 15:02 | Coding Query ---
CODING QUERY To promote full compliance with coding requirements relating to patient care, provider participation is requested in all cases of mica plate layer hand uncertainty. Please assist us with the question(s) below: Coding Question(s): Atypical chest pain is documented with documentation on the Discharge Summary under Principal Diagnosis of, " chest pain rule out ACS", and it is not clear if this is Acute Coronary Syndrome is ruled out, or is still possible. There is also documentation on the Discharge Summary of, "You will be discharged on increased dose of pantoprazole for concern of gastritis related symptoms", and documentation on the 09/26 Cardiology Consultation of, "Chest pain resolved with carafate in the ER, suggesting GI etiology". Please specify below, in your clinical opinion: ( ) Atypical Chest pain is due to unknown likely cause, and ACS is Ruled Out ( ) Atypical Chest pain is most likely due to possible ACS - Acute Coronary Syndrome (x ) Atypical Chest pain is most likely due to Gastritis, and ACS is Ruled Out ( ) Atypical Chest pain is most likely due to Other: Please Specify Physician's Response(s): Thank you Porsha Quintana Principal Diagnosis: "that condition established after study, to be chiefly responsible for occasioning the admission of the patient to the hospital for care." Co-Existing Principal Diagnosis: "when two or more diagnoses equally meet the criteria for principal diagnosis as determined by the circumstances of admission, diagnostic work up, and/or therapy provided, and the Alphabetic Index, Tabular List, or another coding guideline does not provide sequencing direction, any one of the diagnoses may be sequenced first." "When the physician has documented what appears to be a current diagnosis in the body of the record, but has not included the diagnosis in the final diagnostic statement, the physician should be asked whether the diagnosis should be added." (Source Coding Clinic 2 QTR90. p3-4) GIOVANNI
== END 2024-09-26 16:30 | disposition home or self-care (01) | DRG 392 ==
LOC: ED 15:49 → EDINP 19:50 → INTOOBSV 19:50 → OBSVTOIN 19:50 → EDINP 21:40